=== PATIENT | female | born 1945 | race Caucasian/White ===

== ENCOUNTER 2016-12-03 12:00 | Inpatient (IN) | payer OTHER ==
[~2016-12-03] VITALS: Ht 157.5 cm; Wt 67.8 kg
[~2016-12-03 12:00] MED LIST: ATEN50TA8 PO; CALC500C3 PO; CLOP1TAB15 PO; DULO-24 PO; GABA-113 PO; GLC/500 PO; HYDR25TA4 PO; ISOS30TA3 PO; METH2.5T PO; NTRGSL/4 UT; PRED10TA PO; SIMV20TA5 PO; VERA120T2 PO
[2016-12-03] MEDS ORDERED: SODIUM CHLORIDE 0.9% 1000ML 1,000 ML IV STA (13:08)
[2016-12-03] MEDS ORDERED: SODIUM CHLORIDE 0.9% 1000ML 250 ML IV STA (13:08)
--- NOTE | 2016-12-03 13:10 | EMERGENCY ROOM VISIT NOTE ---
History Report prepared by Lyla: Temo Cheema Under the Supervision of: Dr. Nasim Watson M.D. First contact with patient: 12:59 Chief Complaint: ILLNESS Stated Complaint: ILLNESS History of Present Illness The patient is a 71 year old female who presents to the Emergency Room with complaints of increased weakness of the bilateral lower extremities for the past week. As per her son, the patient has fallen at least three times this week secondary to weakness. Her son has had to pick her up off of the floor. She did not hit her head or lose coconsciousness when she fell. The son does not believe that she has spent extended periods of time on the ground after her falls. The patient also complains of a headache and cough. She has back pain, but is not sure if it is new. The patient has had right foot pain and swelling since one of the falls this week. The patient's son also notes that she has been incontinent at night multiple times this week, and her urine is abnormally foul-smelling. The patient denies any syncope, fevers, chest pain, shortness of breath, abdominal pain, or hematuria. She has not been keeping up with her fluids. The patient lives with her , and her son lives down the street. She has a history of UTIs. The patient is on a blood thinner for a history of CAD and s/p stent placement. She does not have a history of cancer or arthritis. The patient is on Methotrexate. Source of History: patient, family Onset: one week Position: leg (bilateral) Quality: other (weakness) Timing: other (increased) Associated Symptoms: + back pain, + cough, + headache, + urinary symptoms, No SOB, No abdominal pain, No chest pain, No fevers Review of Systems See HPI for pertinent positives & negatives. A total of 10 systems reviewed and were otherwise negative. Past Medical & Surgical Medical Problems: (1) Benign hypertension (2) Cataract surgery (3) Coronary artery disease (4) CVA/TIA/Stroke (5) Diabetes (6) Heart disease (7) Hyperlipidemia (8) Hysterectomy (9) Knee surgery (10) Migraines (11) Otitis (12) PERSONAL HX OF TIA,& CEREBRAL INFARCTION W/OUT RES DEFICITS (13) Placement of stent (14) UTI (urinary tract infection) (15) Weakness Old medical records were reviewed. Nurse's notes were reviewed and I agree with. Family History Patient reports no known family medical history. Social History Smoking Status: Never Smoker Alcohol Use: none Drug Use: none Marital Status: Housing Status: lives with family Occupation Status: retired Current/Historical Medications Scheduled Atenolol (Tenormin), 50 MG PO BID Clopidogrel (Plavix), 75 MG PO Q2D Gabapentin (Neurontin), 300 MG PO TID Isosorbide Mononitrate Ext Rel (Imdur Ext Rel), 30 MG PO QAM Metformin Hcl (Glucophage), 500 MG PO BID Methotrexate (Methotrexate), 8 TABS PO WK Nitroglycerin (Nitrostat), 0.4 MG UT PRN Simvastatin (Zocor), 20 MG PO QPM Verapamil Sust Rel (Calan Sr Ext Rel), 120 MG PO DAILY Scheduled PRN Prednisone Tab (Prednisone), 10 MG PO UD PRN Allergies Coded Allergies: Codeine (Verified Allergy, Unknown, MORPHINE OK, 12/03/16) Latex2 -Systemic Allergic Response (Verified Allergy, Unknown, UNKNOWN, ) Physical Exam Vital Signs Date Time Temp Pulse Resp B/P Pulse Ox O2 Delivery O2 Flow Rate FiO2 12/03/16 14:00 70 16 142/75 96 Room Air 12/03/16 12:18 36.9 70 18 135/75 95 Room Air Physical Exam General: Non ill-appearing female with occasional cough but otherwise in no acute distress. HEENT: Normal cephalic atraumatic. Pupils are equal round and reactive to light. Sclerae are anicteric. Extraocular movements are intact. Oropharynx is pink with moist mucous membranes. No swelling of the mouth lips or tongue. Neck: Supple with a midline trachea. No meningeal signs or stiffness, no JVD or bruits. No Stridor. Chest: Clear to auscultation bilaterally. No wheezes or rhonchi. No increased work of breathing. Heart: regular rate and rhythm. Abdomen: Soft nontender, nondistended without rebound guarding or rigidity. Extremities: No cyanosis clubbing or edema. No calf tenderness or assymetry. Mild swelling of the lateral right ankle. Spine/Back. Non tender to palpation. No CVA tenderness Skin: Good turgor without rashes. Neurologic exam: Cranial nerves two through 12 are intact. Motor and sensation are intact and symmetrical throughout. Medical Decision & Procedures ER Provider Diagnostic Interpretation: X ray results as stated below per my interpretation and radiologist interpretation. Other radiology results as stated below per my review and radiologist interpretation: RIGHT ANKLE MIN 3 VIEWS ROUTINE CLINICAL HISTORY: Right ankle pain following trauma. COMPARISON: None FINDINGS: No acute fracture is identified. A transverse band of sclerosis within the distal right tibia is chronic. Talar dome is intact. There is possible osteopenia. Extensive vascular calcification is present. IMPRESSION: No acute fracture or dislocation of the right ankle identified although sensitivity diminished given apparent osteopenia. Electronically signed by: Vishnu Lewis M.D. 12/03/2016 1:38 PM Dictated Date/Time: 12/03/2016 1:35 PM CHEST ONE VIEW PORTABLE CLINICAL HISTORY: Chest pain. COMPARISON STUDY: Chest radiograph December 08, 2015. FINDINGS: There are cholecystectomy clips. No pneumothorax or pleural effusion is present. No consolidation is identified. Cardiac size is normal. Mediastinal contours are normal. There is no evidence of pulmonary edema. The appearance of the chest is unchanged. IMPRESSION: No acute cardiopulmonary findings. Electronically signed by: Vishnu Lewis M.D. 12/03/2016 1:35 PM Dictated Date/Time: 12/03/2016 1:[address] OF THE HEAD WITHOUT CONTRAST CLINICAL HISTORY: Frequent falls. Evaluate for intracranial hemorrhage. COMPARISON STUDY: Head CT April 29, 2014. CT DOSE: 601.98 mGy.cm TECHNIQUE: Helical axial images of the head were obtained without IV contrast. Automated exposure control was utilized for the study. FINDINGS: No acute intracranial hemorrhage, midline shift or mass effect is present. Ventricular system is unremarkable for age. The basilar cisterns are patent. Atrophy is noted. There is an old lacunar infarct within the left basal ganglia which is new since head CT of April 29, 2014. White matter hypodensity suggests small vessel disease. There are no findings to suggest acute dural sinus thrombosis or acute territorial infarct. There is no calvarial fracture. Visualized portions of the mastoid air cells are clear. There is minimal mucosal thickening of the ethmoid sinuses. IMPRESSION: 1. No acute intracranial findings. 2. Old lacunar infarct within the left basal ganglia which is new since head CT of April 29, 2014. 3. No calvarial fracture. Electronically signed by: Vishnu Lewis M.D. 12/03/2016 2:47 PM Dictated Date/Time: 12/03/2016 2:44 PM Laboratory Results 12/03/16 12:25 Red Blood Count 2.98, Mean Corpuscular Volume 101.0, Mean Corpuscular Hemoglobin 34.9, Mean Corpuscular Hemoglobin Concent 34.6, Mean Platelet Volume 9.1 12/03/16 12:25 Test 12/03/16 12:25 12/03/16 13:08 12/03/16 13:19 12/03/16 13:55 White Blood Count 2.06 K/uL (4.8-10.8) Red Blood Count 2.98 M/uL (4.2-5.4) Hemoglobin 10.4 g/dL (12.0-16.0) Hematocrit 30.1 % (37-47) Mean Corpuscular Volume 101.0 fL (80-100) Mean Corpuscular Hemoglobin 34.9 pg (25-34) Mean Corpuscular Hemoglobin Concent 34.6 g/dl (32-36) Platelet Count 58 K/uL (130-400) Mean Platelet Volume 9.1 fL (7.4-10.4) RDW Standard Deviation 62.6 fL (36.4-46.3) RDW Coefficient of Variation 17.1 % (11.5-14.5) Neutrophils % (Manual) 54.7 % Lymphocytes % (Manual) 33.9 % Monocytes % (Manual) 9.6 % Basophils % (Manual) 0.9 % Metamyelocytes % 0.9 % Neutrophils # (Manual) 1.13 K/uL (1.4-6.5) Total Absolute Neutrophils 1.13 K/uL (1.4-6.5) Lymphocytes # (Manual) 0.70 K/uL (1.2-3.4) Total Absolute Lymphocytes 0.70 K/uL (1.2-3.4) Monocytes # (Manual) 0.20 K/uL (0.11-0.59) Basophils # (Manual) 0.02 K/uL (0-0.2) Metamyelocytes # 0.02 K/uL (0-0) Large Platelets 1+ Anisocytosis PRESENT Macrocytosis PRESENT Prothrombin Time 13.6 SECONDS (9.0-12.0) Prothromb Time International Ratio 1.3 (0.9-1.1) Activated Partial Thromboplast Time 31.4 SECONDS (21.0-31.0) Partial Thromboplastin Ratio 1.2 Anion Gap 11.0 mmol/L (3-11) Est Creatinine Clear Calc Drug Dose 58.7 ml/min Estimated GFR () 88.8 Estimated GFR (Non- 76.6 BUN/Creatinine Ratio 11.2 (10-20) Calcium Level 7.3 mg/dl (8.5-10.1) Total Bilirubin 0.7 mg/dl (0.2-1) Direct Bilirubin 0.3 mg/dl (0-0.2) Aspartate Amino Transf (AST/SGOT) 42 U/L (15-37) Alanine Aminotransferase (ALT/SGPT) 25 U/L (12-78) Alkaline Phosphatase 86 U/L (45-117) Total Creatine Kinase 75 U/L (26-192) Creatine Kinase MB 0.6 ng/ml (0.5-3.6) Total Protein 5.5 gm/dl (6.4-8.2) Albumin 2.9 gm/dl (3.4-5.0) Lipase 138 U/L (73-393) Creatine Kinase MB Ratio (0-3.0) Bedside Troponin I 0.000 ng/ml (0-0.045) YN-Hgd-U-Type Natriuretic Peptide 1816 pg/ml (0-900) Urine Color YELLOW Urine Appearance CLOUDY (CLEAR) Urine pH 6.0 (4.5-7.5) Urine Specific [place] 1.019 (1.000-1.030) Urine Protein 2+ (NEG) Urine Glucose (UA) NEG (NEG) Urine Ketones NEG (NEG) Urine Occult Blood 1+ (NEG) Urine Nitrite POS (NEG) Urine Bilirubin NEG (NEG) Urine Urobilinogen NEG (NEG) Urine Leukocyte Esterase LARGE (NEG) Urine WBC (Auto) >30 /hpf (0-5) Urine RBC (Auto) 5-10 /hpf (0-4) Urine Hyaline Casts (Auto) 1-5 /lpf (0-5) Urine Epithelial Cells (Auto) 10-20 /lpf (0-5) Urine Bacteria (Auto) 4+ (NEG) Laboratory studies as stated above per my review. Medications Administered Medications (Trade) Dose Ordered Sig/Sonam Route Start Time Stop Time Status Last Admin Dose Admin Sodium Chloride 250 ml @ 999 mls/hr Q16M STAT IV 12/03/16 13:08 12/03/16 13:23 DC 12/03/16 13:08 999 MLS/HR Sodium Chloride 1,000 ml @ 100 mls/hr Q10H STAT IV 12/03/16 13:08 12/03/16 17:19 DC 12/03/16 14:48 100 MLS/HR Cefepime HCl/ Dextrose (Maxipime IV/D5 100ml) 112.5 ml @ 200 mls/hr ONE STAT IV 12/03/16 14:26 12/03/16 14:59 DC 12/03/16 15:33 200 MLS/HR Acetaminophen (Tylenol Tab) 650 mg Q4H PRN PO 12/03/16 15:15 01/02/17 15:14 12/03/16 18:54 650 MG ECG Indication: weakness Rate (beats per minute): 70 Rhythm: normal sinus Findings: no acute ischemic change, prolonged QT, no ectopy Comparison ECG Date: 2015 Change: Non-specific T wave abnormality has resolved. ED Course 1300: Past medical records reviewed. The patient was evaluated in room A9b, and a complete history and physical examination were performed. 1308: NSS 1000 ml @ 100 mls/hr, NSS 250 ml @ 999 mls/hr. 1426: Cefepime HCl 2000 mg / dextrose 112.5 ml 200 mls/hr. 1430: Talked with the patient. She is waiting to go to CT scan. I also spoke with her . 1443: Spoke with Dr. Becerra, [place] [facility]. The patient will be evaluated. Medical Decision Differential diagnosis includes UTI, pneumonia, influenza, dehydration, arrhythmia, intracranial process, electrolyte or metabolic abnormality. This patient comes in as described above. She was placed in room A9. She brought in by her family after having frequent falls and weakness. She also has foul-smelling urine. They are concerned about a UTI and she's presented similarly before. She's had no known trauma. She had no chest pain. she has had a cough and possible flulike symptoms. She looks well on exam. IV access was established. She has a nonfocal neurologic exam. she was hydrated with IV normal saline. she is afebrile here. EKG was obtained as well as a CAT scan of her head given that she has fallen several times. She multiple blood testing obtained as well as urinalysis culture and blood cultures. She was found to have some mild ppancytopenia. Her urinalysis strongly suggest a UTI and was foul-smelling. she was given cefepime 2 g IV for coverage of her urine and the fact that she was close to be neutropenic although she was had an ANC of greater than 1000. CAT scan of her head is unremarkable. She has no significant electrode or metabolic abnormalities to suggest sepsis at this point. X-ray of her ankle was unremarkable. chest x-ray does not suggest pneumonia or pneumothorax or CHF. I do think she needs to be admitted for IV antibiotics further treatment and evaluation. I have consulted Dr. Donohue , who promptly saw the patient ER and will admit her for these measures. Consults Time Called: 1440 Consulting Physician: Dr. Becerra [facility] Returned Call: [phone]: Spoke with Dr. Becerra [facility]. The patient will be evaluated. Impression Primary Impression: UTI (urinary tract infection) Additional Impressions: Weakness Pancytopenia Scribe Attestation The scribe's documentation has been prepared under my direction and personally reviewed by me in its entirety. I confirm that the note above accurately reflects all work, treatment, procedures, and medical decision making performed by me. Departure Information Dispostion Being Evaluated By Hospitalist Referrals Robin Brito III, CRNP (PCP) Patient Instructions My [facility] Problem Qualifiers
--- NOTE | 2016-12-03 13:36 | DIAGNOSTIC IMAGING REPORT ---
CHEST ONE VIEW PORTABLE CLINICAL HISTORY: Chest pain. COMPARISON STUDY: Chest radiograph December 08, 2015. FINDINGS: There are cholecystectomy clips. No pneumothorax or pleural effusion is present. No consolidation is identified. Cardiac size is normal. Mediastinal contours are normal. There is no evidence of pulmonary edema. The appearance of the chest is unchanged. IMPRESSION: No acute cardiopulmonary findings. Electronically signed by: Vishnu Lewis M.D. 12/03/2016 1:35 PM Dictated Date/Time: 12/03/2016 1:33 PM
[2016-12-03 13:37] LABS: INR 1.3 (0.9-1.1); PARTIAL THROMBOPLASTIN RATIO 1.2; PROTHROMBIN TIME (PATIENT) 13.6 SECONDS (9.0-12.0)
--- NOTE | 2016-12-03 13:39 | DIAGNOSTIC IMAGING REPORT ---
RIGHT ANKLE MIN 3 VIEWS ROUTINE CLINICAL HISTORY: Right ankle pain following trauma. COMPARISON: None FINDINGS: No acute fracture is identified. A transverse band of sclerosis within the distal right tibia is chronic. Talar dome is intact. There is possible osteopenia. Extensive vascular calcification is present. IMPRESSION: No acute fracture or dislocation of the right ankle identified although sensitivity diminished given apparent osteopenia. Electronically signed by: Vishnu Lewis M.D. 12/03/2016 1:38 PM Dictated Date/Time: 12/03/2016 1:35 PM
[2016-12-03 13:46] LABS: HEMATOCRIT 30.1 % (37-47); MEAN CORPUSCULAR HEMOGLOBIN 34.9 pg (25-34); MEAN CORPUSCULAR HGB CONC 34.6 g/dl (32-36); MEAN PLATELET VOLUME 9.1 fL (7.4-10.4); PLATELET COUNT 58 K/uL (130-400); RED BLOOD COUNT 2.98 M/uL (4.2-5.4); WHITE BLOOD COUNT 2.06 K/uL (4.8-10.8)
[2016-12-03 13:48] LABS: BUN/CREATININE RATIO 11.2 (10-20); CALCIUM 7.3 mg/dl (8.5-10.1); CREATININE 0.77 mg/dl (0.60-1.20); POTASSIUM 3.8 mmol/L (3.5-5.1)
[2016-12-03 13:53] LABS: CKMB/CK RATIO 0.8 (0-3.0)
[2016-12-03 14:07] LABS: ANISOCYTOSIS PRESENT; BASO ABS # 0.02 K/uL (0-0.2); BASOPHIL % 0.9 %; COMPLETE YES; LARGE PLATELETS 1+; LYMPHOCYTE % 33.9 %; META ABS # 0.02 K/uL (0-0); METAMYELOCYTE % 0.9 %; NEUTROPHILS % 54.7 %
[2016-12-03] MEDS ORDERED: CEFEPIME IV 2,000 MG in DEXTROSE 5% 100ML 100 ML IV STA (14:26)
[2016-12-03 14:31] LABS: URINE APPEARANCE CLOUDY (CLEAR); URINE BILIRUBIN NEG (NEG); URINE COLOR YELLOW; URINE NITRITE POS (NEG); URINE SPECIFIC GRAVITY 1.019 (1.000-1.030); UROBILINOGEN NEG (NEG)
[2016-12-03 14:32] LABS: MANUAL MICROSCOPIC REQUIRED? NO; REVIEW REQ? NO
--- NOTE | 2016-12-03 14:48 | DIAGNOSTIC IMAGING REPORT ---
CT OF THE HEAD WITHOUT CONTRAST CLINICAL HISTORY: Frequent falls. Evaluate for intracranial hemorrhage. COMPARISON STUDY: Head CT April 29, 2014. CT DOSE: 601.98 mGy.cm TECHNIQUE: Helical axial images of the head were obtained without IV contrast. Automated exposure control was utilized for the study. FINDINGS: No acute intracranial hemorrhage, midline shift or mass effect is present. Ventricular system is unremarkable for age. The basilar cisterns are patent. Atrophy is noted. There is an old lacunar infarct within the left basal ganglia which is new since head CT of April 29, 2014. White matter hypodensity suggests small vessel disease. There are no findings to suggest acute dural sinus thrombosis or acute territorial infarct. There is no calvarial fracture. Visualized portions of the mastoid air cells are clear. There is minimal mucosal thickening of the ethmoid sinuses. IMPRESSION: 1. No acute intracranial findings. 2. Old lacunar infarct within the left basal ganglia which is new since head CT of April 29, 2014. 3. No calvarial fracture. Electronically signed by: Vishnu Lewis M.D. 12/03/2016 2:47 PM Dictated Date/Time: 12/03/2016 2:44 PM
[2016-12-03] MEDS ORDERED: ZOLPIDEM TARTRATE 5 MG TAB PO PRN (15:15)
[2016-12-03] MEDS ORDERED: CEFTRIAXONE SOD INJ 1 GM in DEXTROSE 5% ADD-VANTAGE 50ML 50 ML IV SCH (15:30)
[2016-12-03 16:00] VITALS: O2SAT 96; Ht 157.5 cm; Wt 67.8 kg
[2016-12-03 17:25] VITALS: BP 147/82; PULSE 73; TEMP 37.1; O2SAT 94
[2016-12-03] MEDS: ACETAMINOPHEN 325 MG TAB PO PRN (18:54)
[2016-12-03] MEDS ORDERED: PNEUMOCOCCAL POLYSACCHARIDES 25 MCG/0.5 ML VIAL/SYR IM. ONE (19:30)
[2016-12-03] MEDS ORDERED: INFLUENZA ADMINISTRATION CHARGE ONE (19:30)
[2016-12-03] MEDS ORDERED: PNEUMOCOCCAL ADMINISTRATION CHARGE ONE (19:30)
--- NOTE | 2016-12-03 19:40 | History and Physical ---
History & Physical Date & Time of Service: Dec 03, 2016 at 19:30 Chief Complaint: Uti, Weakness Primary Care Physician: Robin Brito III, CRNP History of Present Illness Source: patient, spouse The patient is a 71-year-old female who presents emergency department with progressively worsening generalized weakness with decreased ability to ambulate over the past week, and 3 episodes of urinary incontinence in the past 24 hours. She has developed a generalized headache, and intermittently productive cough, and his developed a return of lower extremity edema. She does have a history of recurrent UTIs, as noted her urine is more constant more foul- smelling over the past week. She is on methotrexate weekly. Past Medical/Surgical History Medical Problems: (1) Benign hypertension Status: Chronic (2) Cataract surgery Status: Resolved (3) Coronary artery disease Status: Chronic (4) CVA/TIA/Stroke Status: Chronic (5) Diabetes Status: Chronic (6) Heart disease Status: Chronic (7) Hyperlipidemia Status: Chronic (8) Hysterectomy Status: Resolved (9) Knee surgery Status: Resolved (10) Migraines Status: Chronic (11) Placement of stent Status: Resolved Family History Patient reports no known family medical history. Social History Smoking Status: Never Smoker Smokeless Tobacco Use: No Alcohol Use: none Drug Use: none Marital Status: Housing status: lives with family Occupational Status: retired Immunizations History of Influenza Vaccine: Yes Influenza Vaccine Date: Jul 04, 2011 History of Tetanus Vaccine?: Yes Tetanus Immunization Date: Sep 28, 1995 History of Pneumococcal: Yes Pneumococcal Date: Jun 08, 2011 History of Hepatitis B Vaccine: Yes Hepatitis Immunization Date: Sep 28, 1995 Multi-Drug Resistant Organisms History of MDRO: No Allergies Coded Allergies: Codeine (Verified Allergy, Unknown, MORPHINE OK, 12/03/16) Latex2 -Systemic Allergic Response (Verified Allergy, Unknown, UNKNOWN, ) Home Medications Scheduled Atenolol (Tenormin), 50 MG PO BID Clopidogrel (Plavix), 75 MG PO Q2D Gabapentin (Neurontin), 300 MG PO TID Isosorbide Mononitrate Ext Rel (Imdur Ext Rel), 30 MG PO QAM Metformin Hcl (Glucophage), 500 MG PO BID Methotrexate (Methotrexate), 8 TABS PO WK Nitroglycerin (Nitrostat), 0.4 MG UT PRN Simvastatin (Zocor), 20 MG PO QPM Verapamil Sust Rel (Calan Sr Ext Rel), 120 MG PO DAILY Scheduled PRN Prednisone Tab (Prednisone), 10 MG PO UD PRN Review of Systems The patient denies vision change, hearing change, sore throat, fevers, chills, sweats, weight change, nausea, vomiting, abdominal pain, pelvic pain, blood in urine or stool, dysuria, memory loss, rash, abnormal bruising or bleeding, focal weakness, night sweats, or allergy symptoms. The review of systems is otherwise negative other than for that already noted above, and at least 10 systems have been reviewed. Physical Exam Vital Signs Date Time Temp Pulse Resp B/P Pulse Ox O2 Delivery O2 Flow Rate FiO2 12/03/16 17:25 37.1 73 18 147/82 94 Room Air 12/03/16 16:39 72 18 134/75 96 Room Air 12/03/16 16:00 78 20 127/78 96 Room Air 12/03/16 16:00 96 Room Air 12/03/16 14:00 70 16 142/75 96 Room Air 12/03/16 12:18 36.9 70 18 135/75 95 Room Air The patient is awake, alert and oriented 3, normocephalic and atraumatic, appears fatigued, lying in bed and in no acute distress. HEENT--PERRL, EOMI, mucous membranes and oropharynx dry. Neck--supple, no JVD or bruits, thyroid normal, trachea midline, no adenopathy. Heart--normal S1 and S2, no extra beats, no murmurs, rubs or gallops. Lungs--clear bilaterally but diminished throughout, no respiratory distress, no accessory muscle use. Abdomen--normal bowel sounds and soft, nontender and nondistended, no hernias or masses, no organomegaly. Extremities--no cyanosis, clubbing.there is bilaterally trace to 1+ pitting edema, right greater than left. There are good distal pulses b/l. Dermatologic--normal skin turgor, normal color, warm and dry, no abnormal lymph nodes, no rash. Neurologic--cranial nerves II through XII grossly intact, motor and sensory examination normal. Psychiatric--normal affect. Diagnostics Laboratory Results Results Past 24 Hours Test 12/03/16 12:25 2/18/17 13:08 12/03/16 13:19 12/03/16 13:55 Range/Units White Blood Count 2.06 4.8-10.8 K/uL Red Blood Count 2.98 4.2-5.4 M/uL Hemoglobin 10.4 12.0-16.0 g/dL Hematocrit 30.1 37-47 % Mean Corpuscular Volume 101.0 80-100 fL Mean Corpuscular Hemoglobin 34.9 25-34 pg Mean Corpuscular Hemoglobin Concent 34.6 32-36 g/dl Platelet Count 58 130-400 K/uL Mean Platelet Volume 9.1 7.4-10.4 fL RDW Standard Deviation 62.6 36.4-46.3 fL RDW Coefficient of Variation 17.1 11.5-14.5 % Neutrophils % (Manual) 54.7 % Lymphocytes % (Manual) 33.9 % Monocytes % (Manual) 9.6 % Basophils % (Manual) 0.9 % Metamyelocytes % 0.9 % Neutrophils # (Manual) 1.13 1.4-6.5 K/uL Total Absolute Neutrophils 1.13 1.4-6.5 K/uL Lymphocytes # (Manual) 0.70 1.2-3.4 K/uL Total Absolute Lymphocytes 0.70 1.2-3.4 K/uL Monocytes # (Manual) 0.20 0.11-0.59 K/uL Basophils # (Manual) 0.02 0-0.2 K/uL Metamyelocytes # 0.02 0-0 K/uL Large Platelets 1+ Anisocytosis PRESENT Macrocytosis PRESENT Prothrombin Time 13.6 9.0-12.0 SECONDS Prothromb Time International Ratio 1.3 0.9-1.1 Activated Partial Thromboplast Time 31.4 21.0-31.0 SECONDS Partial Thromboplastin Ratio 1.2 Sodium Level 144 136-145 mmol/L Potassium Level 3.8 3.5-5.1 mmol/L Chloride Level 109 98-107 mmol/L Carbon Dioxide Level 24 21-32 mmol/L Anion Gap 11.0 3-11 mmol/L Blood Urea Nitrogen 9 7-18 mg/dl Creatinine 0.77 0.60-1.20 mg/dl Est Creatinine Clear Calc Drug Dose 58.7 ml/min Estimated GFR () 88.8 Estimated GFR (Non- 76.6 BUN/Creatinine Ratio 11.2 10-20 Random Glucose 93 70-99 mg/dl Calcium Level 7.3 8.5-10.1 mg/dl Total Bilirubin 0.7 0.2-1 mg/dl Direct Bilirubin 0.3 0-0.2 mg/dl Aspartate Amino Transf (AST/SGOT) 42 15-37 U/L Alanine Aminotransferase (ALT/SGPT) 25 12-78 U/L Alkaline Phosphatase 86 45-117 U/L Total Creatine Kinase 75 26-192 U/L Creatine Kinase MB 0.6 0.5-3.6 ng/ml Creatine Kinase MB Ratio 0.8 0-3.0 Total Protein 5.5 6.4-8.2 gm/dl Albumin 2.9 3.4-5.0 gm/dl Lipase 138 73-393 U/L Bedside Troponin I 0.000 0-0.045 ng/ml [id number]-[id number]-Type Natriuretic Peptide 1816 0-900 pg/ml Urine Color YELLOW Urine Appearance CLOUDY CLEAR Urine pH 6.0 4.5-7.5 Urine Specific [place] 1.019 1.000-1.030 Urine Protein 2+ NEG Urine Glucose (UA) NEG NEG Urine Ketones NEG NEG Urine Occult Blood 1+ NEG Urine Nitrite POS NEG Urine Bilirubin NEG NEG Urine Urobilinogen NEG NEG Urine Leukocyte Esterase LARGE NEG Urine WBC (Auto) >30 0-5 /hpf Urine RBC (Auto) 5-10 0-4 /hpf Urine Hyaline Casts (Auto) 1-5 0-5 /lpf Urine Epithelial Cells (Auto) 10-20 0-5 /lpf Urine Bacteria (Auto) 4+ NEG Microbiology Results 12/03/16 Blood Culture, Received Pending 12/03/16 Blood Culture, Received Pending 12/03/16 Urine Culture, Received Pending Diagnostic Radiology Patient Name: MARINA JOHNS Unit Number: [id number] Dictated: 12/03/161443 Transcribed: 12/03/161443 JOHN Printed Date/Time: [~ rep prt dt]/[~ rep prt tm] [~ rep ct labl] - [~ rep ct ivnm] [facility] [place] [address] Dictated: 12/03/161443 Transcribed: 12/03/161443 JOHN Printed Date/Time: [~ rep prt dt]/[~ rep prt tm] [~ rep ct labl] - [~ rep ct ivnm] [~ rep ct add3]] CT OF THE HEAD WITHOUT CONTRAST CLINICAL HISTORY: Frequent falls. Evaluate for intracranial hemorrhage. COMPARISON STUDY: Head CT April 29, 2014. CT DOSE: 601.98 mGy.cm TECHNIQUE: Helical axial images of the head were obtained without IV contrast. Automated exposure control was utilized for the study. FINDINGS: No acute intracranial hemorrhage, midline shift or mass effect is present. Ventricular system is unremarkable for age. The basilar cisterns are patent. Atrophy is noted. There is an old lacunar infarct within the left basal ganglia which is new since head CT of April 29, 2014. White matter hypodensity suggests small vessel disease. There are no findings to suggest acute dural sinus thrombosis or acute territorial infarct. There is no calvarial fracture. Visualized portions of the mastoid air cells are clear. There is minimal mucosal thickening of the ethmoid sinuses. IMPRESSION: 1. No acute intracranial findings. 2. Old lacunar infarct within the left basal ganglia which is new since head CT of April 29, 2014. 3. No calvarial fracture. Electronically signed by: Vishnu Lewis M.D. 12/03/2016 2:47 PM Dictated Date/Time: 12/03/2016 2:44 PM The status of this report is Signed. Draft = Not yet reviewed or approved by Radiologist. Signed = Reviewed and approved by Radiologist. <AttendingPhy></AttendingPhy> <FamilyPhy>Robin Brito III, CRNP</FamilyPhy> < PrimaryPhy>Robin Brito III, CRNP</PrimaryPhy> <UnitNumber>[id number]</ UnitNumber> <VisitNumber>[id number]</VisitNumber> <PatientName>MARINA JOHNS </PatientName> <DateOfBirth>1945</DateOfBirth> <Location>[facility]</Location> <ServiceDate>12/03/16</ServiceDate> <MNE>ESINDI</MNE> <OrderingPhy>Nasim Watson M.D.</OrderingPhy> <OrderingPhyMNE>f rep ord dr dahl</OrderingPhyMNE> < DictatingPhyMNE>f rep dict dr dahl</DictatingPhyMNE> <CCListMNE>f rep ct mne</ CCListMNE> <AdmittingPhyMNE>f pt admit dr dahl</AdmittingPhyMNE> <AttendingPhyMNE >f pt attend dr dahl</AttendingPhyMNE> <ConsultingPhyMNE>f pt consult dr dahl</ConsultingPhyMNE> <FamilyPhyMNE>f pt fam dr dahl</FamilyPhyMNE> <OtherPhyMNE>f pt other dr dahl</OtherPhyMNE> < PrimaryPhyMNE>f pt prim care dr dahl</PrimaryPhyMNE> <ReferringPhyMNE>f pt referring dr dahl</ReferringPhyMNE> Patient Name: MARINA JOHNS Unit Number: [id number] Dictated: 12/03/161332 Transcribed: 12/03/161332 JA Printed Date/Time: [~ rep prt dt]/[~ rep prt tm] [~ rep ct labl] - [~ rep ct ivnm] [facility] Radiology Department [place] [id number] Dictated: 12/03/161332 Transcribed: 12/03/161332 JA Printed Date/Time: [~ rep prt dt]/[~ rep prt tm] [~ rep ct labl] - [~ rep ct ivnm] CHEST ONE VIEW PORTABLE CLINICAL HISTORY: Chest pain. COMPARISON STUDY: Chest radiograph December 08, 2015. FINDINGS: There are cholecystectomy clips. No pneumothorax or pleural effusion is present. No consolidation is identified. Cardiac size is normal. Mediastinal contours are normal. There is no evidence of pulmonary edema. The appearance of the chest is unchanged. IMPRESSION: No acute cardiopulmonary findings. Electronically signed by: Vishnu Lewis M.D. 12/03/2016 1:35 PM Dictated Date/Time: 12/03/2016 1:33 PM The status of this report is Signed. Draft = Not yet reviewed or approved by Radiologist. Signed = Reviewed and approved by Radiologist. <AttendingPhy></AttendingPhy> <FamilyPhy>Robin Brito III, CRNP</FamilyPhy> < PrimaryPhy>Robin Brito III, FLOOR DIRECTOR</PrimaryPhy> <UnitNumber>[id number]</ UnitNumber> <VisitNumber>[id number]</VisitNumber> <PatientName>MARINA JOHNS </PatientName> <DateOfBirth>1945</DateOfBirth> <Location>[facility]</Location> <ServiceDate>12/03/16</ServiceDate> <MNE>ESINDI</MNE> <OrderingPhy>Nasim Watson M.D.</OrderingPhy> <OrderingPhyMNE>f rep ord dr dahl</OrderingPhyMNE> < DictatingPhyMNE>f rep dict dr dahl</DictatingPhyMNE> <CCListMNE>f rep ct mne</ CCListMNE> <AdmittingPhyMNE>f pt admit dr dahl</AdmittingPhyMNE> <AttendingPhyMNE >f pt attend dr dahl</AttendingPhyMNE> <ConsultingPhyMNE>f pt consult dr dahl</ConsultingPhyMNE> <FamilyPhyMNE>f pt fam dr dahl</FamilyPhyMNE> <OtherPhyMNE>f pt other dr dahl</OtherPhyMNE> < PrimaryPhyMNE>f pt prim care dr dahl</PrimaryPhyMNE> <ReferringPhyMNE>f pt referring dr dahl</ReferringPhyMNE> Patient Name: MARINA JOHNS Unit Number: [id number] Dictated: 12/03/161334 Transcribed: 12/03/161334 JA Printed Date/Time: [~ rep prt dt]/[~ rep prt tm] [~ rep ct labl] - [~ rep ct ivnm] [facility] [place] [address] Dictated: 12/03/161334 Transcribed: 12/03/161334 JA Printed Date/Time: [~ rep prt dt]/[~ rep prt tm] [~ rep ct labl] - [~ rep ct ivnm] RIGHT ANKLE MIN 3 VIEWS ROUTINE CLINICAL HISTORY: Right ankle pain following trauma. COMPARISON: None FINDINGS: No acute fracture is identified. A transverse band of sclerosis within the distal right tibia is chronic. Talar dome is intact. There is possible osteopenia. Extensive vascular calcification is present. IMPRESSION: No acute fracture or dislocation of the right ankle identified although sensitivity diminished given apparent osteopenia. Electronically signed by: Vishnu Lewis M.D. 12/03/2016 1:38 PM Dictated Date/Time: 12/03/2016 1:35 PM The status of this report is Signed. Draft = Not yet reviewed or approved by Radiologist. Signed = Reviewed and approved by Radiologist. <AttendingPhy></AttendingPhy> <FamilyPhy>Robin Brito III, CRNP</FamilyPhy> < PrimaryPhy>Robin Brito III, CRNP</PrimaryPhy> <UnitNumber>[id number]</ UnitNumber> <VisitNumber>[id number]</VisitNumber> <PatientName>MARINA JOHNS </PatientName> <DateOfBirth>1945</DateOfBirth> <Location>[facility]</Location> <ServiceDate>12/03/16</ServiceDate> <MNE>ESINDI</MNE> <OrderingPhy>Nasim Watson M.D.</OrderingPhy> <OrderingPhyMNE>f rep ord dr dahl</OrderingPhyMNE> < DictatingPhyMNE>f rep dict dr dahl</DictatingPhyMNE> <CCListMNE>f rep ct [place]</ CCListMNE> <AdmittingPhyMNE>f pt admit dr dahl</AdmittingPhyMNE> <AttendingPhyMNE >f pt attend dr dahl</AttendingPhyMNE> <ConsultingPhyMNE>f pt consult dr dahl</ConsultingPhyMNE> <FamilyPhyMNE>f pt fam dr dahl</FamilyPhyMNE> <OtherPhyMNE>f pt other dr dahl</OtherPhyMNE> < PrimaryPhyMNE>f pt prim care dr dahl</PrimaryPhyMNE> <ReferringPhyMNE>f pt referring dr dahl</ReferringPhyMNE> EKG EKG shows normal sinus rhythm at 70, mildly prolonged QT, in no acute ST-T changes Impression Assessment and Plan UTI/weakness/falls/neutropenia secondary to methotrexate--patient be admitted to the medical floor with neutropenic precautions. We'll place on cefepime 1 g IV every 12 hours, and follow urine cultures and sensitivity results. Place on normal saline with potassium chloride 20 mEq at 100 mils per hour. We'll follow serial CBC with differential, BMP and magnesium levels. CAD/hypertension--continue atenolol 50 mg by mouth twice a day with hold parameters, clopidogrel 75 mg by mouth every 2 days, Imdur extended release 30 mg by mouth every morning and daily and SR 120 mg by mouth daily. Peripheral neuropathy--continue gabapentin 3 mg by mouth 3 times a day. Diabetes mellitus--hold metformin 500 mg by mouth twice a day, pacemaker checks before meals and at bedtime with NovoLog coverage. Hypercholesterolemia--continue simvastatin 20 mg by mouth every afternoon. 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 She also takes prednisone when necessary. We'll place her on stress dose steroids hydrocortisone 100 mg IV every 8 hours. 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 Y/N: Yes Risk Level: Moderate Given or contraindicated: SCD's
[2016-12-03 20:10] VITALS: BP 131/71; PULSE 70
[2016-12-03] MEDS: SIMVASTATIN 20 MG TAB PO SCH (20:19)
[2016-12-03] MEDS: GABAPENTIN 300 MG CAP PO SCH (20:19)
[2016-12-03] MEDS ORDERED: NURSING DECISION MEDICATION ORDER SCH (22:15)
[2016-12-03] MEDS ORDERED: COUGH DROP (SUGAR FREE) LOZ 24 LOZ/1 BOX ONE (22:40)
[2016-12-03] MEDS ORDERED: COUGH DROP (SUGAR FREE) LOZ 24 LOZ/1 BOX PO PRN (23:00)
[2016-12-03 23:31] VITALS: BP 137/73; PULSE 71; TEMP 36.8; O2SAT 95
[2016-12-04] MEDS: ACETAMINOPHEN 325 MG TAB PO PRN ×2 (00:08→07:15)
[2016-12-04] MEDS: TRAMADOL HCL 50 MG TAB PO PRN ×3 (01:29→09:14)
[2016-12-04] MEDS: CEFEPIME IV 1,000 MG in DEXTROSE 5% 100ML 100 ML IV SCH ×2 (04:32→16:31)
[2016-12-04] MEDS: ONDANSETRON INJ 2 MG/ML 2 ML VIAL IV PRN ×3 (05:19→12:53)
[2016-12-04] MEDS: VERAPAMIL HCL 120 MG TABCR PO SCH (07:16)
[2016-12-04] MEDS: ISOSORBIDE MONONITRATE 30 MG TABCR PO SCH (07:16)
[2016-12-04] MEDS: GABAPENTIN 300 MG CAP PO SCH ×3 (07:17→21:03)
[2016-12-04 07:20] VITALS: BP 140/78; PULSE 64; TEMP 36.7; O2SAT 94
[2016-12-04 07:24] LABS: INR 1.2 (0.9-1.1); PARTIAL THROMBOPLASTIN RATIO 1.2; PROTHROMBIN TIME (PATIENT) 13.4 SECONDS (9.0-12.0)
[2016-12-04 07:50] LABS: BUN/CREATININE RATIO 11.8 (10-20); CALCIUM 7.5 mg/dl (8.5-10.1); CREATININE 0.76 mg/dl (0.60-1.20); MAGNESIUM 1.9 mg/dl (1.8-2.4); POTASSIUM 3.8 mmol/L (3.5-5.1)
[2016-12-04 07:53] LABS: HEMATOCRIT 30.6 % (37-47); MEAN CORPUSCULAR HEMOGLOBIN 33.7 pg (25-34); MEAN CORPUSCULAR HGB CONC 33.3 g/dl (32-36); MEAN PLATELET VOLUME 9.3 fL (7.4-10.4); PLATELET COUNT 43 K/uL (130-400); RED BLOOD COUNT 3.03 M/uL (4.2-5.4); WHITE BLOOD COUNT 1.42 K/uL (4.8-10.8)
[2016-12-04 08:50] LABS: ANISOCYTOSIS PRESENT
[2016-12-04 08:55] LABS: BASO ABS # 0.01 K/uL (0-0.2); BASOPHIL % 0.9 %; COMPLETE YES; EOSINOPHIL % 1.7 %; LYMPH ABS # 0.75 K/uL (1.2-3.4); LYMPHOCYTE % 53.1 %; NEUTROPHILS % 30.4 %
[2016-12-04] MEDS ORDERED: OSELTAMIVIR PHOSPHATE 75 MG CAP PO ONE (09:30)
[2016-12-04] MEDS ORDERED: MoRPHine SULFATE 2 MG/ML CARP ONE (11:21)
[2016-12-04] MEDS: PANTOprazole INJ 40 MG in SYRINGE 0 ML IV SCH (11:30)
--- NOTE | 2016-12-04 11:47 | Hospitalist Progress Note ---
Hospitalist Progress Note Date of Service Dec 04, 2016. Subjective Pt evaluation today including: conversation w/ patient, physical exam, chart review, lab review, review of studies, review of inpatient medication list Voiding: incontinence (and going in bed truong as too weak to get out of bed) Pt feeling myalgias all over, still with 6/10 headache that has been present for 2 days since her flu-like symptoms started. COughing and feeling a little SOB. No abd pain, no diarrhea, no chest pain but has felt like chest is a bit heavy when she tries to take a deep breath for the last 1-2 days. Has very low appetite and not eating or drinking much at all. Is making urine but not being measured up to this point. Constitutional: No fever Eyes: No problem reported ENT: + problem reported (anterior neck pain), No unusual epistaxis (and no gum bleeding) Respiratory: + cough, + shortness of breath Cardiovascular: + edema (right lateral ankle since fall on stairs 3 days ago ) Abdomen: No GI bleeding, No constipation, No diarrhea, No nausea, No pain, No vomiting Musculoskeletal: + muscle pain (all over) Female : + dysuria, + incontinence, + urinary frequency (and urgency) Neurologic: + problem reported (h/o dystonia), + weakness (generalized) Heme: No abnormal bleeding/bruising Skin: No rash Objective Vital Signs Date Time Temp Pulse Resp B/P Pulse Ox O2 Delivery O2 Flow Rate FiO2 12/04/16 07:20 36.7 64 20 140/78 94 Room Air 12/04/16 00:00 Room Air 12/03/16 23:31 36.8 71 16 137/73 95 Room Air 12/03/16 20:10 70 131/71 12/03/16 17:25 37.1 73 18 147/82 94 Room Air 12/03/16 16:39 72 18 134/75 96 Room Air 12/03/16 16:00 78 20 127/78 96 Room Air 12/03/16 16:00 96 Room Air 12/03/16 14:00 70 16 142/75 96 Room Air 12/03/16 12:18 36.9 70 18 135/75 95 Room Air Physical Exam General Appearance: no apparent distress (but appears ill) Eyes: normal inspection, EOMI, sclerae normal ENT: hearing grossly normal, pharynx normal (and no sores, ulcerations, or bleeding), + pertinent finding (no TTP over face, PERRL) Neck: supple, no adenopathy, thyroid normal, trachea midline, + pertinent finding (+TTP over anterior cervical region without palpable DIPIKA) Respiratory/Chest: no respiratory distress, no accessory muscle use, + crackles (at right base but oterhwise CTAB) Cardiovascular: regular rate, rhythm, no edema, no gallop, no murmur Abdomen: normal bowel sounds, non tender, soft Extremities: no calf tenderness, + swelling (focal edema over right lateral malleolus and just anterior to this with exquisite TTP, no bony TTP though and FROM of ankle and knee, no TTP over any other joints, neg ant drawer test of ankle) Neurologic/Psychiatric: no motor/sensory deficits, alert, normal mood/affect Skin: normal color, warm/dry, no rash Laboratory Results Last 24 Hours Test 12/03/16 12:25 12/03/16 13:08 12/03/16 13:19 12/03/16 13:55 White Blood Count 2.06 K/uL Red Blood Count 2.98 M/uL Hemoglobin 10.4 g/dL Hematocrit 30.1 % Mean Corpuscular Volume 101.0 fL Mean Corpuscular Hemoglobin 34.9 pg Mean Corpuscular Hemoglobin Concent 34.6 g/dl Platelet Count 58 K/uL Mean Platelet Volume 9.1 fL RDW Standard Deviation 62.6 fL RDW Coefficient of Variation 17.1 % Neutrophils % (Manual) 54.7 % Lymphocytes % (Manual) 33.9 % Monocytes % (Manual) 9.6 % Basophils % (Manual) 0.9 % Metamyelocytes % 0.9 % Neutrophils # (Manual) 1.13 K/uL Total Absolute Neutrophils 1.13 K/uL Lymphocytes # (Manual) 0.70 K/uL Total Absolute Lymphocytes 0.70 K/uL Monocytes # (Manual) 0.20 K/uL Basophils # (Manual) 0.02 K/uL Metamyelocytes # 0.02 K/uL Large Platelets 1+ Anisocytosis PRESENT Macrocytosis PRESENT Prothrombin Time 13.6 SECONDS Prothromb Time International Ratio 1.3 Activated Partial Thromboplast Time 31.4 SECONDS Partial Thromboplastin Ratio 1.2 Sodium Level 144 mmol/L Potassium Level 3.8 mmol/L Chloride Level 109 mmol/L Carbon Dioxide Level 24 mmol/L Anion Gap 11.0 mmol/L Blood Urea Nitrogen 9 mg/dl Creatinine 0.77 mg/dl Est Creatinine Clear Calc Drug Dose 58.7 ml/min Estimated GFR () 88.8 Estimated GFR (Non- 76.6 BUN/Creatinine Ratio 11.2 Random Glucose 93 mg/dl Calcium Level 7.3 mg/dl Total Bilirubin 0.7 mg/dl Direct Bilirubin 0.3 mg/dl Aspartate Amino Transf (AST/SGOT) 42 U/L Alanine Aminotransferase (ALT/SGPT) 25 U/L Alkaline Phosphatase 86 U/L Total Creatine Kinase 75 U/L Creatine Kinase MB 0.6 ng/ml Creatine Kinase MB Ratio 0.8 Total Protein 5.5 gm/dl Albumin 2.9 gm/dl Lipase 138 U/L Bedside Troponin I 0.000 ng/ml [id number] Natriuretic Peptide 1816 pg/ml Urine Color YELLOW Urine Appearance CLOUDY Urine pH 6.0 Urine Specific Calcium 1.019 Urine Protein 2+ Urine Glucose (UA) NEG Urine Ketones NEG Urine Occult Blood 1+ Urine Nitrite POS Urine Bilirubin NEG Urine Urobilinogen NEG Urine Leukocyte Esterase LARGE Urine WBC (Auto) >30 /hpf Urine RBC (Auto) 5-10 /hpf Urine Hyaline Casts (Auto) 1-5 /lpf Urine Epithelial Cells (Auto) 10-20 /lpf Urine Bacteria (Auto) 4+ Test 12/03/16 21:49 12/04/16 07:00 Influenza Type A Antigen Neg for Influ A Influenza Type B Antigen POS for Influ B White Blood Count 1.42 K/uL Red Blood Count 3.03 M/uL Hemoglobin 10.2 g/dL Hematocrit 30.6 % Mean Corpuscular Volume 101.0 fL Mean Corpuscular Hemoglobin 33.7 pg Mean Corpuscular Hemoglobin Concent 33.3 g/dl Platelet Count 43 K/uL Mean Platelet Volume 9.3 fL RDW Standard Deviation 63.3 fL RDW Coefficient of Variation 17.2 % Neutrophils % (Manual) 30.4 % Lymphocytes % (Manual) 53.1 % Monocytes % (Manual) 13.9 % Eosinophils % (Manual) 1.7 % Basophils % (Manual) 0.9 % Neutrophils # (Manual) 0.43 K/uL Total Absolute Neutrophils 0.43 K/uL Lymphocytes # (Manual) 0.75 K/uL Total Absolute Lymphocytes 0.75 K/uL Monocytes # (Manual) 0.20 K/uL Eosinophils # (Manual) 0.02 K/uL Basophils # (Manual) 0.01 K/uL Anisocytosis PRESENT Prothrombin Time 13.4 SECONDS Prothromb Time International Ratio 1.2 Activated Partial Thromboplast Time 31.5 SECONDS Partial Thromboplastin Ratio 1.2 Sodium Level 143 mmol/L Potassium Level 3.8 mmol/L Chloride Level 109 mmol/L Carbon Dioxide Level 24 mmol/L Anion Gap 10.0 mmol/L Blood Urea Nitrogen 9 mg/dl Creatinine 0.76 mg/dl Est Creatinine Clear Calc Drug Dose 59.5 ml/min Estimated GFR () 90.2 Estimated GFR (Non- 77.8 BUN/Creatinine Ratio 11.8 Random Glucose 93 mg/dl Calcium Level 7.5 mg/dl Magnesium Level 1.9 mg/dl Total Bilirubin 0.7 mg/dl Direct Bilirubin 0.3 mg/dl Aspartate Amino Transf (AST/SGOT) 47 U/L Alanine Aminotransferase (ALT/SGPT) 25 U/L Alkaline Phosphatase 90 U/L Total Protein 5.5 gm/dl Albumin 2.8 gm/dl Assessment and Plan The patient is a 71-year-old female with a h/o HTN, CAD/stent, TIA, DMII, dyslipidemia, dystonia, frequent UTIs, and Bechet's who presents with progressively worsening generalized weakness with decreased ability to ambulate over the past week with a fall going up the stairs 2 days [employer] with right ankle sprain. SHe also had 3 episodes of urinary incontinence in the past 24 hours. She has developed a generalized headache, and intermittently productive cough. She does have a history of recurrent UTIs, as noted her urine is more constant more foul-smelling over the past week. She is on methotrexate weekly and was neutropenic on admission. Flu B is positive. Head CT neg, Right ankle xray neg for fracture, CXR without PNA or effusions. UTI/weakness/fall with ankle sprain/neutropenia secondary to methotrexate and Influenza B respiratory tract infection-- Ur cx growing GNRs, ANC down to 430. Fall and weakness secondary to Influenza and UTI -admitted to the medical floor with neutropenic precautions -continue cefepime 1 g IV every 12 hours for UTI, continue Tamiflu x 5 day course -follow urine culture, BCxs -start maintenance IVFs D5 1/2NS as has very little po intake due to anorexia/ illness -follow CBC with differential, BMP and magnesium levels -PT/OT consult when feeling improved -May need splint for ankle sprain -morphine for headache, head CT neg so likely from influenza but if persists or worsens, consider repeat head CT considering she fell 3 days ago CAD/hypertension/Dyslipidemia--stable, troponin negative on admission, ECG with prolonged QTc 494 but otherwise no ischemic changes -continue atenolol 50 mg by mouth twice a day with hold parameters -hold clopidogrel 75 mg for thrombocytopenia -continue Imdur, verapamil, statin Pancytopenia-secondary to MTX as well as acute viral illness, no signs of bleeding -neutropenic precautions -follow CBC -transfuse for Hgb less than 7-8 or plts < 50k with bleeding or <20k -consider Hematology consultation if worsening Peripheral neuropathy--continue gabapentin 3 mg by mouth 3 times a day. Diabetes mellitus type II--hold metformin 500 mg by mouth twice a day, accuchecks before meals and at bedtime with NovoLog coverage. Behcet's Syndrome / inflammatory arthritis--usually takes methotrexate 8 tablets by mouth weekly which will be on hold-last dose was 12/03 at home as per pt. - She also takes prednisone when necessary. Was placed her on stress dose steroids hydrocortisone 100 mg IV every 8 hours but will stop as BPs are actually high and is on her antihypertensives, not taking prednisone frequently or daily Proph- SCDs only due to pancytopenia Dispo- FULL CODE
[2016-12-04] MEDS: D5W AND 1/2NSS 1,000 ML IV SCH (12:40)
[2016-12-04] MEDS ORDERED: NURSING VERBAL MED ORDER ONE ×3 (12:45→15:15)
[2016-12-04] MEDS ORDERED: HYDROmorphone INJ 0.5 MG/0.5 ML SYR ONE (13:24)
[2016-12-04] MEDS ORDERED: HYDROmorphone INJ 0.5 MG/0.5 ML SYR IV ONE (13:45)
--- NOTE | 2016-12-04 14:05 | DIAGNOSTIC IMAGING REPORT ---
HEAD CT NONCONTRAST CT DOSE: 601.98 mGy.cm HISTORY: Headache persistent headache s/p fall 3 days ago TECHNIQUE: Multiaxial CT images of the head were performed without the use of intravenous contrast. Comparison: 12/03/2016 Findings: The paranasal sinuses and mastoid air cells are clear. Mild cerebellar as well as cerebral atrophy. 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 No new or interval process. No acute intracranial hemorrhage. Impression: Chronic change. Atrophy. No acute or interval process. Electronically signed by: Kristopher Armenta M.D. 12/04/2016 2:04 PM Dictated Date/Time: 12/04/2016 2:02 PM
[2016-12-04 14:47] VITALS: BP 112/68; PULSE 59; TEMP 36.8; O2SAT 95
[2016-12-04] MEDS ORDERED: PROMETHAZINE HCL INJ 12.5 MG in SODIUM CHLORIDE 0.9% 50ML 50 ML IV PRN (15:15)
[2016-12-04] MEDS ORDERED: INFLUENZA VIRUS QUAD VACCINE 0.5 ML SYR IM. ONE (19:30)
[2016-12-04] MEDS ORDERED: HYDROmorphone INJ 0.5 MG/0.5 ML SYR IV PRN (20:00)
[2016-12-04] MEDS: OSELTAMIVIR PHOSPHATE 75 MG CAP PO SCH (21:03)
[2016-12-04] MEDS: SIMVASTATIN 20 MG TAB PO SCH (21:03)
[2016-12-04 21:33] VITALS: O2SAT 92
[2016-12-04 21:45] VITALS: BP 151/88; PULSE 88; O2SAT 92
[2016-12-04] MEDS ORDERED: HYDROCORTISONE IV 100 MG in SYRINGE 0 ML IV SCH (23:00)
[2016-12-05] VITALS (15 sets, daily range): BP systolic 86–167; BP diastolic 48–95; PULSE 62–112; TEMP 36.6–39.4; O2SAT 88–96
[2016-12-05] MEDS: ACETAMINOPHEN IV 100 ML IV PRN (00:12)
[2016-12-05] MEDS ORDERED: LEVALBUTEROL/IPRATROPIUM NEB INH ONE (00:39)
[2016-12-05] MEDS ORDERED: SODIUM CHLORIDE 0.9% 500ML 500 ML IV ONE ×2 (00:45→03:00)
[2016-12-05] MEDS ORDERED: LEVALBUTEROL 1.25MG/0.5ML NEB INH STA (01:24)
[2016-12-05] MEDS ORDERED: IPRATROPIUM BROMIDE NEB SOLN 0.02% 2.5 ML VIAL INH STA (01:24)
[2016-12-05] MEDS: D5W AND 1/2NSS 1,000 ML IV SCH (01:35)
[2016-12-05] MEDS: LEVALBUTEROL 1.25MG/0.5ML NEB INH SCH ×4 (02:16→21:10)
[2016-12-05] MEDS: IPRATROPIUM BROMIDE NEB SOLN 0.02% 2.5 ML VIAL INH SCH ×4 (02:16→21:10)
[2016-12-05] MEDS ORDERED: PIPERACILL/TAZOBAC IV 4.5 GM in DEXTROSE 5% 100ML 100 ML IV ONE (02:45)
[2016-12-05 02:56] LABS: HEMATOCRIT 32.6 % (37-47); MEAN CORPUSCULAR HEMOGLOBIN 34.4 pg (25-34); MEAN CORPUSCULAR HGB CONC 34.4 g/dl (32-36); RED BLOOD COUNT 3.26 M/uL (4.2-5.4); WHITE BLOOD COUNT 4.99 K/uL (4.8-10.8)
[2016-12-05 02:58] LABS: MEAN PLATELET VOLUME 9.5 fL (7.4-10.4); PLATELET COUNT 55 K/uL (130-400)
[2016-12-05] MEDS ORDERED: LEVALBUTEROL/IPRATROPIUM NEB INH SCH (03:00)
[2016-12-05 03:05] LABS: CALCIUM 7.2 mg/dl (8.5-10.1); CREATININE 0.97 mg/dl (0.60-1.20); POTASSIUM 3.8 mmol/L (3.5-5.1)
[2016-12-05 03:14] LABS: BASO % 0.2 %; BASO ABS # 0.01 K/uL (0-0.2); COMPLETE YES; IG% 0.2 %; LYMPH % 12.6 %; LYMPH ABS # 0.63 K/uL (1.2-3.4); MONO % 12.8 %; NEUT % 74.2 %
[2016-12-05] MEDS ORDERED: PIPERACILL/TAZOBAC CONSULT ACTIVE PRN (03:15)
--- NOTE | 2016-12-05 06:50 | Progress Note ---
Progress Note [facility] [address] [place] [address] Progress Note: Blank Patient Name: Estee Rehman Unit Number: [id number] Date of : 1945 Patient Status: Admitted Inpatient Attending Doctor: Martha George MD Progress Note - Blank Text Box Progress Note I was paged at approximately 00:19. Patient was noted to be febrile with a temperature 39.4. I gave the following instructions prior to my arrival: Obtain a full set of vitals and I would be up to see the patient I arrived at the to the bedside to assess the patient: SUBJECTIVE: Patient notes feeling generally unwell. Unable to state specifically her symptoms. Notes she is short of breath, but this is unchanged since her admission. She denies dysuria. She denies chest pain. Both legs are slightly sore. OBJECTIVE: Vital signs: Temp 39.4; HR 112; RR 22; BP 167/83; 90% on 4 L by nasal cannula Gen. inspection: Patient alert and oriented, mild distress, slightly slow in her thinking but answers questions appropriately Cardiac: S1 and S2 with no added sounds or murmurs, tachycardia noted Respiratory: Diffuse end expiratory wheezing, no focal evidence of crackles ASSESSMENT/PLAN: 31-year-old female admitted for obtundation of urinary tract infection and influenza virus infection, with new onset pyrexia. Patient is on cefepime at this time. Initial management as follows - IV Tylenol was administered; notify me in one hour of patient's temperature - Gentle bolus of 500 mL normal saline - Xopenex/Atrovent treatments stat - If patient remains febrile and one hour, will do septic workup, and change antibiotics. 01:21 I was messaged by nursing, to notify me the patient remained febrile with a temperature 39.4. HR 109; BP 165/92; 90% on 4L by nasal cannula I started a workup with the following: - CBC with auto differential; BMP; Lactate; Pro calcitonin; repeat blood cultures 2 - Stat AP chest x-ray - Additional 500 mL normal saline bolus - Cefepime discontinued; Pipracil/Tazobactam started 00:30 Labs reviewed Item Value Date Time White Blood Count 4.99 K/uL 12/05/16 0240 Hemoglobin 11.2 g/dL L 12/05/16 0240 Hematocrit 32.6 % L 12/05/16 0240 Platelet Count 55 K/uL L 12/05/16 0240 Sodium Level 140 mmol/L 12/05/16 0236 Potassium Level 3.8 mmol/L 12/05/16 0236 Chloride Level 105 mmol/L 12/05/16 0236 Carbon Dioxide Level 23 mmol/L 12/05/16 0236 Anion Gap 12.0 mmol/L H 12/05/16 0236 Blood Urea Nitrogen 10 mg/dl 12/05/16 0236 Creatinine 0.97 mg/dl 12/05/16 0236 Estimated GFR (Non- 57.9 12/05/16 0236 Random Glucose 171 mg/dl H 12/05/16 0236 Calcium Level 7.2 mg/dl L 12/05/16 0236 Lactic Acid Level 1.5 mmol/L 12/05/16 0236 ` Protocol calcitonin level still pending - I will repeat a urine culture at this time 03:00 Pro calcitonin reviewed Item Value Date Time Procalcitonin 1.70 ng/mL H 12/05/16 0236 06:30 Requested repeat set of vitals from nursing. Vital signs: Temp 37.2; BP 108/64; HR 76; RR 18; 93% on 4 L by nasal cannula Per nursing, patient appearing much more comfortable at this time. Plan: I will defer further management to the day team, unless patient's clinical condition changes before starting day shift.
[2016-12-05 07:04] LABS: HEMATOCRIT 28.4 % (37-47); MEAN CELL VOLUME 102.2 fL (80-100); MEAN CORPUSCULAR HEMOGLOBIN 34.5 pg (25-34); MEAN CORPUSCULAR HGB CONC 33.8 g/dl (32-36); RED BLOOD COUNT 2.78 M/uL (4.2-5.4); WHITE BLOOD COUNT 5.37 K/uL (4.8-10.8)
--- NOTE | 2016-12-05 07:26 | DIAGNOSTIC IMAGING REPORT ---
CHEST ONE VIEW PORTABLE CLINICAL HISTORY: hypoxia, pyrexia x 2; rule out PNA COMPARISON STUDY: Chest radiograph December 03, 2016. FINDINGS: Lung volumes are normal. There is no pneumothorax or pleural effusion. Cardiomediastinal silhouette is normal. There has been interval development of bilateral perihilar consolidation with interstitial thickening within the lungs. IMPRESSION: Interval development of bibasilar and perihilar consolidation which suggests pneumonia. Pulmonary edema could appear similar although is considered less likely. Electronically signed by: Vishnu Lewis M.D. 12/05/2016 7:25 AM Dictated Date/Time: 12/05/2016 7:22 AM
[2016-12-05 07:28] LABS: MEAN PLATELET VOLUME 9.1 fL (7.4-10.4); PLATELET COUNT 43 K/uL (130-400)
[2016-12-05 07:39] LABS: BUN/CREATININE RATIO 9.8 (10-20); CALCIUM 6.8 mg/dl (8.5-10.1); CREATININE 1.1 mg/dl (0.60-1.20); MAGNESIUM 1.6 mg/dl (1.8-2.4); POTASSIUM 3.4 mmol/L (3.5-5.1)
[2016-12-05 07:51] LABS: ANISOCYTOSIS PRESENT; BASO % 0.2 %; BASO ABS # 0.01 K/uL (0-0.2); COMPLETE YES; IG% 0.2 %; LYMPH % 15.1 %; LYMPH ABS # 0.81 K/uL (1.2-3.4); MONO % 14.7 %; NEUT % 69.8 %; PLT ESTIMATE DECREASED; POLYCHROMASIA 1+
[2016-12-05] MEDS: GABAPENTIN 300 MG CAP PO SCH ×3 (09:11→21:00)
[2016-12-05] MEDS: ISOSORBIDE MONONITRATE 30 MG TABCR PO SCH (09:11)
[2016-12-05] MEDS: OSELTAMIVIR PHOSPHATE 75 MG CAP PO SCH (09:11)
[2016-12-05] MEDS: VERAPAMIL HCL 120 MG TABCR PO SCH (09:11)
[2016-12-05] MEDS: PIPERACILL/TAZOBAC IV 3.375 GM in DEXTROSE 5% 100ML IV SCH ×3 (09:17→23:55)
[2016-12-05] MEDS: ACETAMINOPHEN 325 MG TAB PO PRN (09:18)
[2016-12-05] MEDS: PANTOprazole INJ 40 MG in SYRINGE 0 ML IV SCH (11:21)
[2016-12-05] MEDS: TRAMADOL HCL 50 MG TAB PO PRN ×2 (11:35→16:05)
--- NOTE | 2016-12-05 13:25 | Progress Note ---
Subjective Date of Service: Dec 05, 2016. Subjective Pt evaluation today including: conversation w/ patient, physical exam, chart review, lab review, review of studies, review of inpatient medication list Problem List Medical Problems: (1) Lactic acidosis Status: Acute (2) Pancytopenia Status: Acute (3) UTI (urinary tract infection) Status: Acute (4) Weakness Status: Acute Review of Systems Constitutional: No chills, No fever Respiratory: No cough, No dyspnea on exertion, No shortness of breath, No sputum, No wheezing Cardiac: No chest pain, No orthopnea Abdomen: No constipation, No diarrhea, No nausea, No pain, No vomiting Musculoskeletal: No joint pain, No muscle pain Female : No dysuria, No urinary frequency Objective Vital Signs Date Time Temp Pulse Resp B/P Pulse Ox O2 Delivery O2 Flow Rate FiO2 12/05/16 07:53 73 18 96 Nasal Cannula 4.0 12/05/16 07:45 36.7 74 20 121/72 95 12/05/16 06:18 37.2 76 18 108/64 93 Nasal Cannula 4.0 12/05/16 03:44 38.5 92 18 133/81 91 Nasal Cannula 4.0 12/05/16 02:06 38.7 103 22 165/95 91 Nasal Cannula 4.0 12/05/16 01:13 39.4 109 22 165/92 90 Nasal Cannula 4.0 12/05/16 01:03 111 20 90 Nasal Cannula 4.0 12/05/16 00:16 90 Nasal Cannula 4.0 12/05/16 00:01 39.4 112 22 167/83 88 Nasal Cannula 4.0 12/05/16 00:00 Nasal Cannula 4.0 12/04/16 21:45 88 16 151/88 92 Nasal Cannula 4.0 12/04/16 21:33 92 Nasal Cannula 4.0 12/04/16 20:33 Nasal Cannula 2.0 12/04/16 16:00 Nasal Cannula 2.0 12/04/16 14:47 36.8 59 20 112/68 95 2.0 Physical Exam General Appearance: WD/WN, no apparent distress Neck: supple, no adenopathy Respiratory/Chest: lungs clear, normal breath sounds Cardiovascular: no gallop, no JVD Neurologic/Psychiatric: alert, normal mood/affect Laboratory Results Last 24 Hours Test 12/05/16 02:36 12/05/16 02:40 12/05/16 06:38 12/05/16 11:45 Sodium Level 140 mmol/L 138 mmol/L Potassium Level 3.8 mmol/L 3.4 mmol/L Chloride Level 105 mmol/L 104 mmol/L Carbon Dioxide Level 23 mmol/L 23 mmol/L Anion Gap 12.0 mmol/L 11.0 mmol/L Blood Urea Nitrogen 10 mg/dl 11 mg/dl Creatinine 0.97 mg/dl 1.10 mg/dl Est Creatinine Clear Calc Drug Dose 46.6 ml/min 41.1 ml/min Estimated GFR () 67.2 57.7 Estimated GFR (Non- 57.9 49.8 BUN/Creatinine Ratio 10.0 9.8 Random Glucose 171 mg/dl 173 mg/dl Lactic Acid Level 1.5 mmol/L Calcium Level 7.2 mg/dl 6.8 mg/dl Procalcitonin 1.70 ng/mL White Blood Count 4.99 K/uL 5.37 K/uL Red Blood Count 3.26 M/uL 2.78 M/uL Hemoglobin 11.2 g/dL 9.6 g/dL Hematocrit 32.6 % 28.4 % Mean Corpuscular Volume 100.0 fL 102.2 fL Mean Corpuscular Hemoglobin 34.4 pg 34.5 pg Mean Corpuscular Hemoglobin Concent 34.4 g/dl 33.8 g/dl Platelet Count 55 K/uL 43 K/uL Mean Platelet Volume 9.5 fL 9.1 fL Neutrophils (%) (Auto) 74.2 % 69.8 % Lymphocytes (%) (Auto) 12.6 % 15.1 % Monocytes (%) (Auto) 12.8 % 14.7 % Eosinophils (%) (Auto) 0.0 % 0.0 % Basophils (%) (Auto) 0.2 % 0.2 % Neutrophils # (Auto) 3.70 K/uL 3.75 K/uL Lymphocytes # (Auto) 0.63 K/uL 0.81 K/uL Monocytes # (Auto) 0.64 K/uL 0.79 K/uL Eosinophils # (Auto) 0.00 K/uL 0.00 K/uL Basophils # (Auto) 0.01 K/uL 0.01 K/uL RDW Standard Deviation 62.5 fL 64.6 fL RDW Coefficient of Variation 17.3 % 17.2 % Immature Granulocyte % (Auto) 0.2 % 0.2 % Immature Granulocyte # (Auto) 0.01 K/uL 0.01 K/uL Red Blood Cell Morphology Unremarkable Platelet Estimate DECREASED Polychromasia 1+ Anisocytosis PRESENT Magnesium Level 1.6 mg/dl Total Bilirubin 0.9 mg/dl Direct Bilirubin 0.4 mg/dl Aspartate Amino Transf (AST/SGOT) 42 U/L Alanine Aminotransferase (ALT/SGPT) 21 U/L Alkaline Phosphatase 79 U/L Total Protein 5.1 gm/dl Albumin 2.6 gm/dl Bedside Glucose 134 mg/dl Assessment and Plan The patient is a 71-year-old female with a h/o HTN, CAD/stent, TIA, DMII, dyslipidemia, dystonia, frequent UTIs, and Bechet's who presents with progressively worsening generalized weakness with decreased ability to ambulate over the past week with a fall going up the stairs 2 days [employer] with right ankle sprain. She also had 3 episodes of urinary incontinence in the past 24 hours. She has developed a generalized headache, and intermittently productive cough. She does have a history of recurrent UTIs, as noted her urine is more constant more foul-smelling over the past week. She is on methotrexate weekly and was neutropenic on admission. Flu B is positive. Head CT neg, Right ankle xray neg for fracture, CXR without PNA or effusions. UTI/weakness/fall with ankle sprain/neutropenia secondary to methotrexate and Influenza B respiratory tract infection -- Ur cx growing GNRs, ANC down to 430. Fall and weakness secondary to Influenza and UTI -admitted to the medical floor with neutropenic precautions -continue cefepime 1 g IV q12 h and zosyn as well due to persistent fevers, continue Tamiflu x 5 day course -urine cx pos for klebsiella, BCxs pending -start maintenance IVFs D5 1/2NS as has very little PO intake due to anorexia/ illness -follow CBC with differential, BMP and magnesium levels -PT/OT consult when feeling improved -May need splint for ankle sprain -morphine for headache, head CT neg so likely from influenza but if persists or worsens, consider repeat head CT considering she fell 3 days ago CAD/hypertension/Dyslipidemia--stable, troponin negative on admission, ECG with prolonged QTc 494 but otherwise no ischemic changes -continue atenolol 50 mg by mouth twice a day with hold parameters -hold clopidogrel 75 mg for thrombocytopenia -continue Imdur, verapamil, statin Pancytopenia-secondary to MTX as well as acute viral illness, no signs of bleeding -neutropenic precautions -follow CBC -transfuse for Hgb less than 7-8 or plts < 50k with bleeding or <20k -consider Hematology consultation if worsening Peripheral neuropathy--continue gabapentin 3 mg by mouth 3 times a day. Diabetes mellitus type II--hold metformin 500 mg by mouth twice a day, accuchecks before meals and at bedtime with NovoLog coverage. Behcet's Syndrome / inflammatory arthritis--usually takes methotrexate 8 tablets by mouth weekly which will be on hold-last dose was 12/03 at home as per pt. - She also takes prednisone when necessary. Was placed her on stress dose steroids hydrocortisone 100 mg IV every 8 hours but will stop as BPs are actually high and is on her antihypertensives, not taking prednisone frequently or daily Proph- SCDs only due to pancytopenia Dispo- FULL CODE
[2016-12-05] MEDS ORDERED: POTASSIUM CHLORIDE 10 MEQ TABCR PO ONE (13:45)
[2016-12-05] MEDS ORDERED: HYDROCODONE/ACETAMOPHEN 5/325MG TAB ONE (14:17)
[2016-12-05] MEDS ORDERED: NURSING VERBAL MED ORDER ONE (14:30)
[2016-12-05] MEDS: MoRPHine SULFATE 2 MG/ML CARP IV PRN (17:24)
[2016-12-05] MEDS: MAGNESIUM OXIDE 400 MG TAB PO SCH (21:01)
[2016-12-05] MEDS: SIMVASTATIN 20 MG TAB PO SCH (21:01)
[2016-12-05] MEDS: OSELTAMIVIR PHOSPHATE SUSP 30 MG/5 ML UDP PO SCH (21:04)
[2016-12-05] MEDS ORDERED: GLUCOSE 40% GEL 15 GM TUBE PO PRN (23:45)
[2016-12-05] MEDS ORDERED: GLUCOSE 10 TABS/TUBE PO PRN (23:45)
[2016-12-05] MEDS ORDERED: GLUCAGON FOR INJ 1 MG VIAL SQ PRN (23:45)
[2016-12-05] MEDS ORDERED: DEXTROSE 50% 50 ML SYR IV PRN (23:45)
[2016-12-06] VITALS (8 sets, daily range): BP systolic 101–123; BP diastolic 61–70; PULSE 68–79; TEMP 36.7–37.5; O2SAT 91–99
[2016-12-06] MEDS: LEVALBUTEROL 1.25MG/0.5ML NEB INH SCH ×4 (02:20→19:38)
[2016-12-06] MEDS: IPRATROPIUM BROMIDE NEB SOLN 0.02% 2.5 ML VIAL INH SCH ×4 (02:20→19:38)
[2016-12-06] MEDS: INSULIN ASPART 100 UNITS/ML 3 ML PEN SC SCH ×4 (06:30→21:29)
--- NOTE | 2016-12-06 06:48 | Clinical Documentation Query ---
CLINICAL DOCUMENTATION QUERY In your clinical opinion is this patient being managed for: ( X ) Influenza B with likely Staph or Gram negative pneumonia (X ) Likely POA ( ) Not POA ( ) Other explanation of clinical findings (Please Explain) ( ) Unable to determine (Please Define) ( ) Need to Discuss ( ) Not Agree The medical record reflects the following clinical findings, treatment, and risk factors. Clinical Indicators: Shortly after admission patient became febrile 39.4, tachycardic 109, hypoxic on 4L 90%. Repeat CXR showed development of bibasilar and perihilar consolidation which suggests pneumonia. Treatment: IVF bolus, IV Cefepime, IV Hydrocortisone, IV Zosyn, Duonebs, O2 @ 4L Risk Factors: Age and influenza Please clarify and document your clinical opinion in the progress notes and discharge summary. Terms such as "probable", "suspected", "likely", "questionable", "possible", or "still to be ruled out" are acceptable. IF IN AGREEMENT, YOU MUST DOCUMENT ABOVE DIAGNOSTIC STATEMENT IN DAILY PROGRESS NOTES AND DISCHARGE SUMMARY. This document is not part of the patient's record. Thank You, Marco Chandler, RN [phone]
--- NOTE | 2016-12-06 08:22 | DIAGNOSTIC IMAGING REPORT ---
BILATERAL LOWER EXTREMITY VENOUS DOPPLER CLINICAL HISTORY: Bilateral calf pain. COMPARISON STUDY: Bilateral lower extremity venous Doppler July 27, 2014. TECHNIQUE: Sonography of the deep venous system of the bilateral lower extremities was performed. Compression and augmentation were evaluated. FINDINGS: The bilateral common femoral, superficial femoral and popliteal veins were compressible. Augmentation was normal. Flow was shown within the deep calf vessels. IMPRESSION: No evidence of deep venous thrombus within the bilateral lower extremities. Electronically signed by: Vishnu Lewis M.D. 12/06/2016 8:21 AM Dictated Date/Time: 12/06/2016 8:20 AM
[2016-12-06] MEDS: MAGNESIUM OXIDE 400 MG TAB PO SCH ×2 (08:27→20:24)
[2016-12-06] MEDS: ISOSORBIDE MONONITRATE 30 MG TABCR PO SCH (08:27)
[2016-12-06] MEDS: GABAPENTIN 300 MG CAP PO SCH ×3 (08:27→20:24)
[2016-12-06] MEDS: VERAPAMIL HCL 120 MG TABCR PO SCH (08:27)
[2016-12-06 08:34] LABS: HEMATOCRIT 29.8 % (37-47); MEAN CELL VOLUME 101.7 fL (80-100); MEAN CORPUSCULAR HEMOGLOBIN 34.5 pg (25-34); MEAN CORPUSCULAR HGB CONC 33.9 g/dl (32-36); RED BLOOD COUNT 2.93 M/uL (4.2-5.4); WHITE BLOOD COUNT 3.05 K/uL (4.8-10.8)
[2016-12-06] MEDS: OSELTAMIVIR PHOSPHATE SUSP 30 MG/5 ML UDP PO SCH ×2 (08:35→20:26)
[2016-12-06] MEDS: PIPERACILL/TAZOBAC IV 3.375 GM in DEXTROSE 5% 100ML IV SCH (08:35)
[2016-12-06 08:58] LABS: MEAN PLATELET VOLUME 10.6 fL (7.4-10.4); PLATELET COUNT 46 K/uL (130-400)
[2016-12-06 09:07] LABS: BASO % 0.3 %; BASO ABS # 0.01 K/uL (0-0.2); COMPLETE YES; ECHINOCYTES 1+; EOS % 1.3 %; IG% 0.3 %; LYMPH % 27.2 %; LYMPH ABS # 0.83 K/uL (1.2-3.4); MONO % 13.8 %; NEUT % 57.1 %
[2016-12-06 09:18] LABS: ALKALINE PHOSPHATASE 88 U/L (45-117); ALT/SGPT 21 U/L (12-78); BLOOD UREA NITROGEN 14 mg/dl (7-18); BUN/CREATININE RATIO 11.8 (10-20); CALCIUM 7.3 mg/dl (8.5-10.1); CARBON DIOXIDE 24 mmol/L (21-32); CHLORIDE 108 mmol/L (98-107); GLUCOSE 91 mg/dl (70-99); SODIUM 143 mmol/L (136-145)
[2016-12-06] MEDS: PANTOprazole INJ 40 MG in SYRINGE 0 ML IV SCH (11:02)
[2016-12-06 11:15] LABS: MAGNESIUM 1.9 mg/dl (1.8-2.4); POTASSIUM 3.6 mmol/L (3.5-5.1)
[2016-12-06 11:17] LABS: ESTIMATED AVERAGE GLUCOSE 97 mg/dl; HA1C FLAG Normal (Normal)
[2016-12-06] MEDS: ACETAMINOPHEN IV 100 ML IV PRN (14:24)
--- NOTE | 2016-12-06 14:27 | Progress Note ---
Subjective Date of Service: Dec 06, 2016. Subjective Pt evaluation today including: conversation w/ patient, physical exam, chart review, lab review, review of studies, review of inpatient medication list Problem List Medical Problems: (1) Lactic acidosis Status: Acute (2) Pancytopenia Status: Acute (3) UTI (urinary tract infection) Status: Acute (4) Weakness Status: Acute Review of Systems Constitutional: No chills, No fever Respiratory: No cough, No dyspnea on exertion, No shortness of breath, No sputum, No wheezing Cardiac: No chest pain, No orthopnea Abdomen: No constipation, No diarrhea, No nausea, No pain, No vomiting Musculoskeletal: No joint pain, No muscle pain Female : No dysuria, No urinary frequency Objective Vital Signs Date Time Temp Pulse Resp B/P Pulse Ox O2 Delivery O2 Flow Rate FiO2 12/06/16 08:10 Nasal Cannula 2.0 12/06/16 07:29 36.7 77 20 123/70 94 2.0 12/06/16 02:24 68 14 94 Nasal Cannula 2.0 12/06/16 02:20 Nasal Cannula 3.0 12/06/16 00:25 37.2 70 20 102/68 99 Nasal Cannula 3.0 12/05/16 19:25 63 18 94 Nasal Cannula 2.0 12/05/16 16:06 36.9 62 20 92/58 95 2.0 12/05/16 16:00 Nasal Cannula 3.0 Physical Exam General Appearance: WD/WN, no apparent distress Neck: supple, thyroid normal Cardiovascular: no edema, no gallop Abdomen: non tender, soft Neurologic/Psychiatric: alert, + disoriented Laboratory Results Last 24 Hours Test 12/06/16 08:27 12/06/16 08:41 12/06/16 09:40 12/06/16 10:45 White Blood Count 3.05 K/uL Red Blood Count 2.93 M/uL Hemoglobin 10.1 g/dL Hematocrit 29.8 % Mean Corpuscular Volume 101.7 fL Mean Corpuscular Hemoglobin 34.5 pg Mean Corpuscular Hemoglobin Concent 33.9 g/dl Platelet Count 46 K/uL Mean Platelet Volume 10.6 fL Neutrophils (%) (Auto) 57.1 % Lymphocytes (%) (Auto) 27.2 % Monocytes (%) (Auto) 13.8 % Eosinophils (%) (Auto) 1.3 % Basophils (%) (Auto) 0.3 % Neutrophils # (Auto) 1.74 K/uL Lymphocytes # (Auto) 0.83 K/uL Monocytes # (Auto) 0.42 K/uL Eosinophils # (Auto) 0.04 K/uL Basophils # (Auto) 0.01 K/uL RDW Standard Deviation 64.3 fL RDW Coefficient of Variation 17.4 % Immature Granulocyte % (Auto) 0.3 % Immature Granulocyte # (Auto) 0.01 K/uL Echinocytes 1+ Sodium Level 143 mmol/L Potassium Level mmol/L 3.6 mmol/L Chloride Level 108 mmol/L Carbon Dioxide Level 24 mmol/L Anion Gap 11.0 mmol/L Blood Urea Nitrogen 14 mg/dl Creatinine 1.20 mg/dl Est Creatinine Clear Calc Drug Dose 37.7 ml/min Estimated GFR () 51.9 Estimated GFR (Non- 44.8 BUN/Creatinine Ratio 11.8 Random Glucose 91 mg/dl Calcium Level 7.3 mg/dl Magnesium Level mg/dl 1.9 mg/dl Total Bilirubin 0.9 mg/dl Direct Bilirubin mg/dl 0.5 mg/dl Aspartate Amino Transf (AST/SGOT) U/L 42 U/L Alanine Aminotransferase (ALT/SGPT) 21 U/L Alkaline Phosphatase 88 U/L Total Protein 5.4 gm/dl Albumin 2.6 gm/dl Bedside Glucose 94 mg/dl Estimated Average Glucose 97 mg/dl Hemoglobin A1c 5.0 % Test 12/06/16 13:05 Bedside Glucose 133 mg/dl Assessment and Plan The patient is a 71-year-old female with a h/o HTN, CAD/stent, TIA, DMII, dyslipidemia, dystonia, frequent UTIs, and Bechet's who presents with progressively worsening generalized weakness with decreased ability to ambulate over the past week with 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 She also had 3 episodes of urinary incontinence in the past 24 hours. She has developed a generalized headache, and intermittently productive cough. She does have a history of recurrent UTIs, as noted her urine is more constant more foul-smelling over the past week. She is on methotrexate weekly and was neutropenic on admission. Flu B is positive. Head CT neg, Right ankle xray neg for fracture, CXR without PNA or effusions. UTI/weakness/fall with ankle sprain/neutropenia secondary to methotrexate and Influenza B likely staph or gram neg PNA -- Ur cx growing klebsiella, ANC lowest was 430. Fall and weakness secondary to Influenza and UTI -admitted to the medical floor with neutropenic precautions -Cefepime 1 g IV q12 h and zosyn as well due to persistent fevers, continue Tamiflu x 5 day course, transition to cipro on discharge -urine cx pos for klebsiella, BCxs NGTD -follow CBC with differential, BMP and magnesium levels -PT/OT consult when feeling improved -May need splint for ankle sprain -morphine for headache, head CT neg so likely from influenza but if persists or worsens, consider repeat head CT considering she fell 3 days ago CAD/hypertension/Dyslipidemia--stable, troponin negative on admission, ECG with prolonged QTc 494 but otherwise no ischemic changes -continue atenolol 50 mg by mouth twice a day with hold parameters -hold clopidogrel 75 mg for thrombocytopenia -continue Imdur, verapamil, statin Pancytopenia-secondary to MTX as well as acute viral illness, no signs of bleeding -neutropenic precautions -follow CBC -transfuse for Hgb less than 7-8 or plts < 50k with bleeding or <20k -consider Hematology consultation if worsening Peripheral neuropathy--continue gabapentin 3 mg by mouth 3 times a day. Diabetes mellitus type II--hold metformin 500 mg by mouth twice a day, accuchecks before meals and at bedtime with NovoLog coverage. Behcet's Syndrome / inflammatory arthritis--usually takes methotrexate 8 tablets by mouth weekly which will be on hold-last dose was 12/03 at home as per pt. - She also takes prednisone when necessary. Was placed her on stress dose steroids hydrocortisone 100 mg IV every 8 hours but will stop as BPs are actually high and is on her antihypertensives. Start on prednisone 10 mg daily as pt feels ulcers coming on Proph- SCDs only due to pancytopenia Dispo- FULL CODE
[2016-12-06] MEDS: TRAMADOL HCL 50 MG TAB PO PRN (15:55)
[2016-12-06] MEDS: CIPROFLOXACIN 500 MG TAB PO SCH (20:24)
[2016-12-06] MEDS: SIMVASTATIN 20 MG TAB PO SCH (20:24)
[2016-12-07 00:16] VITALS: BP 130/74; PULSE 81; TEMP 36.9; O2SAT 97
[2016-12-07 02:44] VITALS: PULSE 78; O2SAT 98
[2016-12-07] MEDS: LEVALBUTEROL 1.25MG/0.5ML NEB INH SCH ×2 (02:44→08:29)
[2016-12-07] MEDS: IPRATROPIUM BROMIDE NEB SOLN 0.02% 2.5 ML VIAL INH SCH ×2 (02:44→08:29)
[2016-12-07] MEDS: TRAMADOL HCL 50 MG TAB PO PRN (04:53)
[2016-12-07 07:30] VITALS: BP 138/79; PULSE 71; TEMP 37; O2SAT 98
[2016-12-07] MEDS: MAGNESIUM OXIDE 400 MG TAB PO SCH (07:47)
[2016-12-07] MEDS: CIPROFLOXACIN 500 MG TAB PO SCH (07:47)
[2016-12-07] MEDS: OSELTAMIVIR PHOSPHATE SUSP 30 MG/5 ML UDP PO SCH (07:47)
[2016-12-07] MEDS: GABAPENTIN 300 MG CAP PO SCH ×2 (07:48→12:48)
[2016-12-07] MEDS: ISOSORBIDE MONONITRATE 30 MG TABCR PO SCH (07:48)
[2016-12-07] MEDS: VERAPAMIL HCL 120 MG TABCR PO SCH (07:48)
[2016-12-07] MEDS: INSULIN ASPART 100 UNITS/ML 3 ML PEN SC SCH ×2 (09:02→12:50)
[2016-12-07] MEDS: MoRPHine SULFATE 2 MG/ML CARP IV PRN (09:03)
[2016-12-07] MEDS ORDERED: GI COCKTAIL PO ONE (10:15)
[2016-12-07] MEDS ORDERED: ALUMINUM/MAGNESIUM SUSP 18 ML, LIDOCAINE HCL 2% VISCOUS SOLN 6 ML, BARCODE IDENTIFIER 1 EA PO ONE ×2 (10:15)
[2016-12-07] MEDS ORDERED: ULT50X PO ×2 (10:24)
[2016-12-07] MEDS ORDERED: CPR500 PO ×2 (10:24)
[2016-12-07] MEDS ORDERED: TMFUDL30 PO ×2 (10:24)
--- NOTE | 2016-12-07 10:26 | Discharge Instructions ---
Discharge Instructions Admission Reason for Admission: Uti, Weakness Discharge Discharge Diagnosis / Problem: Urinary tract infection, Pneumonia Discharge Goals Goal(s): Decrease discomfort, Improve function, Increase independence, Improve disease control Activity Recommendations Activity Limitations: resume your previous activity Exercise/Sports Limitations: none Shower/Bathe: no limitations . Instructions / Follow-Up Instructions / Follow-Up Patient to be discharged home Please continue to finish tamiflu twice day for 2 more days Also finish taking antibiotic cipro twice a day for 4 more days Prescription also sent for tramadol to take as needed for pain If worsening pain, fever, shortness of breath, please report to ER Current Hospital Diet Patient's current hospital diet: AHA Diet (Heart Healthy), Diabetes Type 2 Diet Discharge Diet Recommended Diet: Diabetes Type 2 Diet Pending Studies Studies pending at discharge: no Laboratory Results Hemoglobin A1c Test 12/06/16 09:40 Range/Units Estimated Average Glucose 97 mg/dl Hemoglobin A1c 5.0 4.5-5.6 % Medical Emergencies . Who to Call and When: Medical Emergencies: If at any time you feel your situation is an emergency, please call 911 immediately. . Non-Emergent Contact Non-Emergency issues call your: Primary Care Provider Call Non-Emergent contact if: you have a fever . . "Provider Documentation" section prepared by Cornel Bueno. VTE Core Measure Inpt VTE Proph given/why not?: SCD's
[2016-12-07] MEDS: PANTOprazole INJ 40 MG in SYRINGE 0 ML IV SCH (10:49)
[2016-12-07 11:33] VITALS: BP 138/79; PULSE 71; TEMP 37; O2SAT 98
--- NOTE | 2016-12-07 15:55 | Discharge Summary ---
Discharge Summary Date of Service Dec 07, 2016. Discharge Summary Admission Date: Dec 03, 2016 at 15:16 Discharge Date: Dec 07, 2016 Discharge Disposition: Rehab Principal Diagnosis: UTI, PNA Immunizations: Have You Had Influenza Vaccine: Yes Influenza Vaccine Date: Jul 04, 2011 History of Tetanus Vaccine?: Yes Tetanus Immunization Date: Sep 28, 1995 History of Pneumococcal: Yes Pneumococcal Date: Jun 08, 2011 History of Hepatitis B Vaccine: Yes Hepatitis Immunization Date: Sep 28, 1995 Medication Reconciliation New Medications: Ciprofloxacin (Ciprofloxacin HCl) 500 Mg Tab 500 MG PO BID for 4 Days, #8 TAB Oseltamivir Phosphate (Tamiflu) 6 Mg/Ml Mis 30 MG PO BID for 2 Days, #4 TABS Tramadol HCl (Tramadol HCl) 50 Mg Tab 50 MG PO Q4H PRN for Pain, #20 TAB Continued Medications: Atenolol (Tenormin) 50 Mg Tab 50 MG PO BID, 0 Refills Clopidogrel (Plavix) 75 Mg Tab 75 MG PO Q2D, 0 Refills Gabapentin (Neurontin) 300 Mg Cap 300 MG PO TID, CAP Isosorbide Mononitrate Ext Rel (Imdur Ext Rel) 30 Mg Ertab 30 MG PO QAM, TAB Metformin Hcl (Glucophage) 500 Mg Tab 500 MG PO BID, TAB Methotrexate (Methotrexate) 2.5 Mg Tab 8 TABS PO WK, TAB 8 TABLETS ONCE WEEKLY ON SUNDAYS Nitroglycerin (Nitrostat) 0.4 Mg Tab 0.4 MG UT PRN, 0 Refills ONE TABLET UNDER THE TONGUE EVERY 5 MINUTES, UP TO 3 DOSES, NEEDED FOR CHEST PAIN. Prednisone Tab (Prednisone) 10 Mg Tab 10 MG PO UD PRN, TAB TAPER NEEDED FOR FLARE UPS. Simvastatin (Zocor) 20 Mg Tab 20 MG PO QPM, TAB Verapamil Sust Rel (Calan Sr Ext Rel) 120 Mg Tabcr 120 MG PO DAILY, TAB Discharge Exam Review of Systems: Constitutional: No chills, No fever Respiratory: No cough, No dyspnea at rest, No dyspnea on exertion, No shortness of breath, No sputum Cardiovascular: No chest pain, No orthopnea Abdomen: No diarrhea, No nausea, No pain, No vomiting Musculoskeletal: No joint pain, No muscle pain Genitourinary - Female: No dysuria, No urinary frequency Physical Exam: General Appearance: WD/WN, no apparent distress Neck: supple, no adenopathy Respiratory/Chest: chest non-tender, lungs clear Cardiovascular: no edema, no gallop Abdomen / GI: non tender, soft Neurologic/Psychiatric: alert, oriented x 3 Hospital Course The patient is a 71-year-old female with a h/o HTN, CAD/stent, TIA, DMII, dyslipidemia, dystonia, frequent UTIs, and Bechet's who presents with progressively worsening generalized weakness with decreased ability to ambulate over the past week with 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 She also had 3 episodes of urinary incontinence in the past 24 hours. She has developed a generalized headache, and intermittently productive cough. She does have a history of recurrent UTIs, as noted her urine is more constant more foul-smelling over the past week. She is on methotrexate weekly and was neutropenic on admission. Flu B is positive. Head CT neg, Right ankle xray neg for fracture, CXR without PNA or effusions. UTI/weakness/fall with ankle sprain/neutropenia secondary to methotrexate and Influenza B likely staph or gram neg PNA -- Ur cx growing klebsiella, ANC lowest was 430. Fall and weakness secondary to Influenza and UTI -admitted to the medical floor with neutropenic precautions -Cefepime 1 g IV q12 h and zosyn as well due to persistent fevers, continue Tamiflu x 5 day course, transition to cipro on discharge -urine cx pos for klebsiella, BCxs NGTD -follow CBC with differential, BMP and magnesium levels -PT/OT consult when feeling improved -May need splint for ankle sprain -morphine for headache, head CT neg so likely from influenza but if persists or worsens, consider repeat head CT considering she fell 3 days ago CAD/hypertension/Dyslipidemia--stable, troponin negative on admission, ECG with prolonged QTc 494 but otherwise no ischemic changes -continue atenolol 50 mg by mouth twice a day with hold parameters -hold clopidogrel 75 mg for thrombocytopenia -continue Imdur, verapamil, statin Pancytopenia-secondary to MTX as well as acute viral illness, no signs of bleeding -neutropenic precautions -follow CBC -transfuse for Hgb less than 7-8 or plts < 50k with bleeding or <20k -consider Hematology consultation if worsening Peripheral neuropathy--continue gabapentin 3 mg by mouth 3 times a day. Diabetes mellitus type II--hold metformin 500 mg by mouth twice a day, accuchecks before meals and at bedtime with NovoLog coverage. Behcet's Syndrome / inflammatory arthritis--usually takes methotrexate 8 tablets by mouth weekly which will be on hold-last dose was 12/03 at home as per pt. - She also takes prednisone when necessary. Was placed her on stress dose steroids hydrocortisone 100 mg IV every 8 hours but will stop as BPs are actually high and is on her antihypertensives. Start on prednisone 10 mg daily as pt feels ulcers coming on Proph- SCDs only due to pancytopenia Dispo- FULL CODE Total Time Spent: Greater than 30 minutes This includes examination of the patient, discharge planning, medication reconciliation, and communication with other providers. Discharge Instructions Please refer to the electronic Patient Visit Report (Discharge Instructions) for additional information. Additional Copies To Robin Brito III, CRNP
--- NOTE | 2016-12-12 09:47 | EDITING REQUIRED CODING QUERY ---
CODING QUERY To promote full compliance with coding requirements relating to patient care, provider participation is requested in all cases of patient support partner uncertainty. Please assist us with the question(s) below: Coding Question(s): Patient admitted with UTI and pneumonia. Please specify the type of pneumonia you treated, if known or suspected. Thank you. Marcus Blas [facility] Physician's Response(s): Principal Diagnosis: "_that condition established after study, to be chiefly responsible for occasioning the admission of the patient to the hospital for care." Co-Existing Principal Diagnosis: "_when two or more diagnoses equally meet the criteria for principal diagnosis as determined by the circumstances of admission, diagnostic work up, and/or therapy provided, and the Alphabetic Index, Tabular List, or another coding guideline does not provide sequencing direction, any one of the diagnoses may be sequenced first." "When the physician has documented what appears to be a current diagnosis in the body of the record, but has not included the diagnosis in the final diagnostic statement, the physician should be asked whether the diagnosis should be added." (Source Coding [facility] 2 QTR90. p3-4)
[2017-04-11] MEDS ORDERED: CLC100X PO (10:38)
[2017-04-11] MEDS ORDERED: FLV1 PO (10:38)
[2017-04-11] MEDS ORDERED: LSX20 PO (10:38)
[2017-04-11] MEDS ORDERED: CRG625 PO (10:38)
[2017-04-11] MEDS ORDERED: VTMB12 PO (10:38)
[2017-04-11] MEDS ORDERED: PRD10 PO (10:38)
[2017-04-11] MEDS ORDERED: INSDGIPEN SC (10:38)
[2017-04-11] MEDS ORDERED: SPR25 PO (10:38)
[2017-04-11] MEDS ORDERED: MRLP17X PO (10:38)
[2017-04-11] MEDS ORDERED: NVLG SC (13:05)
[2017-04-26] MEDS ORDERED: AMOX1TAB43 PO (12:40)
== END 2016-12-07 13:20 | disposition home or self-care (01) | DRG 177 ==
LOC: ENRESERVTM → ENRESERVDT → EDBD 12:00 → C.EDA 12:02 → C.MS4W 15:16 → EDBEDREQ 15:43
PROVIDERS: ADMIT Hospitalist; ATTEND Hospitalist
DX: J15.6 Pneumonia due to other Gram-negative bacteria (principal); N39.0 Urinary tract infection, site not specified; M35.2 Behcet's disease; D61.811 Other drug-induced pancytopenia; J15.20 Pneumonia due to staphylococcus, unspecified; E87.2 Acidosis; I25.10 Atherosclerotic heart disease of native coronary artery without angina pectoris; J11.1 Influenza due to unidentified influenza virus with other respiratory manifestations; T45.1X5A Adverse effect of antineoplastic and immunosuppressive drugs, initial encounter; Z95.5 Presence of coronary angioplasty implant and graft; I10 Essential (primary) hypertension; E78.00 Pure hypercholesterolemia, unspecified; E11.51 Type 2 diabetes mellitus with diabetic peripheral angiopathy without gangrene; R32 Unspecified urinary incontinence; Z87.440 Personal history of urinary (tract) infections; B96.1 Klebsiella pneumoniae [K. pneumoniae] as the cause of diseases classified elsewhere; W19.XXXA Unspecified fall, initial encounter; Y92.009 Unspecified place in unspecified non-institutional (private) residence as the place of occurrence of the external cause; Z86.73 Personal history of transient ischemic attack (TIA), and cerebral infarction without residual deficits

== ENCOUNTER → 2016-12-12 | Outpatient (CLI) | payer OTHER ==
[~2016-12-12] MED LIST changes: +AMOX1TAB43 PO; +CARV6.252 PO; +CIPR-255 PO; +CLC100X PO; +CPR500 PO; +CRG625 PO; +CYAN500T PO; +DOCU-94 PO; +FLUO10CA15 PO; +FLUO10CA24 PO; +FLV1 PO; +FOLI1TAB7 PO; +FRS/40 PO; +FURO-85 PO; +INSDGIPEN SC; +LACT1TAB4 PO; +LCTX PO; +LSX20 PO; +MRLP17X PO; +NITR1CAP16 PO; +NVLG SC; +POLY335019 PO; +PRD10 PO; +SPIR25TA PO; +SPR25 PO; +TMFUDL30 PO; +ULT50X PO; +VANC5CAP PO; +VNCS125 PO; +VTMB12 PO
--- NOTE | 2016-12-12 13:34 | DIAGNOSTIC IMAGING REPORT ---
RIGHT ANKLE 3 VIEWS CLINICAL HISTORY: Right ankle pain. FINDINGS: 3 views of the right ankle are compared to study dated 12/03/2016. The skeletal structures are osteopenic. No acute fracture is seen. A chronic band of linear sclerosis in the distal tibial tibia is unchanged from previous. The ankle mortise is intact. There is degenerative spurring from the anterior tibial plafond as well as a small plantar calcaneal enthesophyte. A joint effusion is identified. Soft tissue edema is present in the visualized right lower extremity and around the ankle joint. There is advanced atherosclerotic calcification of the regional arteries. IMPRESSION: 1. Soft tissue swelling and joint effusion. No acute fracture is seen. 2. Osteopenia and chronic changes as above. Electronically signed by: Tommy Grissom M.D. 12/12/2016 1:32 PM Dictated Date/Time: 12/12/2016 1:29 PM
[2016-12-12 14:51] LABS: ALT/SGPT 15 U/L (12-78); BLOOD UREA NITROGEN 13 mg/dl (7-18); BUN/CREATININE RATIO 15.4 (10-20); CALCIUM 7.8 mg/dl (8.5-10.1); CARBON DIOXIDE 26 mmol/L (21-32); CHLORIDE 101 mmol/L (98-107); CREATININE 0.83 mg/dl (0.60-1.20); GLUCOSE 113 mg/dl (70-99); POTASSIUM 4.3 mmol/L (3.5-5.1); SODIUM 135 mmol/L (136-145)
[2016-12-12 14:54] LABS: ALB/GLOB RATIO 0.8 (0.9-2); ALKALINE PHOSPHATASE 107 U/L (45-117); AST/SGOT 38 U/L (15-37)
== END | disposition home or self-care (01) ==
LOC: C.LAB1850 12:41
PROVIDERS: ATTEND Nurse Practitioner Family
DX: M25.571 Pain in right ankle and joints of right foot (principal); R10.11 Right upper quadrant pain; R11.0 Nausea; M85.871 Other specified disorders of bone density and structure, right ankle and foot

== ENCOUNTER → 2016-12-19 | Outpatient (CLI) | payer OTHER ==
[~2016-12-19] MED LIST changes: -CALC500C3 PO; -DULO-24 PO; -HYDR25TA4 PO
[2016-12-19 11:17] LABS: ALB/GLOB RATIO 0.9 (0.9-2); ALKALINE PHOSPHATASE 107 U/L (45-117); ALT/SGPT 17 U/L (12-78); AST/SGOT 29 U/L (15-37); BLOOD UREA NITROGEN 7 mg/dl (7-18); CARBON DIOXIDE 27 mmol/L (21-32); CHLORIDE 108 mmol/L (98-107); CREATININE 0.82 mg/dl (0.60-1.20); GLUCOSE 114 mg/dl (70-99); POTASSIUM 3.7 mmol/L (3.5-5.1); SODIUM 144 mmol/L (136-145)
== END | disposition home or self-care (01) ==
LOC: C.LAB1850 09:18
PROVIDERS: ATTEND Nurse Practitioner Family
DX: E83.51 Hypocalcemia (principal)

== ENCOUNTER 2017-03-29 09:02 | Emergency (ER) | payer OTHER ==
[~2017-03-29] VITALS: Ht 154.9 cm; Wt 68.0 kg
[~2017-03-29 09:02] MED LIST changes: -AMOX1TAB43 PO; -CARV6.252 PO; -CIPR-255 PO; -CLC100X PO; -CRG625 PO; -CYAN500T PO; -DOCU-94 PO; -FLUO10CA15 PO; -FLUO10CA24 PO; -FLV1 PO; -FOLI1TAB7 PO; -FRS/40 PO; -FURO-85 PO; -INSDGIPEN SC; -LACT1TAB4 PO; -LCTX PO; -LSX20 PO; -MRLP17X PO; -NITR1CAP16 PO; -NVLG SC; -POLY335019 PO; -PRD10 PO; -SPIR25TA PO; -SPR25 PO; -VANC5CAP PO; -VNCS125 PO; -VTMB12 PO
[2017-03-29 09:11] VITALS: TEMP 36.4; Ht 154.9 cm; Wt 68.0 kg
[2017-03-29] MEDS ORDERED: SODIUM CHLORIDE 0.9% 1000ML 1,000 ML IV STA (09:21)
[2017-03-29] MEDS ORDERED: CEFTRIAXONE SOD INJ 1 GM ADDVIAL IV STA (09:21)
[2017-03-29 09:49] LABS: URINE APPEARANCE TURBID (CLEAR); URINE COLOR DK YELLOW; URINE EPITHELIAL CELL AUTO >30 /lpf (0-5); URINE NITRITE NEG (NEG); URINE SPECIFIC GRAVITY 1.033 (1.000-1.030); UROBILINOGEN NEG (NEG); ZZUR CULT IF INDIC CLEAN CATCH YES
[2017-03-29 09:58] LABS: MANUAL MICROSCOPIC REQUIRED? NO; REVIEW REQ? YES; URINE BILIRUBIN NEG (NEG)
[2017-03-29 10:23] LABS: HEMATOCRIT 29.9 % (37-47); MEAN CELL VOLUME 101.4 fL (80-100); MEAN CORPUSCULAR HEMOGLOBIN 33.6 pg (25-34); MEAN CORPUSCULAR HGB CONC 33.1 g/dl (32-36); MEAN PLATELET VOLUME 8.5 fL (7.4-10.4); PLATELET COUNT 66 K/uL (130-400); RED BLOOD COUNT 2.95 M/uL (4.2-5.4); WHITE BLOOD COUNT 2.74 K/uL (4.8-10.8)
[2017-03-29 10:28] LABS: INR 1.3 (0.9-1.1); PARTIAL THROMBOPLASTIN RATIO 1.1; PROTHROMBIN TIME (PATIENT) 14.1 SECONDS (9.0-12.0)
[2017-03-29 10:36] LABS: ALT/SGPT 17 U/L (12-78); AST/SGOT 41 U/L (15-37); BLOOD UREA NITROGEN 17 mg/dl (7-18); BUN/CREATININE RATIO 15.7 (10-20); CALCIUM 7.6 mg/dl (8.5-10.1); CARBON DIOXIDE 23 mmol/L (21-32); CHLORIDE 107 mmol/L (98-107); GLUCOSE 117 mg/dl (70-99); MAGNESIUM 1.7 mg/dl (1.8-2.4); POTASSIUM 4.3 mmol/L (3.5-5.1); SODIUM 139 mmol/L (136-145)
[2017-03-29 10:45] LABS: ALKALINE PHOSPHATASE 84 U/L (45-117); CKMB/CK RATIO 1.4 (0-3.0)
[2017-03-29 10:49] LABS: BASO % 0.4 %; BASO ABS # 0.01 K/uL (0-0.2); COMPLETE YES; EOS % 5.1 %; HYPERSEGMENTED POLYS 1+; IG% 0.4 %; LYMPH % 22.6 %; LYMPH ABS # 0.62 K/uL (1.2-3.4); MONO % 0.4 %; NEUT % 71.1 %
--- NOTE | 2017-03-29 10:58 | DIAGNOSTIC IMAGING REPORT ---
PA CHEST RADIOGRAPH AND UPRIGHT AND SUPINE AP RADIOGRAPHS OF THE ABDOMEN CLINICAL HISTORY: Abdominal bloating. COMPARISON STUDY: Chest radiograph with abdominal series July 24, 2014 and chest radiograph December 05, 2016. FINDINGS: There is mild elevation of the right hemidiaphragm. There is no evidence of pulmonary edema. No pneumothorax or pleural effusion is present. Cardiomediastinal silhouette is unremarkable. There may be a small hiatal hernia. There are cholecystectomy clips. There is no free air. There are a few loops of minimally dilated small bowel. Pelvic calcifications likely reflect phleboliths. IMPRESSION: 1. No free air. 2. A few loops of mildly dilated small bowel which may reflect an ileus or partial small bowel obstruction. 3. No acute cardiopulmonary findings. Electronically signed by: Vishnu Lewis M.D. 03/29/2017 10:56 AM Dictated Date/Time: 03/29/2017 10:53 AM
[2017-03-29] MEDS ORDERED: CIPR-255 PO (11:56)
--- NOTE | 2017-03-29 11:58 | EMERGENCY ROOM VISIT NOTE ---
History Report prepared by Didiibraysa: Zuri Pisano Under the Supervision of: Dr. Adis Santos D.O. First contact with patient: 09:20 Chief Complaint: GI ASSESSMENT Stated Complaint: BLOATED BELLY Nursing Triage Summary: sister was doing patients hair this AM and noted patient to be stumbling, and abdomen was bloated per sister. pt c/o pain, burning during urination and diarrhea. sister also states she sustained ground level fall on concrete 2 weeks ago. pt c/o left hip pain. patient states she did not see PCP for fall. bruise noted to right hip. i in er waiting room patient states she urgentely needed to use restroom. pt walked to bathroom in ER room. urine sample collected. pt grimaces due to pain during urination. History of Present Illness The patient is a 72 year old female who presents to the Emergency Room with complaints of worsening abdominal bloating that was first noticed 2 days ago by the patient's sister. The patient has mild dementia and lives at home with her but her sisters come and check on her daily. The patient's sister was doing the patient's hair this morning when she noticed that the patient's abdomen was significantly more bloated than it was 2 days ago. She also states that the patient was stumbling. The patient denies any abdominal pain. The patient's sister states that the patient also experienced diarrhea yesterday. The patient is also experiencing pain with urination, so her sister suspects that the patient has a UTI. The patient's sister adds that the patient has a history of kidney and bladder infections. However, the patient's sister states that the patient has never experienced abdominal bloating with the previous infections. Source of History: patient, family (sister) Onset: 2 days ago Position: abdomen Quality: other (abdominal bloating) Timing: worsening Associated Symptoms: + diarrhea, + urinary symptoms (pain with urination), No abdominal pain Review of Systems See HPI for pertinent positives & negatives. A total of 10 systems reviewed and were otherwise negative. 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 Social History Smoking Status: Never Smoker Alcohol Use: none Drug Use: none Marital Status: Housing Status: lives with family Occupation Status: retired Current/Historical Medications Scheduled Atenolol (Tenormin), 50 MG PO BID Ciprofloxacin Hcl (Cipro), 500 MG PO BID Clopidogrel (Plavix), 75 MG PO Q2D Gabapentin (Neurontin), 300 MG PO TID Isosorbide Mononitrate Ext Rel (Imdur Ext Rel), 30 MG PO QAM Metformin Hcl (Glucophage), 500 MG PO BID Methotrexate (Methotrexate), 8 TABS PO WK Nitroglycerin (Nitrostat), 0.4 MG UT PRN Simvastatin (Zocor), 20 MG PO QPM Verapamil Sust Rel (Calan Sr Ext Rel), 120 MG PO DAILY Scheduled PRN Prednisone Tab (Prednisone), 10 MG PO UD PRN Allergies Coded Allergies: Codeine (Verified Allergy, Unknown, MORPHINE OK, 03/29/17) Latex2 -Systemic Allergic Response (Verified Allergy, Unknown, UNKNOWN, ) Physical Exam Vital Signs Date Time Temp Pulse Resp B/P (MAP) Pulse Ox O2 Delivery O2 Flow Rate FiO2 03/29/17 11:04 76 16 129/76 99 Room Air 03/29/17 09:11 36.4 76 22 137/84 99 Room Air Physical Exam CONSTITUTIONAL/VITAL SIGNS: Reviewed / noted above. GENERAL: Non-toxic in appearance. INTEGUMENTARY: Warm, dry, and [place]. HEAD: Normocephalic. EYES: without scleral icterus or trauma. ENT/OROPHARYNX: clear and moist. LYMPHADENOPATHY/NECK: Is supple without lymphadenopathy or meningismus. RESPIRATORY: Lungs clear and equal. CARDIOVASCULAR: Regular rate and rhythm. GI/ABDOMEN: Soft. Abdominal bloating. Nontender. No organomegaly or pulsatile mass. No rebound or guarding. Normal bowel sounds. RECTAL: There is some mild irritation of the rectal and buttock area. There is some mild gross blood on exam likely from local irritation of the rectal area or hemorrhoids. EXTREMITIES: Warm and well perfused. BACK: No CVA tenderness. NEUROLOGICAL: Intact without focal deficits. PSYCHIATRIC: normal affect. MUSCULOSKELETAL: Normally developed with good muscle tone. Medical Decision & Procedures ER Provider Diagnostic Interpretation: Radiology results as stated below per my review and radiologist interpretation: PA CHEST RADIOGRAPH AND UPRIGHT AND SUPINE AP RADIOGRAPHS OF THE ABDOMEN FINDINGS: There is mild elevation of the right hemidiaphragm. There is no evidence of pulmonary edema. No pneumothorax or pleural effusion is present. Cardiomediastinal silhouette is unremarkable. There may be a small hiatal hernia. There are cholecystectomy clips. There is no free air. There are a few loops of minimally dilated small bowel. Pelvic calcifications likely reflect phleboliths. IMPRESSION: 1. No free air. 2. A few loops of mildly dilated small bowel which may reflect an ileus or partial small bowel obstruction. 3. No acute cardiopulmonary findings. Electronically signed by: Vishnu Lewis M.D. 03/29/2017 10:56 AM Dictated Date/Time: 03/29/2017 10:53 AM Laboratory Results 03/29/17 09:58 Red Blood Count 2.95, Mean Corpuscular Volume 101.4, Mean Corpuscular Hemoglobin 33.6, Mean Corpuscular Hemoglobin Concent 33.1, Mean Platelet Volume 8.5, Neutrophils (%) (Auto) 71.1, Lymphocytes (%) (Auto) 22.6, Monocytes (%) ( Auto) 0.4, Eosinophils (%) (Auto) 5.1, Basophils (%) (Auto) 0.4, Neutrophils # ( Auto) 1.95, Lymphocytes # (Auto) 0.62, Monocytes # (Auto) 0.01, Eosinophils # ( Auto) 0.14, Basophils # (Auto) 0.01 03/29/17 09:58 Test 03/29/17 09:10 03/29/17 09:58 Urine Color DK YELLOW Urine Appearance TURBID (CLEAR) Urine pH 6.0 (4.5-7.5) Urine Specific [place] 1.033 (1.000-1.030) Urine Protein 3+ (NEG) Urine Glucose (UA) TRACE (NEG) Urine Ketones TRACE (NEG) Urine Occult Blood 2+ (NEG) Urine Nitrite NEG (NEG) Urine Bilirubin NEG (NEG) Urine Urobilinogen NEG (NEG) Urine Leukocyte Esterase MODERATE (NEG) Urine WBC (Auto) >30 /hpf (0-5) Urine RBC (Auto) >30 /hpf (0-4) Urine Hyaline Casts (Auto) 1-5 /lpf (0-5) Urine Epithelial Cells (Auto) >30 /lpf (0-5) Urine Bacteria (Auto) 1+ (NEG) Urine Pathogenic Casts /lpf (0) White Blood Count 2.74 K/uL (4.8-10.8) Red Blood Count 2.95 M/uL (4.2-5.4) Hemoglobin 9.9 g/dL (12.0-16.0) Hematocrit 29.9 % (37-47) Mean Corpuscular Volume 101.4 fL (80-100) Mean Corpuscular Hemoglobin 33.6 pg (25-34) Mean Corpuscular Hemoglobin Concent 33.1 g/dl (32-36) Platelet Count 66 K/uL (130-400) Mean Platelet Volume 8.5 fL (7.4-10.4) Neutrophils (%) (Auto) 71.1 % Lymphocytes (%) (Auto) 22.6 % Monocytes (%) (Auto) 0.4 % Eosinophils (%) (Auto) 5.1 % Basophils (%) (Auto) 0.4 % Neutrophils # (Auto) 1.95 K/uL (1.4-6.5) Lymphocytes # (Auto) 0.62 K/uL (1.2-3.4) Monocytes # (Auto) 0.01 K/uL (0.11-0.59) Eosinophils # (Auto) 0.14 K/uL (0-0.5) Basophils # (Auto) 0.01 K/uL (0-0.2) RDW Standard Deviation 66.1 fL (36.4-46.3) RDW Coefficient of Variation 19.1 % (11.5-14.5) Immature Granulocyte % (Auto) 0.4 % Immature Granulocyte # (Auto) 0.01 K/uL (0.00-0.02) Hypersegmented Polys 1+ Prothrombin Time 14.1 SECONDS (9.0-12.0) Prothromb Time International Ratio 1.3 (0.9-1.1) Activated Partial Thromboplast Time 28.0 SECONDS (21.0-31.0) Partial Thromboplastin Ratio 1.1 Anion Gap 9.0 mmol/L (3-11) Est Creatinine Clear Calc Drug Dose 39.6 ml/min Estimated GFR () 57.3 Estimated GFR (Non- 49.4 BUN/Creatinine Ratio 15.7 (10-20) Calcium Level 7.6 mg/dl (8.5-10.1) Magnesium Level 1.7 mg/dl (1.8-2.4) Total Bilirubin 1.6 mg/dl (0.2-1) Direct Bilirubin 0.6 mg/dl (0-0.2) Aspartate Amino Transf (AST/SGOT) 41 U/L (15-37) Alanine Aminotransferase (ALT/SGPT) 17 U/L (12-78) Alkaline Phosphatase 84 U/L (45-117) Total Creatine Kinase 37 U/L (26-192) Creatine Kinase MB 0.5 ng/ml (0.5-3.6) Creatine Kinase MB Ratio 1.4 (0-3.0) Troponin I < 0.015 ng/ml (0-0.045) Total Protein 5.9 gm/dl (6.4-8.2) Albumin 2.8 gm/dl (3.4-5.0) Lipase 83 U/L (73-393) Thyroid Stimulating Hormone (TSH) 3.270 uIu/ml (0.300-4.500) Laboratory results as stated above per my review. Medications Administered Medications (Trade) Dose Ordered Sig/Sonam Route Start Time Stop Time Status Last Admin Dose Admin Sodium Chloride 1,000 ml @ 200 mls/hr Q5H STAT IV 03/29/17 09:21 03/29/17 14:20 03/29/17 10:03 200 MLS/HR Ceftriaxone Sodium (Rocephin Inj) 1 gm NOW STAT IV 03/29/17 09:21 03/29/17 09:22 DC 03/29/17 10:02 1 GM ECG Indication: weakness Rate (beats per minute): 73 Rhythm: normal sinus Findings: no acute ischemic change, no ectopy ED Course 09: Ordered Rocephin Inj 1 gm IV, Sodium Chloride 1000 ml @ 200 mls/hr IV 0924: Previous medical records were reviewed. The patient was evaluated in room A9. A complete history and physical examination was performed. 1143: On reevaluation, the patient is doing well. I discussed the results and findings with the patient and her family. The patient's sister expressed concern about the patient's hemorrhoids bothering her so she asked if I would examine them. I then performed a rectal exam. The patient and her family verbalized agreement of the treatment plan. The patient was discharged home. Medical Decision Differential considered: pancreatitis, hepatitis, or acute cholecystitis, AAA, UTI, pyelonephritis, kidney stones, appendicitis, diverticulitis, shingles, bowel obstruction mesenteric ischemia, intussusception,hernia, ovarian torsion, ruptured ovarian cyst. Medication Reconciliation: I attest that I have personally reviewed the patient' s current medication list. Patient was found to have a slightly elevated blood pressure due to circumstances. I do not believe that the patient requires hypertension monitoring. This is a 72-year-old female who presents to the ED with a chief complaint of burning with urination as well as some diarrhea this started yesterday. The patient has no additional specific complaints. The patient has a normal exam. She her abdomen is slightly bloated but nontender. Rectal exam reveals some excoriation of the rectal area likely from her diarrhea and a small amount of blood on rectal exam. This is felt to be related to some irritation of hemorrhoids rather than GI bleeding. Urine suggests infection. Acute abdominal series reveals a few loops of mildly dilated bowel. This could be related to ileus versus partial small bowel obstruction. This is more likely related to ileus because the patient has been having diarrhea. Hemoglobin is stable at 9.9. Calcium is slightly low at 7.6. Bilirubin is slightly higher than prior study of 1.3 at 1.6. Troponin is negative. The patient was given some IV fluids and IV Rocephin. She'll be discharged on Cipro for 7 days. Close follow up with PCP was recommended for recheck of her rectal area. Her sisters are going to help her clean the area regularly. She will return for any gross rectal bloody bowel movements or any concerning symptoms. Impression Primary Impression: UTI (urinary tract infection) Additional Impression: Bleeding hemorrhoid Scribe Attestation The scribe's documentation has been prepared under my direction and personally reviewed by me in its entirety. I confirm that the note above accurately reflects all work, treatment, procedures, and medical decision making performed by me. Departure Information Dispostion Home / Self-Care Prescriptions Ciprofloxacin Hcl (CIPRO) 500 Mg Tab 500 MG PO BID, #14 TAB Prov: Adis Santos D.O. 03/29/17 Referrals Robin Brito III, CRNP (PCP) Forms HOME CARE DOCUMENTATION FORM, IMPORTANT VISIT INFORMATION Patient Instructions [facility] Additional Instructions Follow-up with Robin Brito in 2 days for recheck. Return for any bloody bowel movements. Return for confusion or increasing weakness. Cipro as prescribed for urine infection. Clean buttock and rectal area at least twice a day for irritation in that area. Follow-up with your doctor for further care and evaluation in 1-2 days. Return to the emergency department for worsening or new symptoms or any concerns. You have been examined and treated today on an emergency basis only. This is not a substitute for, or an effort to provide, complete comprehensive medical care. It is impossible to recognize and treat all injuries or illnesses in a single emergency department visit. It is therefore important that you follow up closely with your doctor. Call as soon as possible for an appointment. Problem Qualifiers Primary Impression: UTI (urinary tract infection) Urinary tract infection type: site unspecified
[2017-03-29 13:54] VITALS: BP 124/77; PULSE 76; O2SAT 98
--- NOTE | 2017-03-31 12:25 | Pharmacy Progress Note ---
ED Pharmacist Culture FollowUp Date of Service: Mar 31, 2017. Patient was sent home with a prescription for Cipro 500mg PO BID x 7 days, which should cover the kleb oxytoca growing from the patient's URINE culture ( per sensitivities). Correct dose and duration of therapy for complicated-UTI ( immunosuppression on MTX). No action required.
[2017-04-11] MEDS ORDERED: LSX20 PO (10:38)
[2017-04-11] MEDS ORDERED: INSDGIPEN SC (10:38)
[2017-04-11] MEDS ORDERED: MRLP17X PO (10:38)
[2017-04-11] MEDS ORDERED: PRD10 PO (10:38)
[2017-04-11] MEDS ORDERED: CRG625 PO (10:38)
[2017-04-11] MEDS ORDERED: FLV1 PO (10:38)
[2017-04-11] MEDS ORDERED: SPR25 PO (10:38)
[2017-04-11] MEDS ORDERED: VTMB12 PO (10:38)
[2017-04-11] MEDS ORDERED: CLC100X PO (10:38)
[2017-04-11] MEDS ORDERED: NVLG SC (13:05)
[2017-04-26] MEDS ORDERED: AMOX1TAB43 PO (12:40)
== END 2017-03-29 13:50 | disposition home or self-care (01) ==
LOC: C.EDA 09:04
DX: N39.0 Urinary tract infection, site not specified (principal); K64.9 Unspecified hemorrhoids; F03.90 Unspecified dementia, unspecified severity, without behavioral disturbance, psychotic disturbance, mood disturbance, and anxiety; E11.9 Type 2 diabetes mellitus without complications; I25.10 Atherosclerotic heart disease of native coronary artery without angina pectoris; I10 Essential (primary) hypertension; E78.5 Hyperlipidemia, unspecified; Z86.73 Personal history of transient ischemic attack (TIA), and cerebral infarction without residual deficits; Z87.440 Personal history of urinary (tract) infections; Z90.710 Acquired absence of both cervix and uterus; Z98.49 Cataract extraction status, unspecified eye; Z98.890 Other specified postprocedural states; Z79.02 Long term (current) use of antithrombotics/antiplatelets; Z79.84 Long term (current) use of oral hypoglycemic drugs; Z79.899 Other long term (current) drug therapy

== ENCOUNTER 2017-03-31 15:16 | Inpatient (IN) | payer OTHER ==
[~2017-03-31] VITALS: Ht 154.9 cm; Wt 65.9 kg
[~2017-03-31 15:16] MED LIST changes: -AMOX1TAB43 PO; -CARV6.252 PO; -CLC100X PO; -CRG625 PO; -CYAN500T PO; -DOCU-94 PO; -FLUO10CA15 PO; -FLUO10CA24 PO; -FLV1 PO; -FOLI1TAB7 PO; -FRS/40 PO; -FURO-85 PO; -INSDGIPEN SC; -LACT1TAB4 PO; -LCTX PO; -LSX20 PO; -MRLP17X PO; -NITR1CAP16 PO; -NVLG SC; -OPTIRAY 320 IV PRN; -POLY335019 PO; -PRD10 PO; -SPIR25TA PO; -SPR25 PO; -VANC5CAP PO; -VNCS125 PO; -VTMB12 PO
[2017-03-31] MEDS ORDERED: OPTIRAY 320 IV PRN (15:45)
[2017-03-31] MEDS ORDERED: SODIUM CHLORIDE 0.9% 500ML 500 ML IV STA (15:46)
[2017-03-31] MEDS ORDERED: ONDANSETRON INJ 2 MG/ML 2 ML VIAL IV STA (15:46)
[2017-03-31 16:38] LABS: HEMATOCRIT 26.3 % (37-47); MEAN CELL VOLUME 101.9 fL (80-100); MEAN CORPUSCULAR HEMOGLOBIN 34.5 pg (25-34); MEAN CORPUSCULAR HGB CONC 33.8 g/dl (32-36); RED BLOOD COUNT 2.58 M/uL (4.2-5.4); WHITE BLOOD COUNT 2.21 K/uL (4.8-10.8)
[2017-03-31 16:42] LABS: MEAN PLATELET VOLUME 8.4 fL (7.4-10.4); PLATELET COUNT 47 K/uL (130-400)
[2017-03-31 16:49] LABS: URINE APPEARANCE CLEAR (CLEAR); URINE BILIRUBIN NEG (NEG); URINE COLOR DK YELLOW; URINE NITRITE NEG (NEG); URINE PH 6.5 (4.5-7.5); URINE SPECIFIC GRAVITY > 1.045 (1.000-1.030); UROBILINOGEN NEG (NEG); ZZUR CULT IF INDIC CLEAN CATCH YES
[2017-03-31 16:50] LABS: MANUAL MICROSCOPIC REQUIRED? NO; REVIEW REQ? YES
[2017-03-31] MEDS ORDERED: CEFTRIAXONE SOD INJ 1 GM ADDVIAL IV STA (16:51)
[2017-03-31 17:06] LABS: BUN/CREATININE RATIO 18.5 (10-20); POTASSIUM 4.2 mmol/L (3.5-5.1)
[2017-03-31 17:07] LABS: CALCIUM 8.1 mg/dl (8.5-10.1)
--- NOTE | 2017-03-31 17:11 | EMERGENCY ROOM VISIT NOTE ---
History Report prepared by Lyla: Kar Hill Under the Supervision of: Dr. Blaine Rojas D.O. First contact with patient: 15:29 Chief Complaint: GI ASSESSMENT Stated Complaint: NOT ENOUGH BLOOD TO COLON, BLOATING Nursing Triage Summary: triage note: sister reports pt has dementia. sister reports "her mental capacity decreased a lot and they did a ct scan of her belly and it showed a lot of different stuff, she had a dr jarrett today and they wanted me to bring her in here." History of Present Illness The patient is a 72 year old female who presents to the Emergency Room with complaints of constant bleeding from her rectum beginning three days ago. The patient's sister states that the patient was in the ER two days ago for similar symptoms. She reports that the patient had a CT scan and blood work performed, and was told to return to the ER from the primary care doctor. The sister notes that she patient was at her follow up appoint and was sent here because her scan showed that she has reduced blood flow to her colon. She reports that she patient's last bowel movement was this morning. The sister states that the patient is on an antibiotic for her UTI, and she takes Plavix. She notes that the patient has dementia. She has been having bright red blood per rectum for the past 3 days. The patient complains of hematochezia, headaches, nausea, and dysuria. She denies chest pain, shortness of breath, vomiting, and diarrhea. The patient is oriented to place and month, but not year. Source of History: patient, family Onset: three days ago Position: buttock Quality: other (bleeding) Timing: constant Associated Symptoms: + headache, + nausea, + urinary symptoms, No chest pain , No SOB, No vomiting, No diarrhea Note: Associated symptoms: hematochezia Review of Systems See HPI for pertinent positives & negatives. A total of 10 systems reviewed and were otherwise negative. 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 Social History Smoking Status: Never Smoker Alcohol Use: none Drug Use: none Marital Status: Housing Status: lives with significant other Occupation Status: retired Current/Historical Medications Scheduled Atenolol (Tenormin), 50 MG PO BID Ciprofloxacin Hcl (Cipro), 500 MG PO BID Clopidogrel (Plavix), 75 MG PO Q2D Gabapentin (Neurontin), 300 MG PO TID Isosorbide Mononitrate Ext Rel (Imdur Ext Rel), 30 MG PO QAM Metformin Hcl (Glucophage), 500 MG PO BID Methotrexate (Methotrexate), 8 TABS PO WK Nitroglycerin (Nitrostat), 0.4 MG UT PRN Simvastatin (Zocor), 20 MG PO QPM Verapamil Sust Rel (Calan Sr Ext Rel), 120 MG PO DAILY Scheduled PRN Prednisone Tab (Prednisone), 10 MG PO UD PRN Allergies Coded Allergies: Codeine (Verified Allergy, Unknown, MORPHINE OK, 03/31/17) Latex2 -Systemic Allergic Response (Verified Allergy, Unknown, UNKNOWN, ) Physical Exam Vital Signs Date Time Temp Pulse Resp B/P (MAP) Pulse Ox O2 Delivery O2 Flow Rate FiO2 03/31/17 17:48 77 16 99/68 98 Room Air 03/31/17 16:44 76 18 128/70 98 Room Air 03/31/17 15:21 36.4 75 18 114/65 91 Room Air Physical Exam GENERAL: Sitting up in bed, chronically ill, pale EYE EXAM: normal conjunctiva OROPHARYNX: no exudate, no erythema, lips, buccal mucosa, and tongue normal and mucous membranes are moist NECK: supple, no nuchal rigidity, no adenopathy, non-tender LUNGS: Clear to auscultation. Normal chest wall mechanics HEART: no murmurs, S1 normal and S2 normal ABDOMEN: abdomen soft, non-tender, normo-active bowel sounds, no masses, no rebound or guarding. BACK: Back is symmetrical on inspection and there is no deformity, no midline tenderness, no CVA tenderness. RECTAL: Gross hem positive stool, no external hemorrhoids SKIN: no rashes and no bruising UPPER EXTREMITIES: upper extremities are grossly normal. LOWER EXTREMITIES: No pitting edema. NEURO EXAM: Normal sensorium, cranial nerves II-XII intact, normal speech, no weakness of arms, no weakness of legs. Alert and oriented to place and month but not year. Medical Decision & Procedures Laboratory Results 03/31/17 16:29 Red Blood Count 2.58, Mean Corpuscular Volume 101.9, Mean Corpuscular Hemoglobin 34.5, Mean Corpuscular Hemoglobin Concent 33.8, Mean Platelet Volume 8.4, Neutrophils (%) (Auto) 61.5, Lymphocytes (%) (Auto) 34.4, Monocytes (%) ( Auto) 2.3, Eosinophils (%) (Auto) 1.8, Basophils (%) (Auto) 0.0, Neutrophils # ( Auto) 1.36, Lymphocytes # (Auto) 0.76, Monocytes # (Auto) 0.05, Eosinophils # ( Auto) 0.04, Basophils # (Auto) 0.00 03/31/17 16:29 Test 03/31/17 16:29 03/31/17 16:35 03/31/17 17:00 03/31/17 17:29 White Blood Count 2.21 K/uL (4.8-10.8) Red Blood Count 2.58 M/uL (4.2-5.4) Hemoglobin 8.9 g/dL (12.0-16.0) Hematocrit 26.3 % (37-47) Mean Corpuscular Volume 101.9 fL (80-100) Mean Corpuscular Hemoglobin 34.5 pg (25-34) Mean Corpuscular Hemoglobin Concent 33.8 g/dl (32-36) Platelet Count 47 K/uL (130-400) Mean Platelet Volume 8.4 fL (7.4-10.4) Neutrophils (%) (Auto) 61.5 % Lymphocytes (%) (Auto) 34.4 % Monocytes (%) (Auto) 2.3 % Eosinophils (%) (Auto) 1.8 % Basophils (%) (Auto) 0.0 % Neutrophils # (Auto) 1.36 K/uL (1.4-6.5) Lymphocytes # (Auto) 0.76 K/uL (1.2-3.4) Monocytes # (Auto) 0.05 K/uL (0.11-0.59) Eosinophils # (Auto) 0.04 K/uL (0-0.5) Basophils # (Auto) 0.00 K/uL (0-0.2) RDW Standard Deviation 69.8 fL (36.4-46.3) RDW Coefficient of Variation 19.4 % (11.5-14.5) Immature Granulocyte % (Auto) 0.0 % Immature Granulocyte # (Auto) 0.00 K/uL (0.00-0.02) Anisocytosis PRESENT Anion Gap 12.0 mmol/L (3-11) Est Creatinine Clear Calc Drug Dose 42.3 ml/min Estimated GFR () 64.3 Estimated GFR (Non- 55.5 BUN/Creatinine Ratio 18.5 (10-20) Calcium Level 8.1 mg/dl (8.5-10.1) Total Bilirubin 1.0 mg/dl (0.2-1) Direct Bilirubin 0.4 mg/dl (0-0.2) Aspartate Amino Transf (AST/SGOT) 39 U/L (15-37) Alanine Aminotransferase (ALT/SGPT) 20 U/L (12-78) Alkaline Phosphatase 73 U/L (45-117) Total Protein 5.9 gm/dl (6.4-8.2) Albumin 2.6 gm/dl (3.4-5.0) Lipase 87 U/L (73-393) Urine Color DK YELLOW Urine Appearance CLEAR (CLEAR) Urine pH 6.5 (4.5-7.5) Urine Specific [place] > 1.045 (1.000-1.030) Urine Protein 3+ (NEG) Urine Glucose (UA) TRACE (NEG) Urine Ketones 1+ (NEG) Urine Occult Blood 3+ (NEG) Urine Nitrite NEG (NEG) Urine Bilirubin NEG (NEG) Urine Urobilinogen NEG (NEG) Urine Leukocyte Esterase NEG (NEG) Urine WBC (Auto) >30 /hpf (0-5) Urine RBC (Auto) >30 /hpf (0-4) Urine Hyaline Casts (Auto) 1-5 /lpf (0-5) Urine Epithelial Cells (Auto) 10-20 /lpf (0-5) Urine Bacteria (Auto) NEG (NEG) Urine Pathogenic Casts /lpf (0) Urine Yeast (Auto) (NONE PRSENT) Prothrombin Time 14.4 SECONDS (9.0-12.0) Prothromb Time International Ratio 1.3 (0.9-1.1) Hepatitis B Surface Antibody NEG Hepatitis C Antibody NEG (NEG) Lactic Acid Level 1.8 mmol/L (0.4-2.0) Ammonia 14.0 umol/L (11-32) Laboratory results per my review. Medications Administered Medications (Trade) Dose Ordered Sig/Sonam Route Start Time Stop Time Status Last Admin Dose Admin Sodium Chloride 500 ml @ 999 mls/hr Q31M STAT IV 03/31/17 15:46 03/31/17 16:16 DC 03/31/17 17:34 999 MLS/HR Ondansetron HCl (Zofran Inj) 4 mg NOW STAT IV 03/31/17 15:46 03/31/17 15:47 DC 03/31/17 17:40 4 MG Ceftriaxone Sodium (Rocephin Inj) 1 gm NOW STAT IV 03/31/17 16:51 03/31/17 16:52 DC 03/31/17 17:40 1 GM ED Course ED COURSE: Vital signs were reviewed and showed normal signs. The patients medical record was reviewed The above diagnostic studies were performed and reviewed. ED treatments and interventions as stated above. 1538: The patient was evaluated in room C09. A complete history and physical examination was performed. 1546: Ordered Zofran Inj 4mg IV, Sodium Chloride 500 ml @ 999 mls/hr IV 1651: Ordered Rocephin Inj 1gm IV 1658: I reevaluated the patient and discussed her current exam findings. 1708: I discussed the patient's case with Dr. Fernandez, GI. She said the patient is not in need of immediate intervention. 1738: I discussed the patient's case with Dr. Marroquin, [facility] Hospitalist. The patient will be evaluated for further treatment. 1807: Upon reevaluation, the patient is resting. I discussed my findings with the patient and she understands and agrees with the treatment plan. Based on the patients age, coexisting illnesses, exam and lab findings the decision to treat as an inpatient was made. The patient remained stable while under my care. The patient will be evaluated for further management. Medical Decision Differential diagnoses includes but is not limited to gastritis, peptic ulcer disease, GERD, gallbladder disease, pancreatitis, small bowel obstruction, acute coronary syndrome, pericarditis, ischemic bowel, irritable bowel disease, irritable bowel syndrome, appendicitis, diverticulitis, malignancy, hernia, urinary tract infection, torsion, perforation, trauma, infectious. Medication Reconciliation: I attest that I have personally reviewed the patient' s current medication list. Blood pressure screening: Patient was found to have normal blood pressure on screening and does not require follow-up. Patient is a 72-year-old female who presents the ER referred in by her primary care doctor for an abdominal CT. Family notes that the patient has been slightly more confused recently and has been complaining of nausea. She continues to have bright red blood per rectum. She is on Plavix. CT of the abdomen and pelvis shows varices associated with portal hypertension, stenosis of the superior mesenteric artery and colonic wall thickening. Patient has no abdominal pain on exam. Lactate acid was normal not suggesting ischemia. She does admit to mild nausea. I do not believe that this is ischemic at this time. She does have a partial splenic thrombus. Hemoglobin has trended down from 10 to 8.9. Placed on Protonix drip and bolus. Gave her dose of Rocephin. Patient will be admitted to internal medicine for further workup. Consults Time Called: 1700 Consulting Physician: MARK Anders Returned Call: 1708 I discussed the patient's case with MARK Anders. She said the patient is not in need of immediate intervention. Additional Consults: Time Called: 1728 Consulted Physician: Dr. Marroquin, [facility] Hospitalist Returned Call: 1738 Additional Comments: I discussed the patient's case with Dr. Marroquin, [facility] Hospitalist. The patient will be evaluated for further treatment. Impression Primary Impression: GI bleed Additional Impressions: Symptomatic anemia Portal hypertension Mesenteric artery stenosis Scribe Attestation The scribe's documentation has been prepared under my direction and personally reviewed by me in its entirety. I confirm that the note above accurately reflects all work, treatment, procedures, and medical decision making performed by me. Departure Information Dispostion Being Evaluated By Hospitalist Referrals Onelia Davies C.R.N.P. (PCP) Patient Instructions [facility] Problem Qualifiers Primary Impression: GI bleed GI bleed type/associated pathology: unspecified gastrointestinal hemorrhage type Qualified Codes: K92.2 - Gastrointestinal hemorrhage, unspecified
[2017-03-31] MEDS ORDERED: PANTOprazole INJ 80 MG in DEXTROSE 5% 100ML IV SCH (17:30)
[2017-03-31 17:34] LABS: ANISOCYTOSIS PRESENT; COMPLETE YES; EOS % 1.8 %; LYMPH % 34.4 %; LYMPH ABS # 0.76 K/uL (1.2-3.4); MONO % 2.3 %; NEUT % 61.5 %
--- NOTE | 2017-03-31 17:42 | History and Physical ---
History & Physical Date & Time of Service: Mar 31, 2017 at 17:41 Chief Complaint: Not Enough Blood To Colon, Bloating Primary Care Physician: Onelia Davies C.R.N.P. History of Present Illness Source: patient, family 72 y/o F Hx CAD, CVA, moderate to advanced dementia, pancytopenia, Behcet's. Pt presents with 3 days of BRBPR. Her sister reports some weakness, nausea, dysuria and a headache. She denies abdominal pain, diarrhea. Denies CP, SOB, lightheadedness. She was treated for a UTI 3 days prior with a course of Cipro. A CT abdomen was obtained in the ER revealing previously undiagnosed Cirrhosis, portal hypertension and perirectal varices. Additionally she has severe SMA stenosis which may have been known to her as her sister states that she has " low blood flow to her colon". The pt cannot reliably contribute to the H&P/ROS due to her underlying dementia. Past Medical/Surgical History Medical Problems: (1) Benign hypertension Status: Chronic (2) Cataract surgery Status: Resolved (3) Coronary artery disease Status: Chronic (4) CVA/TIA/Stroke Status: Chronic (5) Diabetes Status: Chronic (6) Heart disease Status: Chronic (7) Hyperlipidemia Status: Chronic (8) Hysterectomy Status: Resolved (9) Knee surgery Status: Resolved (10) Migraines Status: Chronic (11) Placement of stent Status: Resolved Family History Patient reports no known family medical history. Social History Smoking Status: Never Smoker Smokeless Tobacco Use: No Drug Use: none Marital Status: Housing status: lives with family Occupational Status: retired Immunizations History of Influenza Vaccine: Yes Influenza Vaccine Date: Jul 04, 2011 History of Tetanus Vaccine?: Yes Tetanus Immunization Date: Sep 28, 1995 History of Pneumococcal: Yes Pneumococcal Date: Jun 08, 2011 History of Hepatitis B Vaccine: Yes Hepatitis Immunization Date: Sep 28, 1995 Multi-Drug Resistant Organisms History of MDRO: No Allergies Coded Allergies: Codeine (Verified Allergy, Unknown, MORPHINE OK, 03/31/17) Latex2 -Systemic Allergic Response (Verified Allergy, Unknown, UNKNOWN, ) Home Medications Scheduled Atenolol (Tenormin), 50 MG PO BID Ciprofloxacin Hcl (Cipro), 500 MG PO BID Clopidogrel (Plavix), 75 MG PO Q2D Gabapentin (Neurontin), 300 MG PO TID Isosorbide Mononitrate Ext Rel (Imdur Ext Rel), 30 MG PO QAM Metformin Hcl (Glucophage), 500 MG PO BID Methotrexate (Methotrexate), 8 TABS PO WK Nitroglycerin (Nitrostat), 0.4 MG UT PRN Simvastatin (Zocor), 20 MG PO QPM Verapamil Sust Rel (Calan Sr Ext Rel), 120 MG PO DAILY Scheduled PRN Prednisone Tab (Prednisone), 10 MG PO UD PRN Review of Systems Cannot reliably obtain from pt - brought in for GI bleed as above Abdomen: + GI bleeding Genitourinary - Female: + urinary urgency Physical Exam Vital Signs Date Time Temp Pulse Resp B/P (MAP) Pulse Ox O2 Delivery O2 Flow Rate FiO2 03/31/17 16:44 76 18 128/70 98 Room Air 03/31/17 15:21 36.4 75 18 114/65 91 Room Air General Appearance: WD/WN, no apparent distress Head: normocephalic, atraumatic Eyes: normal inspection ENT: normal ENT inspection, pharynx normal Neck: supple, no JVD Respiratory/Chest: chest non-tender, lungs clear, normal breath sounds, no respiratory distress, no accessory muscle use Cardiovascular: regular rate, rhythm, no edema, no gallop Abdomen/GI: normal bowel sounds, non tender, soft Back: normal inspection, no CVA tenderness, no muscle spasm, normal range of motion Extremities/Musculoskelatal: normal inspection, no calf tenderness, normal capillary refill, no pedal edema, normal range of motion 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, no motor/sensory deficits, alert Skin: normal color, warm/dry, no rash Diagnostics Laboratory Results Results Past 24 Hours Test 03/31/17 16:29 03/31/17 16:35 03/31/17 17:29 Range/Units White Blood Count 2.21 4.8-10.8 K/uL Red Blood Count 2.58 4.2-5.4 M/uL Hemoglobin 8.9 12.0-16.0 g/dL Hematocrit 26.3 37-47 % Mean Corpuscular Volume 101.9 80-100 fL Mean Corpuscular Hemoglobin 34.5 25-34 pg Mean Corpuscular Hemoglobin Concent 33.8 32-36 g/dl Platelet Count 47 130-400 K/uL Mean Platelet Volume 8.4 7.4-10.4 fL Neutrophils (%) (Auto) 61.5 % Lymphocytes (%) (Auto) 34.4 % Monocytes (%) (Auto) 2.3 % Eosinophils (%) (Auto) 1.8 % Basophils (%) (Auto) 0.0 % Neutrophils # (Auto) 1.36 1.4-6.5 K/uL Lymphocytes # (Auto) 0.76 1.2-3.4 K/uL Monocytes # (Auto) 0.05 0.11-0.59 K/uL Eosinophils # (Auto) 0.04 0-0.5 K/uL Basophils # (Auto) 0.00 0-0.2 K/uL RDW Standard Deviation 69.8 36.4-46.3 fL RDW Coefficient of Variation 19.4 11.5-14.5 % Immature Granulocyte % (Auto) 0.0 % Immature Granulocyte # (Auto) 0.00 0.00-0.02 K/uL Anisocytosis PRESENT Sodium Level 139 136-145 mmol/L Potassium Level 4.2 3.5-5.1 mmol/L Chloride Level 106 98-107 mmol/L Carbon Dioxide Level 21 21-32 mmol/L Anion Gap 12.0 3-11 mmol/L Blood Urea Nitrogen 19 7-18 mg/dl Creatinine 1.00 0.60-1.20 mg/dl Est Creatinine Clear Calc Drug Dose 42.3 ml/min Estimated GFR () 64.3 Estimated GFR (Non- 55.5 BUN/Creatinine Ratio 18.5 10-20 Random Glucose 108 70-99 mg/dl Calcium Level 8.1 8.5-10.1 mg/dl Total Bilirubin 1.0 0.2-1 mg/dl Direct Bilirubin 0.4 0-0.2 mg/dl Aspartate Amino Transf (AST/SGOT) 39 15-37 U/L Alanine Aminotransferase (ALT/SGPT) 20 12-78 U/L Alkaline Phosphatase 73 45-117 U/L Total Protein 5.9 6.4-8.2 gm/dl Albumin 2.6 3.4-5.0 gm/dl Lipase 87 73-393 U/L Urine Color DK YELLOW Urine Appearance CLEAR CLEAR Urine pH 6.5 4.5-7.5 Urine Specific [place] > 1.045 1.000-1.030 Urine Protein 3+ NEG Urine Glucose (UA) TRACE NEG Urine Ketones 1+ NEG Urine Occult Blood 3+ NEG Urine Nitrite NEG NEG Urine Bilirubin NEG NEG Urine Urobilinogen NEG NEG Urine Leukocyte Esterase NEG NEG Urine WBC (Auto) >30 0-5 /hpf Urine RBC (Auto) >30 0-4 /hpf Urine Hyaline Casts (Auto) 1-5 0-5 /lpf Urine Epithelial Cells (Auto) 10-20 0-5 /lpf Urine Bacteria (Auto) NEG NEG Urine Pathogenic Casts 0 /lpf Urine Yeast (Auto) NONE PRSENT Microbiology Results 03/31/17 Urine Culture, Received Pending Diagnostic Radiology 1. Cirrhosis with manifestations of portal hypertension including a large amount of abdominal and pelvic ascites, mild splenomegaly and varices formation. Nonocclusive thrombus within the splenic vein. Patent main, left and right portal veins. 2. No bowel obstruction. 3. Marked left and moderate right renal atrophy. No hydronephrosis. 4. 1.6 cm cystic lesion adjacent to the anterior aspect of the pancreatic body. This is new since prior exam. This may reflect a side branch IPMN but is indeterminate and a follow-up MRI of the pancreas in 6 months is recommended. 5. 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 6. Colonic wall thickening, most evident within the ascending colon. This is likely related to portal hypertension or underdistention although a nonspecific colitis could appear similar. Impression Assessment and Plan 72 y/o F Hx CAD, CVA, dementia, pancytopenia, Behcet's disease. Pt presents with 3 days of BRBPR. She also describes some weakness, nausea and a headache. She denies abdominal pain, diarrhea. Denies CP, SOB, lightheadedness. A CT abdomen was obtained in the ER revealing previously undiagnosed Cirrhosis, portal hypertension and perirectal varices. Additionally she has severe SMA stenosis which may have been known to her as her sister states that she has " low blood flow to her colon". The pt is a poor historian due to her underlying dementia. 1) GI bleed - BRBPR - perirectal varices apparent on CT abdomen and may be cause - we will consult GI due to bleed and new diagnosis of Cirrhosis. 2) Cirrhosis - imaging indicates advanced cirrhosis which is likely contributing to her abnormal blood counts - Per the pts sister, she suffers from chronic pain and her was previously in charge of her medications. She would apparently overdose on Tylenol on a regular basis but has not had any since her sister took over administration of her meds. She does not have a history of alcoholism, transfusions or IVDU. She is diabetic so that EAST cirrhosis is in the differential. Autoimmune hep would also be a consideration. As the process is not reversible and she suffers from dementia, the degree of workup should likely be discussed with family prior to pursuing a diagnosis. 3) Pancytopenia - It is unclear why the family are not aware of either her pancytopenia or her cirrhosis as it is likely that both have been present for a considerable time and certainly her blood counts have been abnormal for over a year. This may be an effect of MTX in addition to her Cirrhosis and indeed I do not see Folic acid on her med list. Counts will be trended and H/O will be consulted. She will be transfused if needed. 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
[2017-03-31] MEDS ORDERED: PANTOprazole INJ 40 MG in DEXTROSE 5% 100ML IV SCH (17:45)
[2017-03-31] MEDS ORDERED: NITROGLYCERIN 0.4 MG SL PER TAB CHARGE SL PRN (18:00)
[2017-03-31 18:09] LABS: INR 1.3 (0.9-1.1); PROTHROMBIN TIME (PATIENT) 14.4 SECONDS (9.0-12.0)
[2017-03-31 18:30] LABS: HEPATITIS B AB NEG
[2017-03-31 19:56] VITALS: BP 121/64; PULSE 80; TEMP 36.7; O2SAT 97; BMI 27.0
[2017-03-31] MEDS ORDERED: SODIUM CHLORIDE 0.9% 1000ML 1,000 ML IV SCH (20:00)
[2017-03-31] MEDS: CIPROFLOXACIN / D5W 400 MG in PREMIXED IN D5W 200 ML IV SCH (20:20)
[2017-03-31] MEDS: MoRPHine SULFATE 2 MG/ML CARP IV PRN (20:24)
[2017-03-31] MEDS: GABAPENTIN 300 MG CAP PO SCH (21:36)
[2017-03-31] MEDS: SIMVASTATIN 20 MG TAB PO SCH (21:36)
[2017-03-31 23:52] VITALS: BP 114/69; PULSE 78; TEMP 37.2; O2SAT 96
[2017-04-01] VITALS (8 sets, daily range): BP systolic 105–134; BP diastolic 60–75; PULSE 60–79; TEMP 36.7–37.1; O2SAT 94–96
[2017-04-01] MEDS: MoRPHine SULFATE 2 MG/ML CARP IV PRN ×3 (04:00→14:50)
[2017-04-01 05:59] LABS: RED BLOOD COUNT 2.44 M/uL (4.2-5.4); WHITE BLOOD COUNT 1.55 K/uL (4.8-10.8)
[2017-04-01 06:00] LABS: MEAN CELL VOLUME 102.5 fL (80-100); MEAN CORPUSCULAR HEMOGLOBIN 33.2 pg (25-34); MEAN CORPUSCULAR HGB CONC 32.4 g/dl (32-36); MEAN PLATELET VOLUME 8.3 fL (7.4-10.4); PLATELET COUNT 39 K/uL (130-400)
[2017-04-01 06:37] LABS: CALCIUM 7.2 mg/dl (8.5-10.1); CREATININE 0.81 mg/dl (0.60-1.20); MAGNESIUM 1.7 mg/dl (1.8-2.4); POTASSIUM 3.9 mmol/L (3.5-5.1)
[2017-04-01] MEDS: VERAPAMIL HCL 120 MG TABCR PO SCH (07:26)
[2017-04-01] MEDS: GABAPENTIN 300 MG CAP PO SCH ×3 (07:26→20:42)
[2017-04-01] MEDS: CIPROFLOXACIN / D5W 400 MG in PREMIXED IN D5W 200 ML IV SCH (08:39)
[2017-04-01] MEDS ORDERED: ISOSORBIDE MONONITRATE 30 MG TABCR PO SCH (09:00)
[2017-04-01] MEDS: ONDANSETRON INJ 2 MG/ML 2 ML VIAL IV PRN (09:55)
[2017-04-01] MEDS: MAGNESIUM SULFATE 1GM / D5W 1 GM in PREMIXED IN D5W 100 ML IV SCH ×2 (10:06→11:13)
--- NOTE | 2017-04-01 11:09 | Oncology Consultation ---
Oncology/Heme Consultation Date of Consultation: Apr 01, 2017. Attending Physician: Stevan Cleveland D.O. Reason for Consultation: Pancytopenia History of Present Illness Ms. Rehman is a 72-year-old female that was admitted with abdominal discomfort and apparently she had some blood in her stool. The charts reflect that she has dementia and subsequently a major portion of the history is gathered from prior notes. The patient states that she has seen some blood in her stool but it has not been "very much". She does also admit to some nausea along with the abdominal pain but this seems to have subsided. She denies fever. She states she does get headaches. She's not able to tell me accurately I believe as to whether she has lost weight. On admission a CT scan of the abdomen showed changes radiographically consistent with cirrhosis and portal hypertension and subsequent mild splenomegaly. She denies alcohol usage. She does not smoke. She is unaware of any prior liver problems. The chart reflects that she has been on methotrexate. The need for methotrexate is unclear although there is a node relating to a medical background of Annleise Past Medical/Surgical History Medical Problems: (1) Bleeding hemorrhoid Status: Acute (2) GI bleed Status: Acute (3) Lactic acidosis Status: Acute (4) Mesenteric artery stenosis Status: Acute (5) Pancytopenia Status: Acute (6) Portal hypertension Status: Acute (7) Symptomatic anemia Status: Acute (8) UTI (urinary tract infection) Status: Acute (9) Weakness Status: Acute Family History Patient reports no known family medical history. Social History Negative for significant smoking or alcohol usage. Smoking Status: Never Smoker Smokeless Tobacco Use: No Drug Use: none Marital Status: Housing Status: lives with significant other Occupation Status: retired Allergies Coded Allergies: Codeine (Verified Allergy, Unknown, MORPHINE OK, 03/31/17) Latex2 -Systemic Allergic Response (Verified Allergy, Unknown, UNKNOWN, ) Home Medications Scheduled Atenolol (Tenormin), 50 MG PO BID Ciprofloxacin Hcl (Cipro), 500 MG PO BID Clopidogrel (Plavix), 75 MG PO Q2D Gabapentin (Neurontin), 300 MG PO TID Isosorbide Mononitrate Ext Rel (Imdur Ext Rel), 30 MG PO QAM Metformin Hcl (Glucophage), 500 MG PO BID Methotrexate (Methotrexate), 8 TABS PO WK Nitroglycerin (Nitrostat), 0.4 MG UT PRN Simvastatin (Zocor), 20 MG PO QPM Verapamil Sust Rel (Calan Sr Ext Rel), 120 MG PO DAILY Scheduled PRN Prednisone Tab (Prednisone), 10 MG PO UD PRN Current Inpatient Medications Current Inpatient Medications Medications (Trade) Dose Ordered Sig/Sonam Route Start Time Stop Time Status Last Admin Dose Admin Ioversol (Optiray 320) 125 ml UD PRN IV 03/31/17 15:45 04/04/17 15:44 Atenolol (Tenormin Tab) 50 mg BID PO 03/31/17 21:00 04/30/17 20:59 04/01/17 07:26 50 MG Gabapentin (Neurontin Cap) 300 mg TID PO 03/31/17 21:00 04/30/17 20:59 04/01/17 07:26 300 MG Isosorbide Mononitrate (Imdur Ext Rel Tab) 30 mg QAM PO 04/01/17 09:00 05/01/17 08:59 04/01/17 07:26 30 MG Prednisone (PredniSONE TAB) 10 mg DAILY PO 04/01/17 09:00 05/01/17 08:59 04/01/17 07:26 10 MG Simvastatin (Zocor Tab) 20 mg QPM PO 03/31/17 21:00 04/30/17 20:59 03/31/17 21:36 20 MG Verapamil HCl (Calan-Sr Tab) 120 mg DAILY PO 04/01/17 09:00 05/01/17 08:59 04/01/17 07:26 120 MG Ondansetron HCl (Zofran Inj) 4 mg Q6H PRN IV 03/31/17 18:00 04/30/17 17:59 04/01/17 09:55 4 MG Nitroglycerin (Nitrostat Tab) 0.4 mg UD PRN SL 03/31/17 18:00 04/30/17 17:59 Morphine Sulfate (MoRPHine SULFATE INJ) 2 mg Q30M PRN IV 03/31/17 18:00 04/14/17 17:59 04/01/17 09:57 2 MG Ciprofloxacin/ Dextrose 400 mg/ Prmx 200 ml @ 100 mls/hr DAILY IV 03/31/17 20:30 04/05/17 20:29 04/01/17 08:39 100 MLS/HR Magnesium Sulfate 1 gm/Prmx 100 ml @ 100 mls/hr Q1H IV 04/01/17 10:00 04/01/17 11:59 04/01/17 10:06 100 MLS/HR Review of Systems She is slow to respond but denies any chest pain or shortness of breath. A reliable complete reliable review of systems could be questioned. Physical Exam Date Time Temp Pulse Resp B/P (MAP) Pulse Ox O2 Delivery O2 Flow Rate FiO2 04/01/17 08:00 Room Air 04/01/17 07:31 111/71 (84) 04/01/17 07:09 36.9 75 17 110/68 (82) 95 Room Air 04/01/17 04:09 37.1 79 18 105/60 (75) 94 Room Air 04/01/17 04:00 Room Air 04/01/17 00:02 Room Air 03/31/17 23:52 37.2 78 18 114/69 (84) 96 Room Air 03/31/17 20:00 Room Air 03/31/17 19:56 36.7 80 18 121/64 97 Room Air 03/31/17 18:33 78 18 107/54 97 Room Air 03/31/17 17:48 77 16 99/68 98 Room Air 03/31/17 16:44 76 18 128/70 98 Room Air 03/31/17 15:21 36.4 75 18 114/65 91 Room Air Constitutional: vitals are stable. Thin elderly appearing female Eyes: Eyes are CINTHYA EOMI without conjuctival erythema or icterus. ENT: External examination was negative for masses. Neck: Negative for masses or palpable thyromegaly Respiratory: Lung sounds were generally clear bilaterally Cardiovascular: Heart was RRR no rubs or gallops are heard. Gastrointestinal: No palpable hepatic or definite splenomegaly. The abdomen was soft with normal bowel sounds. Lymphatic system: there was no palpable peripheral lymphadenopathy Musculoskeletal System: The musculoskeletal system seemed concordant with age. Skin: The skin was negative for jaundice. Neurologic exam: The exam was negative for any focal findings. Deep tendon reflexes were equal and symmetrical. Extremities: Negative for significant edema or erythema Psychiatric exam: Seems to be of normal mood. She is slow to answer questions Laboratory Results Last 24 Hours Test 03/31/17 16:29 03/31/17 16:35 03/31/17 17:00 03/31/17 17:29 White Blood Count 2.21 K/uL Red Blood Count 2.58 M/uL Hemoglobin 8.9 g/dL Hematocrit 26.3 % Mean Corpuscular Volume 101.9 fL Mean Corpuscular Hemoglobin 34.5 pg Mean Corpuscular Hemoglobin Concent 33.8 g/dl Platelet Count 47 K/uL Mean Platelet Volume 8.4 fL Neutrophils (%) (Auto) 61.5 % Lymphocytes (%) (Auto) 34.4 % Monocytes (%) (Auto) 2.3 % Eosinophils (%) (Auto) 1.8 % Basophils (%) (Auto) 0.0 % Neutrophils # (Auto) 1.36 K/uL Lymphocytes # (Auto) 0.76 K/uL Monocytes # (Auto) 0.05 K/uL Eosinophils # (Auto) 0.04 K/uL Basophils # (Auto) 0.00 K/uL RDW Standard Deviation 69.8 fL RDW Coefficient of Variation 19.4 % Immature Granulocyte % (Auto) 0.0 % Immature Granulocyte # (Auto) 0.00 K/uL Anisocytosis PRESENT Sodium Level 139 mmol/L Potassium Level 4.2 mmol/L Chloride Level 106 mmol/L Carbon Dioxide Level 21 mmol/L Anion Gap 12.0 mmol/L Blood Urea Nitrogen 19 mg/dl Creatinine 1.00 mg/dl Est Creatinine Clear Calc Drug Dose 42.3 ml/min Estimated GFR () 64.3 Estimated GFR (Non- 55.5 BUN/Creatinine Ratio 18.5 Random Glucose 108 mg/dl Calcium Level 8.1 mg/dl Total Bilirubin 1.0 mg/dl Direct Bilirubin 0.4 mg/dl Aspartate Amino Transf (AST/SGOT) 39 U/L Alanine Aminotransferase (ALT/SGPT) 20 U/L Alkaline Phosphatase 73 U/L Total Protein 5.9 gm/dl Albumin 2.6 gm/dl Lipase 87 U/L Urine Color DK YELLOW Urine Appearance CLEAR Urine pH 6.5 Urine Specific [place] > 1.045 Urine Protein 3+ Urine Glucose (UA) TRACE Urine Ketones 1+ Urine Occult Blood 3+ Urine Nitrite NEG Urine Bilirubin NEG Urine Urobilinogen NEG Urine Leukocyte Esterase NEG Urine WBC (Auto) >30 /hpf Urine RBC (Auto) >30 /hpf Urine Hyaline Casts (Auto) 1-5 /lpf Urine Epithelial Cells (Auto) 10-20 /lpf Urine Bacteria (Auto) NEG Urine Pathogenic Casts /lpf Urine Yeast (Auto) Prothrombin Time 14.4 SECONDS Prothromb Time International Ratio 1.3 Hepatitis B Surface Antibody NEG Hepatitis C Antibody NEG Lactic Acid Level 1.8 mmol/L Ammonia 14.0 umol/L Test 03/31/17 19:09 04/01/17 01:10 04/01/17 05:34 Vitamin B12 Level 228 pg/mL Folate 1.37 ng/mL Hemoglobin 7.9 g/dL 8.1 g/dL White Blood Count 1.55 K/uL Red Blood Count 2.44 M/uL Hematocrit 25.0 % Mean Corpuscular Volume 102.5 fL Mean Corpuscular Hemoglobin 33.2 pg Mean Corpuscular Hemoglobin Concent 32.4 g/dl RDW Standard Deviation 68.6 fL RDW Coefficient of Variation 19.4 % Platelet Count 39 K/uL Mean Platelet Volume 8.3 fL Sodium Level 138 mmol/L Potassium Level 3.9 mmol/L Chloride Level 108 mmol/L Carbon Dioxide Level 18 mmol/L Anion Gap 12.0 mmol/L Blood Urea Nitrogen 16 mg/dl Creatinine 0.81 mg/dl Est Creatinine Clear Calc Drug Dose 52.9 ml/min Estimated GFR () 82.9 Estimated GFR (Non- 71.5 BUN/Creatinine Ratio 20.0 Random Glucose 91 mg/dl Calcium Level 7.2 mg/dl Magnesium Level 1.7 mg/dl Assessment & Plan Pancytopenia that has been rather lengthy in that blood counts in November 2015 were not too terribly dissimilar from now however the hemoglobin is less. Certainly methotrexate should be held. 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 We'll check an LDH. The recent blood count worsening might be as a result of abdominal pain with underlying vascular insufficiency. B12 level is normal folate is low in [facility]'s that should be supplied at least orally if not parenterally. For now no hematologic intervention is necessary short of daily observation of her CBCs (and supplementation with folic acid)
[2017-04-01] MEDS ORDERED: FUROSEMIDE INJ 40 MG in SYRINGE 0 ML IV ONE (12:30)
--- NOTE | 2017-04-01 12:51 | Progress Note ---
Subjective Date of Service: Apr 01, 2017. Subjective Pt evaluation today including: conversation w/ patient, conversation w/ family , physical exam, lab review, review of studies, conversation w/ organization development consultant, review of inpatient medication list Pain: abdominal pain, diffuse, mild PO Intake: poor, nauseated Voiding: no voiding problems reviewed labs and recent imaging (CT from 03/31) evidence of cirrhosis on CT with extensive ascites per family the abdomen just started to get bigger a week ago, they say it happened rapidly no known h/o cirrhosis appreciate consult from Dr. 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 no previous h/o steatosis at any length, discussed that the cause of cirrhosis not as important now as treating the sequelae discussed getting a diagnostic and therapeutic paracentesis on Monday also, discussed that we would get gastroenterology to see patient to assist in management, family with lots of questions spent 20 minutes with family in addition to 30 minutes spent reviewing records and direct care with patient Problem List Medical Problems: (1) Bleeding hemorrhoid Status: Acute (2) GI bleed Status: Acute (3) Lactic acidosis Status: Acute (4) Mesenteric artery stenosis Status: Acute (5) Pancytopenia Status: Acute (6) Portal hypertension Status: Acute (7) Symptomatic anemia Status: Acute (8) UTI (urinary tract infection) Status: Acute (9) Weakness Status: Acute Review of Systems Constitutional: + weakness, + fatigue Cardiac: + edema Abdomen: + pain, + nausea, + vomiting, + GI bleeding (rectal bleeding, intermittent), + problem reported (distention), No diarrhea, No constipation Neurologic: + memory loss (mild to moderate dementia at baseline, lives at home ) All Other Systems: Reviewed and Negative Medications Current Inpatient Medications Medications (Trade) Dose Ordered Sig/Sonam Route Start Time Stop Time Status Last Admin Dose Admin Ioversol (Optiray 320) 125 ml UD PRN IV 03/31/17 15:45 04/04/17 15:44 Atenolol (Tenormin Tab) 50 mg BID PO 03/31/17 21:00 04/30/17 20:59 04/01/17 07:26 50 MG Gabapentin (Neurontin Cap) 300 mg TID PO 03/31/17 21:00 04/30/17 20:59 04/01/17 07:26 300 MG Isosorbide Mononitrate (Imdur Ext Rel Tab) 30 mg QAM PO 04/01/17 09:00 05/01/17 08:59 04/01/17 07:26 30 MG Prednisone (PredniSONE TAB) 10 mg DAILY PO 04/01/17 09:00 05/01/17 08:59 04/01/17 07:26 10 MG Simvastatin (Zocor Tab) 20 mg QPM PO 03/31/17 21:00 04/30/17 20:59 03/31/17 21:36 20 MG Verapamil HCl (Calan-Sr Tab) 120 mg DAILY PO 04/01/17 09:00 05/01/17 08:59 04/01/17 07:26 120 MG Ondansetron HCl (Zofran Inj) 4 mg Q6H PRN IV 03/31/17 18:00 04/30/17 17:59 04/01/17 09:55 4 MG Nitroglycerin (Nitrostat Tab) 0.4 mg UD PRN SL 03/31/17 18:00 04/30/17 17:59 Morphine Sulfate (MoRPHine SULFATE INJ) 2 mg Q4 PRN IV 04/01/17 11:15 04/15/17 11:14 Folic Acid 1 mg/ Syringe 10 ml @ 5 mls/min QAM IV 04/02/17 09:00 05/02/17 08:59 Furosemide 20 mg/ Syringe 2 ml @ 4 mls/min Q12 IV 04/01/17 21:00 05/01/17 20:59 UNV Furosemide 40 mg/ Syringe 4 ml @ 4 mls/min NOW IV 04/01/17 12:30 05/01/17 12:29 UNV Spironolactone (Aldactone Tab) 25 mg QAM PO 04/02/17 09:00 05/02/17 08:59 UNV Ciprofloxacin (Cipro Tab) 250 mg BID PO 04/01/17 21:00 04/06/17 20:59 UNV Objective Vital Signs Date Time Temp Pulse Resp B/P (MAP) Pulse Ox O2 Delivery O2 Flow Rate FiO2 04/01/17 11:28 37.0 73 16 115/69 (84) 95 04/01/17 08:00 Room Air 04/01/17 07:31 111/71 (84) 04/01/17 07:09 36.9 75 17 110/68 (82) 95 Room Air 04/01/17 04:09 37.1 79 18 105/60 (75) 94 Room Air 04/01/17 04:00 Room Air 04/01/17 00:02 Room Air 03/31/17 23:52 37.2 78 18 114/69 (84) 96 Room Air 03/31/17 20:00 Room Air 03/31/17 19:56 36.7 80 18 121/64 97 Room Air 03/31/17 18:33 78 18 107/54 97 Room Air 03/31/17 17:48 77 16 99/68 98 Room Air 03/31/17 16:44 76 18 128/70 98 Room Air 03/31/17 15:21 36.4 75 18 114/65 91 Room Air Physical Exam General Appearance: WD/WN, no apparent distress Eyes: normal inspection, EOMI, sclerae normal Neck: supple, no adenopathy, no JVD, trachea midline Respiratory/Chest: chest non-tender, lungs clear, normal breath sounds, no respiratory distress, no accessory muscle use Cardiovascular: regular rate, rhythm, no gallop, no JVD, no murmur Abdomen: normal bowel sounds, no organomegaly, + distended, + tenderness ( diffuse), + pertinent finding (fluid wave consistent with ascites, abdomen tense due to fluid) Extremities: normal range of motion, non-tender, normal inspection, no calf tenderness, pelvis stable, + pedal edema Neurologic/Psychiatric: 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 II-XII nml as tested, alert, oriented x 3, + motor weakness, + depressed affect Skin: normal color, warm/dry, no rash Laboratory Results Last 24 Hours Test 03/31/17 16:29 03/31/17 16:35 03/31/17 17:00 03/31/17 17:29 White Blood Count 2.21 K/uL Red Blood Count 2.58 M/uL Hemoglobin 8.9 g/dL Hematocrit 26.3 % Mean Corpuscular Volume 101.9 fL Mean Corpuscular Hemoglobin 34.5 pg Mean Corpuscular Hemoglobin Concent 33.8 g/dl Platelet Count 47 K/uL Mean Platelet Volume 8.4 fL Neutrophils (%) (Auto) 61.5 % Lymphocytes (%) (Auto) 34.4 % Monocytes (%) (Auto) 2.3 % Eosinophils (%) (Auto) 1.8 % Basophils (%) (Auto) 0.0 % Neutrophils # (Auto) 1.36 K/uL Lymphocytes # (Auto) 0.76 K/uL Monocytes # (Auto) 0.05 K/uL Eosinophils # (Auto) 0.04 K/uL Basophils # (Auto) 0.00 K/uL RDW Standard Deviation 69.8 fL RDW Coefficient of Variation 19.4 % Immature Granulocyte % (Auto) 0.0 % Immature Granulocyte # (Auto) 0.00 K/uL Anisocytosis PRESENT Sodium Level 139 mmol/L Potassium Level 4.2 mmol/L Chloride Level 106 mmol/L Carbon Dioxide Level 21 mmol/L Anion Gap 12.0 mmol/L Blood Urea Nitrogen 19 mg/dl Creatinine 1.00 mg/dl Est Creatinine Clear Calc Drug Dose 42.3 ml/min Estimated GFR () 64.3 Estimated GFR (Non- 55.5 BUN/Creatinine Ratio 18.5 Random Glucose 108 mg/dl Calcium Level 8.1 mg/dl Total Bilirubin 1.0 mg/dl Direct Bilirubin 0.4 mg/dl Aspartate Amino Transf (AST/SGOT) 39 U/L Alanine Aminotransferase (ALT/SGPT) 20 U/L Alkaline Phosphatase 73 U/L Total Protein 5.9 gm/dl Albumin 2.6 gm/dl Lipase 87 U/L Urine Color DK YELLOW Urine Appearance CLEAR Urine pH 6.5 Urine Specific [place] > 1.045 Urine Protein 3+ Urine Glucose (UA) TRACE Urine Ketones 1+ Urine Occult Blood 3+ Urine Nitrite NEG Urine Bilirubin NEG Urine Urobilinogen NEG Urine Leukocyte Esterase NEG Urine WBC (Auto) >30 /hpf Urine RBC (Auto) >30 /hpf Urine Hyaline Casts (Auto) 1-5 /lpf Urine Epithelial Cells (Auto) 10-20 /lpf Urine Bacteria (Auto) NEG Urine Pathogenic Casts /lpf Urine Yeast (Auto) Prothrombin Time 14.4 SECONDS Prothromb Time International Ratio 1.3 Hepatitis B Surface Antibody NEG Hepatitis C Antibody NEG Lactic Acid Level 1.8 mmol/L Ammonia 14.0 umol/L Test 03/31/17 19:09 04/01/17 01:10 04/01/17 05:34 04/01/17 11:49 Vitamin B12 Level 228 pg/mL Folate 1.37 ng/mL Hemoglobin 7.9 g/dL 8.1 g/dL White Blood Count 1.55 K/uL Red Blood Count 2.44 M/uL Hematocrit 25.0 % Mean Corpuscular Volume 102.5 fL Mean Corpuscular Hemoglobin 33.2 pg Mean Corpuscular Hemoglobin Concent 32.4 g/dl RDW Standard Deviation 68.6 fL RDW Coefficient of Variation 19.4 % Platelet Count 39 K/uL Mean Platelet Volume 8.3 fL Sodium Level 138 mmol/L Potassium Level 3.9 mmol/L Chloride Level 108 mmol/L Carbon Dioxide Level 18 mmol/L Anion Gap 12.0 mmol/L Blood Urea Nitrogen 16 mg/dl Creatinine 0.81 mg/dl Est Creatinine Clear Calc Drug Dose 52.9 ml/min Estimated GFR () 82.9 Estimated GFR (Non- 71.5 BUN/Creatinine Ratio 20.0 Random Glucose 91 mg/dl Calcium Level 7.2 mg/dl Magnesium Level 1.7 mg/dl Assessment and Plan 72 y/o F Hx CAD, CVA, dementia, pancytopenia, Behcet's disease. Pt presents with 3 days of BRBPR. She also describes some weakness, nausea and a headache. She denies abdominal pain, diarrhea. Denies CP, SOB, lightheadedness. A CT abdomen was obtained in the ER revealing previously undiagnosed Cirrhosis, portal hypertension and perirectal varices. Additionally she has severe SMA stenosis which may have been known to her as her sister states that she has " low blood flow to her colon". - Cirrhosis with ascites, pancytopenia, perirectal varices, minimally elevated INR new finding, no known h/o cirrhosis or steatosis. 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 consult GI, family discussing colonoscopy but told them that supervisor production department would make that decision - Pancytopenia: appreciate hematology consult 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 folate low, started on folic acid will follow counts, avoid chemical DVT prophylaxis - 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
--- NOTE | 2017-04-01 14:13 | Gastrointestinal Consultation ---
Gastrointestinal Consultation Date of Consultation: Apr 01, 2017 Attending Physician: Dr. Cleveland Consulting Physician: Dr. 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 Family is not present at the bedside and history is obtained from patient and limited. She tells me that she was never told she had a liver problem. No history of ETOH. Sh eis diabetic. Was taking tylenol daily for years as well. She thinks her abdomen became distended about a week ago. Labs on admission are significant for pancytopenia. CT scan showed a cirrhotic appearing liver, a significant amount of abd ascites, splenic vein thrombosis, varices, and a 1.6cm cystic lesion in the pancreas anterior to the body. Nursing reports no BM or rectal bleeding today. Her hgb is 8, plt count 40, WBC 2. She was seen by hematology and her MTX is being held. Labs show low platelets dating back at least a year raising suspicion for cirrhosis at that time. Past Medical/Surgical History Medical Problems: (1) Bleeding hemorrhoid Status: Acute (2) GI bleed Status: Acute (3) Lactic acidosis Status: Acute (4) Mesenteric artery stenosis Status: Acute (5) Pancytopenia Status: Acute (6) Portal hypertension Status: Acute (7) Symptomatic anemia Status: Acute (8) UTI (urinary tract infection) Status: Acute (9) Weakness Status: Acute Past Medical History: as noted in HPI Past Surgical History: hernia repair Family History Patient reports no known family medical history. non-contributory Social History Smoking Status: Never Smoker Alcohol Use: none Drug Use: none Marital Status: Housing Status: lives with significant other Occupation Status: retired Allergies Coded Allergies: Codeine (Verified Allergy, Unknown, MORPHINE OK, 03/31/17) Latex2 -Systemic Allergic Response (Verified Allergy, Unknown, UNKNOWN, ) Current Medications Home Meds and Scripts Medications Dose Route/Sig Max Daily Dose Days Date Category Dose Instructions Cipro (Ciprofloxacin Hcl) 500 Mg Tab 500 Mg PO BID 03/29/17 Rx Methotrexate 2.5 Mg Tab 8 Tabs PO WK 12/08/15 Reported 8 TABLETS ONCE WEEKLY ON SUNDAYS Neurontin (Gabapentin) 300 Mg Cap 300 Mg PO TID 12/08/15 Reported Zocor (Simvastatin) 20 Mg Tab 20 Mg PO QPM 12/08/15 Reported Glucophage (Metformin Hcl) 500 Mg Tab 500 Mg PO BID 12/08/15 Reported Imdur Ext Rel (Isosorbide Mononitrate) 30 Mg Ertab 30 Mg PO QAM 07/24/14 Reported Prednisone 10 Mg Tab 10 Mg PO UD PRN 03/27/13 Reported TAPER NEEDED FOR FLARE UPS. Calan Sr Ext Rel (Verapamil HCl) 120 Mg Tabcr 120 Mg PO DAILY 03/27/13 Reported Nitrostat (Nitroglycerin) 0.4 Mg Tab 0.4 Mg UT PRN 05/31/11 Reported ONE TABLET UNDER THE TONGUE EVERY 5 MINUTES, UP TO 3 DOSES , NEEDED FOR CHEST PAIN. Plavix (Clopidogrel Bisulfate) 75 Mg Tab 75 Mg PO Q2D 01/28/11 Reported Tenormin (Atenolol) 50 Mg Tab 50 Mg PO BID 01/28/11 Reported Review of Systems 12 systems reviewed and negative except as noted Physical Exam Date Time Temp Pulse Resp B/P (MAP) Pulse Ox O2 Delivery O2 Flow Rate FiO2 04/01/17 13:03 75 117/75 (89) 04/01/17 11:28 37.0 73 16 115/69 (84) 95 04/01/17 08:00 Room Air 04/01/17 07:31 111/71 (84) 04/01/17 07:09 36.9 75 17 110/68 (82) 95 Room Air 04/01/17 04:09 37.1 79 18 105/60 (75) 94 Room Air 04/01/17 04:00 Room Air 04/01/17 00:02 Room Air 03/31/17 23:52 37.2 78 18 114/69 (84) 96 Room Air 03/31/17 20:00 Room Air 03/31/17 19:56 36.7 80 18 121/64 97 Room Air 03/31/17 18:33 78 18 107/54 97 Room Air 03/31/17 17:48 77 16 99/68 98 Room Air 03/31/17 16:44 76 18 128/70 98 Room Air 03/31/17 15:21 36.4 75 18 114/65 91 Room Air General Appearance: WD/WN, no apparent distress Eyes: normal inspection, PERRL ENT: normal ENT inspection, hearing grossly normal, pharynx normal Neck: supple, no adenopathy, no JVD Respiratory/Chest: chest non-tender, lungs clear, no accessory muscle use Cardiovascular: regular rate, rhythm, no murmur, + pertinent finding (+LE edema ) Abdomen: normal bowel sounds, + distended, + pertinent finding (+ascites) Extremities: normal range of motion, non-tender, + pedal edema Neurologic/Psych: no motor/sensory deficits, alert, normal mood/affect, oriented x 3, + pertinent finding (No gross focal deficits, poor memory and recall) Skin: normal color, no jaundice, warm/dry, no rash Laboratory Results Last 24 Hours Test 03/31/17 16:29 03/31/17 16:35 03/31/17 17:00 03/31/17 17:29 White Blood Count 2.21 K/uL Red Blood Count 2.58 M/uL Hemoglobin 8.9 g/dL Hematocrit 26.3 % Mean Corpuscular Volume 101.9 fL Mean Corpuscular Hemoglobin 34.5 pg Mean Corpuscular Hemoglobin Concent 33.8 g/dl Platelet Count 47 K/uL Mean Platelet Volume 8.4 fL Neutrophils (%) (Auto) 61.5 % Lymphocytes (%) (Auto) 34.4 % Monocytes (%) (Auto) 2.3 % Eosinophils (%) (Auto) 1.8 % Basophils (%) (Auto) 0.0 % Neutrophils # (Auto) 1.36 K/uL Lymphocytes # (Auto) 0.76 K/uL Monocytes # (Auto) 0.05 K/uL Eosinophils # (Auto) 0.04 K/uL Basophils # (Auto) 0.00 K/uL RDW Standard Deviation 69.8 fL RDW Coefficient of Variation 19.4 % Immature Granulocyte % (Auto) 0.0 % Immature Granulocyte # (Auto) 0.00 K/uL Anisocytosis PRESENT Sodium Level 139 mmol/L Potassium Level 4.2 mmol/L Chloride Level 106 mmol/L Carbon Dioxide Level 21 mmol/L Anion Gap 12.0 mmol/L Blood Urea Nitrogen 19 mg/dl Creatinine 1.00 mg/dl Est Creatinine Clear Calc Drug Dose 42.3 ml/min Estimated GFR () 64.3 Estimated GFR (Non- 55.5 BUN/Creatinine Ratio 18.5 Random Glucose 108 mg/dl Calcium Level 8.1 mg/dl Total Bilirubin 1.0 mg/dl Direct Bilirubin 0.4 mg/dl Aspartate Amino Transf (AST/SGOT) 39 U/L Alanine Aminotransferase (ALT/SGPT) 20 U/L Alkaline Phosphatase 73 U/L Total Protein 5.9 gm/dl Albumin 2.6 gm/dl Lipase 87 U/L Urine Color DK YELLOW Urine Appearance CLEAR Urine pH 6.5 Urine Specific [place] > 1.045 Urine Protein 3+ Urine Glucose (UA) TRACE Urine Ketones 1+ Urine Occult Blood 3+ Urine Nitrite NEG Urine Bilirubin NEG Urine Urobilinogen NEG Urine Leukocyte Esterase NEG Urine WBC (Auto) >30 /hpf Urine RBC (Auto) >30 /hpf Urine Hyaline Casts (Auto) 1-5 /lpf Urine Epithelial Cells (Auto) 10-20 /lpf Urine Bacteria (Auto) NEG Urine Pathogenic Casts /lpf Urine Yeast (Auto) Prothrombin Time 14.4 SECONDS Prothromb Time International Ratio 1.3 Hepatitis B Surface Antibody NEG Hepatitis C Antibody NEG Lactic Acid Level 1.8 mmol/L Ammonia 14.0 umol/L Test 03/31/17 19:09 04/01/17 01:10 04/01/17 05:34 04/01/17 11:49 Vitamin B12 Level 228 pg/mL Folate 1.37 ng/mL Hemoglobin 7.9 g/dL 8.1 g/dL White Blood Count 1.55 K/uL Red Blood Count 2.44 M/uL Hematocrit 25.0 % Mean Corpuscular Volume 102.5 fL Mean Corpuscular Hemoglobin 33.2 pg Mean Corpuscular Hemoglobin Concent 32.4 g/dl RDW Standard Deviation 68.6 fL RDW Coefficient of Variation 19.4 % Platelet Count 39 K/uL Mean Platelet Volume 8.3 fL Sodium Level 138 mmol/L Potassium Level 3.9 mmol/L Chloride Level 108 mmol/L Carbon Dioxide Level 18 mmol/L Anion Gap 12.0 mmol/L Blood Urea Nitrogen 16 mg/dl Creatinine 0.81 mg/dl Est Creatinine Clear Calc Drug Dose 52.9 ml/min Estimated GFR () 82.9 Estimated GFR (Non- 71.5 BUN/Creatinine Ratio 20.0 Random Glucose 91 mg/dl Calcium Level 7.2 mg/dl Magnesium Level 1.7 mg/dl Ferritin 502.7 ng/ml Lactate Dehydrogenase 252 U/L Impression Patient is a 72 year old female with multiple medical problems including CVD, and DM admitted with rectal bleeding (which appears to have stopped and is presumably outlet in origin) and new diagnosis of cirrhosis with decompensation with gross ascites. Plan - She will need a diagnostic and therapeutic paracentesis. Please be sure that the fluid is sent for fluid albumin, protein, cell count/differential; gram stain, culture, amylase, LD, cytology, etc Calculate SAAG. - Diuretics. - Close monitoring of her CBC. - Will need to discuss timing of last EGD and colonoscopy with patient's family when they are available, - Repletion of folate and magnesium per primary service. - Will need eventualy further imaging of the cystic panc lesion (?IPMN)
[2017-04-01] MEDS: FUROSEMIDE INJ 20 MG in SYRINGE 0 ML IV SCH (20:42)
[2017-04-01] MEDS: CIPROFLOXACIN 250 MG TAB PO SCH (20:42)
[2017-04-01] MEDS: SIMVASTATIN 20 MG TAB PO SCH (20:55)
[2017-04-02 07:44] VITALS: BP 116/70; PULSE 78; TEMP 36.8; O2SAT 93
[2017-04-02] MEDS: GABAPENTIN 300 MG CAP PO SCH ×3 (08:26→21:40)
[2017-04-02] MEDS: CIPROFLOXACIN 250 MG TAB PO SCH ×2 (08:26→21:40)
[2017-04-02] MEDS: SPIRONOLACTONE 25 MG TAB PO SCH (08:27)
[2017-04-02] MEDS: FoLIC ACID INJ 1 MG in SYRINGE 9.8 ML IV SCH (08:28)
[2017-04-02] MEDS: FUROSEMIDE INJ 20 MG in SYRINGE 0 ML IV SCH ×2 (08:28→21:33)
[2017-04-02] MEDS: VERAPAMIL HCL 120 MG TABCR PO SCH (08:28)
[2017-04-02 10:27] LABS: HEMATOCRIT 26.2 % (37-47); MEAN CELL VOLUME 101.2 fL (80-100); MEAN CORPUSCULAR HGB CONC 33.6 g/dl (32-36); RED BLOOD COUNT 2.59 M/uL (4.2-5.4); WHITE BLOOD COUNT 1.09 K/uL (4.8-10.8)
[2017-04-02 10:38] VITALS: O2SAT 93
[2017-04-02 10:41] LABS: MEAN PLATELET VOLUME 8.4 fL (7.4-10.4); PLATELET COUNT 29 K/uL (130-400); PLT ESTIMATE DECREASED
[2017-04-02 11:02] LABS: ALB/GLOB RATIO 0.8 (0.9-2); BUN/CREATININE RATIO 11.2 (10-20); CALCIUM 7.5 mg/dl (8.5-10.1); CREATININE 1.1 mg/dl (0.60-1.20); POTASSIUM 3.2 mmol/L (3.5-5.1)
--- NOTE | 2017-04-02 11:17 | Progress Note ---
Subjective Date of Service: Apr 02, 2017. Subjective Pt evaluation today including: conversation w/ patient, conversation w/ family , physical exam, lab review, conversation w/ websphere commerce consultant, review of inpatient medication list Pain: abdominal pain slightly better PO Intake: poor, nausea Voiding: riggs catheter in place patient says she feels slightly better today, very weak, less nausea and less abdominal pain appreciate GI consultation, plan for paracentesis tomorrow, labs ordered answered questions from family members at the bedside personally reviewed labs, platelets low at 29, no yazmin bleeding so no need for transfusion K low at 3.2 with diuresis, will add 20mEq BID Problem List Medical Problems: (1) Bleeding hemorrhoid Status: Acute (2) GI bleed Status: Acute (3) Lactic acidosis Status: Acute (4) Mesenteric artery stenosis Status: Acute (5) Pancytopenia Status: Acute (6) Portal hypertension Status: Acute (7) Symptomatic anemia Status: Acute (8) UTI (urinary tract infection) Status: Acute (9) Weakness Status: Acute Review of Systems Constitutional: + weakness, + fatigue Abdomen: + pain, + nausea, + problem reported (poor appetite, abdominal distension) Neurologic: + memory loss, + weakness All Other Systems: Reviewed and Negative Medications Current Inpatient Medications Medications (Trade) Dose Ordered Sig/Sonam Route Start Time Stop Time Status Last Admin Dose Admin Ioversol (Optiray 320) 125 ml UD PRN IV 03/31/17 15:45 04/04/17 15:44 Atenolol (Tenormin Tab) 50 mg BID PO 03/31/17 21:00 04/30/17 20:59 04/02/17 08:27 50 MG Gabapentin (Neurontin Cap) 300 mg TID PO 03/31/17 21:00 04/30/17 20:59 04/02/17 08:26 300 MG Prednisone (PredniSONE TAB) 10 mg DAILY PO 04/01/17 09:00 05/01/17 08:59 04/02/17 08:27 10 MG Simvastatin (Zocor Tab) 20 mg QPM PO 03/31/17 21:00 04/30/17 20:59 04/01/17 20:55 20 MG Verapamil HCl (Calan-Sr Tab) 120 mg DAILY PO 04/01/17 09:00 05/01/17 08:59 04/02/17 08:28 120 MG Ondansetron HCl (Zofran Inj) 4 mg Q6H PRN IV 03/31/17 18:00 04/30/17 17:59 04/01/17 09:55 4 MG Nitroglycerin (Nitrostat Tab) 0.4 mg UD PRN SL 03/31/17 18:00 04/30/17 17:59 Morphine Sulfate (MoRPHine SULFATE INJ) 2 mg Q4 PRN IV 04/01/17 11:15 04/15/17 11:14 04/01/17 14:50 2 MG Folic Acid 1 mg/ Syringe 10 ml @ 5 mls/min QAM IV 04/02/17 09:00 05/02/17 08:59 04/02/17 08:28 5 MLS/MIN Furosemide 20 mg/ Syringe 2 ml @ 4 mls/min Q12 IV 04/01/17 21:00 05/01/17 20:59 04/02/17 08:28 4 MLS/MIN Spironolactone (Aldactone Tab) 25 mg QAM PO 04/02/17 09:00 05/02/17 08:59 04/02/17 08:27 25 MG Ciprofloxacin (Ciprofloxacin Tab) 250 mg BID PO 04/01/17 21:00 04/06/17 20:59 04/02/17 08:26 250 MG Objective Vital Signs Date Time Temp Pulse Resp B/P (MAP) Pulse Ox O2 Delivery O2 Flow Rate FiO2 04/02/17 10:38 93 Room Air 04/02/17 07:44 36.8 78 16 116/70 (85) 93 Room Air 04/02/17 00:00 Room Air 04/01/17 22:56 36.7 60 18 134/75 (94) 95 Room Air 04/01/17 20:38 36.7 72 16 107/63 (78) 95 Room Air 04/01/17 16:00 Room Air 04/01/17 15:06 36.8 74 16 116/68 (84) 96 04/01/17 13:03 75 117/75 (89) 04/01/17 11:28 37.0 73 16 115/69 (84) 95 Physical Exam General Appearance: WD/WN, no apparent distress Neck: supple, no adenopathy, no JVD, trachea midline Respiratory/Chest: chest non-tender, lungs clear, normal breath sounds, no respiratory distress, no accessory muscle use Cardiovascular: regular rate, rhythm, no edema, no gallop, no JVD, no murmur Abdomen: normal bowel sounds, soft, no organomegaly, + distended (fluid wave, less distension and less tense compared to yesterday) Extremities: normal range of motion, non-tender, normal inspection, no calf tenderness, normal capillary refill, pelvis stable, + pedal edema (trace bilaterally) Neurologic/Psychiatric: convention manager II-XII nml as tested, alert, normal mood/affect, oriented x 3, + motor weakness (generalized) Skin: normal color, warm/dry, no rash Laboratory Results Last 24 Hours Test 04/01/17 11:49 04/02/17 07:45 04/02/17 10:11 Ferritin 502.7 ng/ml Lactate Dehydrogenase 252 U/L Bedside Glucose 114 mg/dl White Blood Count 1.09 K/uL Red Blood Count 2.59 M/uL Hemoglobin 8.8 g/dL Hematocrit 26.2 % Mean Corpuscular Volume 101.2 fL Mean Corpuscular Hemoglobin 34.0 pg Mean Corpuscular Hemoglobin Concent 33.6 g/dl RDW Standard Deviation 67.0 fL RDW Coefficient of Variation 19.0 % Platelet Count 29 K/uL Mean Platelet Volume 8.4 fL Platelet Estimate DECREASED Sodium Level 139 mmol/L Potassium Level 3.2 mmol/L Chloride Level 104 mmol/L Carbon Dioxide Level 24 mmol/L Anion Gap 11.0 mmol/L Blood Urea Nitrogen 12 mg/dl Creatinine 1.10 mg/dl Est Creatinine Clear Calc Drug Dose 39.0 ml/min Estimated GFR () 57.3 Estimated GFR (Non- 49.4 BUN/Creatinine Ratio 11.2 Random Glucose 169 mg/dl Calcium Level 7.5 mg/dl Total Bilirubin 0.6 mg/dl Aspartate Amino Transf (AST/SGOT) 38 U/L Alanine Aminotransferase (ALT/SGPT) 20 U/L Alkaline Phosphatase 73 U/L Total Protein 5.7 gm/dl Albumin 2.6 gm/dl Globulin 3.1 gm/dl Albumin/Globulin Ratio 0.8 Assessment and Plan 72 y/o F Hx CAD, CVA, dementia, pancytopenia, Behcet's disease. Pt presents with 3 days of BRBPR. She also describes some weakness, nausea and a headache. She denies abdominal pain, diarrhea. Denies CP, SOB, lightheadedness. A CT abdomen was obtained in the ER revealing previously undiagnosed Cirrhosis, portal hypertension and perirectal varices. Additionally she has severe SMA stenosis which may have been known to her as her sister states that she has " low blood flow to her colon". - Cirrhosis with ascites, pancytopenia, perirectal varices, minimally elevated INR new finding, no known h/o cirrhosis or steatosis. No h/o alcohol abuse, last Echo showed EF 60%, hepatitis B/C negative primary issue is ascites which is causing some discomfort, nausea as well as some intermittent rectal bleeding change Lasix to 40mg PO BID, continue Spironolactone 25mg daily ordered therapeutic and diagnostic US guided paracentesis tomorrow, studies ordered, will need to determine SAAG appreciate GI recommendations no signs of encephalopathy, jaundice, INR 1.3 and Cr is normal - Lower GI bleed: due to perirectal varices from portal hypertension consult GI, family discussing colonoscopy but told them that escalator attendant would make that decision for now, primary work up is ascites - Pancytopenia: appreciate hematology consult 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 folate low, started on folic acid platelets lower today at 29, avoid chemical DVT prophylaxis no active bleeding so no need for platelet transfusion - Behcet's: holding methotrexate due to pancytopenia continue Prednisone - CAD: no chest pain - Mesenteric atherosclerosis: severe SMA stenosis, this was apparently known by patient/family - UTI: continue Cipro PO for 1 more day - DVT prophylaxis: SCD only Level 1
[2017-04-02] MEDS ORDERED: POTASSIUM CHLORIDE 20 MEQ/15 ML UDC PO ONE (11:30)
[2017-04-02] MEDS: MoRPHine SULFATE 2 MG/ML CARP IV PRN ×2 (13:35→18:03)
[2017-04-02 15:35] VITALS: BP 103/68; PULSE 74; TEMP 37; O2SAT 94
[2017-04-02 16:00] VITALS: O2SAT 94
[2017-04-02] MEDS ORDERED: DEXTROSE 50% 50 ML SYR IV PRN (16:00)
[2017-04-02] MEDS ORDERED: GLUCOSE 10 TABS/TUBE PO PRN (16:00)
[2017-04-02] MEDS ORDERED: GLUCOSE 40% GEL 15 GM TUBE PO PRN (16:00)
[2017-04-02] MEDS ORDERED: GLUCAGON FOR INJ 1 MG VIAL SQ PRN (16:00)
[2017-04-02 18:03] VITALS: BP 114/67; PULSE 79
[2017-04-02] MEDS: INSULIN ASPART 100 UNITS/ML 3 ML PEN SC SCH ×2 (18:10→21:42)
[2017-04-02] MEDS ORDERED: KETOROLAC TROMETHAMINE 15 MG/ML VIAL IV. STA (21:24)
[2017-04-02 21:31] VITALS: BP 122/71; PULSE 74
[2017-04-02] MEDS: POTASSIUM CHLORIDE 20 MEQ/15 ML UDC PO SCH (21:40)
[2017-04-02] MEDS: SIMVASTATIN 20 MG TAB PO SCH (21:41)
[2017-04-03] VITALS (7 sets, daily range): BP systolic 95–112; BP diastolic 57–75; PULSE 65–77; TEMP 36.3–36.7; O2SAT 94–98
[2017-04-03 01:20] LABS: INR 1.4 (0.9-1.1); PROTHROMBIN TIME (PATIENT) 14.7 SECONDS (9.0-12.0)
[2017-04-03 06:46] LABS: HEMATOCRIT 25.6 % (37-47); MEAN CORPUSCULAR HEMOGLOBIN 32.8 pg (25-34); MEAN CORPUSCULAR HGB CONC 32.8 g/dl (32-36); MEAN PLATELET VOLUME 9.5 fL (7.4-10.4); PLATELET COUNT 22 K/uL (130-400); RED BLOOD COUNT 2.56 M/uL (4.2-5.4); WHITE BLOOD COUNT 1.53 K/uL (4.8-10.8)
[2017-04-03 07:07] LABS: BUN/CREATININE RATIO 12.5 (10-20); CREATININE 0.96 mg/dl (0.60-1.20); POTASSIUM 3.8 mmol/L (3.5-5.1)
[2017-04-03 07:42] LABS: COMPLETE YES; EOS % 1.3 %; HYPERSEGMENTED POLYS 1+; LYMPH % 48.4 %; LYMPH ABS # 0.74 K/uL (1.2-3.4); MONO % 9.2 %; NEUT % 41.1 %
[2017-04-03] MEDS: INSULIN ASPART 100 UNITS/ML 3 ML PEN SC SCH ×4 (07:53→21:03)
[2017-04-03] MEDS: GABAPENTIN 300 MG CAP PO SCH ×3 (08:54→21:00)
[2017-04-03] MEDS: SPIRONOLACTONE 25 MG TAB PO SCH (08:54)
[2017-04-03] MEDS: FUROSEMIDE INJ 20 MG in SYRINGE 0 ML IV SCH ×2 (08:55→20:59)
[2017-04-03] MEDS: FoLIC ACID INJ 1 MG in SYRINGE 9.8 ML IV SCH (08:55)
[2017-04-03] MEDS: CIPROFLOXACIN 250 MG TAB PO SCH ×2 (08:58→20:59)
[2017-04-03] MEDS: VERAPAMIL HCL 120 MG TABCR PO SCH (08:58)
[2017-04-03] MEDS: POTASSIUM CHLORIDE 20 MEQ/15 ML UDC PO SCH ×2 (08:58→20:58)
--- NOTE | 2017-04-03 09:06 | HEME/ONC PROGRESS NOTE ---
DATE: 04/03/2017 DIAGNOSES: 1. Pancytopenia. 2. Gastrointestinal bleeding. 3. Mesenteric artery stenosis. 4. Pancytopenia. HOSPITAL COURSE: Estee Rehman is a pleasant 72-year-old female patient who was admitted because of subacute onset abdominal fullness, ascites and associated pain. She is pending paracentesis today. Currently n.p.o. The patient suffers from Behcet's disease and had been on weekly methotrexate approximately [address] Gauthier saw the patient in consultation and believes her pancytopenia is multifactorial. I tend to agree with that assessment in light of her hepatic disease and translated splenomegaly as documented on recent CT scan. Clinically, she seems to be holding her own. She does admit to some abdominal discomfort but otherwise nursing reports no overnight issues. PHYSICAL EXAMINATION: GENERAL: She is in no acute distress. VITAL SIGNS: Temperature 36.6, pulse 65, respirations 16, blood pressure 95/57. SKIN: Without rash or lesion. HEENT: Oral mucosa without erythema or ulceration. Upper and lower dentures noted. NECK: Supple. HEART: Regular rate and rhythm. LUNGS: Clear to auscultation. ABDOMEN: Distended, shifting dullness with positive fluid wave. EXTREMITIES: Pneumatics in place. No clubbing, cyanosis otherwise. NEUROLOGIC: Grossly intact. LABORATORY DATA: WBC count 1530, hemoglobin 8.4, platelet count 22,000. Sodium 139, potassium 3.8, chloride 106, carbon dioxide 25, BUN 12, creatinine 0.96. IMPRESSION: 1. Pancytopenia. 2. Cirrhosis with ascites. 3. Lower gastrointestinal bleeding. 4. Behcet's disease. 5. Urinary tract infection. PLAN: Estee was seen and examined at bedside today. Clearly, she has significant abdominal distention and paracentesis is pending today. From a hematologic standpoint, again, her counts are relatively stable and transfusion is not necessary at this time. We will continue to monitor peripheral counts daily and support as necessary. I have nothing further to add today. Will continue to follow her periodically during her hospital stay. Would also recommend continuing holding methotrexate again until her counts return to baseline. Thank you for allowing us to participate in her care.
--- NOTE | 2017-04-03 09:15 | Gastroenterology Progress Note ---
Progress Note Date of Service: Apr 03, 2017 Subjective Pt evaluation today including: conversation w/ patient, conversation w/ family , physical exam, chart review, lab review Pt was seen and evaluated this AM. Family is at bedside. Paracentesis postponed this AM due to plt count. Denies fever, chills, chest pain, SOB, black/bloody stools. Was having rectal bleeding with BRBPR prior to admission. Does tell me her abdomen feels full and distended but now abdominal pain. CT 03/31/17: Cirrhosis with manifestations of portal hypertension including a large amount of abdominal and pelvic ascites, mild splenomegaly and varices formation. Nonocclusive thrombus within the splenic vein. Patent main, left and right portal veins. No bowel obstruction. Marked left and moderate right renal atrophy. No hydronephrosis. 1.6 cm cystic lesion adjacent to the anterior aspect of the pancreatic body. This is new since prior exam. This may reflect a side branch IPMN but is indeterminate and a follow-up MRI of the pancreas in 6 months is recommended . 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 Colonic wall thickening, most evident within the ascending colon. This is likely related to portal hypertension or underdistention although a nonspecific colitis could appear similar. Review of Systems Constitutional: No fever, No chills Respiratory: No cough, No shortness of breath Cardiac: + edema (bilateral lower extremeties ), No chest pain Abdomen: + problem reported (feels full and distended), No pain, No vomiting, No diarrhea, No constipation, No GI bleeding Medications Current Inpatient Medications Medications (Trade) Dose Ordered Sig/Sonam Route Start Time Stop Time Status Last Admin Dose Admin Ioversol (Optiray 320) 125 ml UD PRN IV 03/31/17 15:45 04/04/17 15:44 Atenolol (Tenormin Tab) 50 mg BID PO 03/31/17 21:00 04/30/17 20:59 04/03/17 08:58 50 MG Gabapentin (Neurontin Cap) 300 mg TID PO 03/31/17 21:00 04/30/17 20:59 04/03/17 08:54 300 MG Prednisone (PredniSONE TAB) 10 mg DAILY PO 04/01/17 09:00 05/01/17 08:59 04/03/17 08:54 10 MG Simvastatin (Zocor Tab) 20 mg QPM PO 03/31/17 21:00 04/30/17 20:59 04/02/17 21:41 20 MG Verapamil HCl (Calan-Sr Tab) 120 mg DAILY PO 04/01/17 09:00 05/01/17 08:59 04/03/17 08:58 120 MG Ondansetron HCl (Zofran Inj) 4 mg Q6H PRN IV 03/31/17 18:00 04/30/17 17:59 04/01/17 09:55 4 MG Nitroglycerin (Nitrostat Tab) 0.4 mg UD PRN SL 03/31/17 18:00 04/30/17 17:59 Morphine Sulfate (MoRPHine SULFATE INJ) 2 mg Q4 PRN IV 04/01/17 11:15 04/15/17 11:14 04/02/17 18:03 2 MG Folic Acid 1 mg/ Syringe 10 ml @ 5 mls/min QAM IV 04/02/17 09:00 05/02/17 08:59 04/03/17 08:55 5 MLS/MIN Furosemide 20 mg/ Syringe 2 ml @ 4 mls/min Q12 IV 04/01/17 21:00 05/01/17 20:59 04/03/17 08:55 4 MLS/MIN Spironolactone (Aldactone Tab) 25 mg QAM PO 04/02/17 09:00 05/02/17 08:59 04/03/17 08:54 25 MG Ciprofloxacin (Ciprofloxacin Tab) 250 mg BID PO 04/01/17 21:00 04/06/17 20:59 04/03/17 08:58 250 MG Potassium Chloride (Karlie Ciel Elix) 20 meq BID PO 04/02/17 21:00 05/02/17 20:59 04/03/17 08:58 20 MEQ Insulin Aspart (novoLOG ASPART) SLIDING SCALE G... ACHS SC 04/02/17 16:30 05/02/17 16:29 04/02/17 21:42 2 UNITS Glucose (Glucose 40% Gel) 15-30 GRAMS 15 GRAMS... UD PRN PO 04/02/17 16:00 05/02/17 15:59 Glucose (Glucose Chew Tab) 4-8 Tablets 4 Tabl... UD PRN PO 04/02/17 16:00 05/02/17 15:59 Dextrose (Dextrose 50% 50ML Syringe) 25-50ML OF 50% DW IV FOR... UD PRN IV 04/02/17 16:00 05/02/17 15:59 Glucagon (Glucagon Inj) 1 mg UD PRN SQ 04/02/17 16:00 05/02/17 15:59 Objective Vital Signs Date Time Temp Pulse Resp B/P (MAP) Pulse Ox O2 Delivery O2 Flow Rate FiO2 04/03/17 06:02 36.6 65 16 95/57 (70) 98 Room Air 04/03/17 00:14 36.3 70 16 97/59 (72) 94 Room Air 04/02/17 23:40 Room Air 04/02/17 21:31 74 122/71 (88) 04/02/17 18:03 79 114/67 (83) 04/02/17 16:00 94 Room Air 04/02/17 15:35 37.0 74 16 103/68 (80) 94 Room Air 04/02/17 10:38 93 Room Air Physical Exam General Appearance: no apparent distress Eyes: PERRL ENT: hearing grossly normal Neck: supple Respiratory/Chest: lungs clear, no respiratory distress, no accessory muscle use Cardiovascular: regular rate, rhythm, no gallop Abdomen: soft, + distended (non-tense ascites) Extremities: + pedal edema Neurologic/Psych: alert, normal mood/affect, oriented x 3 (but poor historian ) Skin: normal color, no jaundice, warm/dry, no rash Laboratory Results Last 24 Hours Test 04/02/17 10:11 04/02/17 11:39 04/02/17 16:11 04/02/17 20:07 White Blood Count 1.09 K/uL Red Blood Count 2.59 M/uL Hemoglobin 8.8 g/dL Hematocrit 26.2 % Mean Corpuscular Volume 101.2 fL Mean Corpuscular Hemoglobin 34.0 pg Mean Corpuscular Hemoglobin Concent 33.6 g/dl RDW Standard Deviation 67.0 fL RDW Coefficient of Variation 19.0 % Platelet Count 29 K/uL Mean Platelet Volume 8.4 fL Platelet Estimate DECREASED Sodium Level 139 mmol/L Potassium Level 3.2 mmol/L Chloride Level 104 mmol/L Carbon Dioxide Level 24 mmol/L Anion Gap 11.0 mmol/L Blood Urea Nitrogen 12 mg/dl Creatinine 1.10 mg/dl Est Creatinine Clear Calc Drug Dose 39.0 ml/min Estimated GFR () 57.3 Estimated GFR (Non- 49.4 BUN/Creatinine Ratio 11.2 Random Glucose 169 mg/dl Calcium Level 7.5 mg/dl Total Bilirubin 0.6 mg/dl Aspartate Amino Transf (AST/SGOT) 38 U/L Alanine Aminotransferase (ALT/SGPT) 20 U/L Alkaline Phosphatase 73 U/L Total Protein 5.7 gm/dl Albumin 2.6 gm/dl Globulin 3.1 gm/dl Albumin/Globulin Ratio 0.8 Bedside Glucose 179 mg/dl 207 mg/dl 213 mg/dl Test 04/03/17 00:40 04/03/17 05:58 04/03/17 07:19 Prothrombin Time 14.7 SECONDS Prothromb Time International Ratio 1.4 White Blood Count 1.53 K/uL Red Blood Count 2.56 M/uL Hemoglobin 8.4 g/dL Hematocrit 25.6 % Mean Corpuscular Volume 100.0 fL Mean Corpuscular Hemoglobin 32.8 pg Mean Corpuscular Hemoglobin Concent 32.8 g/dl Platelet Count 22 K/uL Mean Platelet Volume 9.5 fL Neutrophils (%) (Auto) 41.1 % Lymphocytes (%) (Auto) 48.4 % Monocytes (%) (Auto) 9.2 % Eosinophils (%) (Auto) 1.3 % Basophils (%) (Auto) 0.0 % Neutrophils # (Auto) 0.63 K/uL Lymphocytes # (Auto) 0.74 K/uL Monocytes # (Auto) 0.14 K/uL Eosinophils # (Auto) 0.02 K/uL Basophils # (Auto) 0.00 K/uL RDW Standard Deviation 65.4 fL RDW Coefficient of Variation 18.9 % Immature Granulocyte % (Auto) 0.0 % Immature Granulocyte # (Auto) 0.00 K/uL Hypersegmented Polys 1+ Sodium Level 139 mmol/L Potassium Level 3.8 mmol/L Chloride Level 106 mmol/L Carbon Dioxide Level 25 mmol/L Anion Gap 8.0 mmol/L Blood Urea Nitrogen 12 mg/dl Creatinine 0.96 mg/dl Est Creatinine Clear Calc Drug Dose 44.7 ml/min Estimated GFR () 67.5 Estimated GFR (Non- 58.3 BUN/Creatinine Ratio 12.5 Random Glucose 110 mg/dl Calcium Level 8.0 mg/dl Bedside Glucose 115 mg/dl Assessment and Plan 72 year old female with multiple medical problems including CVD, and DM admitted with rectal bleeding with new diagnosis of cirrhosis decompensated w/ ascites. Paracentesis this AM was postponed due to plt count. She has never had an EGD/Colonoscopy but is agreeable to these procedures - Diagnostic and therapeutic paracentesis - fluid albumin, protein, cell count/ differential; gram stain, culture, amylase, LD, cytology - Rule out SBP & calculate SAAG. - Continue IV lasix BID - Increase Spironolactone while admitted 100 mg daily - Watch electrolytes and kidney function - Close monitoring of her CBC - ?FFP - will discuss with Dr. Dejesus - EGD/Colonoscopy with improved platelet count - Repletion of folate and magnesium per primary service. - Repeat imaging of the new pancreatic lesion w/ MRI in 6 months I saw and evaluated the patient. GI is consulted for new onset ascites, amemia and scant hematochezia. PE: NAD, no icterus Impression: suspect the patients pancytopenia is related to use of Methotrexate. Due to her low plt count would not offer EGD / Colonoscopy at this time (can consider once plt > 50) Plan consider a hematology evaluation diagnostic paracentesis EGD / Colon once plt count improved.
[2017-04-03] MEDS: MoRPHine SULFATE 2 MG/ML CARP IV PRN ×2 (14:16→23:42)
--- NOTE | 2017-04-03 15:11 | Progress Note ---
Subjective Date of Service: Apr 03, 2017. Subjective Pt evaluation today including: conversation w/ patient, conversation w/ family , physical exam, chart review, lab review, review of studies, conversation w/ etl consultant, review of inpatient medication list Report hungry, will like to try some diet, more than clear liquid diet Feeling generalized weakness fatigue No fever and chill Abdominal distention and lower extremity swelling is not new Otherwise pleasant and conversational Problem List Medical Problems: (1) Bleeding hemorrhoid Status: Acute (2) GI bleed Status: Acute (3) Lactic acidosis Status: Acute (4) Mesenteric artery stenosis Status: Acute (5) Pancytopenia Status: Acute (6) Portal hypertension Status: Acute (7) Symptomatic anemia Status: Acute (8) UTI (urinary tract infection) Status: Acute (9) Weakness Status: Acute Review of Systems Constitutional: + weight loss, + fatigue, No fever, No chills, No sweats, No weakness, No problem reported Eyes: No worsening of vision, No eye pain, No redness, No discharge, No diplopia ENT: No hearing loss, No unusual epistaxis, No nasal symptoms, No sore throat, No tinnitus, No dental problems, No trouble swallowing Respiratory: No cough, No sputum, No wheezing, No shortness of breath, No dyspnea on exertion, No dyspnea at rest, No hemoptysis Cardiac: + edema, No chest pain, No orthopnea, No PND, No claudication, No palpitations Abdomen: + problem reported (distended), No pain, No nausea, No vomiting, No diarrhea, No constipation Musculoskeletal: No joint pain, No muscle pain, No swelling, No calf pain Female : No dysuria, No urinary frequency, No hematuria, No incontinence, No abnormal vaginal bleeding, No vaginal discharge Neurologic: No memory loss, No paralysis, No weakness, No numbness/tingling, No vertigo, No balance problems Psychiatric: No depression symptoms, No anhedonism, No anxiety, No insomnia, No substance abuse Heme: No abnormal bleeding/bruising, No clotting problems, No swollen lymph nodes, No night sweats Endo: No fatigue, No excessive thirst, No excessive urination Skin: No rash, No itch, No new/changing skin lesions, No color change, No bleeding Objective Vital Signs Date Time Temp Pulse Resp B/P (MAP) Pulse Ox O2 Delivery O2 Flow Rate FiO2 04/03/17 08:00 98 Room Air 04/03/17 06:02 36.6 65 16 95/57 (70) 98 Room Air 04/03/17 00:14 36.3 70 16 97/59 (72) 94 Room Air 04/02/17 23:40 Room Air 04/02/17 21:31 74 122/71 (88) 04/02/17 18:03 79 114/67 (83) 04/02/17 16:00 94 Room Air 04/02/17 15:35 37.0 74 16 103/68 (80) 94 Room Air Physical Exam General Appearance: WD/WN, no apparent distress, + cachetic, + thin, + pertinent finding (frail and chronically ill-looking) Eyes: normal inspection, PERRL, EOMI, sclerae normal ENT: normal ENT inspection, hearing grossly normal, pharynx normal Neck: supple, no adenopathy, thyroid normal, no JVD, no carotid bruits, trachea midline Respiratory/Chest: chest non-tender, normal breath sounds, no respiratory distress, no accessory muscle use, + decreased breath sounds Cardiovascular: regular rate, rhythm, no edema, no gallop, no JVD, no murmur Abdomen: normal bowel sounds, non tender, no organomegaly, no pulsatile mass, + distended, + pertinent finding (ascites fluid is positive) Extremities: normal range of motion, non-tender, normal inspection, no pedal edema, no calf tenderness, normal capillary refill, pelvis stable Neurologic/Psychiatric: english language learner tutor II-XII nml as tested, no motor/sensory deficits, alert, normal mood/affect, oriented x 3 Skin: normal color, warm/dry, no rash Lymphatic: no adenopathy Laboratory Results Last 24 Hours Test 04/02/17 16:11 04/02/17 20:07 04/03/17 00:40 04/03/17 05:58 Bedside Glucose 207 mg/dl 213 mg/dl Prothrombin Time 14.7 SECONDS Prothromb Time International Ratio 1.4 White Blood Count 1.53 K/uL Red Blood Count 2.56 M/uL Hemoglobin 8.4 g/dL Hematocrit 25.6 % Mean Corpuscular Volume 100.0 fL Mean Corpuscular Hemoglobin 32.8 pg Mean Corpuscular Hemoglobin Concent 32.8 g/dl Platelet Count 22 K/uL Mean Platelet Volume 9.5 fL Neutrophils (%) (Auto) 41.1 % Lymphocytes (%) (Auto) 48.4 % Monocytes (%) (Auto) 9.2 % Eosinophils (%) (Auto) 1.3 % Basophils (%) (Auto) 0.0 % Neutrophils # (Auto) 0.63 K/uL Lymphocytes # (Auto) 0.74 K/uL Monocytes # (Auto) 0.14 K/uL Eosinophils # (Auto) 0.02 K/uL Basophils # (Auto) 0.00 K/uL RDW Standard Deviation 65.4 fL RDW Coefficient of Variation 18.9 % Immature Granulocyte % (Auto) 0.0 % Immature Granulocyte # (Auto) 0.00 K/uL Hypersegmented Polys 1+ Sodium Level 139 mmol/L Potassium Level 3.8 mmol/L Chloride Level 106 mmol/L Carbon Dioxide Level 25 mmol/L Anion Gap 8.0 mmol/L Blood Urea Nitrogen 12 mg/dl Creatinine 0.96 mg/dl Est Creatinine Clear Calc Drug Dose 44.7 ml/min Estimated GFR () 67.5 Estimated GFR (Non- 58.3 BUN/Creatinine Ratio 12.5 Random Glucose 110 mg/dl Calcium Level 8.0 mg/dl Test 04/03/17 07:19 04/03/17 11:17 Bedside Glucose 115 mg/dl 125 mg/dl Assessment and Plan 72 y/o F Hx CAD, CVA, dementia, pancytopenia, Behcet's disease. Pt presents with 3 days of BRBPR She was admitted on 03/31/[address] abdomen was obtained in the ER revealing previously undiagnosed Cirrhosis, portal hypertension and perirectal varices. Additionally she has severe SMA stenosis which may have been known to her as her sister states that she has "low blood flow to her colon". - End-stage liver disease with Cirrhosis with ascites, pancytopenia, perirectal varices, minimally elevated INR, meld 10 new finding, no known h/o cirrhosis or steatosis. No h/o alcohol abuse, last Echo showed EF 60%, hepatitis B/C negative primary issue is ascites which is causing some discomfort, nausea as well as some intermittent rectal bleeding Continue Lasix to 40mg PO BID, Spironolactone 25mg daily appreciate GI recommendations: Ascites fluid albumin, protein, cell count/ differential; gram stain, culture, amylase, LD, cytology, AND TO Rule out SBP & calculate SAAG. - Lower GI bleed: due to perirectal varices from portal hypertension consultED GI, GI May planning colonoscopy - Pancytopenia: appreciate hematology consulT, 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 folate low, started on folic acid platelets lower today at 29, avoid chemical DVT prophylaxis no active bleeding so no need for platelet transfusion - Behcet's: holding methotrexate due to pancytopenia continue Prednisone - CAD: no chest pain - Mesenteric atherosclerosis: severe SMA stenosis, this was apparently known by patient/family - UTI: continue Cipro PO , today will complete Cipro treatment - DVT prophylaxis: SCD only Level 1 Continued [facility] stay due to: multiple IV medications needed Discharge planning: uncertain
[2017-04-03] MEDS ORDERED: NURSING VERBAL MED ORDER ONE (17:00)
[2017-04-03] MEDS ORDERED: MoRPHine SULFATE 2 MG/ML CARP IV ONE (17:00)
[2017-04-03] MEDS: SIMVASTATIN 20 MG TAB PO SCH (21:01)
[2017-04-04] VITALS (14 sets, daily range): BP systolic 97–121; BP diastolic 60–76; PULSE 72–83; TEMP 36.6–38.3; O2SAT 93–97
[2017-04-04] MEDS ORDERED: MoRPHine SULFATE 2 MG/ML CARP IV ONE (01:45)
[2017-04-04 06:03] LABS: HEMATOCRIT 24.1 % (37-47); MEAN CELL VOLUME 100.8 fL (80-100); MEAN CORPUSCULAR HEMOGLOBIN 33.9 pg (25-34); MEAN CORPUSCULAR HGB CONC 33.6 g/dl (32-36); MEAN PLATELET VOLUME 10.3 fL (7.4-10.4); PLATELET COUNT 19 K/uL (130-400); RED BLOOD COUNT 2.39 M/uL (4.2-5.4); WHITE BLOOD COUNT 2.11 K/uL (4.8-10.8)
[2017-04-04 06:07] LABS: ANISOCYTOSIS PRESENT; BASO % 0.5 %; BASO ABS # 0.01 K/uL (0-0.2); CALCIUM 7.5 mg/dl (8.5-10.1); COMPLETE YES; CREATININE 0.93 mg/dl (0.60-1.20); EOS % 0.9 %; HYPERSEGMENTED POLYS 1+; LYMPH % 44.1 %; LYMPH ABS # 0.93 K/uL (1.2-3.4); MAGNESIUM 1.8 mg/dl (1.8-2.4); MONO % 12.3 %; NEUT % 42.2 %; OVALOCYTES 1+; POTASSIUM 4.2 mmol/L (3.5-5.1)
[2017-04-04] MEDS: INSULIN ASPART 100 UNITS/ML 3 ML PEN SC SCH ×4 (08:33→20:47)
--- NOTE | 2017-04-04 09:30 | HEME/ONC PROGRESS NOTE ---
DATE: 04/04/2017 DIAGNOSES: 1. Pancytopenia. 2. Gastrointestinal bleeding. 3. Mesenteric artery stenosis. 4. Cirrhosis of the liver. HOSPITAL COURSE: Estee Rehman is a pleasant 72-year-old female patient admitted secondary to a subacute onset abdominal fullness, ascites and associated pain. Apparently because of her low platelets, GI is hesitant to perform procedures. Her platelet count dropped from 22,000-19,000 today. It is unclear weather this is all splenic sequestration versus possible antibody at work here. The patient was complaining of abdominal pain last night. She otherwise appears comfortable at bedside today. PHYSICAL EXAMINATION: GENERAL: She is in no acute distress. VITAL SIGNS: Temperature 37.6, pulse 73, respirations 20, blood pressure 103/64. SKIN: Without rash or lesion. HEENT: Oral mucosa without erythema or ulceration. NECK: Supple. HEART: Regular rate and rhythm. LUNGS: Clear to auscultation. ABDOMEN: Distended, bowel sounds hypoactive. No rigidity or guarding per se. EXTREMITIES: No clubbing, cyanosis or edema. NEUROLOGIC: Grossly intact. LABORATORY DATA: WBC count 21 10, hemoglobin 8.1, platelet count 19,000. Sodium 139, potassium 4.2, chloride 106, carbon dioxide 27, BUN 11, creatinine 0.93, albumin 2.4. IMPRESSION: 1. Lower gastrointestinal bleeding. 2. Pancytopenia. 3. Cirrhosis with ascites. 4. Behcet's disease. PLAN: Estee was seen and examined again at bedside today. She continues with abdominal distention and unfortunately with her low platelets, GI is reluctant to pursue a paracentesis. If procedures are planned, I can arrange for a single donor platelet pheresis to be administered which should propel her counts over 50,000. She fortunately does not suffer from renal insufficiency and therefore her platelets should be functional to maintain hemostasis. Please contact me if procedures are planned and I will be more than happy to arrange for a transfusion at such a time to have the patient undergo procedure safely.
[2017-04-04] MEDS: FUROSEMIDE INJ 20 MG in SYRINGE 0 ML IV SCH ×2 (09:34→20:43)
[2017-04-04] MEDS: FoLIC ACID INJ 1 MG in SYRINGE 9.8 ML IV SCH (09:34)
[2017-04-04] MEDS: CIPROFLOXACIN 250 MG TAB PO SCH ×2 (09:35→20:42)
[2017-04-04] MEDS: GABAPENTIN 300 MG CAP PO SCH ×3 (09:36→20:42)
[2017-04-04] MEDS: SPIRONOLACTONE 25 MG TAB PO SCH (09:36)
[2017-04-04] MEDS: VERAPAMIL HCL 120 MG TABCR PO SCH (09:36)
[2017-04-04] MEDS: POTASSIUM CHLORIDE 20 MEQ/15 ML UDC PO SCH ×2 (09:37→20:42)
--- NOTE | 2017-04-04 09:41 | Gastroenterology Progress Note ---
Progress Note Date of Service: Apr 04, 2017 Subjective Pt evaluation today including: conversation w/ patient, conversation w/ family , physical exam, chart review, lab review Pt was seen and examined. No acute events overnight. Tells me she had an episode of chest discomfort overnight - RN notified. Still having abdominal fullness with minimal improvement in pain. Radiology would consider paracentesis w/ FFP and platelet improvement. No episodes of rectal bleeding since she has been admitted. Review of Systems Constitutional: No fever, No chills Respiratory: No cough, No shortness of breath Cardiac: No chest pain, No edema Abdomen: + pain, No nausea, No vomiting, No diarrhea, No constipation, No GI bleeding Medications Current Inpatient Medications Medications (Trade) Dose Ordered Sig/Sonam Route Start Time Stop Time Status Last Admin Dose Admin Ioversol (Optiray 320) 125 ml UD PRN IV 03/31/17 15:45 04/04/17 15:44 Atenolol (Tenormin Tab) 50 mg BID PO 03/31/17 21:00 04/30/17 20:59 04/04/17 09:35 50 MG Gabapentin (Neurontin Cap) 300 mg TID PO 03/31/17 21:00 04/30/17 20:59 04/04/17 09:36 300 MG Prednisone (PredniSONE TAB) 10 mg DAILY PO 04/01/17 09:00 05/01/17 08:59 04/04/17 09:35 10 MG Simvastatin (Zocor Tab) 20 mg QPM PO 03/31/17 21:00 04/30/17 20:59 04/03/17 21:01 20 MG Verapamil HCl (Calan-Sr Tab) 120 mg DAILY PO 04/01/17 09:00 05/01/17 08:59 04/04/17 09:36 120 MG Ondansetron HCl (Zofran Inj) 4 mg Q6H PRN IV 03/31/17 18:00 04/30/17 17:59 04/01/17 09:55 4 MG Nitroglycerin (Nitrostat Tab) 0.4 mg UD PRN SL 03/31/17 18:00 04/30/17 17:59 Morphine Sulfate (MoRPHine SULFATE INJ) 2 mg Q4 PRN IV 04/01/17 11:15 04/15/17 11:14 04/03/17 23:42 2 MG Folic Acid 1 mg/ Syringe 10 ml @ 5 mls/min QAM IV 04/02/17 09:00 05/02/17 08:59 04/04/17 09:34 5 MLS/MIN Furosemide 20 mg/ Syringe 2 ml @ 4 mls/min Q12 IV 04/01/17 21:00 05/01/17 20:59 04/04/17 09:34 4 MLS/MIN Spironolactone (Aldactone Tab) 25 mg QAM PO 04/02/17 09:00 05/02/17 08:59 04/04/17 09:36 25 MG Ciprofloxacin (Ciprofloxacin Tab) 250 mg BID PO 04/01/17 21:00 04/06/17 20:59 04/04/17 09:35 250 MG Potassium Chloride (Karlie Ciel Elix) 20 meq BID PO 04/02/17 21:00 05/02/17 20:59 04/04/17 09:37 20 MEQ Insulin Aspart (novoLOG ASPART) SLIDING SCALE G... ACHS SC 04/02/17 16:30 05/02/17 16:29 04/03/17 21:03 2 UNITS Glucose (Glucose 40% Gel) 15-30 GRAMS 15 GRAMS... UD PRN PO 04/02/17 16:00 05/02/17 15:59 Glucose (Glucose Chew Tab) 4-8 Tablets 4 Tabl... UD PRN PO 04/02/17 16:00 05/02/17 15:59 Dextrose (Dextrose 50% 50ML Syringe) 25-50ML OF 50% DW IV FOR... UD PRN IV 04/02/17 16:00 05/02/17 15:59 Glucagon (Glucagon Inj) 1 mg UD PRN SQ 04/02/17 16:00 05/02/17 15:59 Objective Vital Signs Date Time Temp Pulse Resp B/P (MAP) Pulse Ox O2 Delivery O2 Flow Rate FiO2 04/04/17 07:57 36.7 73 18 103/64 (77) 94 Room Air 04/03/17 23:46 Room Air 04/03/17 23:07 36.7 77 16 110/68 (82) 95 Room Air 04/03/17 20:55 74 107/70 (82) 6/19/17 16:00 96 Room Air 04/03/17 15:45 36.7 66 16 112/75 (87 96 Physical Exam General Appearance: no apparent distress Eyes: PERRL ENT: hearing grossly normal Neck: supple Respiratory/Chest: lungs clear, no respiratory distress Cardiovascular: regular rate, rhythm, no gallop, no JVD Abdomen: normal bowel sounds, no organomegaly, no pulsatile mass, + distended ( mildly distended w/ nontense ascites) Neurologic/Psych: alert, normal mood/affect, oriented x 3 Skin: normal color Laboratory Results Last 24 Hours Test 04/03/17 11:17 04/03/17 16:11 04/03/17 20:30 04/04/17 05:24 Bedside Glucose 125 mg/dl 192 mg/dl 215 mg/dl White Blood Count 2.11 K/uL Red Blood Count 2.39 M/uL Hemoglobin 8.1 g/dL Hematocrit 24.1 % Mean Corpuscular Volume 100.8 fL Mean Corpuscular Hemoglobin 33.9 pg Mean Corpuscular Hemoglobin Concent 33.6 g/dl Platelet Count 19 K/uL Mean Platelet Volume 10.3 fL Neutrophils (%) (Auto) 42.2 % Lymphocytes (%) (Auto) 44.1 % Monocytes (%) (Auto) 12.3 % Eosinophils (%) (Auto) 0.9 % Basophils (%) (Auto) 0.5 % Neutrophils # (Auto) 0.89 K/uL Lymphocytes # (Auto) 0.93 K/uL Monocytes # (Auto) 0.26 K/uL Eosinophils # (Auto) 0.02 K/uL Basophils # (Auto) 0.01 K/uL RDW Standard Deviation 66.1 fL RDW Coefficient of Variation 19.2 % Immature Granulocyte % (Auto) 0.0 % Immature Granulocyte # (Auto) 0.00 K/uL Hypersegmented Polys 1+ Anisocytosis PRESENT Ovalocytes 1+ Sodium Level 139 mmol/L Potassium Level 4.2 mmol/L Chloride Level 106 mmol/L Carbon Dioxide Level 27 mmol/L Anion Gap 6.0 mmol/L Blood Urea Nitrogen 11 mg/dl Creatinine 0.93 mg/dl Est Creatinine Clear Calc Drug Dose 46.1 ml/min Estimated GFR () 70.2 Estimated GFR (Non- 60.5 BUN/Creatinine Ratio 12.0 Random Glucose 105 mg/dl Calcium Level 7.5 mg/dl Magnesium Level 1.8 mg/dl Total Bilirubin 0.5 mg/dl Direct Bilirubin 0.3 mg/dl Aspartate Amino Transf (AST/SGOT) 60 U/L Alanine Aminotransferase (ALT/SGPT) 30 U/L Alkaline Phosphatase 87 U/L Total Protein 5.4 gm/dl Albumin 2.4 gm/dl Test 04/04/17 07:46 Bedside Glucose 101 mg/dl Assessment and Plan 72 year old female with multiple medical problems including CVD, and DM admitted with rectal bleeding with new diagnosis of cirrhosis decompensated w/ ascites. Paracentesis this AM was postponed due to plt count. She has never had an EGD/Colonoscopy but is agreeable to these procedures - Diagnostic and therapeutic paracentesis - fluid albumin, protein, cell count/ differential; gram stain, culture, amylase, LD, cytology - Rule out SBP & calculate SAAG. - 25% 25g albumin before and after paracentesis - Continue IV lasix BID - Increase Spironolactone while admitted 100 mg daily - Watch electrolytes and kidney function - Close monitoring of her CBC - ?FFP - will discuss with Dr. Dejesus - EGD/Colonoscopy with improved platelet count/ platelets > 50 - Repletion of folate and magnesium per primary service. - Repeat imaging of the new pancreatic lesion w/ MRI in 6 months - Appreciate Dr. Vences's input I saw and evaluated the patient. There appears to be no further evidence of gastrointestinal bleeding as the patient has had no more hematochezia. Recommendations Paracentesis pending (Plt transfusion being given) Perhaps worsening thrombocytopenia is related to HIT (consider stopping heparinoids) GI will follow. Please call with any questions or concerns.
[2017-04-04] MEDS: ONDANSETRON INJ 2 MG/ML 2 ML VIAL IV PRN ×2 (11:48→18:21)
[2017-04-04] MEDS: MoRPHine SULFATE 2 MG/ML CARP IV PRN ×2 (11:50→23:28)
--- NOTE | 2017-04-04 11:58 | Progress Note ---
Subjective Date of Service: Apr 04, 2017. Subjective Pt evaluation today including: conversation w/ patient, conversation w/ family , physical exam, chart review, lab review, review of studies, conversation w/ brand sales consultant, review of inpatient medication list Complaining about abdominal pain, comes and goes Mild labored breathing, because of abdominal distention No bowel movement for 4-5 days, however she has been on nothing by mouth or on a clear liquid diet for 3-4 days Mild nausea, no vomiting Passing gas Problem List Medical Problems: (1) Bleeding hemorrhoid Status: Acute (2) GI bleed Status: Acute (3) Lactic acidosis Status: Acute (4) Mesenteric artery stenosis Status: Acute (5) Pancytopenia Status: Acute (6) Portal hypertension Status: Acute (7) Symptomatic anemia Status: Acute (8) UTI (urinary tract infection) Status: Acute (9) Weakness Status: Acute Review of Systems Constitutional: + weight loss, + weakness, + fatigue, No fever, No chills, No sweats, No problem reported Eyes: No worsening of vision, No eye pain, No redness, No discharge, No diplopia ENT: No hearing loss, No unusual epistaxis, No nasal symptoms, No sore throat, No tinnitus, No dental problems, No trouble swallowing Respiratory: No cough, No sputum, No wheezing, No shortness of breath, No dyspnea on exertion, No dyspnea at rest, No hemoptysis Cardiac: No chest pain, No orthopnea, No PND, No edema, No claudication, No palpitations Abdomen: + pain, + nausea, No vomiting, No diarrhea, No constipation Musculoskeletal: No joint pain, No muscle pain, No swelling, No calf pain Female : No dysuria, No urinary frequency, No hematuria, No incontinence, No abnormal vaginal bleeding, No vaginal discharge Neurologic: No memory loss, No paralysis, No weakness, No numbness/tingling, No vertigo, No balance problems Psychiatric: No depression symptoms, No anhedonism, No anxiety, No insomnia, No substance abuse Heme: No abnormal bleeding/bruising, No clotting problems, No swollen lymph nodes, No night sweats Endo: No fatigue, No excessive thirst, No excessive urination Skin: No rash, No itch, No new/changing skin lesions, No color change, No bleeding Objective Vital Signs Date Time Temp Pulse Resp B/P (MAP) Pulse Ox O2 Delivery O2 Flow Rate FiO2 6/20/17 11:35 36.6 81 18 118/76 96 04/04/17 11:20 36.8 72 18 118/76 04/04/17 11:20 36.8 72 18 118/76 96 04/04/17 11:05 36.8 80 18 121/73 04/04/17 07:57 36.7 73 18 103/64 (77) 94 Room Air 04/03/17 23:46 Room Air 04/03/17 23:07 36.7 77 16 110/68 (82) 95 Room Air 04/03/17 20:55 74 107/70 (82) 04/03/17 16:00 96 Room Air 04/03/17 15:45 36.7 66 16 112/75 (87) 96 Physical Exam General Appearance: WD/WN, no apparent distress, + cachetic, + thin Eyes: normal inspection, PERRL, EOMI, sclerae normal ENT: normal ENT inspection, hearing grossly normal, pharynx normal Neck: supple, no adenopathy, thyroid normal, no JVD, no carotid bruits, trachea midline Respiratory/Chest: chest non-tender, normal breath sounds, no respiratory distress, no accessory muscle use, + decreased breath sounds Cardiovascular: regular rate, rhythm, no gallop, no JVD, no murmur, + pertinent finding (2+ edema) Abdomen: normal bowel sounds, non tender, soft, no organomegaly, no pulsatile mass, + distended (with ascites) Extremities: normal range of motion, non-tender, normal inspection, no pedal edema, no calf tenderness, normal capillary refill, pelvis stable Neurologic/Psychiatric: senior reservations agent II-XII nml as tested, no motor/sensory deficits, alert, normal mood/affect, oriented x 3 Skin: normal color, warm/dry, no rash Lymphatic: no adenopathy Laboratory Results Last 24 Hours Test 04/03/17 16:11 04/03/17 20:30 04/04/17 05:24 04/04/17 07:46 Bedside Glucose 192 mg/dl 215 mg/dl 101 mg/dl White Blood Count 2.11 K/uL Red Blood Count 2.39 M/uL Hemoglobin 8.1 g/dL Hematocrit 24.1 % Mean Corpuscular Volume 100.8 fL Mean Corpuscular Hemoglobin 33.9 pg Mean Corpuscular Hemoglobin Concent 33.6 g/dl Platelet Count 19 K/uL Mean Platelet Volume 10.3 fL Neutrophils (%) (Auto) 42.2 % Lymphocytes (%) (Auto) 44.1 % Monocytes (%) (Auto) 12.3 % Eosinophils (%) (Auto) 0.9 % Basophils (%) (Auto) 0.5 % Neutrophils # (Auto) 0.89 K/uL Lymphocytes # (Auto) 0.93 K/uL Monocytes # (Auto) 0.26 K/uL Eosinophils # (Auto) 0.02 K/uL Basophils # (Auto) 0.01 K/uL RDW Standard Deviation 66.1 fL RDW Coefficient of Variation 19.2 % Immature Granulocyte % (Auto) 0.0 % Immature Granulocyte # (Auto) 0.00 K/uL Hypersegmented Polys 1+ Anisocytosis PRESENT Ovalocytes 1+ Sodium Level 139 mmol/L Potassium Level 4.2 mmol/L Chloride Level 106 mmol/L Carbon Dioxide Level 27 mmol/L Anion Gap 6.0 mmol/L Blood Urea Nitrogen 11 mg/dl Creatinine 0.93 mg/dl Est Creatinine Clear Calc Drug Dose 46.1 ml/min Estimated GFR () 70.2 Estimated GFR (Non- 60.5 BUN/Creatinine Ratio 12.0 Random Glucose 105 mg/dl Calcium Level 7.5 mg/dl Magnesium Level 1.8 mg/dl Total Bilirubin 0.5 mg/dl Direct Bilirubin 0.3 mg/dl Aspartate Amino Transf (AST/SGOT) 60 U/L Alanine Aminotransferase (ALT/SGPT) 30 U/L Alkaline Phosphatase 87 U/L Total Protein 5.4 gm/dl Albumin 2.4 gm/dl Test 04/04/17 11:07 Bedside Glucose 195 mg/dl Assessment and Plan 72 y/o F Hx CAD, CVA, dementia, pancytopenia, Behcet's disease. Pt presents with 3 days of BRBPR She was admitted on 03/31/[address] abdomen was obtained in the ER revealing previously undiagnosed Cirrhosis, portal hypertension and perirectal varices. Additionally she has severe SMA stenosis which may have been known to her as her sister states that she has "low blood flow to her colon". - End-stage liver disease with Cirrhosis with ascites, pancytopenia, perirectal varices, minimally elevated INR, meld 10 new finding, no known h/o cirrhosis or steatosis. No h/o alcohol abuse, last Echo showed EF 60%, hepatitis B/C negative primary issue is ascites which is causing some discomfort, nausea as well as some intermittent rectal bleeding Continue IV lasix BID, Increase Spironolactone while admitted 100 mg daily Watch electrolytes and kidney function, Close monitoring of her CBC appreciate GI recommendations: Plan the paracentesis for Ascites fluid albumin, protein, cell count/ differential; gram stain, culture, amylase, LD, cytology, AND TO Rule out SBP & calculate SAAG. will coordinate with livestock rancher of platelet transfusion and the timing of paracentesis, 25% 25g albumin before and after paracentesis - Lower GI bleed: due to perirectal varices from portal hypertension consulted GI, GI May planning colonoscopy - EGD/Colonoscopy with improved platelet count/ platelets > 50 - FOLIC acid deficiency, start replacement, borderline low vitamin B12, started Im supplementation - Repeat imaging of the new pancreatic lesion w/ MRI in 6 months - Pancytopenia: appreciate hematology consult, 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 folate low, started on folic acid platelets lower today at 19, avoid chemical DVT prophylaxis Per livestock rancher's will transfuse, and will get a paracentesis done - Behcet's: holding methotrexate due to pancytopenia continue Prednisone - CAD: no chest pain - Mesenteric atherosclerosis: severe SMA stenosis, this was apparently known by patient/family - Possible UTI upon admission: Has been on Cipro, and completed full course of treatment - DVT prophylaxis: SCD only Level 1 Possible poor prognosis, has requested a palliative care consult, for the CODE STATUS and the goal of care Continued [facility] stay due to: multiple IV medications needed Discharge planning: uncertain
[2017-04-04] MEDS ORDERED: CYANOCOBALAMIN 1000 MCG/ML VIAL IM SCH (12:30)
[2017-04-04] MEDS ORDERED: ALBUMIN HUMAN 25% 12.5 GM/50 ML VIAL IV ONE ×2 (13:00→15:00)
[2017-04-04 13:48] LABS: PLATELET COUNT 34 K/uL (130-400)
[2017-04-04 13:54] LABS: INR 1.3 (0.9-1.1); PARTIAL THROMBOPLASTIN RATIO 1.1; PROTHROMBIN TIME (PATIENT) 13.9 SECONDS (9.0-12.0)
--- NOTE | 2017-04-04 16:18 | DIAGNOSTIC IMAGING REPORT ---
PARACENTESIS UNDER ULTRASOUND GUIDANCE CLINICAL HISTORY: Abdominal ascites. Cirrhosis. COMPARISON STUDY: Abdominal CT dated 03/31/2017. PROCEDURE: The risks, benefits, and alternatives to the procedure were discussed with the patient who voiced understanding. Written informed consent was obtained. Following real-time ultrasound localization of a suitable pocket of fluid in the right lower quadrant, the abdomen was prepped and draped in the usual sterile fashion. The skin and soft tissues were anesthetized with 1% lidocaine. The sheathed paracentesis was inserted and approximately 4.0 liters of straw-colored ascitic fluid was removed by vacuum suction. Fluid was sent for laboratory analysis. The procedure was well tolerated and without immediate complication. The patient left the department in satisfactory condition. IMPRESSION: Successful ultrasound-guided paracentesis with removal of approximately 4.0 liters of ascitic fluid. Electronically signed by: Tommy Grissom M.D. 04/04/2017 4:17 PM Dictated Date/Time: 04/04/2017 4:16 PM
[2017-04-04 17:56] LABS: PERIT FL WBC 87 /uL (0-300); PERITONEAL FLUID RBC < 3000 /uL
[2017-04-04] MEDS ORDERED: CEFEPIME CONSULT ACTIVE SCH ×2 (18:25)
[2017-04-04] MEDS: CEFEPIME IV 2000 MG in DEXTROSE 5% 100ML IV SCH (19:00)
[2017-04-04] MEDS ORDERED: PROCHLORPERAZINE INJ 5 MG in SYRINGE 4 ML IV ONE (20:00)
[2017-04-04] MEDS: SIMVASTATIN 20 MG TAB PO SCH (20:42)
[2017-04-05] MEDS: CEFEPIME IV 2000 MG in DEXTROSE 5% 100ML IV SCH ×2 (05:43→18:12)
[2017-04-05 07:38] VITALS: BP 95/58; PULSE 66; TEMP 36.6; O2SAT 96
[2017-04-05] MEDS: POTASSIUM CHLORIDE 20 MEQ/15 ML UDC PO SCH ×2 (07:59→21:08)
[2017-04-05] MEDS: FUROSEMIDE INJ 20 MG in SYRINGE 0 ML IV SCH (08:00)
[2017-04-05] MEDS: FoLIC ACID INJ 1 MG in SYRINGE 9.8 ML IV SCH (08:00)
[2017-04-05] MEDS: GABAPENTIN 300 MG CAP PO SCH ×3 (08:01→21:08)
[2017-04-05] MEDS: CIPROFLOXACIN 250 MG TAB PO SCH (08:01)
[2017-04-05] MEDS: VERAPAMIL HCL 120 MG TABCR PO SCH (08:02)
[2017-04-05] MEDS: SPIRONOLACTONE 100 MG TAB PO SCH (08:02)
[2017-04-05] MEDS: INSULIN ASPART 100 UNITS/ML 3 ML PEN SC SCH ×4 (08:03→21:24)
--- NOTE | 2017-04-05 08:03 | Gastroenterology Progress Note ---
Progress Note Date of Service: Apr 05, 2017 Subjective Pt evaluation today including: conversation w/ patient, physical exam Pt was seen and evaluated this AM. She feels slightly better since paracentesis yesterday. Is on clear liquids this AM. No BM. rectal bleeding. Developed mild abdominal discomfort today. Has been getting scheduled narcotics for pain. Denies fever, chills, chest pain, SOB/ Paracentesis 04/04/17: Successful ultrasound-guided paracentesis with removal of approximately 4.0 liters of ascitic fluid. Peritoneal WBC 89 Polynuclear WBC 4.5 No evidence of SBP SAAG 1.2 --> portal HTN is likely the cause of ascites, cirrhosis vs CHF vs PVT vs budd-chiari syndrome etc Review of Systems Constitutional: No fever, No chills Respiratory: No cough, No shortness of breath Cardiac: No chest pain, No edema Abdomen: + pain (generalized abd discomfort and fullness), + constipation, No nausea, No vomiting, No diarrhea Skin: No rash, No itch Medications Current Inpatient Medications Medications (Trade) Dose Ordered Sig/Sonam Route Start Time Stop Time Status Last Admin Dose Admin Atenolol (Tenormin Tab) 50 mg BID PO 03/31/17 21:00 04/30/17 20:59 04/04/17 09:35 50 MG Gabapentin (Neurontin Cap) 300 mg TID PO 03/31/17 21:00 04/30/17 20:59 04/04/17 20:42 300 MG Prednisone (PredniSONE TAB) 10 mg DAILY PO 04/01/17 09:00 05/01/17 08:59 04/04/17 09:35 10 MG Simvastatin (Zocor Tab) 20 mg QPM PO 03/31/17 21:00 04/30/17 20:59 04/04/17 20:42 20 MG Verapamil HCl (Calan-Sr Tab) 120 mg DAILY PO 04/01/17 09:00 05/01/17 08:59 04/04/17 09:36 120 MG Ondansetron HCl (Zofran Inj) 4 mg Q6H PRN IV 03/31/17 18:00 04/30/17 17:59 04/04/17 18:21 4 MG Nitroglycerin (Nitrostat Tab) 0.4 mg UD PRN SL 03/31/17 18:00 04/30/17 17:59 Morphine Sulfate (MoRPHine SULFATE INJ) 2 mg Q4 PRN IV 04/01/17 11:15 04/15/17 11:14 04/04/17 23:28 2 MG Folic Acid 1 mg/ Syringe 10 ml @ 5 mls/min QAM IV 04/02/17 09:00 05/02/17 08:59 04/04/17 09:34 5 MLS/MIN Furosemide 20 mg/ Syringe 2 ml @ 4 mls/min Q12 IV 04/01/17 21:00 05/01/17 20:59 04/04/17 20:43 4 MLS/MIN Ciprofloxacin (Ciprofloxacin Tab) 250 mg BID PO 04/01/17 21:00 04/06/17 20:59 04/04/17 20:42 250 MG Potassium Chloride (Karlie Ciel Elix) 20 meq BID PO 04/02/17 21:00 05/02/17 20:59 04/04/17 20:42 20 MEQ Insulin Aspart (novoLOG ASPART) SLIDING SCALE G... ACHS SC 04/02/17 16:30 05/02/17 16:29 04/04/17 20:47 3 UNITS Glucose (Glucose 40% Gel) 15-30 GRAMS 15 GRAMS... UD PRN PO 04/02/17 16:00 05/02/17 15:59 Glucose (Glucose Chew Tab) 4-8 Tablets 4 Tabl... UD PRN PO 04/02/17 16:00 05/02/17 15:59 Dextrose (Dextrose 50% 50ML Syringe) 25-50ML OF 50% DW IV FOR... UD PRN IV 04/02/17 16:00 05/02/17 15:59 Glucagon (Glucagon Inj) 1 mg UD PRN SQ 04/02/17 16:00 05/02/17 15:59 Spironolactone (Aldactone Tab) 100 mg QAM PO 04/05/17 09:00 05/02/17 08:59 Cyanocobalamin (Vitamin B-12 Inj) 1,000 mcg Tu@1200 IM 04/04/17 12:30 05/04/17 12:29 04/04/17 13:53 1,000 MCG Cefepime HCl (Consult) 1 ea UD N/A 04/04/17 18:25 05/04/17 18:24 Cefepime HCl 2000 mg/Dextrose 112.5 ml @ 225 mls/hr Q12@0600,1800 IV 04/04/17 19:00 04/14/17 18:59 04/05/17 05:43 225 MLS/HR Objective Vital Signs Date Time Temp Pulse Resp B/P (MAP) Pulse Ox O2 Delivery O2 Flow Rate FiO2 04/05/17 07:38 36.6 66 16 95/58 (70) 96 Room Air 04/04/17 23:33 Room Air 04/04/17 22:56 36.9 78 16 99/62 (74) 95 04/04/17 20:50 83 97/60 (72) 04/04/17 18:18 37.2 04/04/17 17:51 38.3 76 16 107/66 (80) 95 04/04/17 17:15 37.1 76 16 111/68 (82) 95 04/04/17 16:45 37.3 74 16 100/67 (78) 93 04/04/17 16:14 37.2 77 16 101/67 (78) 96 04/04/17 16:00 Room Air 04/04/17 12:25 37.0 83 18 115/70 93 04/04/17 12:05 36.8 80 18 117/74 97 04/04/17 11:35 36.6 81 18 118/76 96 04/04/17 11:20 36.8 72 18 118/76 04/04/17 11:20 36.8 72 18 118/76 96 04/04/17 11:05 36.8 80 18 121/73 Physical Exam General Appearance: no apparent distress Eyes: PERRL ENT: hearing grossly normal Neck: supple Respiratory/Chest: lungs clear, normal breath sounds Cardiovascular: regular rate, rhythm, no gallop, no JVD, no murmur Abdomen: soft, no pulsatile mass, + abnormal bowel sounds (present x 4 quadrants but hypoactive), + distended (mildly distended, less so than yesterday ) Neurologic/Psych: alert, normal mood/affect, oriented x 3 Laboratory Results Last 24 Hours Test 04/04/17 11:07 04/04/17 13:25 04/04/17 13:29 04/04/17 16:11 Bedside Glucose 195 mg/dl 167 mg/dl Prothrombin Time 13.9 SECONDS Prothromb Time International Ratio 1.3 Activated Partial Thromboplast Time 27.5 SECONDS Partial Thromboplastin Ratio 1.1 Platelet Count 34 K/uL Test 04/04/17 19:38 04/05/17 04:44 04/05/17 07:49 Bedside Glucose 244 mg/dl 103 mg/dl Assessment and Plan 72 year old female with multiple medical problems including CVD, and DM admitted with rectal bleeding with new diagnosis of cirrhosis decompensated w/ ascites. She has never had an EGD/Colonoscopy but is agreeable to these procedures. P - KUB today - Bowel regimen - May need Relistor, will review KUB - Diagnostic and therapeutic paracentesis - No evidence of SBP - SAAG 1.2 --> Portal HTN - Continue IV lasix BID - Increase Spironolactone while admitted 100 mg daily - Watch electrolytes and kidney function - Serological work up for cirrhosis - Close monitoring of her CBC - EGD/Colonoscopy with improved platelet count/ platelets > 50, this will likely need to be done as an outpatient - Repletion of folate and magnesium per primary service. - Repeat imaging of the new pancreatic lesion w/ MRI in 6 months - Appreciate Dr. Vences's input GI will follow. Please call with any questions or concerns. I saw and evaluated the patient. Her paracentesis was suggestive of underlying portal hypertension. It appears she probably has nonalcoholic fatty liver disease resulting in cirrhosis. Given her significant thrombocytopenia, leukopenia I would suggest we hold on any endoscopic interventions for the present time. The patient should continue with Lasix at 20 mg twice daily and Aldactone 100 mg per day in addition to a low-sodium diet. She may follow up with our office in 4-6 weeks at which time we can reevaluate the need for upper endoscopy and colonoscopy
[2017-04-05 08:08] VITALS: BP 110/69; PULSE 74
--- NOTE | 2017-04-05 08:29 | HEME/ONC PROGRESS NOTE ---
DATE: 04/05/2017 DIAGNOSES: 1. Cirrhosis of the liver. 2. Pancytopenia. 3. Gastrointestinal bleeding. 4. Mesenteric artery stenosis. HOSPITAL COURSE: Ms. Rehman is a 72-year-old female patient admitted to [facility] with subacute onset abdominal fullness, ascites and associated abdominal pain. She underwent successful paracentesis yesterday yielding 4 liters of fluid. She had also received a single donor plateletpheresis resulting in improvement in her platelet count 38K at present. There is no external evidence of bleeding presently. The patient feels better, is actually enjoying her breakfast this morning. She has no complaints of pain. PHYSICAL EXAMINATION: GENERAL: She is in no acute distress. CURRENT VITAL SIGNS: Temperature 36.6, pulse 66, respirations 16, blood pressure 95/58. SKIN: Without rash or lesion. HEENT: Oral mucosa without erythema or ulceration. NECK: Supple. HEART: Regular rate and rhythm. LUNGS: Clear to auscultation. ABDOMEN: Less distended, much softer on palpation, bowel sounds hypoactive. EXTREMITIES: No clubbing, cyanosis or edema. NEUROLOGIC: Grossly intact. LABORATORY DATA: CBC pending. Chemistries pending. IMPRESSION: 1. Ascites. 2. Lower gastrointestinal bleeding. 3. Pancytopenia. 4. Behcet's disease. 5. Cirrhosis of the liver. PLAN: I visited with Estee and family members at bedside today. She underwent paracentesis yesterday, seems to be doing satisfactorily. Await cytology results. From a hematologic standpoint, if she requires further invasive procedures, again, most of the consultants would be more comfortable with her platelet count over 50,000. If necessary, can make arrangement for transfusion of additional unit of single donor platelets. I have nothing further to add and will await cytology results. Thank you again for allowing us to participate in her care. EMELINA
[2017-04-05] MEDS ORDERED: FoLIC ACID INJ 1 MG in SYRINGE 9.8 ML IV SCH (09:00)
[2017-04-05 09:38] LABS: CALCIUM 7.9 mg/dl (8.5-10.1)
[2017-04-05 09:46] LABS: BUN/CREATININE RATIO 8.3 (10-20); CREATININE 1.2 mg/dl (0.60-1.20); MAGNESIUM 1.9 mg/dl (1.8-2.4); POTASSIUM 4.1 mmol/L (3.5-5.1)
[2017-04-05 09:51] LABS: PHOSPHORUS 2.6 mg/dl (2.5-4.9)
[2017-04-05 10:00] LABS: HEMATOCRIT 27.3 % (37-47); HYPERSEGMENTED POLYS 1+; MEAN CELL VOLUME 103.4 fL (80-100); MEAN CORPUSCULAR HEMOGLOBIN 34.5 pg (25-34); MEAN CORPUSCULAR HGB CONC 33.3 g/dl (32-36); PLATELET COUNT 24 K/uL (130-400); PLT ESTIMATE SIGNIFIC DECREASED; RED BLOOD COUNT 2.64 M/uL (4.2-5.4); TOXIC GRANULATION 1+; WHITE BLOOD COUNT 1.37 K/uL (4.8-10.8)
[2017-04-05 10:04] LABS: COMPLETE YES; EOSINOPHIL % 2.7 %; LYMPH ABS # 0.53 K/uL (1.2-3.4); LYMPHOCYTE % 38.9 %; NEUTROPHILS % 39.8 %; VARIANT LYM ABS # 0.17 K/uL; VARIANT LYMPHOCYTE % 12.4 %
[2017-04-05] MEDS: ONDANSETRON INJ 2 MG/ML 2 ML VIAL IV PRN (10:17)
--- NOTE | 2017-04-05 10:36 | DIAGNOSTIC IMAGING REPORT ---
KUB CLINICAL HISTORY: Constipation. Abdominal distention. FINDINGS: 2 AP, portable, supine abdominal radiographs are compared to study dated 03/29/2017 and correlated with abdominal CT dated 03/31/2017. There is a nonobstructed abdominal bowel gas pattern. No evidence of intraperitoneal free air is seen on these supine views. Mild to moderate fecal retention is noted in the right colon. Numerous phleboliths are seen in the pelvis. Cholecystectomy clips are noted. The skeletal structures are osteopenic. Moderate lumbosacral spondylosis is identified. Elevation of the right hemidiaphragm is similar to previous. IMPRESSION: Nonobstructed abdominal bowel gas pattern. Electronically signed by: Tommy Grissom M.D. 04/05/2017 10:35 AM Dictated Date/Time: 04/05/2017 10:34 AM
[2017-04-05 11:37] VITALS: BP 103/65; PULSE 76; O2SAT 94
[2017-04-05 15:22] VITALS: BP 98/61; PULSE 68; TEMP 36.9; O2SAT 90
--- NOTE | 2017-04-05 16:27 | Progress Note ---
Subjective Date of Service: Apr 05, 2017. Subjective Pt evaluation today including: conversation w/ patient, conversation w/ family , physical exam, chart review, lab review, review of studies, conversation w/ solutions delivery consultant, review of inpatient medication list sitting up in chair, eating clear liquid diet, sob much better after paracentesis Problem List Medical Problems: (1) Bleeding hemorrhoid Status: Acute (2) GI bleed Status: Acute (3) Lactic acidosis Status: Acute (4) Mesenteric artery stenosis Status: Acute (5) Pancytopenia Status: Acute (6) Portal hypertension Status: Acute (7) Symptomatic anemia Status: Acute (8) UTI (urinary tract infection) Status: Acute (9) Weakness Status: Acute Review of Systems Constitutional: + weakness, + fatigue, No fever, No chills, No sweats, No weight loss, No problem reported Eyes: No worsening of vision, No eye pain, No redness, No discharge, No diplopia ENT: No hearing loss, No unusual epistaxis, No nasal symptoms, No sore throat, No tinnitus, No dental problems, No trouble swallowing Respiratory: No cough, No sputum, No wheezing, No shortness of breath, No dyspnea on exertion, No dyspnea at rest, No hemoptysis Cardiac: + edema, No chest pain, No orthopnea, No PND, No claudication, No palpitations Abdomen: + problem reported (distension), No pain, No nausea, No vomiting, No diarrhea, No constipation Musculoskeletal: No joint pain, No muscle pain, No swelling, No calf pain Female : No dysuria, No urinary frequency, No hematuria, No incontinence, No abnormal vaginal bleeding, No vaginal discharge Neurologic: No memory loss, No paralysis, No weakness, No numbness/tingling, No vertigo, No balance problems Psychiatric: No depression symptoms, No anhedonism, No anxiety, No insomnia, No substance abuse Heme: No abnormal bleeding/bruising, No clotting problems, No swollen lymph nodes, No night sweats Endo: No fatigue, No excessive thirst, No excessive urination Skin: No rash, No itch, No new/changing skin lesions, No color change, No bleeding Objective Vital Signs Date Time Temp Pulse Resp B/P (MAP) Pulse Ox O2 Delivery O2 Flow Rate FiO2 04/05/17 15:22 36.9 68 22 98/61 (73) 90 Room Air 04/05/17 11:37 76 94 04/05/17 08:08 74 110/69 (83) 04/05/17 07:38 36.6 66 16 95/58 (70) 96 Room Air 04/05/17 07:30 Room Air 04/04/17 23:33 Room Air 04/04/17 22:56 36.9 78 16 99/62 (74) 95 04/04/17 20:50 83 97/60 (72) 04/04/17 18:18 37.2 04/04/17 17:51 38.3 76 16 107/66 (80) 95 04/04/17 17:15 37.1 76 16 111/68 (82) 95 04/04/17 16:45 37.3 74 16 100/67 (78) 93 Physical Exam General Appearance: WD/WN, no apparent distress, + thin, + pertinent finding ( frail) Eyes: normal inspection, PERRL, EOMI, sclerae normal ENT: normal ENT inspection, hearing grossly normal, pharynx normal Neck: supple, no adenopathy, thyroid normal, no JVD, no carotid bruits, trachea midline Respiratory/Chest: chest non-tender, normal breath sounds, no respiratory distress, no accessory muscle use, + decreased breath sounds Cardiovascular: regular rate, rhythm, no edema, no gallop, no JVD, no murmur Abdomen: normal bowel sounds, non tender, soft, no organomegaly, no pulsatile mass Extremities: normal range of motion, non-tender, normal inspection, no pedal edema, no calf tenderness, normal capillary refill, pelvis stable Neurologic/Psychiatric: medical 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 receptionist assistant II-XII nml as tested, no motor/sensory deficits, alert, normal mood/affect, oriented x 3 Skin: normal color, warm/dry, no rash Lymphatic: no adenopathy Laboratory Results Last 24 Hours Test 04/04/17 19:38 04/05/17 07:49 04/05/17 08:42 04/05/17 11:37 Bedside Glucose 244 mg/dl 103 mg/dl 178 mg/dl White Blood Count 1.37 K/uL Red Blood Count 2.64 M/uL Hemoglobin 9.1 g/dL Hematocrit 27.3 % Mean Corpuscular Volume 103.4 fL Mean Corpuscular Hemoglobin 34.5 pg Mean Corpuscular Hemoglobin Concent 33.3 g/dl Platelet Count 24 K/uL Mean Platelet Volume 11.0 fL RDW Standard Deviation 67.2 fL RDW Coefficient of Variation 19.8 % Neutrophils % (Manual) 39.8 % Lymphocytes % (Manual) 38.9 % Variant Lymphocytes % (manual) 12.4 % Monocytes % (Manual) 6.2 % Eosinophils % (Manual) 2.7 % Neutrophils # (Manual) 0.55 K/uL Total Absolute Neutrophils 0.55 K/uL Lymphocytes # (Manual) 0.53 K/uL Absolute Variant Lymphocytes 0.17 K/uL Total Absolute Lymphocytes 0.70 K/uL Monocytes # (Manual) 0.08 K/uL Eosinophils # (Manual) 0.04 K/uL Hypersegmented Polys 1+ Toxic Granulation 1+ Platelet Estimate SIGNIFIC DECREASED Sodium Level 137 mmol/L Potassium Level 4.1 mmol/L Chloride Level 101 mmol/L Carbon Dioxide Level 27 mmol/L Anion Gap 9.0 mmol/L Blood Urea Nitrogen 10 mg/dl Creatinine 1.20 mg/dl Est Creatinine Clear Calc Drug Dose 35.7 ml/min Estimated GFR () 51.6 Estimated GFR (Non- 44.5 BUN/Creatinine Ratio 8.3 Random Glucose 160 mg/dl Calcium Level 7.9 mg/dl Phosphorus Level 2.6 mg/dl Magnesium Level 1.9 mg/dl Total Bilirubin 0.6 mg/dl Direct Bilirubin 0.2 mg/dl Aspartate Amino Transf (AST/SGOT) 46 U/L Alanine Aminotransferase (ALT/SGPT) 29 U/L Alkaline Phosphatase 79 U/L Total Protein 5.8 gm/dl Albumin 2.8 gm/dl Assessment and Plan 72 y/o F Hx CAD, CVA, dementia, pancytopenia, Behcet's disease. Pt presents with 3 days of BRBPR She was admitted on 03/31/[address] abdomen was obtained in the ER revealing previously undiagnosed Cirrhosis, portal hypertension and perirectal varices. Additionally she has severe SMA stenosis which may have been known to her as her sister states that she has "low blood flow to her colon". - Possible End-stage liver disease with Cirrhosis with ascites, pancytopenia, perirectal varices, minimally elevated INR, meld 10 new finding, no known h/o cirrhosis or steatosis. No h/o alcohol abuse, last Echo showed EF 60%, hepatitis B/C negative primary issue is ascites which is causing some discomfort, nausea as well as some intermittent rectal bleeding paracentesis was done on 04/04/2017 with 4 L fluid removal, for Ascites fluid albumin, protein, cell count/differential; gram stain, culture, amylase, LD, cytology, AND TO Rule out SBP & calculate SAAG. changes lasix to 20 bid BID po , con Spironolactone while admitted 100 mg daily, fluid restriction 1.5 L daily , low sodium diet Watch electrolytes and kidney function, Close monitoring of her CBC appreciate GI recommendations: Lower GI bleed: due to perirectal varices from portal hypertension consulted GI, GI May planning colonoscopy - EGD/Colonoscopy with improved platelet count/ platelets > 50 - FOLIC acid deficiency, start replacement, borderline low vitamin B12, started Im supplementation - Repeat imaging of the new pancreatic lesion w/ MRI in 6 months - Pancytopenia: with anc lower today , started neutropenic px appreciate hematology consult, 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 got 1 unit PLT transfusion on 04/04/2017 transfuse more if need - Behcet's: holding methotrexate due to pancytopenia continue Prednisone - CAD: no chest pain - Mesenteric atherosclerosis: severe SMA stenosis, this was apparently known by patient/family - Possible UTI upon admission: Has been on Cipro, and completed full course of treatment - was spiking fever after paracentesis on 04/04/2017, blood C+S sent, will f/u will cont abx for nwo - DVT prophylaxis: SCD only Level 1 Possible poor prognosis, has requested a palliative care consult, for the CODE STATUS and the goal of care Continued [facility] stay due to: multiple IV medications needed Discharge planning: uncertain
[2017-04-05] MEDS: MoRPHine SULFATE 2 MG/ML CARP IV PRN (17:30)
[2017-04-05] MEDS: FUROSEMIDE 20 MG TAB PO SCH (17:53)
[2017-04-05] MEDS ORDERED: NURSING VERBAL MED ORDER ONE (18:00)
[2017-04-05] MEDS ORDERED: ALUMINUM/MAGNESIUM SUSP 30 ML UDC PO SCH (18:00)
[2017-04-05 21:10] VITALS: BP 100/65; PULSE 71
[2017-04-05] MEDS: SIMVASTATIN 20 MG TAB PO SCH (21:11)
[2017-04-06 00:15] VITALS: BP 90/57; PULSE 69; TEMP 36.8; O2SAT 95
[2017-04-06] MEDS: MoRPHine SULFATE 2 MG/ML CARP IV PRN ×3 (01:36→20:01)
[2017-04-06] MEDS ORDERED: ACETAMINOPHEN 500 MG TAB PO STA (02:51)
[2017-04-06] MEDS: CEFEPIME IV 2000 MG in DEXTROSE 5% 100ML IV SCH (06:04)
[2017-04-06] MEDS: INSULIN ASPART 100 UNITS/ML 3 ML PEN SC SCH ×4 (06:30→20:20)
[2017-04-06 07:20] VITALS: BP 111/63; PULSE 88; TEMP 36.7; O2SAT 97
[2017-04-06] MEDS: GABAPENTIN 300 MG CAP PO SCH ×3 (08:20→20:04)
[2017-04-06] MEDS: VERAPAMIL HCL 120 MG TABCR PO SCH (08:20)
[2017-04-06] MEDS: SPIRONOLACTONE 100 MG TAB PO SCH (08:21)
[2017-04-06] MEDS: POTASSIUM CHLORIDE 20 MEQ/15 ML UDC PO SCH ×2 (08:21→20:04)
[2017-04-06] MEDS: FUROSEMIDE 20 MG TAB PO SCH ×2 (08:21→17:11)
[2017-04-06] MEDS: FoLIC ACID INJ 1 MG in SYRINGE 9.8 ML IV SCH (08:27)
[2017-04-06 08:51] LABS: BUN/CREATININE RATIO 8.7 (10-20); CREATININE 1.1 mg/dl (0.60-1.20); MAGNESIUM 1.9 mg/dl (1.8-2.4); POTASSIUM 4.6 mmol/L (3.5-5.1)
[2017-04-06 09:18] LABS: CALCIUM 8.1 mg/dl (8.5-10.1)
[2017-04-06 09:24] LABS: HEMATOCRIT 24.7 % (37-47); MEAN CELL VOLUME 103.8 fL (80-100); MEAN CORPUSCULAR HEMOGLOBIN 34.9 pg (25-34); MEAN CORPUSCULAR HGB CONC 33.6 g/dl (32-36); PLATELET COUNT 24 K/uL (130-400); RED BLOOD COUNT 2.38 M/uL (4.2-5.4); WHITE BLOOD COUNT 1.67 K/uL (4.8-10.8)
[2017-04-06 09:38] LABS: ANISOCYTOSIS PRESENT; HYPERSEGMENTED POLYS 1+
[2017-04-06 09:39] LABS: COMPLETE YES; EOSINOPHIL % 2.6 %; LYMPH ABS # 0.78 K/uL (1.2-3.4); NEUTROPHILS % 39.1 %
--- NOTE | 2017-04-06 09:51 | Palliative Care Consultation ---
Consultation Date of Consultation: Apr 06, 2017. Requesting Physician: Dr. Herndon Attending Physician: Dr. Herndon Reason for Consultation: Goals of care History of Present Illness This 72 year old female patient presented to the ED with 3 days of BRBPR. History obtained from record and from sister, Leticia. Her sister reported weakness , nausea, dysuria and a headache. She was treated for a UTI 3 days prior with a course of Cipro. A CT abdomen done in the ED revealing previously undiagnosed cirrhosis, portal hypertension and perirectal varices. Additionally she has severe SMA stenosis which may have been known, as her sister stated that she has "low blood flow to her colon." Admitted with GIB, pancytopenia, and cirrhosis. She is being followed by GI and hematology. Patient has a long history of Behcet's syndrome for which she has been taking methotrexate for, for quite a long time. Methotrexate believed to be contributing to thrombocytopenia, it has been discontinued. She was also noted to have splenomegaly and a large amount of ascites. She was given FFP for her thrombocytopenia, eventually underwent paracentesis at which time 5L ascitic fluid was removed. Hematology not recommending further platelet transfusion at this time. GI is unable to scope at this time because of bleeding risk. So the plan is for patient to follow up outpatient in 4-6 weeks, hopefully platelet count will improve. Given new diagnoses and comorbidities, palliative care consulted to establish goals of care. I met with the patient, her sister Leticia, and another family member Angy. Patient is awake and alert. She is oriented by also has some forgetfulness. Leticia states the patient has undiagnosed dementia, but described it as mild. Leticia takes care of patient's medications at home, patient's Jordyn is the primary caregiver. Leticia expressed her concern and discontent with the disconnection between family and patient's medical providers. She said they are "getting a lot of different stories from a lot of different people." I discussed the patient's medical conditions and plan at this time. they verbalized understanding. I specifically discussed code status with the patient with her two family members. Patient wants to be a level 5 DNR. We discussed goals of care and patient wants full treatment at this time. I later was able to talk with patient's Jordyn and he is in agreement with DNR, but receiving full treatment. He had a lot of questions about patient's prognosis which I told him was uncertain at this time. All questions/concerns addressed. I discussed patient's case with Dr. Herndon and with TOO Hutchinson with GI. Past Medical/Surgical History Medical History: Benign hypertension Cataract surgery Coronary artery disease CVA/TIA Diabetes Heart disease Hyperlipidemia Hysterectomy Knee surgery Migraines Cardiac stent Social History Smoking Status: Never Smoker History of Alcohol Use: No Drug Use: none Marital Status: Housing Status: lives with family Occupation Status: retired Review of Systems Constitutional: + weakness Respiratory: No cough, No shortness of breath Cardiac: No chest pain, No edema Abdomen: No pain, No nausea, No vomiting Psychiatric: No anxiety Allergies Coded Allergies: Codeine (Verified Allergy, Unknown, MORPHINE OK, 03/31/17) Latex2 -Systemic Allergic Response (Verified Allergy, Unknown, UNKNOWN, ) Medications Current Inpatient Medications Medications (Trade) Dose Ordered Sig/Sonam Route Start Time Stop Time Status Last Admin Dose Admin Atenolol (Tenormin Tab) 50 mg BID PO 03/31/17 21:00 04/30/17 20:59 04/06/17 08:20 50 MG Gabapentin (Neurontin Cap) 300 mg TID PO 03/31/17 21:00 04/30/17 20:59 04/06/17 08:20 300 MG Prednisone (PredniSONE TAB) 10 mg DAILY PO 04/01/17 09:00 05/01/17 08:59 04/06/17 08:20 10 MG Simvastatin (Zocor Tab) 20 mg QPM PO 03/31/17 21:00 04/30/17 20:59 04/05/17 21:11 20 MG Verapamil HCl (Calan-Sr Tab) 120 mg DAILY PO 04/01/17 09:00 05/01/17 08:59 04/06/17 08:20 120 MG Ondansetron HCl (Zofran Inj) 4 mg Q6H PRN IV 03/31/17 18:00 04/30/17 17:59 04/05/17 10:17 4 MG Nitroglycerin (Nitrostat Tab) 0.4 mg UD PRN SL 03/31/17 18:00 04/30/17 17:59 Morphine Sulfate (MoRPHine SULFATE INJ) 2 mg Q4 PRN IV 04/01/17 11:15 04/15/17 11:14 04/06/17 06:02 2 MG Folic Acid 1 mg/ Syringe 10 ml @ 5 mls/min QAM IV 04/02/17 09:00 05/02/17 08:59 04/06/17 08:27 5 MLS/MIN Potassium Chloride (Karlie Ciel Elix) 20 meq BID PO 04/02/17 21:00 05/02/17 20:59 04/06/17 08:21 20 MEQ Insulin Aspart (novoLOG ASPART) SLIDING SCALE G... ACHS SC 04/02/17 16:30 05/02/17 16:29 04/05/17 21:24 3 UNITS Glucose (Glucose 40% Gel) 15-30 GRAMS 15 GRAMS... UD PRN PO 04/02/17 16:00 05/02/17 15:59 Glucose (Glucose Chew Tab) 4-8 Tablets 4 Tabl... UD PRN PO 04/02/17 16:00 05/02/17 15:59 Dextrose (Dextrose 50% 50ML Syringe) 25-50ML OF 50% DW IV FOR... UD PRN IV 04/02/17 16:00 05/02/17 15:59 Glucagon (Glucagon Inj) 1 mg UD PRN SQ 04/02/17 16:00 05/02/17 15:59 Spironolactone (Aldactone Tab) 100 mg QAM PO 04/05/17 09:00 05/02/17 08:59 04/06/17 08:21 100 MG Cyanocobalamin (Vitamin B-12 Inj) 1,000 mcg Tu@1200 IM 04/04/17 12:30 05/04/17 12:29 04/04/17 13:53 1,000 MCG Cefepime HCl (Consult) 1 ea UD N/A 04/04/17 18:25 05/04/17 18:24 Cefepime HCl 2000 mg/Dextrose 112.5 ml @ 225 mls/hr Q12@0600,1800 IV 04/04/17 19:00 04/14/17 18:59 04/06/17 06:04 225 MLS/HR Furosemide (Lasix Tab) 20 mg BID17 PO 04/05/17 17:00 05/05/17 16:59 04/06/17 08:21 20 MG Physical Exam Date Time Temp Pulse Resp B/P (MAP) Pulse Ox O2 Delivery O2 Flow Rate FiO2 04/06/17 07:20 36.7 88 18 111/63 (79) 97 Room Air 04/06/17 01:45 Room Air 04/06/17 00:15 36.8 69 18 90/57 (68) 95 Room Air 04/05/17 21:10 71 100/65 (77) 04/05/17 16:00 Room Air 04/05/17 15:22 36.9 68 22 98/61 (73) 90 Room Air 04/05/17 11:37 76 94 General Appearance: no apparent distress ENT: hearing grossly normal Neck: supple, no JVD Respiratory: no respiratory distress, no accessory muscle use, + pertinent finding (room air) Cardiovascular: regular rate, rhythm, + normal peripheral pulses Abdomen: normal bowel sounds, non tender, soft Neurologic/Psychiatric: alert, oriented x 3 (with some forgetfulness) Laboratory Results Last 24 Hours Test 04/05/17 11:37 04/05/17 16:27 04/05/17 18:36 04/05/17 20:04 Bedside Glucose 178 mg/dl 210 mg/dl 250 mg/dl Troponin I < 0.015 ng/ml Test 04/06/17 07:29 04/06/17 07:35 Bedside Glucose 114 mg/dl White Blood Count 1.67 K/uL Red Blood Count 2.38 M/uL Hemoglobin 8.3 g/dL Hematocrit 24.7 % Mean Corpuscular Volume 103.8 fL Mean Corpuscular Hemoglobin 34.9 pg Mean Corpuscular Hemoglobin Concent 33.6 g/dl Platelet Count 24 K/uL Mean Platelet Volume 11.0 fL RDW Standard Deviation 69.5 fL RDW Coefficient of Variation 20.2 % Neutrophils % (Manual) 39.1 % Lymphocytes % (Manual) 47.0 % Monocytes % (Manual) 11.3 % Eosinophils % (Manual) 2.6 % Neutrophils # (Manual) 0.65 K/uL Total Absolute Neutrophils 0.65 K/uL Lymphocytes # (Manual) 0.78 K/uL Total Absolute Lymphocytes 0.78 K/uL Monocytes # (Manual) 0.19 K/uL Eosinophils # (Manual) 0.04 K/uL Hypersegmented Polys 1+ Anisocytosis PRESENT Sodium Level 137 mmol/L Potassium Level 4.6 mmol/L Chloride Level 101 mmol/L Carbon Dioxide Level 29 mmol/L Anion Gap 7.0 mmol/L Blood Urea Nitrogen 10 mg/dl Creatinine 1.10 mg/dl Est Creatinine Clear Calc Drug Dose 39.0 ml/min Estimated GFR () 57.3 Estimated GFR (Non- 49.4 BUN/Creatinine Ratio 8.7 Random Glucose 102 mg/dl Calcium Level 8.1 mg/dl Magnesium Level 1.9 mg/dl Total Bilirubin 0.5 mg/dl Direct Bilirubin 0.2 mg/dl Aspartate Amino Transf (AST/SGOT) 48 U/L Alanine Aminotransferase (ALT/SGPT) 27 U/L Alkaline Phosphatase 70 U/L Total Protein 5.3 gm/dl Albumin 2.4 gm/dl Assessment & Plan Problem list: Mild cognitive impairment- family states undiagnosed dementia Rectal bleed- resolved at this time Pancytopenia, significant thrombocytopenia Portal hypertension Cirrhosis of the liver with ascites Behcet's syndrome Goals of care (Z51.5) Palliative care plan: -Per patient's wishes, she would like to be level 5 DNR. Sisters Leticia and Angy were present for this conversation. Discussed with Dr. Herndon as well. -Patient's goal at this point is to receive full treatment and to continue living at home with her . -Spoke with GI-- waiting for platelet count to hopefully recover after discontinuation of methotrexate. Plan to scope as outpatient in 4-6 weeks. I relayed this information to the patient and her sisters in the room. I called her , Carlita, he did not answer and I left a message. -This patient seems to have some social/family/home issues which will need to be sorted out. She lives at home with her , her sister Leticia takes care of her medications. Leticia does not feel comfortable managing these medications at home any more, especially given the new diagnoses. If the patient is going to be requiring frequent labs, monitoring, medications changes, etc. she may need to go to SNF short-term after discharge vs. home health and private caregivers. Case management is already involved in her discharge planning. -The patient is not experiencing any symptoms at this time. Her medical problems are being managed by hospitalist, heme/onc, and GI. -Patient filled out living will which states at end-stage, she would not want any heroic measures. The will is not signed yet and her son has it at home. Thank you kindly for this consult. I will follow peripherally. Please contact me with any further palliative care needs.
[2017-04-06] MEDS ORDERED: POLYETHYLENE (MIRALAX) 17 GM PACK PO STA (11:23)
[2017-04-06] MEDS ORDERED: DOCUSATE SODIUM 100 MG CAP PO PRN (11:30)
[2017-04-06] MEDS ORDERED: DOCUSATE SODIUM 100 MG CAP PO ONE (11:30)
--- NOTE | 2017-04-06 11:33 | Progress Note ---
Subjective Date of Service: Apr 06, 2017. Subjective Pt evaluation today including: conversation w/ patient, conversation w/ family , physical exam, chart review, lab review, review of studies, conversation w/ micro[employer] dynamics consultant, review of inpatient medication list Report generalized weakness Tolerate some diet Continue feeling okay Some abdominal distention which is not new No fever and chill No abdominal pain Problem List Medical Problems: (1) Bleeding hemorrhoid Status: Acute (2) GI bleed Status: Acute (3) Lactic acidosis Status: Acute (4) Mesenteric artery stenosis Status: Acute (5) Pancytopenia Status: Acute (6) Portal hypertension Status: Acute (7) Symptomatic anemia Status: Acute (8) UTI (urinary tract infection) Status: Acute (9) Weakness Status: Acute Review of Systems Constitutional: + weakness, + fatigue, No fever, No chills, No sweats, No weight loss, No problem reported Eyes: No worsening of vision, No eye pain, No redness, No discharge, No diplopia ENT: No hearing loss, No unusual epistaxis, No nasal symptoms, No sore throat, No tinnitus, No dental problems, No trouble swallowing Respiratory: No cough, No sputum, No wheezing, No shortness of breath, No dyspnea on exertion, No dyspnea at rest, No hemoptysis Cardiac: + edema, No chest pain, No orthopnea, No PND, No claudication, No palpitations Abdomen: + constipation, + problem reported (distention), No pain, No nausea, No vomiting, No diarrhea Musculoskeletal: No joint pain, No muscle pain, No swelling, No calf pain Female : No dysuria, No urinary frequency, No hematuria, No incontinence, No abnormal vaginal bleeding, No vaginal discharge Neurologic: No memory loss, No paralysis, No weakness, No numbness/tingling, No vertigo, No balance problems Psychiatric: No depression symptoms, No anhedonism, No anxiety, No insomnia, No substance abuse Heme: No abnormal bleeding/bruising, No clotting problems, No swollen lymph nodes, No night sweats Endo: No fatigue, No excessive thirst, No excessive urination Skin: No rash, No itch, No new/changing skin lesions, No color change, No bleeding Objective Vital Signs Date Time Temp Pulse Resp B/P (MAP) Pulse Ox O2 Delivery O2 Flow Rate FiO2 04/06/17 08:00 Room Air 04/06/17 07:20 36.7 88 18 111/63 (79) 97 Room Air 04/06/17 01:45 Room Air 04/06/17 00:15 36.8 69 18 90/57 (68) 95 Room Air 04/05/17 21:10 71 100/65 (77) 04/05/17 16:00 Room Air 04/05/17 15:22 36.9 68 22 98/61 (73) 90 Room Air 04/05/17 11:37 76 94 Physical Exam General Appearance: WD/WN, no apparent distress, + cachetic, + thin, + pertinent finding (frail) Eyes: normal inspection, PERRL, EOMI, sclerae normal ENT: normal ENT inspection, hearing grossly normal, pharynx normal Neck: supple, no adenopathy, thyroid normal, no JVD, no carotid bruits, trachea midline Respiratory/Chest: chest non-tender, normal breath sounds, no respiratory distress, no accessory muscle use, + decreased breath sounds Cardiovascular: regular rate, rhythm, no edema, no gallop, no JVD, no murmur Abdomen: normal bowel sounds, non tender, soft, no organomegaly, no pulsatile mass Extremities: normal range of motion, non-tender, normal inspection, no pedal edema, no calf tenderness, normal capillary refill, pelvis stable Neurologic/Psychiatric: rigger II-XII nml as tested, no motor/sensory deficits, alert, normal mood/affect, oriented x 3 Skin: normal color, warm/dry, no rash Lymphatic: no adenopathy Laboratory Results Last 24 Hours Test 04/05/17 11:37 04/05/17 16:27 04/05/17 18:36 04/05/17 20:04 Bedside Glucose 178 mg/dl 210 mg/dl 250 mg/dl Troponin I < 0.015 ng/ml Test 04/06/17 07:29 04/06/17 07:35 Bedside Glucose 114 mg/dl White Blood Count 1.67 K/uL Red Blood Count 2.38 M/uL Hemoglobin 8.3 g/dL Hematocrit 24.7 % Mean Corpuscular Volume 103.8 fL Mean Corpuscular Hemoglobin 34.9 pg Mean Corpuscular Hemoglobin Concent 33.6 g/dl Platelet Count 24 K/uL Mean Platelet Volume 11.0 fL RDW Standard Deviation 69.5 fL RDW Coefficient of Variation 20.2 % Neutrophils % (Manual) 39.1 % Lymphocytes % (Manual) 47.0 % Monocytes % (Manual) 11.3 % Eosinophils % (Manual) 2.6 % Neutrophils # (Manual) 0.65 K/uL Total Absolute Neutrophils 0.65 K/uL Lymphocytes # (Manual) 0.78 K/uL Total Absolute Lymphocytes 0.78 K/uL Monocytes # (Manual) 0.19 K/uL Eosinophils # (Manual) 0.04 K/uL Hypersegmented Polys 1+ Anisocytosis PRESENT Sodium Level 137 mmol/L Potassium Level 4.6 mmol/L Chloride Level 101 mmol/L Carbon Dioxide Level 29 mmol/L Anion Gap 7.0 mmol/L Blood Urea Nitrogen 10 mg/dl Creatinine 1.10 mg/dl Est Creatinine Clear Calc Drug Dose 39.0 ml/min Estimated GFR () 57.3 Estimated GFR (Non- 49.4 BUN/Creatinine Ratio 8.7 Random Glucose 102 mg/dl Calcium Level 8.1 mg/dl Magnesium Level 1.9 mg/dl Total Bilirubin 0.5 mg/dl Direct Bilirubin 0.2 mg/dl Aspartate Amino Transf (AST/SGOT) 48 U/L Alanine Aminotransferase (ALT/SGPT) 27 U/L Alkaline Phosphatase 70 U/L Total Protein 5.3 gm/dl Albumin 2.4 gm/dl Assessment and Plan 72 y/o F Hx CAD, CVA, dementia, pancytopenia, Behcet's disease. Pt presents with 3 days of BRBPR She was admitted on 03/31/[address] abdomen was obtained in the ER revealing previously undiagnosed Cirrhosis, portal hypertension and perirectal varices. Additionally she has severe SMA stenosis which may have been known to her as her sister states that she has "low blood flow to her colon". - Possible End-stage liver disease with Cirrhosis with ascites, pancytopenia, perirectal varices, minimally elevated INR, meld 10 upon admission: Stable symptomatically improving new finding, no known h/o cirrhosis or steatosis. No h/o alcohol abuse, last Echo showed EF 60%, hepatitis B/C negative primary issue is ascites which is causing some discomfort, nausea as well as some intermittent rectal bleeding, improved paracentesis was done on 04/04/2017 with 4 L fluid removal, for Ascites fluid albumin, protein, cell count/differential; gram stain, culture, amylase, LD, cytology, AND TO Rule out SBP & calculate SAAG. Culture has been negative, Transudate, cytology is pending Continue lasix to 20 bid BID po , con Spironolactone while admitted 100 mg daily, fluid restriction 1.5 L daily , low sodium diet Watch electrolytes and kidney function, Close monitoring of her CBC appreciate GI recommendations: Lower GI bleed: due to perirectal varices from portal hypertension consulted GI, GI May planning colonoscopy - EGD/Colonoscopy with improved platelet count/ platelets > 50 - Now patient seems would like to have EGD and colonoscopy done, I feel would be good to move with the support of platelet transfusion to figure out the etiology of GI bleedings and varices - We'll communication with GI and driveway attendant for the planning ( likely will need 1 unit any transfusion before the EGD and colonoscopy) - FOLIC acid deficiency, start replacement, changed to by mouth borderline low vitamin B12, started Im supplementation, changed to by mouth - Repeat imaging of the new pancreatic lesion w/ MRI in 6 months - Pancytopenia: with anc continue to be low , started neutropenic px appreciate hematology consult, 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 got 1 unit PLT transfusion on 04/04/2017 transfuse more if need - Behcet's: holding methotrexate due to pancytopenia continue Prednisone - CAD: no chest pain - Mesenteric atherosclerosis: severe SMA stenosis, this was apparently known by patient/family - Possible UTI upon admission: Had been on Cipro, and was discontinued after start cefepime, totally about antibiotic treatment is 6 days until cefepime being stopped today, has completed full course of antibiotic treatment - was spiking fever after paracentesis on 04/04/2017, blood culture has been negative patient has no obvious sign out SBP, or other source of infection, will DC cefepime - DVT prophylaxis: SCD only Level 1 Possible poor prognosis, Palliative care input appreciated Double checked with patient she will like to be DO NOT RESUSCITATE But at the same time she wanted to have for scope of treatment, therefore I request GI to talk to patient to evaluation possible EGD and colonoscopy during these hospitalization Continued [facility] stay due to: multiple IV medications needed Discharge planning: uncertain
[2017-04-06 14:40] VITALS: BP 101/56; PULSE 60; TEMP 36.9; O2SAT 97
[2017-04-06] MEDS: SIMVASTATIN 20 MG TAB PO SCH (20:04)
[2017-04-06 20:10] VITALS: BP 99/60; PULSE 60; TEMP 36.7; O2SAT 96
[2017-04-06 23:07] VITALS: BP 108/68; PULSE 61; TEMP 36.9; O2SAT 97
[2017-04-06] MEDS: ONDANSETRON INJ 2 MG/ML 2 ML VIAL IV PRN (23:15)
[2017-04-07] MEDS: MoRPHine SULFATE 2 MG/ML CARP IV PRN ×2 (00:07→20:14)
[2017-04-07] MEDS: INSULIN ASPART 100 UNITS/ML 3 ML PEN SC SCH ×4 (06:30→20:13)
[2017-04-07 07:43] VITALS: BP 126/71; PULSE 66; TEMP 36.8; O2SAT 98
[2017-04-07 07:51] LABS: HEMATOCRIT 26.1 % (37-47); MEAN CELL VOLUME 104.4 fL (80-100); MEAN CORPUSCULAR HEMOGLOBIN 34.8 pg (25-34); MEAN CORPUSCULAR HGB CONC 33.3 g/dl (32-36); PLATELET COUNT 41 K/uL (130-400)
[2017-04-07 07:56] LABS: BUN/CREATININE RATIO 9.8 (10-20); CALCIUM 8.3 mg/dl (8.5-10.1); CREATININE 1.4 mg/dl (0.60-1.20); MAGNESIUM 2.1 mg/dl (1.8-2.4)
[2017-04-07] MEDS: POLYETHYLENE (MIRALAX) 17 GM PACK PO PRN (08:09)
[2017-04-07] MEDS: VERAPAMIL HCL 120 MG TABCR PO SCH (08:10)
[2017-04-07] MEDS: POTASSIUM CHLORIDE 20 MEQ/15 ML UDC PO SCH ×2 (08:10→20:03)
[2017-04-07] MEDS: GABAPENTIN 300 MG CAP PO SCH ×3 (08:10→20:04)
[2017-04-07] MEDS: SPIRONOLACTONE 100 MG TAB PO SCH (08:11)
[2017-04-07] MEDS: FUROSEMIDE 20 MG TAB PO SCH (08:11)
[2017-04-07] MEDS: CYANOCOBALAMIN 500 MCG TAB (VIT B-12) PO SCH (08:11)
--- NOTE | 2017-04-07 08:36 | HEME/ONC PROGRESS NOTE ---
DATE: 04/07/2017 DIAGNOSES: 1. Cirrhosis of the liver. 2. Pancytopenia. 3. Gastrointestinal bleeding. 4. Mesenteric artery stenosis. HOSPITAL COURSE: Ms. Rehman is a 72-year-old female patient who is now on hospital day #7 with subacute onset abdominal fullness, ascites and associated abdominal pain. A couple of days prior, she underwent successful paracentesis, yielding 4 liters of fluid. Pathology revealed no malignant cells within the specimen. She clinically seems to be doing well as to be expected. Her abdomen is definitely softer since the procedure. Family is caring more towards a palliative approach in her case. I believe a palliative care consult has been ordered. Family members present made it clear that they really do not want any further invasive procedures. PHYSICAL EXAMINATION: GENERAL: She is in no acute distress. VITAL SIGNS: Temperature 36.8, pulse 66, respirations 16, and blood pressure 126/71. SKIN: Without rash or lesion. HEENT: Oral mucosa without erythema or ulceration. NECK: Supple. HEART: Regular rate and rhythm. LUNGS: Clear to auscultation bilaterally. ABDOMEN: Less distended, softer. No rigidity or guarding. EXTREMITIES: No clubbing, cyanosis or edema. Pneumatic is in place. NEUROLOGIC: Grossly intact. LABORATORY DATA: WBC count 2290, hemoglobin 8.7, and platelet count 41,000. Chemistries, sodium 136, potassium 5.0, chloride 99, carbon dioxide 31, creatinine 1.40, and BUN 14. Albumin is 2.4. IMPRESSION: 1. Ascites. 2. Lower gastrointestinal bleeding. 3. Pancytopenia. 4. Behcet's disease. 5. Cirrhosis of the liver. 6. Hypoalbuminemia. PLAN: I once again examined Estee at bedside today. Her sisters were present and engaged in discussion on where we go predatory animal exterminator with Estee's care. I get the impression that they are seriously considering a palliative approach. I do not disagree. I suspect the pancytopenia is secondary to her underlying liver disease; however, myelodysplasia cannot be exclusively ruled out without bone marrow biopsy and aspiration. Family and the patient are not in favor of further invasive procedures. From hematology standpoint, I can certainly assist in providing transfusional support when necessary. From this point forward, we will effectively sign off. You may call me if there are any issues, but I would expect at this point moving towards discharge and hospice care. Thank you very much for allowing me to participate in her care.
[2017-04-07 09:06] LABS: ANISOCYTOSIS PRESENT; COMPLETE YES; EOS % 1.4 %; HYPERSEGMENTED POLYS 1+; LYMPH % 40.1 %; LYMPH ABS # 0.87 K/uL (1.2-3.4); MONO % 26.3 %; NEUT % 32.2 %; PLT ESTIMATE DECREASED; TOXIC GRANULATION 1+; WHITE BLOOD COUNT 2.17 K/uL (4.8-10.8)
[2017-04-07] MEDS ORDERED: MAGIC MOUTHWASH PO PRN (11:45)
[2017-04-07] MEDS ORDERED: DEXAMETHASONE CONC SOLN 3.75 MG, NYSTATIN SUSP 30 ML, DiphenhydrAMINE HCL SYRUP 300 MG,... PO PRN ×5 (12:00)
[2017-04-07 15:18] VITALS: BP 108/71; PULSE 72; TEMP 37; O2SAT 95
--- NOTE | 2017-04-07 17:07 | Progress Note ---
Subjective Date of Service: Apr 07, 2017. Subjective Pt evaluation today including: conversation w/ patient, conversation w/ family , physical exam, chart review, lab review, review of studies, conversation w/ client consultant, review of inpatient medication list Sitting up in bed, looks better, pleasant and conversational, eating okay Problem List Medical Problems: (1) Bleeding hemorrhoid Status: Acute (2) GI bleed Status: Acute (3) Lactic acidosis Status: Acute (4) Mesenteric artery stenosis Status: Acute (5) Pancytopenia Status: Acute (6) Portal hypertension Status: Acute (7) Symptomatic anemia Status: Acute (8) UTI (urinary tract infection) Status: Acute (9) Weakness Status: Acute Review of Systems Constitutional: + weakness, + fatigue, No fever, No chills, No sweats, No weight loss, No problem reported Eyes: No worsening of vision, No eye pain, No redness, No discharge, No diplopia ENT: No hearing loss, No unusual epistaxis, No nasal symptoms, No sore throat, No tinnitus, No dental problems, No trouble swallowing Respiratory: No cough, No sputum, No wheezing, No shortness of breath, No dyspnea on exertion, No dyspnea at rest, No hemoptysis Cardiac: No chest pain, No orthopnea, No PND, No edema, No claudication, No palpitations Abdomen: No pain, No nausea, No vomiting, No diarrhea, No constipation Musculoskeletal: No joint pain, No muscle pain, No swelling, No calf pain Female : No dysuria, No urinary frequency, No hematuria, No incontinence, No abnormal vaginal bleeding, No vaginal discharge Neurologic: No memory loss, No paralysis, No weakness, No numbness/tingling, No vertigo, No balance problems Psychiatric: No depression symptoms, No anhedonism, No anxiety, No insomnia, No substance abuse Heme: No abnormal bleeding/bruising, No clotting problems, No swollen lymph nodes, No night sweats Endo: No fatigue, No excessive thirst, No excessive urination Skin: No rash, No itch, No new/changing skin lesions, No color change, No bleeding Objective Vital Signs Date Time Temp Pulse Resp B/P (MAP) Pulse Ox O2 Delivery O2 Flow Rate FiO2 04/07/17 16:00 Room Air 04/07/17 15:18 37.0 72 16 108/71 (83) 95 Room Air 04/07/17 08:00 Room Air 04/07/17 07:43 36.8 66 16 126/71 (89) 98 Room Air 04/07/17 00:15 Room Air 04/06/17 23:07 36.9 61 18 108/68 (81) 97 Room Air 04/06/17 20:10 36.7 60 18 99/60 (73) 96 Room Air Physical Exam General Appearance: WD/WN, no apparent distress, + thin Eyes: normal inspection, PERRL, EOMI, sclerae normal ENT: normal ENT inspection, hearing grossly normal, pharynx normal Neck: supple, no adenopathy, thyroid normal, no JVD, no carotid bruits, trachea midline Respiratory/Chest: chest non-tender, normal breath sounds, no respiratory distress, no accessory muscle use, + decreased breath sounds Cardiovascular: regular rate, rhythm, no edema, no gallop, no JVD, no murmur Abdomen: normal bowel sounds, non tender, soft, no organomegaly, no pulsatile mass Extremities: normal range of motion, non-tender, normal inspection, no pedal edema, no calf tenderness, normal capillary refill, pelvis stable Neurologic/Psychiatric: adapted physical education specialist II-XII nml as tested, no motor/sensory deficits, alert, normal mood/affect, oriented x 3 Skin: normal color, warm/dry, no rash Lymphatic: no adenopathy Laboratory Results Last 24 Hours Test 04/06/17 20:05 04/07/17 06:55 04/07/17 07:24 04/07/17 11:23 Bedside Glucose 282 mg/dl 128 mg/dl 228 mg/dl White Blood Count 2.17 K/uL Red Blood Count 2.50 M/uL Hemoglobin 8.7 g/dL Hematocrit 26.1 % Mean Corpuscular Volume 104.4 fL Mean Corpuscular Hemoglobin 34.8 pg Mean Corpuscular Hemoglobin Concent 33.3 g/dl Platelet Count 41 K/uL Mean Platelet Volume 11.0 fL Neutrophils (%) (Auto) 32.2 % Lymphocytes (%) (Auto) 40.1 % Monocytes (%) (Auto) 26.3 % Eosinophils (%) (Auto) 1.4 % Basophils (%) (Auto) 0.0 % Neutrophils # (Auto) 0.70 K/uL Lymphocytes # (Auto) 0.87 K/uL Monocytes # (Auto) 0.57 K/uL Eosinophils # (Auto) 0.03 K/uL Basophils # (Auto) 0.00 K/uL RDW Standard Deviation 70.7 fL RDW Coefficient of Variation 20.1 % Immature Granulocyte % (Auto) 0.0 % Immature Granulocyte # (Auto) 0.00 K/uL Hypersegmented Polys 1+ Toxic Granulation 1+ Platelet Estimate DECREASED Anisocytosis PRESENT Macrocytosis PRESENT Sodium Level 136 mmol/L Potassium Level 5.0 mmol/L Chloride Level 99 mmol/L Carbon Dioxide Level 31 mmol/L Anion Gap 6.0 mmol/L Blood Urea Nitrogen 14 mg/dl Creatinine 1.40 mg/dl Est Creatinine Clear Calc Drug Dose 30.6 ml/min Estimated GFR () 42.8 Estimated GFR (Non- 36.9 BUN/Creatinine Ratio 9.8 Random Glucose 111 mg/dl Calcium Level 8.3 mg/dl Magnesium Level 2.1 mg/dl Total Bilirubin 0.5 mg/dl Direct Bilirubin 0.2 mg/dl Aspartate Amino Transf (AST/SGOT) 54 U/L Alanine Aminotransferase (ALT/SGPT) 31 U/L Alkaline Phosphatase 83 U/L Total Protein 5.4 gm/dl Albumin 2.4 gm/dl Assessment and Plan 72 y/o F Hx CAD, CVA, dementia, pancytopenia, Behcet's disease. Pt presents with 3 days of BRBPR She was admitted on 03/31/[address] abdomen was obtained in the ER revealing previously undiagnosed Cirrhosis, portal hypertension and perirectal varices. Additionally she has severe SMA stenosis which may have been known to her as her sister states that she has "low blood flow to her colon". - Possible End-stage liver disease with Cirrhosis with ascites, pancytopenia, perirectal varices, minimally elevated INR, meld 10 upon admission: Stable symptomatically improving no known h/o cirrhosis or steatosis. No h/o alcohol abuse, last Echo showed EF 60%, hepatitis B/C negative primary issue is ascites which is causing some discomfort, nausea as well as some intermittent rectal bleeding, improved after paracentesis paracentesis was done on 04/04/2017 with 4 L fluid removal, for Ascites fluid albumin, protein, cell count/differential; gram stain, culture, amylase, LD, cytology, AND TO Rule out SBP & calculate SAAG. Culture has been negative, Transudate, cytology shows no malignancy cells Has been on Continue lasix to 20 bid BID po , con Spironolactone while admitted 100 mg daily, fluid restriction 1.5 L daily , low sodium diet We'll decrease Lasix to 20 daily, decreased spironolactone to 50 mg by mouth daily because of increased creatinine level Watch electrolytes and kidney function, Close monitoring of her CBC appreciate GI recommendations: Lower GI bleed: due to perirectal varices from portal hypertension consulted GI, GI May planning colonoscopy as outpatient - EGD/Colonoscopy with improved platelet count/ platelets > 50 - Now patient seems would like to have EGD and colonoscopy done, I feel would be good to move with the support of platelet transfusion to figure out the etiology of GI bleedings and varices, We'll communication with GI and scrap piler for the planning ( likely will need 1 unit any transfusion before the EGD and colonoscopy), no feed back yet - FOLIC acid deficiency, start replacement, changed to by mouth borderline low vitamin B12, started Im supplementation, changed to by mouth - Repeat imaging of the new pancreatic lesion w/ MRI in 6 months - Pancytopenia: with anc continue to be low , has been improving, however will continue neutropenic px appreciate hematology consult, 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, and underline liver disease, however myelodysplasia cannot be exclusively got 1 unit PLT transfusion on 04/04/2017 transfuse more if need, scrap piler does not disagree for patient to move forward to palliative care because patient and family seriously considering palliative care - Behcet's: holding methotrexate due to pancytopenia continue Prednisone, oral pain, will give mouth wash - CAD: no chest pain - Mesenteric atherosclerosis: severe SMA stenosis, this was apparently known by patient/family - Possible UTI upon admission: Had been on Cipro, and was discontinued after start cefepime, totally about antibiotic treatment is 6 days until cefepime being stopped today, has completed full course of antibiotic treatment - was spiking fever after paracentesis on 04/04/2017, blood culture has been negative patient has no obvious sign out SBP, or other source of infection, will DC cefepime - DVT prophylaxis: SCD only Possible poor prognosis, Palliative care input appreciated Double checked with patient she will like to be DO NOT RESUSCITATE But at the same time she wanted to have full scope of treatment, therefore I request GI to talk to patient to evaluation possible EGD and colonoscopy during these hospitalization Continued [facility] stay due to: multiple IV medications needed Discharge planning: halfway facility
[2017-04-07 19:55] VITALS: BP 109/64; PULSE 77; TEMP 36.8; O2SAT 94
[2017-04-07] MEDS: SIMVASTATIN 20 MG TAB PO SCH (20:04)
[2017-04-07] MEDS: ONDANSETRON INJ 2 MG/ML 2 ML VIAL IV PRN (20:19)
[2017-04-07 23:45] VITALS: BP 97/60; PULSE 65; TEMP 36.6; O2SAT 96
[2017-04-08] MEDS: MoRPHine SULFATE 2 MG/ML CARP IV PRN ×3 (00:32→21:57)
[2017-04-08] MEDS: INSULIN ASPART 100 UNITS/ML 3 ML PEN SC SCH ×4 (06:30→21:57)
[2017-04-08 07:25] VITALS: BP 111/67; PULSE 63; TEMP 36.5; O2SAT 97
[2017-04-08] MEDS ORDERED: NURSING VERBAL MED ORDER PRN (07:30)
[2017-04-08 08:16] LABS: HEMATOCRIT 26.9 % (37-47); MEAN CELL VOLUME 105.5 fL (80-100); MEAN CORPUSCULAR HEMOGLOBIN 34.5 pg (25-34); MEAN CORPUSCULAR HGB CONC 32.7 g/dl (32-36); MEAN PLATELET VOLUME 10.1 fL (7.4-10.4); PLATELET COUNT 70 K/uL (130-400); RED BLOOD COUNT 2.55 M/uL (4.2-5.4); WHITE BLOOD COUNT 2.64 K/uL (4.8-10.8)
[2017-04-08 08:18] LABS: CALCIUM 8.5 mg/dl (8.5-10.1); CREATININE 1.3 mg/dl (0.60-1.20); MAGNESIUM 1.9 mg/dl (1.8-2.4); PHOSPHORUS 3.1 mg/dl (2.5-4.9); POTASSIUM 4.7 mmol/L (3.5-5.1)
[2017-04-08 08:24] LABS: ANISOCYTOSIS PRESENT; COMPLETE YES; EOS % 1.5 %; LYMPH % 36.7 %; LYMPH ABS # 0.97 K/uL (1.2-3.4); MONO % 29.5 %; NEUT % 32.3 %
[2017-04-08] MEDS: POLYETHYLENE (MIRALAX) 17 GM PACK PO PRN (08:25)
[2017-04-08] MEDS: IBUPROFEN 200 MG TAB PO PRN ×2 (08:25→16:46)
[2017-04-08] MEDS: POTASSIUM CHLORIDE 20 MEQ/15 ML UDC PO SCH ×2 (08:27→21:52)
[2017-04-08] MEDS: SPIRONOLACTONE 25 MG TAB PO SCH (08:27)
[2017-04-08] MEDS: FUROSEMIDE 20 MG TAB PO SCH (08:27)
[2017-04-08] MEDS: GABAPENTIN 300 MG CAP PO SCH ×3 (08:28→21:53)
[2017-04-08] MEDS: CYANOCOBALAMIN 500 MCG TAB (VIT B-12) PO SCH (08:28)
[2017-04-08] MEDS: VERAPAMIL HCL 120 MG TABCR PO SCH (08:28)
[2017-04-08] MEDS ORDERED: NURSING VERBAL MED ORDER SCH (09:00)
--- NOTE | 2017-04-08 12:21 | Progress Note ---
Subjective Date of Service: Apr 08, 2017. Subjective Pt evaluation today including: conversation w/ patient, conversation w/ family , physical exam, chart review, lab review, review of studies, conversation w/ portfolio consultant, review of inpatient medication list Report oral cavity pain related to ulceration , she has this problem before, does not help by Magic mouthwash which was started yesterday Otherwise sitting up to the chair, still have generalized weakness, feeling a little better Problem List Medical Problems: (1) Bleeding hemorrhoid Status: Acute (2) GI bleed Status: Acute (3) Lactic acidosis Status: Acute (4) Mesenteric artery stenosis Status: Acute (5) Pancytopenia Status: Acute (6) Portal hypertension Status: Acute (7) Symptomatic anemia Status: Acute (8) UTI (urinary tract infection) Status: Acute (9) Weakness Status: Acute Review of Systems Constitutional: + weakness, + fatigue, No fever, No chills, No sweats, No weight loss, No problem reported Eyes: No worsening of vision, No eye pain, No redness, No discharge, No diplopia ENT: No hearing loss, No unusual epistaxis, No nasal symptoms, No sore throat, No tinnitus, No dental problems, No trouble swallowing Respiratory: No cough, No sputum, No wheezing, No shortness of breath, No dyspnea on exertion, No dyspnea at rest, No hemoptysis Cardiac: No chest pain, No orthopnea, No PND, No edema, No claudication, No palpitations Abdomen: No pain, No nausea, No vomiting, No diarrhea, No constipation Musculoskeletal: No joint pain, No muscle pain, No swelling, No calf pain Female : No dysuria, No urinary frequency, No hematuria, No incontinence, No abnormal vaginal bleeding, No vaginal discharge Neurologic: No memory loss, No paralysis, No weakness, No numbness/tingling, No vertigo, No balance problems Psychiatric: No depression symptoms, No anhedonism, No anxiety, No insomnia, No substance abuse Heme: No abnormal bleeding/bruising, No clotting problems, No swollen lymph nodes, No night sweats Endo: No fatigue, No excessive thirst, No excessive urination Skin: No rash, No itch, No new/changing skin lesions, No color change, No bleeding Objective Vital Signs Date Time Temp Pulse Resp B/P (MAP) Pulse Ox O2 Delivery O2 Flow Rate FiO2 04/08/17 07:25 36.5 63 18 111/67 (82) 97 Room Air 04/08/17 00:00 Room Air 04/07/17 23:45 36.6 65 16 97/60 (72) 96 Room Air 04/07/17 21:30 Room Air 04/07/17 19:55 36.8 77 18 109/64 (79) 94 Room Air 04/07/17 16:00 Room Air 04/07/17 15:18 37.0 72 16 108/71 (83) 95 Room Air Physical Exam General Appearance: WD/WN, no apparent distress Eyes: normal inspection, PERRL, EOMI, sclerae normal ENT: normal ENT inspection, hearing grossly normal, pharynx normal, + pertinent finding (oral cavities has mucus ulceration) Neck: supple, no adenopathy, thyroid normal, no JVD, no carotid bruits, trachea midline Respiratory/Chest: chest non-tender, normal breath sounds, no respiratory distress, no accessory muscle use, + decreased breath sounds Cardiovascular: regular rate, rhythm, no edema, no gallop, no JVD, no murmur Abdomen: normal bowel sounds, non tender, soft, no organomegaly, no pulsatile mass Extremities: normal range of motion, non-tender, normal inspection, no pedal edema, no calf tenderness, normal capillary refill, pelvis stable Neurologic/Psychiatric: department mgr II-XII nml as tested, no motor/sensory deficits, alert, normal mood/affect, oriented x 3 Skin: normal color, warm/dry, no rash Lymphatic: no adenopathy Laboratory Results Last 24 Hours Test 04/07/17 16:19 04/07/17 19:52 04/08/17 07:34 04/08/17 07:36 Bedside Glucose 236 mg/dl 225 mg/dl 122 mg/dl White Blood Count 2.64 K/uL Red Blood Count 2.55 M/uL Hemoglobin 8.8 g/dL Hematocrit 26.9 % Mean Corpuscular Volume 105.5 fL Mean Corpuscular Hemoglobin 34.5 pg Mean Corpuscular Hemoglobin Concent 32.7 g/dl Platelet Count 70 K/uL Mean Platelet Volume 10.1 fL Neutrophils (%) (Auto) 32.3 % Lymphocytes (%) (Auto) 36.7 % Monocytes (%) (Auto) 29.5 % Eosinophils (%) (Auto) 1.5 % Basophils (%) (Auto) 0.0 % Neutrophils # (Auto) 0.85 K/uL Lymphocytes # (Auto) 0.97 K/uL Monocytes # (Auto) 0.78 K/uL Eosinophils # (Auto) 0.04 K/uL Basophils # (Auto) 0.00 K/uL RDW Standard Deviation 73.2 fL RDW Coefficient of Variation 20.0 % Immature Granulocyte % (Auto) 0.0 % Immature Granulocyte # (Auto) 0.00 K/uL Anisocytosis PRESENT Macrocytosis PRESENT Sodium Level 137 mmol/L Potassium Level 4.7 mmol/L Chloride Level 98 mmol/L Carbon Dioxide Level 31 mmol/L Anion Gap 8.0 mmol/L Blood Urea Nitrogen 18 mg/dl Creatinine 1.30 mg/dl Est Creatinine Clear Calc Drug Dose 33.0 ml/min Estimated GFR () 46.8 Estimated GFR (Non- 40.4 BUN/Creatinine Ratio 14.0 Random Glucose 108 mg/dl Calcium Level 8.5 mg/dl Phosphorus Level 3.1 mg/dl Magnesium Level 1.9 mg/dl Test 04/08/17 11:38 Bedside Glucose 196 mg/dl Assessment and Plan 72 y/o F Hx CAD, CVA, dementia, pancytopenia, Behcet's disease. Pt presents with 3 days of BRBPR She was admitted on 03/31/2017 , was found has pancytopenia and ascites , has been stable and improving A CT abdomen was obtained in the ER revealing previously undiagnosed Cirrhosis, portal hypertension and perirectal varices. Additionally she has severe SMA stenosis which may have been known to her as her sister states that she has "low blood flow to her colon". - Possible End-stage liver disease with Cirrhosis with ascites, pancytopenia, perirectal varices, minimally elevated INR, meld 10 upon admission: Stable symptomatically improving no known h/o cirrhosis or steatosis. No h/o alcohol abuse, last Echo showed EF 60%, hepatitis B/C negative primary issue is ascites which is causing some discomfort, nausea as well as some intermittent rectal bleeding, improved after paracentesis paracentesis was done on 04/04/2017 with 4 L fluid removal, for Ascites fluid albumin, protein, cell count/differential; gram stain, culture, amylase, LD, cytology, AND TO Rule out SBP & calculate SAAG. Culture has been negative, Transudate, cytology shows no malignancy cells Has been on Continue lasix to 20 bid BID po , con Spironolactone while admitted 100 mg daily, fluid restriction 1.5 L daily , low sodium diet Yesterday which was 03/18/2017 , Lasix and Aldactone was decreased Lasix to 20 daily, spironolactone to 50 mg because of increased creatinine level, on current dose creatinine level has been stable and improving, we'll continue current dose Watch electrolytes and kidney function, Close monitoring of her CBC appreciate GI recommendations: Lower GI bleed: due to perirectal varices from portal hypertension consulted GI, GI was planning planning colonoscopy as outpatient, partial reason is patient was having thrombocytopenia therefore hold the procedure Per GI, they request EGD/Colonoscopy when platelet count/ platelets > 50 Now patient seems improving and platelets has been raising in 2 days, today 70k , pt would like to have EGD and colonoscopy done, I feel would be a good move to figure out the etiology of GI bleedings and varices, We'll communication with GI and the possible colonoscopy on Monday, I request nurse to call GI group to reevaluation patient in the weekend, and make a good plan on Monday - FOLIC acid deficiency, start replacement, changed to by mouth borderline low vitamin B12, started Im supplementation, changed to by mouth - Repeat imaging of the new pancreatic lesion w/ MRI in 6 months - Pancytopenia: with anc continue to be low , has been improving, however will continue neutropenic px appreciate hematology consult, 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, and underline liver disease, however myelodysplasia cannot be exclusively got 1 unit PLT transfusion on 04/04/2017 transfuse more if need, cost estimator does not disagree for patient to move forward to palliative care because patient and family seriously considering palliative care - Behcet's: holding methotrexate due to pancytopenia, Start tapering dose of prednisone Prednisone, counseling oral pain and oral cavity ulceration, cont mouth wash - CAD: no chest pain - Mesenteric atherosclerosis: severe SMA stenosis, this was apparently known by patient/family - Possible UTI upon admission: Had been on Cipro, and was discontinued after start cefepime, totally about antibiotic treatment is 6 days until cefepime being stopped today, has completed full course of antibiotic treatment - was spiking fever after paracentesis on 04/04/2017, blood culture has been negative patient has no obvious sign out SBP, or other source of infection, cefepime discontinue - DVT prophylaxis: SCD only Possible poor prognosis, but now seems turning around Palliative care input appreciated Double checked with patient she will like to be DO NOT RESUSCITATE But at the same time she wanted to have full scope of treatment, therefore I request GI to talk to patient to evaluation possible EGD and colonoscopy during these hospitalization Continued [facility] stay due to: multiple IV medications needed [facility]charge planning[facility]
[2017-04-08 15:13] VITALS: BP 87/59; PULSE 72; TEMP 36.3; O2SAT 98
--- NOTE | 2017-04-08 15:49 | GASTROENTEROLOGY PROGRESS NOTE ---
DATE: 04/08/2017 DATE: 04/08/2017. Cross coverage for [employer]. SUBJECTIVE: I had the pleasure of seeing Estee Rehman today at her bedside. She states that she was having some epigastric abdominal pain. She described the pain as 2-3/10 in intensity, nonradiating with no alleviating or exacerbating factors. She states that this has not changed significantly over the course of her hospitalization and denies any hematemesis, melena, hematochezia or other complaints. I was asked to see the patient for reconsultation as she was previously being seen by the [facility] GI team and I am covering for them for the weekend. I was asked to see the patient in regards to performing an EGD and colonoscopy during this hospitalization as previous records indicated that the [facility] GI team was waiting until her platelet count had risen. There was no family at the bedside to discuss this with in detail. PHYSICAL EXAMINATION: VITAL SIGNS: Temp 36.5, pulse 63, respirations 18, blood pressure 111/67, pulse ox 97% on room air. GENERAL EXAMINATION: She is awake, cooperative, chronic ill appearing, in no acute distress. CHEST: Decreased breath sounds bilateral bases. CARDIOVASCULAR SYSTEM: Regular rate and rhythm. ABDOMEN: Soft, tender in the mid epigastric area and nondistended, positive bowel sounds. There is positive ascites. IMPRESSION: This is a 72-year-old female with multiple medical comorbidities including CVD diabetes, cirrhosis with ascites and thrombocytopenia with reported rectal bleeding. PLAN: I will defer to the primary [facility] GI team in regards to performing an EGD or colonoscopy. Based on their previous notes they were waiting until her platelet count was greater than 50 which it has increased today to level of 70. If she continues to have platelet count above 50 consideration could be given to performing an EGD and colonoscopy during this hospitalization. I would like to discuss it further with family members as well as the patient seemed unsure as to her decision as to whether or not she would want this performed. I told her that I would stop back in tomorrow and we can discuss this further, which she agreed with. Once again, thanks for allowing me to participate in the care of this patient. If you have any further questions, please do not hesitate in contacting me.
[2017-04-08 16:14] VITALS: BP 100/64
[2017-04-08 20:00] VITALS: O2SAT 98
[2017-04-08] MEDS: SIMVASTATIN 20 MG TAB PO SCH (21:51)
[2017-04-08 23:43] VITALS: BP 116/69; PULSE 61; TEMP 36.7; O2SAT 95
[2017-04-09] MEDS: IBUPROFEN 200 MG TAB PO PRN ×2 (00:51→13:17)
[2017-04-09 07:42] VITALS: BP 145/74; PULSE 55; TEMP 36.4; O2SAT 98
[2017-04-09] MEDS: POLYETHYLENE (MIRALAX) 17 GM PACK PO PRN (08:02)
[2017-04-09 08:05] VITALS: BP 113/64; PULSE 64
[2017-04-09] MEDS: SPIRONOLACTONE 25 MG TAB PO SCH (08:06)
[2017-04-09] MEDS: POTASSIUM CHLORIDE 20 MEQ/15 ML UDC PO SCH ×2 (08:07→20:17)
[2017-04-09] MEDS: FUROSEMIDE 20 MG TAB PO SCH (08:07)
[2017-04-09] MEDS: GABAPENTIN 300 MG CAP PO SCH ×3 (08:07→20:18)
[2017-04-09] MEDS: VERAPAMIL HCL 120 MG TABCR PO SCH (08:08)
[2017-04-09] MEDS: CYANOCOBALAMIN 500 MCG TAB (VIT B-12) PO SCH (08:08)
[2017-04-09] MEDS: INSULIN ASPART 100 UNITS/ML 3 ML PEN SC SCH ×4 (08:09→21:31)
[2017-04-09 11:56] LABS: COMPLETE YES; IG% 0.3 %; LYMPH % 21.7 %; LYMPH ABS # 0.85 K/uL (1.2-3.4); MEAN CELL VOLUME 104.3 fL (80-100); MEAN CORPUSCULAR HEMOGLOBIN 33.8 pg (25-34); MEAN CORPUSCULAR HGB CONC 32.4 g/dl (32-36); MEAN PLATELET VOLUME 10.4 fL (7.4-10.4); PLATELET COUNT 146 K/uL (130-400); RED BLOOD COUNT 2.78 M/uL (4.2-5.4); WHITE BLOOD COUNT 3.92 K/uL (4.8-10.8)
--- NOTE | 2017-04-09 14:41 | GASTROENTEROLOGY PROGRESS NOTE ---
DATE: 04/09/2017 RACE: . I had the pleasure of seeing Estee Rehman at her bedside today. She was surrounded by her family members. She was noted to have an improvement in her platelet count to 146 today and family is requesting that she undergo both an EGD and colonoscopy tomorrow to further evaluate her recent rectal bleeding. The patient states she is not having any abdominal pain, fevers, chills, nausea, vomiting, hematemesis, melena or hematochezia at the present time. She has had minimal p.o. intake per nursing staff. PHYSICAL EXAMINATION: VITAL SIGNS: Include a temp of 36.4, pulse 64, respirations 16, blood pressure 113/64, pulse ox 98% on room air. GENERAL: Alert, oriented x3, cooperative. CHEST: Clear to auscultation bilaterally. CARDIOVASCULAR SYSTEM: Regular rate and rhythm. ABDOMEN: Soft, nontender, nondistended. Positive bowel sounds. LABORATORY STUDIES: From today included a white blood cell count of 3.92, hemoglobin 9.4, hematocrit 29.0, and a platelet count of 146. IMPRESSION: This is a 72-year-old female with multiple medical comorbidities including cardiovascular disease, diabetes, cirrhosis with ascites, thrombocytopenia and recent rectal bleeding. PLAN: As the patient's platelet count is currently greater than 50, as per prior [email or web address] GI team notes, they would like to proceed with upper endoscopy and colonoscopy when platelet count reach these levels. Therefore, I will recommend that she undergo both an EGD and colonoscopy tomorrow and she will be given a bowel prep tonight. She will be placed on clear liquids today and be kept n.p.o. after midnight for above noted testing. The patient was in agreement with this plan. Once again, thanks for allowing me to participate in the care of this patient. If you have any further questions, please do not hesitate in contacting me.
[2017-04-09 15:42] VITALS: BP 104/67; PULSE 71; TEMP 36.5; O2SAT 96
--- NOTE | 2017-04-09 16:14 | Progress Note ---
Subjective Date of Service: Apr 09, 2017. Subjective Pt evaluation today including: conversation w/ patient, conversation w/ family , physical exam, chart review, lab review, review of studies, review of inpatient medication list Sitting up in bed, conversational, pleasant, did report abdominal more distention possible Otherwise no other complaint Problem List Medical Problems: (1) Bleeding hemorrhoid Status: Acute (2) GI bleed Status: Acute (3) Lactic acidosis Status: Acute (4) Mesenteric artery stenosis Status: Acute (5) Pancytopenia Status: Acute (6) Portal hypertension Status: Acute (7) Symptomatic anemia Status: Acute (8) UTI (urinary tract infection) Status: Acute (9) Weakness Status: Acute Review of Systems Constitutional: + fatigue, No fever, No chills, No sweats, No weight loss, No weakness, No problem reported Eyes: No worsening of vision, No eye pain, No redness, No discharge, No diplopia ENT: No hearing loss, No unusual epistaxis, No nasal symptoms, No sore throat, No tinnitus, No dental problems, No trouble swallowing Respiratory: No cough, No sputum, No wheezing, No shortness of breath, No dyspnea on exertion, No dyspnea at rest, No hemoptysis Cardiac: No chest pain, No orthopnea, No PND, No edema, No claudication, No palpitations Abdomen: + problem reported (distention), No pain, No nausea, No vomiting, No diarrhea, No constipation Musculoskeletal: No joint pain, No muscle pain, No swelling, No calf pain Female : No dysuria, No urinary frequency, No hematuria, No incontinence, No abnormal vaginal bleeding, No vaginal discharge Neurologic: No memory loss, No paralysis, No weakness, No numbness/tingling, No vertigo, No balance problems Psychiatric: No depression symptoms, No anhedonism, No anxiety, No insomnia, No substance abuse Heme: No abnormal bleeding/bruising, No clotting problems, No swollen lymph nodes, No night sweats Endo: No fatigue, No excessive thirst, No excessive urination Skin: No rash, No itch, No new/changing skin lesions, No color change, No bleeding Objective Vital Signs Date Time Temp Pulse Resp B/P (MAP) Pulse Ox O2 Delivery O2 Flow Rate FiO2 04/09/17 15:42 36.5 71 16 104/67 (79) 96 Room Air 04/09/17 08:05 64 113/64 (80) 04/09/17 08:00 Room Air 04/09/17 07:42 36.4 55 16 145/74 (97) 98 Room Air 04/09/17 00:00 Room Air 04/08/17 23:43 36.7 61 18 116/69 (85) 95 Room Air 04/08/17 20:00 98 Room Air 04/08/17 16:14 100/64 (76) Physical Exam General Appearance: WD/WN, no apparent distress, + thin, + pertinent finding ( frail) Eyes: normal inspection, PERRL, EOMI, sclerae normal ENT: normal ENT inspection, hearing grossly normal, pharynx normal Neck: supple, no adenopathy, thyroid normal, no JVD, no carotid bruits, trachea midline Respiratory/Chest: chest non-tender, normal breath sounds, no respiratory distress, no accessory muscle use, + decreased breath sounds Cardiovascular: regular rate, rhythm, no edema, no gallop, no JVD, no murmur Abdomen: normal bowel sounds, non tender, soft, no organomegaly, no pulsatile mass, + distended (mild possible ascites) Extremities: normal range of motion, non-tender, normal inspection, no pedal edema, no calf tenderness, normal capillary refill, pelvis stable Neurologic/Psychiatric: soil surveyor II-XII nml as tested, no motor/sensory deficits, alert, normal mood/affect, oriented x 3 Skin: normal color, warm/dry, no rash Lymphatic: no adenopathy Laboratory Results Last 24 Hours Test 04/08/17 16:32 04/08/17 17:57 04/08/17 20:36 04/09/17 07:15 Bedside Glucose 330 mg/dl 305 mg/dl 357 mg/dl 182 mg/dl Test 04/09/17 11:33 04/09/17 11:43 White Blood Count 3.92 K/uL Red Blood Count 2.78 M/uL Hemoglobin 9.4 g/dL Hematocrit 29.0 % Mean Corpuscular Volume 104.3 fL Mean Corpuscular Hemoglobin 33.8 pg Mean Corpuscular Hemoglobin Concent 32.4 g/dl Platelet Count 146 K/uL Mean Platelet Volume 10.4 fL Neutrophils (%) (Auto) 51.0 % Lymphocytes (%) (Auto) 21.7 % Monocytes (%) (Auto) 27.0 % Eosinophils (%) (Auto) 0.0 % Basophils (%) (Auto) 0.0 % Neutrophils # (Auto) 2.00 K/uL Lymphocytes # (Auto) 0.85 K/uL Monocytes # (Auto) 1.06 K/uL Eosinophils # (Auto) 0.00 K/uL Basophils # (Auto) 0.00 K/uL RDW Standard Deviation 72.5 fL RDW Coefficient of Variation 19.9 % Immature Granulocyte % (Auto) 0.3 % Immature Granulocyte # (Auto) 0.01 K/uL Bedside Glucose 250 mg/dl Assessment and Plan 72 y/o F Hx CAD, CVA, dementia, pancytopenia, Behcet's disease. Pt presents with 3 days of BRBPR She was admitted on 03/31/2017 , was found has pancytopenia and ascites , has been stable and continue improving A CT abdomen was obtained in the ER revealing previously undiagnosed Cirrhosis, portal hypertension and perirectal varices. Additionally she has severe SMA stenosis which may have been known to her as her sister states that she has "low blood flow to her colon". - Possible End-stage liver disease with Cirrhosis with ascites, pancytopenia, perirectal varices, minimally elevated INR, meld 10 upon admission: - Pancytopenia continue significant improving every day no known h/o cirrhosis or steatosis. No h/o alcohol abuse, last Echo showed EF 60%, hepatitis B/C negative primary issue is ascites which is causing some discomfort, nausea as well as some intermittent rectal bleeding, improved after paracentesis paracentesis was done on 04/04/2017 with 4 L fluid removal, for Ascites fluid albumin, protein, cell count/differential; gram stain, culture, amylase, LD, cytology, AND TO Rule out SBP & calculate SAAG. Culture has been negative, Transudate, cytology shows no malignancy cells Has been on Continue lasix to 20 bid BID po , con Spironolactone while admitted 100 mg daily, fluid restriction 1.5 L daily , low sodium diet 2 days ago which was 04/07/2017 , Lasix and Aldactone was decreased Lasix to 20 daily, spironolactone to 50 mg because of increased creatinine level, on current dose creatinine level has been stable and improving, we'll continue current dose Watch electrolytes and kidney function, Close monitoring of her CBC Lower GI bleed: due to perirectal varices from portal hypertension consulted GI, GI was planning planning colonoscopy as outpatient, partial reason is patient was having thrombocytopenia therefore hold the procedure Per GI, they request EGD/Colonoscopy when platelet count/ platelets > 50 Now patient seems improving and platelets has been raising in 3 days, talked to Dr. 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, and underline liver disease, however myelodysplasia cannot be exclusively got 1 unit PLT transfusion on 04/04/2017 transfuse more if need, multimedia services coordinator does not disagree for patient to move forward to palliative care because patient and family seriously considering palliative care - Behcet's: holding methotrexate due to pancytopenia, Start tapering dose of prednisone Prednisone, counseling oral pain and oral cavity ulceration, cont mouth wash - Hyperglycemia around 250, which is from the third or using, we are doing the insulin sliding scale - CAD: no chest pain - Mesenteric atherosclerosis: severe SMA stenosis, this was apparently known by patient/family - Possible UTI upon admission: Had been on Cipro, and was discontinued after start cefepime, totally about antibiotic treatment is 6 days until cefepime being stopped today, has completed full course of antibiotic treatment - was spiking fever after paracentesis on 04/04/2017, blood culture has been negative patient has no obvious sign out SBP, or other source of infection, cefepime discontinue - DVT prophylaxis: SCD only Possible poor prognosis, but now seems turning around Palliative care input appreciated Double checked with patient she will like to be DO NOT RESUSCITATE But at the same time she wanted to have full scope of treatment, Possible able to be discharged to home soon REHABILITATION after the EGD and colonoscopy Continued [facility] stay due to: multiple IV medications needed Discharge planning: [facility] facility
[2017-04-09] MEDS: MoRPHine SULFATE 2 MG/ML CARP IV PRN (19:11)
[2017-04-09 20:00] VITALS: O2SAT 98
[2017-04-09] MEDS ORDERED: LAVAGE SOLUTION 4000ML PO SCH (20:00)
[2017-04-09] MEDS: SIMVASTATIN 20 MG TAB PO SCH (20:18)
[2017-04-09 23:38] VITALS: BP 165/76; PULSE 56; TEMP 36.6; O2SAT 97
[2017-04-10] MEDS: IBUPROFEN 200 MG TAB PO PRN ×2 (00:27→23:27)
[2017-04-10] MEDS: INSULIN ASPART 100 UNITS/ML 3 ML PEN SC SCH ×4 (06:30→21:04)
[2017-04-10 07:26] VITALS: BP 157/75; PULSE 98; TEMP 36.6; O2SAT 98
[2017-04-10 07:28] LABS: COMPLETE YES; HEMATOCRIT 29.2 % (37-47); IG% 0.4 %; LYMPH % 28.4 %; LYMPH ABS # 0.73 K/uL (1.2-3.4); MEAN CELL VOLUME 103.9 fL (80-100); MEAN CORPUSCULAR HEMOGLOBIN 34.5 pg (25-34); MEAN CORPUSCULAR HGB CONC 33.2 g/dl (32-36); MEAN PLATELET VOLUME 9.9 fL (7.4-10.4); MONO % 21.8 %; NEUT % 49.4 %; PLATELET COUNT 175 K/uL (130-400); RED BLOOD COUNT 2.81 M/uL (4.2-5.4); WHITE BLOOD COUNT 2.57 K/uL (4.8-10.8)
[2017-04-10 08:00] LABS: HYPERSEGMENTED POLYS 1+
[2017-04-10 08:17] LABS: BUN/CREATININE RATIO 24.1 (10-20); CALCIUM 8.1 mg/dl (8.5-10.1); CREATININE 1.1 mg/dl (0.60-1.20); MAGNESIUM 1.9 mg/dl (1.8-2.4); POTASSIUM 5.9 mmol/L (3.5-5.1)
[2017-04-10 08:21] LABS: HYPERSEGMENTED POLYS 1+
[2017-04-10] MEDS: SPIRONOLACTONE 25 MG TAB PO SCH (08:30)
[2017-04-10] MEDS: POTASSIUM CHLORIDE 20 MEQ/15 ML UDC PO SCH (08:31)
[2017-04-10] MEDS: GABAPENTIN 300 MG CAP PO SCH ×3 (08:32→20:58)
[2017-04-10] MEDS: VERAPAMIL HCL 120 MG TABCR PO SCH (08:32)
[2017-04-10] MEDS: FUROSEMIDE 20 MG TAB PO SCH (08:32)
[2017-04-10] MEDS: CYANOCOBALAMIN 500 MCG TAB (VIT B-12) PO SCH (08:33)
[2017-04-10 10:58] VITALS: BMI 27.5
--- NOTE | 2017-04-10 11:40 | History & Physical Bridge Note ---
H&P Re-Evaluation Bridge Note: I have examined the patient, reviewed the History & Physical and in the interval since the performance of the History & Physical I have noted the following changes of clinical significance: No changes noted
--- NOTE | 2017-04-10 11:56 | Hematology/Oncology Prog Note ---
Hematology/Onc Progress Note Date of Service Apr 10, 2017. 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 however were discordant Medications Medications Administered Medications (Trade) Dose Ordered Sig/Sonam Route Start Time Stop Time Status Last Admin Dose Admin Sodium Chloride 500 ml @ 999 mls/hr Q31M STAT IV 03/31/17 15:46 03/31/17 16:16 DC 03/31/17 17:34 999 MLS/HR Ondansetron HCl (Zofran Inj) 4 mg NOW STAT IV 03/31/17 15:46 03/31/17 15:47 DC 03/31/17 17:40 4 MG Ceftriaxone Sodium (Rocephin Inj) 1 gm NOW STAT IV 03/31/17 16:51 03/31/17 16:52 DC 03/31/17 17:40 1 GM Atenolol (Tenormin Tab) 50 mg BID PO 03/31/17 21:00 04/30/17 20:59 04/09/17 20:20 50 MG Gabapentin (Neurontin Cap) 300 mg TID PO 03/31/17 21:00 04/30/17 20:59 04/09/17 20:18 300 MG Isosorbide Mononitrate (Imdur Ext Rel Tab) 30 mg QAM PO 04/01/17 09:00 04/01/17 12:32 DC 04/01/17 07:26 30 MG Prednisone (PredniSONE TAB) 10 mg DAILY PO 04/01/17 09:00 04/08/17 12:52 DC 04/08/17 08:28 10 MG Simvastatin (Zocor Tab) 20 mg QPM PO 03/31/17 21:00 04/30/17 20:59 04/09/17 20:18 20 MG Verapamil HCl (Calan-Sr Tab) 120 mg DAILY PO 04/01/17 09:00 05/01/17 08:59 04/09/17 08:08 120 MG Ondansetron HCl (Zofran Inj) 4 mg Q6H PRN IV 03/31/17 18:00 04/30/17 17:59 04/07/17 20:19 4 MG Morphine Sulfate (MoRPHine SULFATE INJ) 2 mg Q30M PRN IV 03/31/17 18:00 04/01/17 11:07 DC 04/01/17 09:57 2 MG Sodium Chloride 1,000 ml @ 80 mls/hr [id number] IV 03/31/17 20:00 04/01/17 08:29 DC 03/31/17 20:20 80 MLS/HR Ciprofloxacin/ Dextrose 400 mg/ Prmx 200 ml @ 100 mls/hr DAILY IV 03/31/17 20:30 04/01/17 12:30 DC 04/01/17 08:39 100 MLS/HR Magnesium Sulfate 1 gm/Prmx 100 ml @ 100 mls/hr Q1H IV 04/01/17 10:00 04/01/17 11:59 DC 04/01/17 11:13 100 MLS/HR Morphine Sulfate (MoRPHine SULFATE INJ) 2 mg Q4 PRN IV 04/01/17 11:15 04/15/17 11:14 04/09/17 19:11 2 MG Folic Acid 1 mg/ Syringe 10 ml @ 5 mls/min QAM IV 04/02/17 09:00 04/06/17 11:22 DC 04/06/17 08:27 5 MLS/MIN Furosemide 20 mg/ Syringe 2 ml @ 4 mls/min Q12 IV 04/01/17 21:00 04/05/17 16:26 DC 04/05/17 08:00 4 MLS/MIN Furosemide 40 mg/ Syringe 4 ml @ 4 mls/min 1245 ONCE IV 04/01/17 12:30 04/01/17 12:41 DC 04/01/17 13:06 4 MLS/MIN Spironolactone (Aldactone Tab) 25 mg QAM PO 04/02/17 09:00 04/04/17 11:57 DC 04/04/17 09:36 25 MG Ciprofloxacin (Ciprofloxacin Tab) 250 mg BID PO 04/01/17 21:00 04/05/17 11:56 DC 04/05/17 08:01 250 MG Potassium Chloride (Karlie Ciel Elix) 20 meq BID PO 04/02/17 21:00 05/02/17 20:59 04/09/17 20:17 20 MEQ Potassium Chloride (Karlie Ciel Elix) 20 meq 1130 ONCE PO 04/02/17 11:30 04/02/17 11:31 DC 04/02/17 12:06 20 MEQ Insulin Aspart (novoLOG ASPART) SLIDING SCALE G... ACHS SC 04/02/17 16:30 05/02/17 16:29 04/09/17 21:31 6 UNITS Ketorolac Tromethamine (Toradol Inj) 15 mg NOW STAT IV. 04/02/17 21:24 04/02/17 21:25 DC 04/02/17 21:33 15 MG Morphine Sulfate (MoRPHine SULFATE INJ) 2 mg NOW ONCE IV 04/03/17 17:00 04/03/17 17:01 DC 04/03/17 17:28 2 MG Morphine Sulfate (MoRPHine SULFATE INJ) 1 mg ONE ONCE IV 04/04/17 01:45 04/04/17 01:55 DC 04/04/17 01:59 1 MG Albumin Human (Albumin 25%) 25 gm ONE ONCE IV 04/04/17 13:00 04/04/17 13:01 DC 04/04/17 13:00 25 GM Albumin Human (Albumin 25%) 25 gm ONE ONCE IV 04/04/17 15:00 04/04/17 15:01 DC 04/04/17 16:45 25 GM Spironolactone (Aldactone Tab) 100 mg QAM PO 04/05/17 09:00 04/07/17 16:01 DC 04/07/17 08:11 100 MG Cyanocobalamin (Vitamin B-12 Inj) 1,000 mcg Tu@1200 IM 04/04/17 12:30 04/06/17 11:22 DC 04/04/17 13:53 1,000 MCG Cefepime HCl 2000 mg/Dextrose 112.5 ml @ 225 mls/hr Q12@0600,1800 IV 04/04/17 19:00 04/06/17 11:22 DC 04/06/17 06:04 225 MLS/HR Furosemide (Lasix Tab) 20 mg BID17 PO 04/05/17 17:00 04/07/17 16:01 DC 04/07/17 08:11 20 MG Al Hydroxide/Mg Hydroxide (Maalox Susp) 15 ml TODAY@1800 PO 04/05/17 18:00 04/05/17 20:00 DC 04/05/17 18:21 15 ML Acetaminophen (Tylenol Tab) 1,000 mg NOW STAT PO 04/06/17 02:51 04/06/17 02:58 DC 04/06/17 03:04 1,000 MG Folic Acid (Folvite Tab) 1 mg QAM PO 04/07/17 09:00 05/07/17 08:59 04/09/17 08:06 1 MG Cyanocobalamin (Vitamin B-12 Tab) 500 mcg QAM PO 04/07/17 09:00 05/07/17 08:59 04/09/17 08:08 500 MCG Docusate Sodium (coLACE CAP) 100 mg NOW ONCE PO 04/06/17 11:30 04/06/17 11:32 DC 04/06/17 12:14 100 MG Docusate Sodium (coLACE CAP) 100 mg BID PRN PO 04/06/17 11:30 05/06/17 11:29 04/09/17 08:02 100 MG Polyethylene (Miralax Powder Packet) 17 gm NOW STAT PO 04/06/17 11:23 04/06/17 11:29 DC 04/06/17 12:14 17 GM Polyethylene (Miralax Powder Packet) 17 gm DAILY PRN PO 04/06/17 11:30 05/06/17 11:29 04/09/17 08:02 17 GM Dexamethasone/ Nystatin/ Diphenhydramine HCl/Sucrose/ Microcrystalline Cellulose/Barcode Q6H PRN PO 04/07/17 12:00 05/07/17 11:59 04/07/17 14:35 5 ML Furosemide (Lasix Tab) 20 mg DAILY PO 04/08/17 09:00 05/05/17 16:59 04/09/17 08:07 20 MG Spironolactone (Aldactone Tab) 50 mg QAM PO 04/08/17 09:00 05/02/17 08:59 04/09/17 08:06 50 MG Ibuprofen (Advil Tab) 400 mg Q8H PRN PO 04/08/17 08:00 05/08/17 07:59 04/10/17 00:27 400 MG Prednisone (PredniSONE TAB) 40 mg Taper DAILY@1400 PO 04/08/17 14:00 04/20/17 13:59 04/09/17 13:17 40 MG Polyethylene Glycol/ Electrolytes (Golytely Soln) 8 dose TODAY@2000 PO 04/09/17 20:00 04/10/17 06:00 DC 04/09/17 20:16 8 DOSE Subjective Seems to be doing well really offers no new complaints. Review of Systems: Constitutional: Negative for night sweats, or fever Eyes: Negative for event change of vision ENT: Negative for epistaxis, nasal discharge, sore throat, or deafness Cardiovascular: Negative for chest pain, palpitations, dizziness, diaphoresis Respiratory: Negative for new shortness of breath,hemoptysis, or purulent cough Gastrointestinal: Negative for diarrhea, hematemesis, melena, nausea, vomiting , or dyspepsia Integumentary (skin): Negative for rash or jaundice discoloration Vital Signs Vital Signs Past 12 Hours Date Time Temp Pulse Resp B/P (MAP) Pulse Ox O2 Delivery O2 Flow Rate FiO2 04/10/17 11:36 36.5 104 20 134/67 (89) 100 Room Air 04/10/17 07:26 36.6 98 18 157/75 (102) 98 04/10/17 06:13 Room Air 04/10/17 00:00 Room Air Physical Exam Constitutional: vitals are stable. Alert pleasant elderly female family is at bedside Eyes: Eyes are CINTHYA EOMI without conjuctival erythema or icterus. ENT: External examination was negative for masses. Neck: Negative for masses or palpable thyromegaly Respiratory: Lung sounds were generally clear bilaterally Cardiovascular: Heart was RRR without significant murmur, gallops aoe rubs Gastrointestinal: Some ascites is present. The spleen extends below the left costal margin with deep inspiration 2-3 cm. the overall liver span seems normal Lymphatic system: there was no palpable peripheral lymphadenopathy Musculoskeletal System: The musculoskeletal system seemed concordant with age. Skin: The skin was negative for jaundice. Neurologic exam: The exam was negative for any focal findings. Deep tendon reflexes were equal and symmetrical. Psychiatric exam: Was essentially negative with normal mood and effect. Breast exam: Not done Laboratory Last 24 Hours Test 04/09/17 16:46 04/09/17 20:00 04/10/17 00:25 04/10/17 06:45 Bedside Glucose 334 mg/dl 378 mg/dl Stool Occult Blood NEGATIVE White Blood Count 2.57 K/uL Red Blood Count 2.81 M/uL Hemoglobin 9.7 g/dL Hematocrit 29.2 % Mean Corpuscular Volume 103.9 fL Mean Corpuscular Hemoglobin 34.5 pg Mean Corpuscular Hemoglobin Concent 33.2 g/dl Platelet Count 175 K/uL Mean Platelet Volume 9.9 fL Neutrophils (%) (Auto) 49.4 % Lymphocytes (%) (Auto) 28.4 % Monocytes (%) (Auto) 21.8 % Eosinophils (%) (Auto) 0.0 % Basophils (%) (Auto) 0.0 % Neutrophils # (Auto) 1.27 K/uL Lymphocytes # (Auto) 0.73 K/uL Monocytes # (Auto) 0.56 K/uL Eosinophils # (Auto) 0.00 K/uL Basophils # (Auto) 0.00 K/uL RDW Standard Deviation 72.3 fL RDW Coefficient of Variation 19.8 % Immature Granulocyte % (Auto) 0.4 % Immature Granulocyte # (Auto) 0.01 K/uL Sodium Level 135 mmol/L Potassium Level 5.9 mmol/L Chloride Level 99 mmol/L Carbon Dioxide Level 27 mmol/L Anion Gap 9.0 mmol/L Blood Urea Nitrogen 27 mg/dl Creatinine 1.10 mg/dl Est Creatinine Clear Calc Drug Dose 39.0 ml/min Estimated GFR () 57.3 Estimated GFR (Non- 49.4 BUN/Creatinine Ratio 24.1 Random Glucose 187 mg/dl Calcium Level 8.1 mg/dl Magnesium Level 1.9 mg/dl Test 04/10/17 07:37 04/10/17 11:18 04/10/17 11:53 Bedside Glucose 191 mg/dl 126 mg/dl Assessment & Plan Pancytopenia that got fairly bad and discordant with the amount of expected changes due to hypersplenism alone. I suspect the ischemia that she may have incurred within the abdomen embellished the drop in counts. However they have now returned to what I believe is her baseline. I understand that the family is discussing comfort measures only. We will sign off as a service now but please do not hesitate to reconsult if needed
[2017-04-10] MEDS ORDERED: PROPOFOL IV EMULSION 10 MG/ML 20 ML VIAL IV ONE ×2 (12:43→13:30)
[2017-04-10] MEDS ORDERED: LIDOCAINE HCL 2% 2 ML VIAL (20MG/ML) ONE (12:43)
[2017-04-10] MEDS ORDERED: ATROPINE SULFATE 0.1 MG/ML 5ML SYR IV PRN (12:45)
[2017-04-10] MEDS ORDERED: EpHEDrine SULFATE INJ 50 MG/ML AMP IV PRN (12:45)
--- NOTE | 2017-04-10 13:27 | GI REPORT ---
Procedure Date: 04/10/2017 12:52 PM Procedure: Upper GI endoscopy Indications: Iron deficiency anemia Medicines: Monitored Anesthesia Care Complications: No immediate complications. Estimated blood loss: None. Estimated Blood Loss: Estimated blood loss: none. Procedure: Pre-Anesthesia Assessment: - Prior to the procedure, a History and Physical was performed, and patient medications, allergies and sensitivities were reviewed. The patient's tolerance of previous anesthesia was reviewed. - ASA Grade Assessment: IV - A patient with severe systemic disease that is a constant threat to life. After obtaining informed consent, the endoscope was passed under direct vision. Throughout the procedure, the patient's blood pressure, pulse, and oxygen saturations were monitored continuously. The On-site loaner was introduced through the mouth, and advanced to the third part of duodenum. The upper GI endoscopy was accomplished with ease. The patient tolerated the procedure well. Findings: Grade II, large (> 5 mm) varices were found in the lower third of the esophagus. The Z-line was regular and was found 37 cm from the incisors. Patchy mildly erythematous mucosa without bleeding was found in the gastric antrum. The examined duodenum was normal. Impression: - Grade II and large (> 5 mm) esophageal varices. - Z-line regular, 37 cm from the incisors. - Erythematous mucosa in the antrum. - Normal examined duodenum. - No specimens collected. Recommendation: - Change to non-selective beta rosanne (carvedilol, nadolol, or propranolol). - Perform a colonoscopy today. Wan Lantigua M.D. Wan Lantigua MD 04/10/2017 1:26:33 PM This report has been signed electronically. Note Initiated On: 04/10/2017 12:52 PM I attest to the content of the Intraoperative Record and orders documented therein, exceptions below
--- NOTE | 2017-04-10 13:35 | GI REPORT ---
Procedure Date: 04/10/2017 1:00 PM Procedure: Colonoscopy Indications: Rectal bleeding, Iron deficiency anemia Medicines: Monitored Anesthesia Care Complications: No immediate complications. Estimated blood loss: None. Estimated Blood Loss: Estimated blood loss: none. Procedure: Pre-Anesthesia Assessment: - Using IV propofol under the supervision of an back joiner was determined to be medically necessary for this procedure based on age 65 or older and severe comorbidity (greater than ASA Grade II). After I obtained informed consent, the scope was passed under direct vision. Throughout the procedure, the patient's blood pressure, pulse, and oxygen saturations were monitored continuously. The Scope was introduced through the anus and advanced to the terminal ileum, with identification of the appendiceal orifice and IC valve. The colonoscopy was performed without difficulty. The patient tolerated the procedure well. The quality of the bowel preparation was poor. Findings: Internal hemorrhoids were found. The hemorrhoids were large. Impression: - Preparation of the colon was poor. - Internal hemorrhoids. - No specimens collected. - The colon was otherwise normal to the terminal ileum with retroflexed views of the colon and terminal ileum. Examination limited by retained stool. Recommendation: - [facility]. Wan Lantigua M.D. Wan Lantigua MD 04/10/2017 1:35:22 PM This report has been signed electronically. Note Initiated On: 04/10/2017 1:00 PM I attest to the content of the Intraoperative Record and orders documented therein, exceptions below
--- NOTE | 2017-04-10 14:28 | Anesthesiology Progress Note ---
Anesthesia Post Op Note Date & Time Apr 10, 2017 at 14:28 Vital Signs Pain Intensity: 0.0 Vital Signs Past 12 Hours Date Time Temp Pulse Resp B/P (MAP) Pulse Ox O2 Delivery O2 Flow Rate FiO2 04/10/17 13:50 58 18 122/52 (75) 100 Room Air 04/10/17 13:35 62 18 96/51 (66) 100 Room Air 04/10/17 11:36 36.5 104 20 134/67 (89) 100 Room Air 04/10/17 07:26 36.6 98 18 157/75 (102) 98 04/10/17 06:13 Room Air Notes Mental Status: alert / awake / arousable, participated in evaluation Pt Amnestic to Procedure: Yes Nausea / Vomiting: adequately controlled Pain: adequately controlled Airway Patency, RR, SpO2: stable & adequate BP & HR: stable & adequate Hydration State: stable & adequate Anesthetic Complications: no major complications apparent
[2017-04-10 14:48] VITALS: BP 165/74; PULSE 52; TEMP 36.5; O2SAT 100
--- NOTE | 2017-04-10 15:57 | Progress Note ---
Subjective Date of Service: Apr 10, 2017. Subjective Pt evaluation today including: conversation w/ patient, conversation w/ family ( and sisters), physical exam, lab review, conversation w/ advertising sales consultant, review of inpatient medication list Pain: no pain PO Intake: NPO for scopes Voiding: no voiding problems EGD and colonoscopy today, + varices and hemorrhoids, recommend Coreg no active bleeding reviewed results with family and patient discussed plan for discharge but she needs to participate in therapy she promises to have therapy tomorrow to assess her safety on discharge Problem List Medical Problems: (1) Bleeding hemorrhoid Status: Acute (2) GI bleed Status: Acute (3) Lactic acidosis Status: Acute (4) Mesenteric artery stenosis Status: Acute (5) Pancytopenia Status: Acute (6) Portal hypertension Status: Acute (7) Symptomatic anemia Status: Acute (8) UTI (urinary tract infection) Status: Acute (9) Weakness Status: Acute Review of Systems Constitutional: + weakness, + fatigue Abdomen: + problem reported (ascites) Neurologic: + memory loss, + weakness All Other Systems: Reviewed and Negative Medications Current Inpatient Medications Medications (Trade) Dose Ordered Sig/Sonam Route Start Time Stop Time Status Last Admin Dose Admin Gabapentin (Neurontin Cap) 300 mg TID PO 03/31/17 21:00 04/30/17 20:59 04/10/17 14:32 300 MG Simvastatin (Zocor Tab) 20 mg QPM PO 03/31/17 21:00 04/30/17 20:59 04/09/17 20:18 20 MG Verapamil HCl (Calan-Sr Tab) 120 mg DAILY PO 04/01/17 09:00 05/01/17 08:59 04/09/17 08:08 120 MG Ondansetron HCl (Zofran Inj) 4 mg Q6H PRN IV 03/31/17 18:00 04/30/17 17:59 04/07/17 20:19 4 MG Nitroglycerin (Nitrostat Tab) 0.4 mg UD PRN SL 03/31/17 18:00 04/30/17 17:59 Morphine Sulfate (MoRPHine SULFATE INJ) 2 mg Q4 PRN IV 04/01/17 11:15 04/15/17 11:14 04/09/17 19:11 2 MG Potassium Chloride (Karlie Ciel Elix) 20 meq BID PO 04/02/17 21:00 05/02/17 20:59 04/09/17 20:17 20 MEQ Insulin Aspart (novoLOG ASPART) SLIDING SCALE G... ACHS SC 04/02/17 16:30 05/02/17 16:29 04/09/17 21:31 6 UNITS Glucose (Glucose 40% Gel) 15-30 GRAMS 15 GRAMS... UD PRN PO 04/02/17 16:00 05/02/17 15:59 Glucose (Glucose Chew Tab) 4-8 Tablets 4 Tabl... UD PRN PO 04/02/17 16:00 05/02/17 15:59 Dextrose (Dextrose 50% 50ML Syringe) 25-50ML OF 50% DW IV FOR... UD PRN IV 04/02/17 16:00 05/02/17 15:59 Glucagon (Glucagon Inj) 1 mg UD PRN SQ 04/02/17 16:00 05/02/17 15:59 Folic Acid (Folvite Tab) 1 mg QAM PO 04/07/17 09:00 05/07/17 08:59 04/09/17 08:06 1 MG Cyanocobalamin (Vitamin B-12 Tab) 500 mcg QAM PO 04/07/17 09:00 05/07/17 08:59 04/09/17 08:08 500 MCG Docusate Sodium (coLACE CAP) 100 mg BID PRN PO 04/06/17 11:30 05/06/17 11:29 04/09/17 08:02 100 MG Polyethylene (Miralax Powder Packet) 17 gm DAILY PRN PO 04/06/17 11:30 05/06/17 11:29 04/09/17 08:02 17 GM Dexamethasone/ Nystatin/ Diphenhydramine HCl/Sucrose/ Microcrystalline Cellulose/Barcode Q6H PRN PO 04/07/17 12:00 05/07/17 11:59 04/07/17 14:35 5 ML Furosemide (Lasix Tab) 20 mg DAILY PO 04/08/17 09:00 05/05/17 16:59 04/09/17 08:07 20 MG Spironolactone (Aldactone Tab) 50 mg QAM PO 04/08/17 09:00 05/02/17 08:59 04/09/17 08:06 50 MG Ibuprofen (Advil Tab) 400 mg Q8H PRN PO 04/08/17 08:00 05/08/17 07:59 04/10/17 00:27 400 MG Prednisone (PredniSONE TAB) 40 mg Taper DAILY@1400 PO 04/08/17 14:00 04/20/17 13:59 04/10/17 14:32 40 MG Ephedrine Sulfate (EpHEDrine SULFATE INJ) 5 mg Q5M PRN IV 04/10/17 12:45 04/11/17 12:44 Atropine Sulfate (Atropine Sulfate 0.1MG/Ml Inj) 0.5 mg Q1M PRN IV 04/10/17 12:45 04/11/17 12:44 Carvedilol (Coreg Tab) 6.25 mg BID PO 04/10/17 21:00 05/10/17 20:59 Objective Vital Signs Date Time Temp Pulse Resp B/P (MAP) Pulse Ox O2 Delivery O2 Flow Rate FiO2 04/10/17 14:48 36.5 52 18 165/74 (104) 100 Room Air 04/10/17 14:05 57 18 118/51 (73) 99 Room Air 04/10/17 13:50 58 18 122/52 (75) 100 Room Air 04/10/17 13:35 62 18 96/51 (66) 100 Room Air 04/10/17 11:36 36.5 104 20 134/67 (89) 100 Room Air 04/10/17 07:26 36.6 98 18 157/75 (102) 98 04/10/17 06:13 Room Air 04/10/17 00:00 Room Air 04/09/17 23:38 36.6 56 18 165/76 (105) 97 Room Air 04/09/17 20:00 98 Room Air 04/09/17 16:00 Room Air Physical Exam General Appearance: WD/WN, no apparent distress Neck: supple, no adenopathy, no JVD, trachea midline Respiratory/Chest: chest non-tender, lungs clear, normal breath sounds, no respiratory distress, no accessory muscle use Cardiovascular: regular rate, rhythm, no edema, no gallop, no JVD, no murmur Abdomen: normal bowel sounds, non tender, soft, no organomegaly, + pertinent finding (mild ascites) Extremities: normal range of motion, non-tender, normal inspection, no pedal edema, no calf tenderness, pelvis stable Neurologic/Psychiatric: sales program manager II-XII nml as tested, no motor/sensory deficits, alert, normal mood/affect, oriented x 3 Skin: normal color, warm/dry, no rash Laboratory Results Last 24 Hours Test 04/09/17 16:46 04/09/17 20:00 04/10/17 00:25 04/10/17 06:45 Bedside Glucose 334 mg/dl 378 mg/dl Stool Occult Blood NEGATIVE White Blood Count 2.57 K/uL Red Blood Count 2.81 M/uL Hemoglobin 9.7 g/dL Hematocrit 29.2 % Mean Corpuscular Volume 103.9 fL Mean Corpuscular Hemoglobin 34.5 pg Mean Corpuscular Hemoglobin Concent 33.2 g/dl Platelet Count 175 K/uL Mean Platelet Volume 9.9 fL Neutrophils (%) (Auto) 49.4 % Lymphocytes (%) (Auto) 28.4 % Monocytes (%) (Auto) 21.8 % Eosinophils (%) (Auto) 0.0 % Basophils (%) (Auto) 0.0 % Neutrophils # (Auto) 1.27 K/uL Lymphocytes # (Auto) 0.73 K/uL Monocytes # (Auto) 0.56 K/uL Eosinophils # (Auto) 0.00 K/uL Basophils # (Auto) 0.00 K/uL RDW Standard Deviation 72.3 fL RDW Coefficient of Variation 19.8 % Immature Granulocyte % (Auto) 0.4 % Immature Granulocyte # (Auto) 0.01 K/uL Sodium Level 135 mmol/L Potassium Level 5.9 mmol/L Chloride Level 99 mmol/L Carbon Dioxide Level 27 mmol/L Anion Gap 9.0 mmol/L Blood Urea Nitrogen 27 mg/dl Creatinine 1.10 mg/dl Est Creatinine Clear Calc Drug Dose 39.0 ml/min Estimated GFR () 57.3 Estimated GFR (Non- 49.4 BUN/Creatinine Ratio 24.1 Random Glucose 187 mg/dl Calcium Level 8.1 mg/dl Magnesium Level 1.9 mg/dl Test 04/10/17 07:37 04/10/17 11:18 04/10/17 12:00 04/10/17 15:40 Bedside Glucose 191 mg/dl 126 mg/dl 99 mg/dl Potassium Level 5.2 mmol/L Assessment and Plan 72 y/o F Hx CAD, CVA, dementia, pancytopenia, Behcet's disease. Pt presents with 3 days of BRBPR. She also describes some weakness, nausea and a headache. She denies abdominal pain, diarrhea. Denies CP, SOB, lightheadedness. A CT abdomen was obtained in the ER revealing previously undiagnosed Cirrhosis, portal hypertension and perirectal varices. Additionally she has severe SMA stenosis which may have been known to her as her sister states that she has " low blood flow to her colon". - Cirrhosis with ascites, pancytopenia, perirectal varices, minimally elevated INR new finding, no known h/o cirrhosis or steatosis. 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
[2017-04-10] MEDS: SIMVASTATIN 20 MG TAB PO SCH (20:58)
[2017-04-10] MEDS: CARVEDILOL 6.25 MG TAB PO SCH (21:00)
[2017-04-10 21:09] VITALS: BP 147/72; PULSE 60
[2017-04-10] MEDS ORDERED: NURSING VERBAL MED ORDER ONE ×2 (21:30→22:15)
[2017-04-10] MEDS ORDERED: INSULIN ASPART 100 UNITS/ML 3 ML PEN SC SCH (23:00)
[2017-04-10 23:36] VITALS: BP 119/74; PULSE 63; TEMP 36.6; O2SAT 95
[2017-04-11] MEDS: MoRPHine SULFATE 2 MG/ML CARP IV PRN (00:44)
[2017-04-11] MEDS ORDERED: NURSING VERBAL MED ORDER ONE (02:45)
[2017-04-11] MEDS ORDERED: LORAZEPAM INJ 1 MG in SYRINGE 0.5 ML IV ONE (03:15)
[2017-04-11 07:04] VITALS: BP 113/71; PULSE 62; TEMP 36.8; O2SAT 98
[2017-04-11] MEDS: FUROSEMIDE 20 MG TAB PO SCH (08:17)
[2017-04-11] MEDS: SPIRONOLACTONE 25 MG TAB PO SCH (08:18)
[2017-04-11] MEDS: GABAPENTIN 300 MG CAP PO SCH ×2 (08:18→14:00)
[2017-04-11] MEDS: CYANOCOBALAMIN 500 MCG TAB (VIT B-12) PO SCH (08:19)
[2017-04-11] MEDS: VERAPAMIL HCL 120 MG TABCR PO SCH (08:19)
[2017-04-11] MEDS: CARVEDILOL 6.25 MG TAB PO SCH (08:22)
[2017-04-11] MEDS: INSULIN ASPART 100 UNITS/ML 3 ML PEN SC SCH ×2 (08:26→12:16)
[2017-04-11] MEDS ORDERED: INSDGIPEN SC (10:38)
[2017-04-11] MEDS ORDERED: CRG625 PO (10:38)
[2017-04-11] MEDS ORDERED: FLV1 PO (10:38)
[2017-04-11] MEDS ORDERED: SPR25 PO (10:38)
[2017-04-11] MEDS ORDERED: LSX20 PO (10:38)
[2017-04-11] MEDS ORDERED: VTMB12 PO (10:38)
[2017-04-11] MEDS ORDERED: CLC100X PO (10:38)
[2017-04-11] MEDS ORDERED: PRD10 PO (10:38)
[2017-04-11] MEDS ORDERED: MRLP17X PO (10:38)
--- NOTE | 2017-04-11 11:00 | Discharge Instructions ---
Discharge Instructions Date of Service Apr 11, 2017. Admission Reason for Admission: Cirrhosis with ascites Discharge Discharge Diagnosis / Problem: Cirrhosis with ascites, esophageal varices, pancytopenia Discharge Goals Goal(s): Improve function, Improve disease control Activity Recommendations Activity Limitations: resume your previous activity Lifting Limitations: none Exercise/Sports Limitations: as tolerated May Resume Sexual Activity: when tolerated Shower/Bathe: no limitations Driving or Machine Use: no driving . Instructions / Follow-Up Instructions / Follow-Up Medications: several medication stopped/replaced as well as new medications to treat cirrhosis - LASIX: 20mg daily to help keep fluid off, ascites under control - ALDACTONE: 50mg daily, also to help control ascites - COREG: replaces Atenolol, beta rosanne intended to control blood pressure and also lower splanchnic pressure and prevent variceal bleeding - PREDNISONE: high dose with taper to treat Behcet flare - METHOTREXATE: stopped due to pancytopenia - LANTUS: long acting insulin, this replaces Metformin because you should not be taking Metformin with your cirrhosis take Lantus in the morning when you take the Prednisone initial dose will be 10 units while you are on 40mg and the dose will decrease as the Prednisone decreases 8 units on the mornings you take 30mg of Prednisone 6 units thereafter if your blood sugar is less than 120 in the morning, DO NOT take the Lantus - MIRALAX and COLACE: take as needed for constipation to prevent straining - FOLIC ACID and VITAMIN B12: levels low on testing, continue to supplement daily - PLAVIX: was held initially due to low platelets, platelets now normal, 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 Cirrhosis: new diagnosis, cause is unclear, main issues to manage going forward will be control of ascites and preventing bleeding - ASCITES: much improved since admission with paracentesis (4 liters removed ) and now on diuretics, continue to take Lasix and Aldactone, weigh yourself daily - VARICES: esophageal as well as hemorrhoids, no active bleeding, started on Coreg to decrease risk of bleeding come to hospital immediately if you ever vomit blood or if vomit looks like coffee grounds other complications to watch for would be fevers and confusion, return to the hospital if you have these symptoms you will follow up with [facility] gastroenterology in a few weeks Pancytopenia: low blood counts, chronic, platelets have improved, methotrexate has been stopped Diabetes: prior to admission you were well controlled on Metformin but now you should stop Metformin due to cirrhosis will use Lantus, once a day long acting insulin check blood sugar first thing in the morning, if sugar is less than 120, do not take Lantus Behcet's: Prednisone taper, follow instructions to taper back to 10mg daily stopped methotrexate should contact mall plant caretaker for further recommendations now that methotrexate stopped FOLLOW UP - Dr. Malik in 5-7 days, please call for hospital follow up, can see Onelia Davies if Dr. Malik not available - [facility] gastroenterology, please call for appointment in the next 3-4 weeks please obtain lab work on 04/13/17, CBC and CMP, results to Dr. Malik, home nursing should be able to draw Current Hospital Diet Patient's current hospital diet: Diabetes Type 2 Diet, Low Sodium Diet (2gm Na) Discharge Diet Recommended Diet: Low Sodium Diet (2gm Na), Diabetes Type 2 Diet Fluid Restriction: 1800 ml (7 cups) (roughly 3 of the pitchers you have here in the hospital, this includes all beverages) Procedures Procedures Performed: EGD and Colonoscopy on 04/10 Pending Studies Studies pending at discharge: no Medical Emergencies . Who to Call and When: Medical Emergencies: If at any time you feel your situation is an emergency, please call 911 immediately. . Non-Emergent Contact Non-Emergency issues call your: Primary Care Provider, Single Spindle Screw Machine Operator Call Non-Emergent contact if: you have any medication questions . . "Provider Documentation" section prepared by Stevan Clveeland. . VTE Core Measure Inpt VTE Proph given/why not?: SCD's [place] Drug Monitoring Program Search Results: no issues identified
[2017-04-11 11:40] VITALS: BP 113/71; PULSE 62; TEMP 36.8; O2SAT 98
[2017-04-11] MEDS ORDERED: NVLG SC (13:05)
[2017-04-11 14:00] VITALS: Ht 154.9 cm; Wt 65.9 kg
[2017-04-11 15:12] LABS: ALBUMIN 2.7 G/DL (3.8-4.8); ALPHA-1-ANTITRYPSIN TC 67710E 234 MG/DL (83-199); GAMMA GLOBULIN 0.9 G/DL (0.8-1.7); TOTAL PROTEIN 5.1 G/DL (6.2-8.3)
--- NOTE | 2017-04-12 08:16 | Discharge Summary ---
Discharge Summary Date of Service Apr 11, 2017. Discharge Summary Admission Date: Mar 31, 2017 at 17:58 Discharge Date: Apr 11, 2017 Discharge Disposition: Home with services Principal Diagnosis: Cirrhosis with ascites Problems/Secondary Diagnoses: Pancytopenia UTI DM type II with hyperglycemia Behcet's disease with flare Mild dementia CAD Mesenteric atherosclerosis Immunizations: Have You Had Influenza Vaccine: Yes Influenza Vaccine Date: Jul 04, 2011 History of Tetanus Vaccine?: Yes Tetanus Immunization Date: Sep 28, 1995 History of Pneumococcal: Yes Pneumococcal Date: Jun 08, 2011 History of Hepatitis B Vaccine: Yes Hepatitis Immunization Date: Sep 28, 1995 Procedures: Paracentesis on 04/04, 4L removed, SAAG low suggesting cirrhosis as cause EGD on 04/10 - esophageal varices, no bleeding Colonoscopy on 04/10 - hemorrhoids, no bleeding Consultations: Gastroenterology Hematology PT/OT Medication Reconciliation New Medications: Insulin Aspart (Novolog) 100 Units/Ml Inj 3 UNITS SC TIDM for 5 Days, #1 PEN 0 Refills Carvedilol (Carvedilol) 6.25 Mg Tab 6.25 MG PO BID, #60 TAB 3 Refills Cyanocobalamin (Vitamin B-12) 500 Mcg Tab 500 MCG PO QAM, #30 TAB 2 Refills Docusate Sodium (Docusate Sodium) 100 Mg Cap 100 MG PO BID PRN for Constipation, #60 CAP 2 Refills Folic Acid (Folic Acid) 1 Mg Tab 1 MG PO QAM, #30 TAB 2 Refills Furosemide (Furosemide) 20 Mg Tab 20 MG PO DAILY, #30 TAB 3 Refills Polyethylene (Miralax) 17 Gm Pow 17 GM PO DAILY PRN for Constipation, #1 BTL 2 Refills Prednisone (Prednisone) 10 Mg Tab 40 MG PO DAILY@1400, #60 TAB 0 Refills Taper: 40mg daily x 2 days, 30mg daily x 3 days, 20mg x 3 days then resume 10mg daily Spironolactone (Spironolactone) 25 Mg Tab 50 MG PO QAM, #60 TAB 3 Refills Continued Medications: Clopidogrel (Plavix) 75 Mg Tab 75 MG PO Q2D, 0 Refills Gabapentin (Neurontin) 300 Mg Cap 300 MG PO TID, CAP Isosorbide Mononitrate Ext Rel (Imdur Ext Rel) 30 Mg Ertab 30 MG PO QAM, TAB Nitroglycerin (Nitrostat) 0.4 Mg Tab 0.4 MG UT PRN, 0 Refills ONE TABLET UNDER THE TONGUE EVERY 5 MINUTES, UP TO 3 DOSES, NEEDED FOR CHEST PAIN. Prednisone Tab (Prednisone) 10 Mg Tab 10 MG PO UD PRN, TAB TAPER NEEDED FOR FLARE UPS. Simvastatin (Zocor) 20 Mg Tab 20 MG PO QPM, TAB Verapamil Sust Rel (Calan Sr Ext Rel) 120 Mg Tabcr 120 MG PO DAILY, TAB Discontinued Medications: Atenolol (Tenormin) 50 Mg Tab 50 MG PO BID, 0 Refills Ciprofloxacin Hcl (Cipro) 500 Mg Tab 500 MG PO BID, #14 TAB Metformin Hcl (Glucophage) 500 Mg Tab 500 MG PO BID, TAB Methotrexate (Methotrexate) 2.5 Mg Tab 8 TABS PO WK, TAB 8 TABLETS ONCE WEEKLY ON SUNDAYS Discharge Exam Patient was feeling much better overall, ascites minimal, tolerating Lasix and Aldactone. Discussed in detail the plans for treatment of her ascites as well as hyperglycemia while on Prednisone taper. Patient was educated by community nutrition educator prior to discharge about how to use meter, check sugars, administer Novolog since this was new. She was evaluated by PT/OT and cleared for discharge to home with home health services. Patient's was present for the entire discharge planning conversation and his questions were answered. Review of Systems: Constitutional: + weakness (mild but improving), No fever, No chills, No sweats, No weight loss, No fatigue, No problem reported Eyes: No worsening of vision, No eye pain, No redness, No discharge, No diplopia, No problem reported ENT: No hearing loss, No unusual epistaxis, No nasal symptoms, No sore throat, No tinnitus, No dental problems, No trouble swallowing, No problem reported Respiratory: No cough, No sputum, No wheezing, No shortness of breath, No dyspnea on exertion, No dyspnea at rest, No hemoptysis, No problem reported Cardiovascular: No chest pain, No orthopnea, No PND, No edema, No claudication, No palpitations, No problem reported Abdomen: + problem reported (mild ascites, much improved), No pain, No nausea, No vomiting, No diarrhea, No constipation, No GI bleeding Musculoskeletal: No joint pain, No muscle pain, No swelling, No calf pain, No problem reported Genitourinary - Female: No dysuria, No urinary frequency, No urinary urgency , No urinary incontinence Neurologic: + memory loss (mild), + weakness, No paralysis, No numbness/ tingling, No vertigo, No balance problems, No problem reported Psychiatric: No depression symptoms, No anhedonism, No anxiety, No insomnia , No substance abuse, No problem reported Endocrine: No fatigue, No excessive thirst, No excessive urination, No problem reported Hematologic / Lymphatic: No abnormal bleeding/bruising, No clotting problems , No swollen lymph nodes, No night sweats, No problem reported Integumentary: No rash, No itch, No new/changing skin lesions, No color change, No bleeding, No problem reported Physical Exam: General Appearance: WD/WN, no apparent distress Eyes: normal inspection, EOMI, sclerae normal ENT: normal ENT inspection, hearing grossly normal, pharynx normal Neck: supple, no adenopathy, no JVD, trachea midline Respiratory/Chest: chest non-tender, lungs clear, normal breath sounds, no respiratory distress, no accessory muscle use Cardiovascular: regular rate, rhythm, no edema, no gallop, no JVD, no murmur , normal peripheral pulses Abdomen / GI: normal bowel sounds, non tender, soft, no organomegaly, + pertinent finding (small amount of ascites) Extremities: normal inspection, no calf tenderness, normal capillary refill , no pedal edema, normal range of motion, pelvis stable Neurologic/Psychiatric: 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 Pt presents with 3 days of BRBPR. She also describes some weakness, nausea and a headache. She denies abdominal pain, diarrhea. Denies CP, SOB, lightheadedness. A CT abdomen was obtained in the ER revealing previously undiagnosed Cirrhosis, portal hypertension and perirectal varices. Additionally she has severe SMA stenosis which may have been known to her as her sister states that she has " low blood flow to her colon". - Cirrhosis with ascites, pancytopenia, perirectal varices, minimally elevated INR new finding, no known h/o cirrhosis or steatosis. No h/o alcohol abuse, last Echo showed EF 60%, hepatitis B/C negative paracentesis performed on 04/04, transudative, low SAAG suggesting cirrhosis as the cause, 4 liters removed at that time keeping volume off with Lasix 20mg PO daily and Aldactone 50mg daily, will continue these doses on discharge and monitor for return of ascites EGD and colonoscopy on 04/10 - esophageal varices and hemorrhoids, no bleeding switch Atenolol to Coreg per GI recommendations, tolerated the change well long talk with patient and about what to watch for will return to hospital immediately if she vomits blood or coffee grounds, watch for increasing ascites, acute confusion, jaundice she [facility] in the office in a few weeks check CBC and CMP this week with home nursing - Lower GI bleed: due to hemorrhoids, no further issues while admitted - Pancytopenia: appreciate hematology consult 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 and worsened by methotrexate use folate low, started on folic acid platelets normal on discharge and Hb and WBC stable - Mild hyperkalemia: due to higher doses of Aldactone at 100mg daily K started to decreased on lower dose at 50mg daily will repeat CMP on 04/13 - Behcet's: ulcers in mouth, higher dose of Prednisone helped resolved ulcers d/c home on Prednisone taper, 40mg x 2 days then 30mg x 3, 20mg x 3 and 10mg x 3 hold on MTX due to pancytopenia will need to discuss with rheumatology treatment going forward since methotrexate stopped - DM type II: hyperglycemia due to Prednisone, controlled with Novolog coverage was on Metformin prior to admission but will now stop Metformin with cirrhosis on discharge, plan to use Novolog 3 units with meals for 5 days (while on Prednisone 40mg and 30mg) A1c was 5.0 in November thus she does not even need treated once the Prednisone is stopped - CAD: no chest pain, platelets normal, will continue Plavix, statin can be used cautiously - Mesenteric atherosclerosis: severe SMA stenosis, this was apparently known by patient/family - UTI: treatment finished - DVT prophylaxis: SCD only DNR plan: d/c home on Lasix and Aldactone and Coreg, all new medications for cirrhosis follow up with GI and her PCP check CBC and CMP in two days with results to PCP Total Time Spent: Greater than 30 minutes This includes examination of the patient, discharge planning, medication reconciliation, and communication with other providers. Discharge Instructions Please refer to the electronic Patient Visit Report (Discharge Instructions) for additional information. Follow-Up Dr Malik in one week Fabiano FLORES in one month Additional Copies To Lou Montes DO; Celena Malik MD
== END 2017-04-11 14:10 | disposition home health service (06) | DRG 433 ==
LOC: C.EDB 15:20 → C.2T 17:58 → ENRESERV 18:16 → EDBEDREQSVC 04-01 09:59 → ENRESERV 04-01 10:16 → C.MED 04-01 10:55 → C.MS2W 04-01 18:15
PROVIDERS: ADMIT Internal Medicine; ATTEND Internal Medicine
PROC: 0W9G3ZX Drainage of Peritoneal Cavity, Percutaneous Approach, Diagnostic (ICD-10-PCS; principal; 2017-04-01)
PROC: 0DJ08ZZ Inspection of Upper Intestinal Tract, Via Natural or Artificial Opening Endoscopic (ICD-10-PCS; 2017-04-10 11:31)
PROC: 0DJD8ZZ Inspection of Lower Intestinal Tract, Via Natural or Artificial Opening Endoscopic (ICD-10-PCS; 2017-04-10 11:31)
DX: K74.60 Unspecified cirrhosis of liver (principal); N39.0 Urinary tract infection, site not specified; K76.6 Portal hypertension; M35.2 Behcet's disease; D61.818 Other pancytopenia; K55.1 Chronic vascular disorders of intestine; R18.8 Other ascites; I85.10 Secondary esophageal varices without bleeding; Z66 Do not resuscitate; I10 Essential (primary) hypertension; I86.8 Varicose veins of other specified sites; I25.10 Atherosclerotic heart disease of native coronary artery without angina pectoris; E78.5 Hyperlipidemia, unspecified; Z86.73 Personal history of transient ischemic attack (TIA), and cerebral infarction without residual deficits; Z91.040 Latex allergy status; F03.90 Unspecified dementia, unspecified severity, without behavioral disturbance, psychotic disturbance, mood disturbance, and anxiety; E11.65 Type 2 diabetes mellitus with hyperglycemia; K12.1 Other forms of stomatitis; K64.9 Unspecified hemorrhoids; Z87.440 Personal history of urinary (tract) infections; Z90.710 Acquired absence of both cervix and uterus; Z98.49 Cataract extraction status, unspecified eye; Z98.890 Other specified postprocedural states; Z79.02 Long term (current) use of antithrombotics/antiplatelets; Z79.84 Long term (current) use of oral hypoglycemic drugs; Z79.899 Other long term (current) drug therapy; R53.83 Other fatigue; R11.0 Nausea

== ENCOUNTER → 2017-03-31 | Outpatient (CLI) | payer OTHER ==
[~2017-03-31] MED LIST changes: +AMOX1TAB43 PO; +CARV6.252 PO; +CIPR-255 PO; +CLC100X PO; -CPR500 PO; +CRG625 PO; +CYAN500T PO; +DOCU-94 PO; +FLUO10CA15 PO; +FLUO10CA24 PO; +FLV1 PO; +FOLI1TAB7 PO; +FRS/40 PO; +FURO-85 PO; +INSDGIPEN SC; +LACT1TAB4 PO; +LCTX PO; +LSX20 PO; +MRLP17X PO; +NITR1CAP16 PO; +NVLG SC; +OPTIRAY 320 IV PRN; +POLY335019 PO; +PRD10 PO; +SPIR25TA PO; +SPR25 PO; -TMFUDL30 PO; -ULT50X PO; +VANC5CAP PO; +VNCS125 PO; +VTMB12 PO
[2017-03-31 13:27] LABS: HEMATOCRIT 26.1 % (37-47); MEAN CORPUSCULAR HEMOGLOBIN 34.8 pg (25-34); MEAN CORPUSCULAR HGB CONC 34.1 g/dl (32-36); RED BLOOD COUNT 2.56 M/uL (4.2-5.4); WHITE BLOOD COUNT 2.38 K/uL (4.8-10.8)
[2017-03-31 13:53] LABS: BLOOD UREA NITROGEN 19 mg/dl (7-18); BUN/CREATININE RATIO 17.3 (10-20); CARBON DIOXIDE 20 mmol/L (21-32); CHLORIDE 108 mmol/L (98-107); GLUCOSE 118 mg/dl (70-99); SODIUM 139 mmol/L (136-145)
[2017-03-31 13:56] LABS: MEAN PLATELET VOLUME 8.4 fL (7.4-10.4); PLATELET COUNT 53 K/uL (130-400)
--- NOTE | 2017-03-31 14:43 | DIAGNOSTIC IMAGING REPORT ---
CT OF THE ABDOMEN AND PELVIS WITH CONTRAST CLINICAL HISTORY: Abdominal distention, nausea and lethargy. COMPARISON STUDY: CT of the abdomen and pelvis September 05, 2012 and abdominal series March 29, 2017. TECHNIQUE: Following IV administration of 94 mL of Optiray-320, axial images of the abdomen and pelvis were obtained from the lung bases to the proximal femurs. Images were reviewed in the axial, sagittal, and coronal planes. IV contrast was administered without complication. CT DOSE: 557.98 mGy.cm FINDINGS: There is a small hernia which contains ascites. The heart is mildly enlarged. There is no pneumatosis, free air or portal venous gas. There is a large amount of abdominal and pelvic ascites. The spleen is mildly enlarged. The liver surface is slightly irregular. The liver is shrunken. No hepatic lesions are identified although sensitivity for detection of hypervascular lesions is diminished on this exam. The findings reflect cirrhosis. The main, left and right portal veins are patent. However, there is a 2.3 x 1.2 cm nonocclusive thrombus within the splenic vein. Numerous abdominal and pelvic varices are noted, including esophageal varices. There is no evidence for a bowel obstruction. There is multifocal colonic wall thickening, most evident within the ascending colon. There is marked left renal atrophy which has progressed since CT of September 05, 2012. A 4.1 cm cyst within the upper pole of the right kidney is noted. There is mild right renal atrophy. Perirectal varices are present. There is sigmoid diverticulosis without evidence for acute diverticulitis. There is no pancreatic ductal dilatation. A 1.6 cm pancreatic lesion along anterior aspect of the pancreatic body is shown on image 127 of 446. This is new since prior CT. Moderate biliary ductal dilatation is unchanged and likely due to prior cholecystectomy. There is a diverticulum of the second portion of the duodenum. 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 IMPRESSION: 1. Cirrhosis with manifestations of portal hypertension including a large amount of abdominal and pelvic ascites, mild splenomegaly and varices formation. Nonocclusive thrombus within the splenic vein. Patent main, left and right portal veins. 2. No bowel obstruction. 3. Marked left and moderate right renal atrophy. No hydronephrosis. 4. 1.6 cm cystic lesion adjacent to the anterior aspect of the pancreatic body. This is new since prior exam. This may reflect a side branch IPMN but is indeterminate and a follow-up MRI of the pancreas in 6 months is recommended. 5. 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 6. Colonic wall thickening, most evident within the ascending colon. This is likely related to portal hypertension or underdistention although a nonspecific colitis could appear similar. Electronically signed by: Vishnu Lewis M.D. 03/31/2017 2:41 PM Dictated Date/Time: 03/31/2017 2:22 PM
[2017-03-31 15:27] LABS: ANISOCYTOSIS PRESENT; COMPLETE YES; EOS % 2.5 %; IG% 0.4 %; LYMPH % 30.7 %; LYMPH ABS # 0.73 K/uL (1.2-3.4); MONO % 2.9 %; NEUT % 63.5 %
[2017-03-31 18:53] LABS: CALCIUM 8.1 mg/dl (8.5-10.1)
== END | disposition home or self-care (01) ==
LOC: C.CTS 12:37
PROVIDERS: ATTEND Nurse Practitioner Adult Health
DX: K56.69 Other intestinal obstruction (principal); R53.83 Other fatigue; R11.0 Nausea; K74.60 Unspecified cirrhosis of liver

== ENCOUNTER 2017-04-13 13:56 | Emergency (ER) | payer OTHER ==
[~2017-04-13] VITALS: Ht 154.9 cm; Wt 61.5 kg
[~2017-04-13 13:56] MED LIST changes: -AMOX1TAB43 PO; -CARV6.252 PO; -CYAN500T PO; -DOCU-94 PO; -FLUO10CA15 PO; -FLUO10CA24 PO; -FOLI1TAB7 PO; -FRS/40 PO; -FURO-85 PO; -GLC/500 PO; -LACT1TAB4 PO; -LCTX PO; -NITR1CAP16 PO; -POLY335019 PO; -SPIR25TA PO; -VANC5CAP PO; -VNCS125 PO
[2017-04-13 14:00] VITALS: TEMP 36.7; Ht 154.9 cm; Wt 61.5 kg
[2017-04-13] MEDS ORDERED: CARV6.252 PO (15:13)
[2017-04-13] MEDS ORDERED: DOCU-94 PO (15:28)
[2017-04-13] MEDS ORDERED: POLY335019 PO (15:28)
[2017-04-13] MEDS ORDERED: FURO-85 PO (15:28)
[2017-04-13] MEDS ORDERED: FOLI1TAB7 PO (15:28)
[2017-04-13] MEDS ORDERED: CYAN500T PO (15:28)
[2017-04-13] MEDS ORDERED: SPIR25TA PO (15:28)
[2017-04-13] MEDS ORDERED: NovoLIN-R INSULIN PER UNIT CHARGE SC STA ×3 (15:29→19:47)
[2017-04-13 16:45] LABS: LARGE PLATELETS 1+; OVALOCYTES 1+; POLYCHROMASIA 1+
[2017-04-13 17:04] LABS: COMPLETE YES
[2017-04-13 17:06] LABS: HEMATOCRIT 25.1 % (37-47); MEAN CELL VOLUME 103.7 fL (80-100); MEAN CORPUSCULAR HEMOGLOBIN 34.7 pg (25-34); MEAN CORPUSCULAR HGB CONC 33.5 g/dl (32-36); MEAN PLATELET VOLUME 9.2 fL (7.4-10.4); PLATELET COUNT 246 K/uL (130-400); RED BLOOD COUNT 2.42 M/uL (4.2-5.4); WHITE BLOOD COUNT 2.12 K/uL (4.8-10.8)
[2017-04-13 17:30] LABS: BUN/CREATININE RATIO 16.9 (10-20); CALCIUM 8.4 mg/dl (8.5-10.1); CREATININE 1.3 mg/dl (0.60-1.20); POTASSIUM 4.5 mmol/L (3.5-5.1)
[2017-04-13] MEDS ORDERED: FENTANYL CITRATE INJ 50 MCG/1 ML 2 ML VIAL IV STA ×2 (17:31→19:14)
--- NOTE | 2017-04-13 17:36 | Progress Note ---
Progress Note Date of Service Apr 13, 2017. Progress Note Patient seen and examined in the ED. She was discharged 2 days ago after new diagnosis of cirrhosis, unclear etiology. She had paracentesis and was placed on Lasix and Aldactone. See the discharge summary for full details of her admission. She was discharged on Prednisone taper for flare of Behcet's disease and she was instructed to use Novolog 3 units TID with meals since that was what she was given in the hospital. However, in hindsight, her diet in the hospital was carbohydrate controlled. When she was at home, she was reportedly eating a lot more carbohydrates and thus the Novolog was not working to control the sugars. Yesterday her sugar was 300's. Today she had scheduled labs and her WBC was 2 ( it had been two the entire previous hospitalization) and so she was sent to the ED for evaluation. On exam she is resting comfortably, no distress. Her abdomen is mildly distended with ascites but not close to how tense and distended she was on last admission. Lungs CTA bilaterally, no accessory muscle, HR regular, no murmurs. + bowel sounds, abdomen non-tender. extremities warm, minimal edema, + pulses. No focal neurologic deficits. A/P: Pancytopenia: chronic, due to cirrhosis and hypersplenism, no significant change compared to most recent admission Hyperglycemia: will wait to see if there is evidence of DKA, if it is just hyperglycemia, would recommend insulin in the ED to try to correct it recommend changing Prednisone plan, starting tomorrow, 20mg daily x 2 days then 10mg daily x 2 days then stop
[2017-04-13 17:45] LABS: BETA-HYDROXYBUTYRATE 1.08 mg/dL (0.2-2.81)
[2017-04-13] MEDS ORDERED: NovoLIN-R INSULIN PER UNIT CHARGE IV STA ×2 (17:58→18:59)
--- NOTE | 2017-04-13 19:37 | DIAGNOSTIC IMAGING REPORT ---
CT OF THE HEAD WITHOUT CONTRAST CLINICAL HISTORY: Headache. COMPARISON STUDY: Head CT December 04, 2016. CT DOSE: 537.48 mGy.cm TECHNIQUE: Helical axial images of the head were obtained without IV contrast. Automated exposure control was utilized for the study. FINDINGS: No acute intracranial hemorrhage, midline shift or mass effect is present. Moderate atrophy is again noted. Ventricular system is stable. Basilar cisterns are patent. There are no extra-axial collections. An old left basal ganglia infarct is noted. There are no findings to suggest acute dural sinus thrombosis or acute territorial infarct. There are no significant calvarial abnormalities. Visualized portions of the sinuses and mastoid air cells are clear. IMPRESSION: No acute intracranial findings. Electronically signed by: Vishnu Lewis M.D. 04/13/2017 7:36 PM Dictated Date/Time: 04/13/2017 7:33 PM
[2017-04-13] MEDS ORDERED: INSULIN GLARGINE SOLOSTAR 100 UNITS/ML 3 ML PEN SC STA (19:47)
--- NOTE | 2017-04-13 20:03 | EMERGENCY ROOM VISIT NOTE ---
History Report prepared by Lyla: Rojelio Driscoll Under the Supervision of: Dr. Dali Guzmán M.D. First contact with patient: 14:06 Chief Complaint: ABNORMAL LABS Stated Complaint: ABNORMAL LABS History of Present Illness The patient is a 72 year old female who presents to the Emergency Room with complaints of abnormal laboratory studies. She states that she was called by "the hospital" and was told to present to the ED. She was recently admitted to the hospital for cirrhosis of the liver. Per , the patient recently began taking insulin for type II diabetes. He states that she began taking the insulin yesterday. He notes that she passed out yesterday after taking insulin prior to eating. The patient periodically has a home health nurse check on her. She has no complaints. Source of History: patient Quality: other (abnormal labs) Review of Systems See HPI for pertinent positives & negatives. A total of 10 systems reviewed and were otherwise negative. 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 Social History Smoking Status: Never Smoker Alcohol Use: none Drug Use: none Marital Status: Housing Status: lives with significant other Occupation Status: retired Current/Historical Medications Scheduled Carvedilol (Coreg), 6.25 MG PO BID Clopidogrel (Plavix), 75 MG PO Q2D Cyanocobalamin (Vitamin B-12), 500 MCG PO QAM Folic Acid (Folvite), 1 MG PO QAM Furosemide (Lasix), 20 MG PO QAM Gabapentin (Neurontin), 300 MG PO TID Insulin Aspart (Novolog), 3 UNITS SC TIDM Isosorbide Mononitrate Ext Rel (Imdur Ext Rel), 30 MG PO QAM Nitroglycerin (Nitrostat), 0.4 MG UT PRN Prednisone (Prednisone), 40 MG PO DAILY@1400 Simvastatin (Zocor), 20 MG PO QPM Spironolactone (Aldactone), 25 MG PO QAM Verapamil Sust Rel (Calan Sr Ext Rel), 120 MG PO DAILY Scheduled PRN Docusate Sodium (Colace), 1 CAP PO BID PRN for Constipation Polyethylene (Miralax), 17 GM PO DAILY PRN for Constipation Polyethylene Glycol 3350 (Miralax), 17 GM PO DAILY PRN for Constipation Prednisone Tab (Prednisone), 10 MG PO UD PRN Allergies Coded Allergies: Codeine (Verified Allergy, Unknown, MORPHINE OK, 03/31/17) Latex2 -Systemic Allergic Response (Verified Allergy, Unknown, UNKNOWN, ) Physical Exam Vital Signs Date Time Temp Pulse Resp B/P (MAP) Pulse Ox O2 Delivery O2 Flow Rate FiO2 04/13/17 20:16 74 18 126/73 95 04/13/17 19:18 76 22 125/67 96 Room Air 04/13/17 17:58 77 150/87 04/13/17 16:13 77 18 138/76 98 04/13/17 14:00 36.7 74 18 123/64 98 Room Air Physical Exam Vital signs reviewed. General: Elderly, chronically ill appearing female, in no significant distress. HEENT: No scleral icterus, PERRLA, neck supple. Atraumatic. Cardiovascular: Regular rate and rhythm, no extra sounds. Pulmonary: Clear to auscultation bilaterally, normal work of breathing. Abdomen: Mildly distended abdomen. Soft and non-tender. Nondistended, positive bowel sounds. Rectal: Brown stool. Guaiac negative. Musculoskeletal: Atraumatic, no peripheral edema. Neurologic: Patient awake alert and oriented x 3, generally weak but answering questions appropriately Skin: Warm, dry, no rash Medical Decision & Procedures ER Provider Diagnostic Interpretation: CT results as stated below per my review and radiologist interpretation: CT OF THE HEAD WITHOUT CONTRAST FINDINGS: No acute intracranial hemorrhage, midline shift or mass effect is present. Moderate atrophy is again noted. Ventricular system is stable. Basilar cisterns are patent. There are no extra-axial collections. An old left basal ganglia infarct is noted. There are no findings to suggest acute dural sinus thrombosis or acute territorial infarct. There are no significant calvarial abnormalities. Visualized portions of the sinuses and mastoid air cells are clear. IMPRESSION: No acute intracranial findings. Electronically signed by: Vishnu Lewis M.D. Laboratory Results 04/13/17 15:51 Red Blood Count 2.42, Mean Corpuscular Volume 103.7, Mean Corpuscular Hemoglobin 34.7, Mean Corpuscular Hemoglobin Concent 33.5, Mean Platelet Volume 9.2 04/13/17 15:51 Test 04/13/17 15:51 04/13/17 18:19 White Blood Count 2.12 K/uL (4.8-10.8) Red Blood Count 2.42 M/uL (4.2-5.4) Hemoglobin 8.4 g/dL (12.0-16.0) Hematocrit 25.1 % (37-47) Mean Corpuscular Volume 103.7 fL (80-100) Mean Corpuscular Hemoglobin 34.7 pg (25-34) Mean Corpuscular Hemoglobin Concent 33.5 g/dl (32-36) Platelet Count 246 K/uL (130-400) Mean Platelet Volume 9.2 fL (7.4-10.4) RDW Standard Deviation 72.3 fL (36.4-46.3) RDW Coefficient of Variation 19.7 % (11.5-14.5) Nucleated RBC Absolute Count (auto) 0.03 K/uL (0-0) Neutrophils % (Manual) 62.2 % Lymphocytes % (Manual) 22.4 % Monocytes % (Manual) 8.6 % Metamyelocytes % 3.4 % Myelocytes % 3.4 % Nucleated Red Blood Cells % 1.6 % Neutrophils # (Manual) 1.32 K/uL (1.4-6.5) Lymphocytes # (Manual) 0.47 K/uL (1.2-3.4) Monocytes # (Manual) 0.18 K/uL (0.11-0.59) Metamyelocytes # 0.07 K/uL (0-0) Myelocytes # 0.07 K/uL (0-0) Large Platelets 1+ Polychromasia 1+ Macrocytosis PRESENT Ovalocytes 1+ Anion Gap 11.0 mmol/L (3-11) Est Creatinine Clear Calc Drug Dose 31.9 ml/min Estimated GFR () 46.8 Estimated GFR (Non- 40.4 BUN/Creatinine Ratio 16.9 (10-20) Calcium Level 8.4 mg/dl (8.5-10.1) Total Bilirubin 0.3 mg/dl (0.2-1) Direct Bilirubin 0.2 mg/dl (0-0.2) Aspartate Amino Transf (AST/SGOT) 33 U/L (15-37) Alanine Aminotransferase (ALT/SGPT) 40 U/L (12-78) Alkaline Phosphatase 124 U/L (45-117) Total Protein 5.9 gm/dl (6.4-8.2) Albumin 2.7 gm/dl (3.4-5.0) Beta-Hydroxybutyric Acid 1.08 mg/dL (0.2-2.81) Bedside Glucose 486 mg/dl (70-90) Laboratory results per my review. Medications Administered Medications (Trade) Dose Ordered Sig/Sonam Route Start Time Stop Time Status Last Admin Dose Admin Insulin Human Regular (novoLIN-R U-100 PER UNIT) 10 units NOW STAT SC 04/13/17 15:29 04/13/17 15:31 DC 04/13/17 15:29 10 UNITS Insulin Human Regular (novoLIN-R U-100 PER UNIT) 10 units NOW STAT SC 04/13/17 16:34 04/13/17 16:35 DC 04/13/17 16:34 10 UNITS Fentanyl Citrate (Fentanyl Inj) 50 mcg NOW STAT IV 04/13/17 17:31 04/13/17 17:32 DC 04/13/17 17:31 50 MCG Insulin Human Regular (novoLIN-R U-100 PER UNIT) 4 units NOW STAT IV 04/13/17 17:58 04/13/17 17:59 DC 04/13/17 17:58 4 UNITS Insulin Human Regular (novoLIN-R U-100 PER UNIT) 4 units NOW STAT IV 04/13/17 18:59 04/13/17 19:02 DC 04/13/17 19:09 4 UNITS Fentanyl Citrate (Fentanyl Inj) 50 mcg NOW STAT IV 04/13/17 19:14 04/13/17 19:15 DC 04/13/17 19:20 50 MCG Insulin Glargine (Lantus Solostar Pen) 10 units NOW STAT SC 04/13/17 19:47 04/13/17 19:49 DC 04/13/17 20:15 10 UNITS Insulin Human Regular (novoLIN-R U-100 PER UNIT) 10 units NOW STAT SC 04/13/17 19:47 04/13/17 19:49 DC 04/13/17 20:00 10 UNITS ED Course 1413: Past medical records reviewed. The patient was evaluated in room B10. A complete history and physical examination was performed. 1529: Ordered Novolin-R U-100 per unit 10 units SC. 1634: Ordered Novolin-R U-100 per unit 10 units SC. 1731: Ordered Fentanyl Inj 50 mcg IV. 175: Ordered Novolin-R U-100 per unit 4 units IV. 185: Ordered Novolin-R U-100 per unit 4 units IV. 1912: The patient has begun to complain of headaches which she rates as a 10/10 in severity. 1913: Ordered Fentanyl Inj 50 mcg IV. 1946: Ordered Novolin-R U-100 per unit 10 units SC, Lantus Solostar Pen 10 units SC. 1949: Upon reevaluation, the patient appeared to have improvement of her symptoms. I discussed findings with her. She verbalized agreement of the treatment plan. The patient was discharged home. Medical Decision Differential diagnosis: Etiologies such as metabolic, infection, hypo/hyperglycemia, electrolyte abnormalities, cardiac sources, intracerebral event, toxicologic, neurologic, as well as others were entertained. Blood Pressure Screening: Patient was found to have a slightly elevated blood pressure due to circumstances and missed blood pressure med. I do not believe that the patient requires hypertension monitoring. Medication Reconciliation: I attest that I have personally reviewed the patient' s current medication list. This patient was evaluated and appeared to be in no significant distress. IV access was obtained and laboratory work was drawn. Patient was placed on the implementation lead. Patient's laboratory work was reviewed from earlier today and compared to her ER visit. Patient is notably hyperglycemic. She is not neutropenic, likely secondary to the prednisone. Patient was given 10 units of subcutaneous regular insulin. IV hydration was initiated. Patient's blood sugar was very difficult to gain control of. She was given a second bolus of subcutaneous regular insulin 10 units. The patient required 2 doses of IV regular insulin 4 units in addition to a third dose of subcutaneous regular insulin 10 units. [facility] Dr. [place] and Dr. De Leon. The patient is on a short course of prednisone and will be tapered more quickly. She will have 20 mg for the next 2 days, 10 mg for 2 days and then stop. She was given 10 units of Lantus in the emergency department in addition to the above insulin. The patient requested discharge, she did not want to come back in to the hospital. She is guaiac negative, does not appear to be having a GI bleed at this time. The patient's son and were at the bedside. They were given specific instructions. Case management was involved as well as the ED pharmacist, Glaindo Frias. The patient was discharged and asked to follow-up with the PCP within the next several days for reevaluation. The son is committed to checking the patient's blood sugar on a regular schedule and administering NovoLog 5 units 3 times a day until the prednisone therapy has completed. They will return to the ER in time for worsening of symptoms or any medical concerns. Consults Time Called: 1415 Consulting Physician: Roibn GAGE -Primary Care Returned Call: [phone] I reviewed the patient's case with Robin GAGE. 1442: I spoke with Robin GAGE again. He states that Dr. Malik was not familiar with the patient's baseline laboratory studies which is why the patient was referred to the ED. Impression Primary Impression: Hyperglycemia Additional Impression: Anemia Scribe Attestation The scribe's documentation has been prepared under my direction and personally reviewed by me in its entirety. I confirm that the note above accurately reflects all work, treatment, procedures, and medical decision making performed by me. Departure Information Dispostion Home / Self-Care Referrals Robin Brito III, CRNP (PCP) Forms HOME CARE DOCUMENTATION FORM, IMPORTANT VISIT INFORMATION, WORK / SCHOOL INSTRUCTIONS Patient Instructions My [facility] Additional Instructions Diagnosis: Hyperglycemia, anemia Please check your blood sugar between 9 and 9:30. Have a protein snack such as peanut butter, cheese with an apple before bed. If your blood sugar is greater than 350 before bed, take an additional 5 units of NovoLog. Continue 5 units of NovoLog insulin 3 times tomorrow. Take 20 mg of prednisone Monday and Monday, 10 mg of prednisone Monday and Monday, then stop. Drink plenty of water. Follow-up with your physician within the next several days for reevaluation. Return to the ED for worsening of symptoms or any medical concerns. Problem Qualifiers
[2017-04-13 20:16] VITALS: BP 126/73; PULSE 74; O2SAT 95
[2017-04-14 10:06] LABS: BASO % 0.9 %; LYMPH % 21.2 %; MONO % 26.9 %; NEUT % 40.6 %
[2017-04-14 10:07] LABS: IG% 10.4 %
[2017-04-14 10:09] LABS: LYMPH ABS # 0.45 K/uL (1.2-3.4)
[2017-04-14 10:10] LABS: BASO ABS # 0.02 K/uL (0-0.2)
[2017-04-26] MEDS ORDERED: AMOX1TAB43 PO (12:40)
== END 2017-04-13 20:16 | disposition home or self-care (01) ==
LOC: C.EDB 13:59
DX: R73.9 Hyperglycemia, unspecified (principal); D64.9 Anemia, unspecified; I10 Essential (primary) hypertension; E11.9 Type 2 diabetes mellitus without complications; I51.9 Heart disease, unspecified; E78.5 Hyperlipidemia, unspecified; Z79.4 Long term (current) use of insulin; K74.60 Unspecified cirrhosis of liver

== ENCOUNTER → 2017-04-13 | Outpatient (CLI) | payer OTHER ==
[~2017-04-13] MED LIST changes: +AMOX1TAB43 PO; -ATEN50TA8 PO; +CARV6.252 PO; -CIPR-255 PO; +CLC100X PO; +CRG625 PO; +CYAN500T PO; +DOCU-94 PO; +FLUO10CA15 PO; +FLUO10CA24 PO; +FLV1 PO; +FOLI1TAB7 PO; +FRS/40 PO; +FURO-85 PO; +LACT1TAB4 PO; +LCTX PO; +LSX20 PO; -METH2.5T PO; +MRLP17X PO; +NITR1CAP16 PO; +NVLG SC; +POLY335019 PO; +PRD10 PO; +SPIR25TA PO; +SPR25 PO; +VANC5CAP PO; +VNCS125 PO; +VTMB12 PO
[2017-04-13 10:47] LABS: ALT/SGPT 39 U/L (12-78); AST/SGOT 34 U/L (15-37); BLOOD UREA NITROGEN 22 mg/dl (7-18); BUN/CREATININE RATIO 20.1 (10-20); CALCIUM 8.3 mg/dl (8.5-10.1); CARBON DIOXIDE 27 mmol/L (21-32); CHLORIDE 101 mmol/L (98-107); GLUCOSE 306 mg/dl (70-99); POTASSIUM 4.2 mmol/L (3.5-5.1); SODIUM 135 mmol/L (136-145)
[2017-04-13 10:49] LABS: ALB/GLOB RATIO 0.8 (0.9-2); ALKALINE PHOSPHATASE 99 U/L (45-117)
[2017-04-13 10:56] LABS: BETA-HYDROXYBUTYRATE 0.75 mg/dL (0.2-2.81)
[2017-04-13 11:08] LABS: HEMATOCRIT 26.6 % (37-47); MEAN CELL VOLUME 103.9 fL (80-100); MEAN CORPUSCULAR HGB CONC 32.7 g/dl (32-36); MEAN PLATELET VOLUME 9.1 fL (7.4-10.4); PLATELET COUNT 282 K/uL (130-400); RED BLOOD COUNT 2.56 M/uL (4.2-5.4); WHITE BLOOD COUNT 2.78 K/uL (4.8-10.8)
[2017-04-13 11:18] LABS: ANISOCYTOSIS PRESENT; BASO % 0.4 %; BASO ABS # 0.01 K/uL (0-0.2); COMPLETE YES; IG% 7.6 %; LYMPH % 24.1 %; LYMPH ABS # 0.67 K/uL (1.2-3.4); MONO % 36.7 %; NEUT % 31.2 %
--- NOTE | 2017-05-10 06:54 | CODING QUERY NO DIAGNOSIS ---
Valid Physician Order Needed A valid physician order must be submitted in order to properly bill for the service(s) provided, including date of service(s), valid diagnosis, and physician signature. If these tests are done on a recurring basis the original physican order must be submitted in order to code and bill for the service(s) provided. Please fax us the original, signed physician order so that we may expedite billing to [phone] DOS 04/13/2017 * CMP * CBC W/ AUTO DIFF * Beta Hydoxybutyrate Thank you [facility] Information Management
== END | disposition home or self-care (01) ==
LOC: C.LABSPEC 10:07
PROVIDERS: ATTEND Family Medicine
DX: K74.60 Unspecified cirrhosis of liver (principal)

== ENCOUNTER 2017-04-20 09:39 | Inpatient (IN) | payer OTHER ==
[~2017-04-20] VITALS: Ht 154.9 cm; Wt 62.0 kg
[~2017-04-20 09:39] MED LIST changes: +CARV6.252 PO; -CLC100X PO; -CRG625 PO; +CYAN500T PO; +DOCU-94 PO; -FLV1 PO; +FOLI1TAB7 PO; +FURO-85 PO; -LSX20 PO; +POLY335019 PO; +SPIR25TA PO; -SPR25 PO; -VTMB12 PO
[2017-04-20] MEDS ORDERED: SODIUM CHLORIDE 0.9% 1000ML 250 ML IV STA (10:04)
[2017-04-20 10:18] LABS: HEMATOCRIT 34.2 % (37-47); MEAN CELL VOLUME 103.3 fL (80-100); MEAN CORPUSCULAR HEMOGLOBIN 33.8 pg (25-34); MEAN CORPUSCULAR HGB CONC 32.7 g/dl (32-36); RED BLOOD COUNT 3.31 M/uL (4.2-5.4)
[2017-04-20 10:20] LABS: BUN/CREATININE RATIO 11.6 (10-20); CALCIUM 8.1 mg/dl (8.5-10.1); CREATININE 1.2 mg/dl (0.60-1.20); MAGNESIUM 1.8 mg/dl (1.8-2.4); POTASSIUM 4.3 mmol/L (3.5-5.1)
[2017-04-20 10:31] LABS: THYROID STIMULATING HORMONE 4.91 uIu/ml (0.300-4.500)
[2017-04-20] MEDS ORDERED: GLC/500 PO (10:31)
--- NOTE | 2017-04-20 10:33 | DIAGNOSTIC IMAGING REPORT ---
CHEST ONE VIEW PORTABLE CLINICAL HISTORY: 72 years-old Female presenting with ALTERED MENTAL STATUS/WEAKNESS. TECHNIQUE: Portable upright AP view of the chest was obtained. COMPARISON: 12/05/2016. FINDINGS: Cardiomediastinal silhouette normal. Lungs and pleural spaces clear. Osseous structures and upper abdomen normal. IMPRESSION: 1. No acute cardiopulmonary disease. Electronically signed by: Cheikh Porter 04/20/2017 10:32 AM Dictated Date/Time: 04/20/2017 10:29 AM
[2017-04-20 10:52] LABS: ANISOCYTOSIS PRESENT; BASO % 0.2 %; BASO ABS # 0.02 K/uL (0-0.2); COMPLETE YES; EOS % 1.4 %; IG% 1.9 %; LYMPH % 20.4 %; MEAN PLATELET VOLUME 9.9 fL (7.4-10.4); MONO % 12.5 %; NEUT % 63.6 %; PLATELET COUNT 95 K/uL (130-400); PLT ESTIMATE DECREASED
[2017-04-20 10:55] LABS: URINE APPEARANCE CLOUDY (CLEAR); URINE BILIRUBIN NEG (NEG); URINE COLOR YELLOW; URINE EPITHELIAL CELL AUTO >30 /lpf (0-5); URINE NITRITE NEG (NEG); URINE PH 6.5 (4.5-7.5); URINE SPECIFIC GRAVITY 1.012 (1.000-1.030); UROBILINOGEN NEG (NEG); ZZURINE CULT IF INDIC CATH YES
[2017-04-20 10:59] LABS: MANUAL MICROSCOPIC REQUIRED? NO; REVIEW REQ? NO
[2017-04-20] MEDS ORDERED: CEFTRIAXONE SOD INJ 1 GM ADDVIAL IV STA (11:11)
[2017-04-20 11:41] LABS: INR 1.2 (0.9-1.1); PARTIAL THROMBOPLASTIN RATIO 0.9; PROTHROMBIN TIME (PATIENT) 12.7 SECONDS (9.0-12.0)
--- NOTE | 2017-04-20 11:43 | EMERGENCY ROOM VISIT NOTE ---
History Report prepared by Lyla: Zuri Pisano Under the Supervision of: Dr. Tommy Fisher M.D. First contact with patient: 09:53 Stated Complaint: SYNCOPE History of Present Illness The patient is a 72 year old female who presents to the Emergency Room with complaints of a sudden episode of syncope that occurred [employer]. The patient came to the ED via ambulance. The patient's niece is a nurse in the ED and she states that the patient was having her hair done by her sister at home when her eyes rolled back and she experienced LOC. The patient's sister supported her in the chair so she did not fall to the floor or experience any injuries. The patient denies any dizziness, sweating, or chest pain prior to experiencing syncope. The patient states that she is experiencing shortness of breath, but that is not new for her and has been reoccurring with her ascites. She states that she felt well prior to having her hair done. The patient denies cough, vomiting, diarrhea, weight gain, and urinary symptoms including burning or increased frequency. The patient was seen in the ED on March 29 for a UTI. She was evaluated in the ED and admitted to the hospital on March 31 for cirrhosis and ascites. She was discharged on April 11 then evaluated in the ED again on April 13 for hyperglycemia. The patient's niece states that the patient is on prednisone for ulcers in her nose, mouth, and throat which is what is causing her blood sugar to be high. Per the patient's niece, the patient's blood sugar will come down once she finishes the prednisone. The patient's niece also adds that the patient was taken off of methotrexate when she was recently admitted to the hospital and her blood counts improved afterward. The patient's niece feels that the patient's abdomen has an increased amount of fluid in it today compared to when she was discharged from the hospital. The patient also states that she is experiencing increased fluid in her abdomen and she adds that she just had it drained last week. The patient's niece adds that the patient did not eat breakfast today. The patient's niece also states that it is normal for the patient to experience hypotension. Source of History: patient, family (niece) Onset: [employer] Position: other (global) Quality: other (syncope) Timing: other (sudden episode) Associated Symptoms: + SOB (unchanged), No diaphoresis, No cough, No chest pain, No vomiting, No diarrhea, No urinary symptoms Note: no dizziness Review of Systems See HPI for pertinent positives & negatives. A total of 10 systems reviewed and were otherwise negative. 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 Social History Smoking Status: Never Smoker Alcohol Use: none Drug Use: none Marital Status: Housing Status: lives with significant other Occupation Status: retired Current/Historical Medications Scheduled Carvedilol (Coreg), 6.25 MG PO BID Clopidogrel (Plavix), 75 MG PO Q2D Cyanocobalamin (Vitamin B-12), 500 MCG PO QAM Folic Acid (Folvite), 1 MG PO QAM Furosemide (Lasix), 20 MG PO QAM Gabapentin (Neurontin), 300 MG PO TID Isosorbide Mononitrate Ext Rel (Imdur Ext Rel), 30 MG PO QAM Nitroglycerin (Nitrostat), 0.4 MG UT PRN Simvastatin (Zocor), 20 MG PO QPM Spironolactone (Aldactone), 25 MG PO QAM Verapamil Sust Rel (Calan Sr Ext Rel), 120 MG PO DAILY Scheduled PRN Docusate Sodium (Colace), 1 CAP PO BID PRN for Constipation Polyethylene Glycol 3350 (Miralax), 17 GM PO DAILY PRN for Constipation Allergies Coded Allergies: Codeine (Verified Allergy, Unknown, MORPHINE OK, 04/20/17) Latex2 -Systemic Allergic Response (Verified Allergy, Unknown, UNKNOWN, 04/20/17) Physical Exam Vital Signs Date Time Temp Pulse Resp B/P (MAP) Pulse Ox O2 Delivery O2 Flow Rate FiO2 04/20/17 14:08 81 16 122/67 97 Room Air 04/20/17 13:51 96 Room Air 04/20/17 13:05 92/55 04/20/17 12:56 81 16 109/67 96 Room Air 04/20/17 12:15 76 04/20/17 12:05 77 12 100/65 95 Room Air 04/20/17 10:40 74 100/59 80 84/64 04/20/17 09:55 97 Room Air 04/20/17 09:55 76 04/20/17 09:55 36.8 77 18 107/71 95 Room Air Physical Exam GENERAL: Patient is in no acute distress. HEENT: No acute trauma, normocephalic atraumatic, mucous membranes moist, no nasal congestion, no scleral icterus. NECK: No stridor, no adenopathy, no meningismus, trachea is midline. LUNGS: Crackles at both bases more so on right, no wheezing or rhonchi, breath sounds equal. HEART: Without murmurs gallops or rubs, regular rate and rhythm. ABDOMEN: Soft, nontender, bowel sounds positive, no hernias, no peritonitis. EXTREMITIES: No cyanosis or edema, full range of motion of all the joints without pain or difficulty, no signs for acute trauma. NEUROLOGIC: Oriented x 3, no acute motor or sensory deficits, no focal weakness. SKIN: Pale, no rash, no jaundice, no diaphoresis. Medical Decision & Procedures ER Provider Diagnostic Interpretation: Radiology results as stated below per my review and radiologist interpretation: CHEST ONE VIEW PORTABLE FINDINGS: Cardiomediastinal silhouette normal. Lungs and pleural spaces clear. Osseous structures and upper abdomen normal. IMPRESSION: 1. No acute cardiopulmonary disease. Electronically signed by: Cheikh Porter 04/20/2017 10:32 AM Dictated Date/Time: 04/20/2017 10:29 AM Laboratory Results 04/20/17 09:30 Red Blood Count 3.31, Mean Corpuscular Volume 103.3, Mean Corpuscular Hemoglobin 33.8, Mean Corpuscular Hemoglobin Concent 32.7, Mean Platelet Volume 9.9, Neutrophils (%) (Auto) 63.6, Lymphocytes (%) (Auto) 20.4, Monocytes (%) ( Auto) 12.5, Eosinophils (%) (Auto) 1.4, Basophils (%) (Auto) 0.2, Neutrophils # (Auto) 5.91, Lymphocytes # (Auto) 1.90, Monocytes # (Auto) 1.16, Eosinophils # ( Auto) 0.13, Basophils # (Auto) 0.02 04/20/17 09:30 Test 04/20/17 09:30 04/20/17 10:30 04/20/17 10:58 04/20/17 12:24 White Blood Count 9.30 K/uL (4.8-10.8) Red Blood Count 3.31 M/uL (4.2-5.4) Hemoglobin 11.2 g/dL (12.0-16.0) Hematocrit 34.2 % (37-47) Mean Corpuscular Volume 103.3 fL (80-100) Mean Corpuscular Hemoglobin 33.8 pg (25-34) Mean Corpuscular Hemoglobin Concent 32.7 g/dl (32-36) Platelet Count 95 K/uL (130-400) Mean Platelet Volume 9.9 fL (7.4-10.4) Neutrophils (%) (Auto) 63.6 % Lymphocytes (%) (Auto) 20.4 % Monocytes (%) (Auto) 12.5 % Eosinophils (%) (Auto) 1.4 % Basophils (%) (Auto) 0.2 % Neutrophils # (Auto) 5.91 K/uL (1.4-6.5) Lymphocytes # (Auto) 1.90 K/uL (1.2-3.4) Monocytes # (Auto) 1.16 K/uL (0.11-0.59) Eosinophils # (Auto) 0.13 K/uL (0-0.5) Basophils # (Auto) 0.02 K/uL (0-0.2) RDW Standard Deviation 70.8 fL (36.4-46.3) RDW Coefficient of Variation 19.1 % (11.5-14.5) Immature Granulocyte % (Auto) 1.9 % Immature Granulocyte # (Auto) 0.18 K/uL (0.00-0.02) Platelet Estimate DECREASED Anisocytosis PRESENT Anion Gap 9.0 mmol/L (3-11) Est Creatinine Clear Calc Drug Dose 35.0 ml/min Estimated GFR () 51.6 Estimated GFR (Non- 44.5 BUN/Creatinine Ratio 11.6 (10-20) Calcium Level 8.1 mg/dl (8.5-10.1) Magnesium Level 1.8 mg/dl (1.8-2.4) Total Bilirubin 1.0 mg/dl (0.2-1) Direct Bilirubin 0.3 mg/dl (0-0.2) Aspartate Amino Transf (AST/SGOT) 24 U/L (15-37) Alanine Aminotransferase (ALT/SGPT) 25 U/L (12-78) Alkaline Phosphatase 94 U/L (45-117) Total Protein 6.4 gm/dl (6.4-8.2) Albumin 2.8 gm/dl (3.4-5.0) Thyroid Stimulating Hormone (TSH) 4.910 uIu/ml (0.300-4.500) Free Thyroxine 1.21 ng/dl (0.80-1.60) Urine Color YELLOW Urine Appearance CLOUDY (CLEAR) Urine pH 6.5 (4.5-7.5) Urine Specific [place] 1.012 (1.000-1.030) Urine Protein NEG (NEG) Urine Glucose (UA) NEG (NEG) Urine Ketones NEG (NEG) Urine Occult Blood TRACE (NEG) Urine Nitrite NEG (NEG) Urine Bilirubin NEG (NEG) Urine Urobilinogen NEG (NEG) Urine Leukocyte Esterase LARGE (NEG) Urine WBC (Auto) >30 /hpf (0-5) Urine RBC (Auto) 0-4 /hpf (0-4) Urine Hyaline Casts (Auto) 1-5 /lpf (0-5) Urine Epithelial Cells (Auto) >30 /lpf (0-5) Urine Bacteria (Auto) 1+ (NEG) Prothrombin Time 12.7 SECONDS (9.0-12.0) Prothromb Time International Ratio 1.2 (0.9-1.1) Activated Partial Thromboplast Time 23.4 SECONDS (21.0-31.0) Partial Thromboplastin Ratio 0.9 Bedside Troponin I < 0.030 ng/ml (0-0.045) Laboratory results reviewed by me. Medications Administered Medications (Trade) Dose Ordered Sig/Sonam Route Start Time Stop Time Status Last Admin Dose Admin Sodium Chloride 250 ml @ 999 mls/hr Q16M STAT IV 04/20/17 10:04 04/20/17 10:19 DC 04/20/17 10:04 999 MLS/HR Ceftriaxone Sodium (Rocephin Inj) 1 gm NOW STAT IV 04/20/17 11:11 04/20/17 11:12 DC 04/20/17 11:25 1 GM Sodium Chloride 500 ml @ 999 mls/hr Q31M STAT IV 04/20/17 11:52 04/20/17 12:22 DC 04/20/17 11:52 999 MLS/HR ECG Indication: syncope Rate (beats per minute): 76 Rhythm: normal sinus Findings: nonspecific-ST abn (diffuse), no acute ischemic change, no ectopy, other (poor R wave progression) ED Course 0959: The patient was evaluated in room A3. A complete history and physical exam was performed. 1004: Ordered Sodium Chloride 250 ml @ 999 mls/hr IV 1111: Ordered Rocephin Inj 1 gm IV 1152: Ordered Sodium Chloride 500 ml @ 999 mls/hr IV 1218: I reevaluated the patient. She feels dizzy and the nurses are going to try to walk her. 1300: The nurses tried to stand the patient up but she got lightheaded and wobbly. Her blood pressure also dropped. 1314: Upon reexamination the patient is resting comfortably. I discussed results and treatment plan with the patient and her family. They verbalize agreement and understanding. The patient will be evaluated for further management. 1340: Discussed the patient's case with Dr. De Luna [facility] The patient will be evaluated for further management. 1422: I also discussed the patient's [facility] Medical Decision Differential diagnoses considered include dysrhythmia, vasovagal syncope, hypotension, anemia, electrolyte imbalance, dehydration, infection, UTI. Medication Reconciliation: I attest that I have personally reviewed the patient' s current medication list. Blood Pressure Screening: Patient was found to have normal blood pressure on screening and does not require follow-up. There is no leukocytosis. No concerning anemia. The patient's platelet count is somewhat low but this has been the case as of late. No significant electrolyte abnormality, kidney failure or hepatitis. There is no concerning coagulopathy. The patient appears to be in a euthyroid state. EKG shows a normal sinus rhythm, no acute ischemia. Cardiac enzyme testing 2 is not consistent with acute cardiac injury. Chest x-ray does not show pneumonia or CHF. No significant cardiomegaly. Orthostatic vital signs were quite positive. Urinalysis is consistent with infection. Urine culture is pending. The patient received IV saline and IV ceftriaxone. Despite the IV saline, the patient was still symptomatic with standing and her blood pressure dropped with standing. The patient has a urinary infection, she is hypotensive to stand, she is dehydrated. She had a syncopal event before arrival, I do think a hospital stay is warranted. I spoke to the patient and her family. The on-call hospitalist was consulted. Consults Time Called: 1307 Consulting Physician: Dr. De Luna - [facility] [place] Returned Call: [phone] Discussed the patient's case with Dr. De Luna who is a resident working with the [facility]. The patient will be evaluated for further management. Impression Primary Impression: Syncope Additional Impressions: Hypotension UTI (urinary tract infection) Scribe Attestation The scribe's documentation has been prepared under my direction and personally reviewed by me in its entirety. I confirm that the note above accurately reflects all work, treatment, procedures, and medical decision making performed by me. Departure Information Dispostion Being Evaluated By Hospitalist Referrals Robin Brito III, CRNP (PCP) Problem Qualifiers Primary Impression: Syncope Syncope type: unspecified Qualified Codes: R55 - Syncope and collapse Additional Impressions: Hypotension Hypotension type: unspecified hypotension type Qualified Codes: I95.9 - Hypotension, unspecified
[2017-04-20] MEDS ORDERED: SODIUM CHLORIDE 0.9% 500ML 500 ML IV STA (11:52)
[2017-04-20 13:51] VITALS: O2SAT 96; Ht 154.9 cm; Wt 62.0 kg
[2017-04-20] MEDS ORDERED: SODIUM CHLORIDE 0.9% 1000ML 1,000 ML IV SCH (14:07)
[2017-04-20] MEDS ORDERED: MAGNESIUM HYDROXIDE SUSP 30 ML UDC PO PRN (14:15)
[2017-04-20] MEDS ORDERED: ONDANSETRON INJ 2 MG/ML 2 ML VIAL IV PRN (14:15)
[2017-04-20] MEDS ORDERED: ALUMINUM/MAGNESIUM/SIMETH (MAALOX MAX) 30 ML UDC PO PRN (14:15)
[2017-04-20] MEDS ORDERED: GLUCOSE 40% GEL 15 GM TUBE PO PRN (14:30)
[2017-04-20] MEDS ORDERED: GLUCOSE 10 TABS/TUBE PO PRN (14:30)
[2017-04-20] MEDS ORDERED: GLUCAGON FOR INJ 1 MG VIAL SQ PRN (14:30)
[2017-04-20] MEDS ORDERED: DEXTROSE 50% 50 ML SYR IV PRN (14:30)
[2017-04-20] MEDS ORDERED: NITROGLYCERIN 0.4 MG SL PER TAB CHARGE UT SCH (14:30)
--- NOTE | 2017-04-20 15:20 | Medical Student: [facility] ---
Med Student History & Physical Date & Time of Service: Apr 20, 2017 at 15:06 Chief Complaint: Syncope Primary Care Physician: Robin Brito III, CRNP History of Present Illness Source: patient, family ( and sisters) Mrs. Rehman is a 72 year old female with a PMH significant for DM II, cirrhosis, Bechet's, PA, HTN, CVA, SMA stenosis, and dementia who presents today for an episode of syncope this morning. She was sitting in a chair getting her hair done by her sister. The patient was yawning continuously, then her eyes rolled back, and she lost consciousness for a couple minutes. According to the sister, the patient was sweating before the syncopal event. The patient has also been feeling very fatigued for the past couple of days. The patient denies fevers, chills, weight loss, chest pain, SOB, cough, wheezing, N/V, dysuria, or urinary frequency. She had been incontinent of urine recently however. According to her sister who witnessed the entire event, there was no jerking movements of limbs. The patient was more confused than baseline however when coming back to. According to the patient's , this is her 3rd syncopal event in the last 1.5 weeks. A previous syncopal event occurred when she was walking to the bathroom in the middle of the night. She apparently lost conscious on her walk and fell on the floor. On admission, the patient's blood pressure was 107/71 with a heart rate of 76 and respiratory rate of 18. She was afebrile. She was started on IVFs. She was found to have >30 epithelial cells on UA with 1+ bacteria and was given 1 gm Ceftriaxone. She was also found to be anemic at 11.2 and thrombocytopenic at 95, which both have been chronic intermittently. On last admission from 03/31-04/11 for GI bleed, the patient was found to have cirrhosis of unknown etiology and be pancytopenic. 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 Therapeutic paracentesis was performed and 4 L was collected. 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 EGD showed grade II and large >5 mm varices and colonoscopy showed internal hemorrhoids. Hem/onc evaluation attributed the pancytopenia to her cirrhosis and hypersplenism. Bone marrow biopsy and aspirate were offered for workup of a possible myelodysplastic syndrome, but family declined. She was also seen in the ED on 04/[address] at the time showed moderate atrophy, but no acute intracranial findings. Past Medical/Surgical History Medical Problems: (1) Anemia Status: Acute (2) Bleeding hemorrhoid Status: Acute (3) GI bleed Status: Acute (4) Hyperglycemia Status: Acute (5) Hypotension Status: Acute (6) Lactic acidosis Status: Acute (7) Mesenteric artery stenosis Status: Acute (8) Pancytopenia Status: Acute (9) Portal hypertension Status: Acute (10) Symptomatic anemia Status: Acute (11) Syncope Status: Acute (12) UTI (urinary tract infection) Status: Acute (13) Weakness Status: Acute Family History Father: coronary artery disease Mother: HTN, stroke Sibling(s): cancer (breast ) Social History Smoking Status: Never Smoker Alcohol Use: none Drug Use: none Marital Status: Housing status: lives with family Occupational Status: retired Immunizations History of Influenza Vaccine: Yes Influenza Vaccine Date: Jul 04, 2011 History of Tetanus Vaccine?: Yes Tetanus Immunization Date: Sep 28, 1995 History of Pneumococcal: Yes Pneumococcal Date: Jun 08, 2011 History of Hepatitis B Vaccine: Yes Hepatitis Immunization Date: Sep 28, 1995 Allergies Coded Allergies: Codeine (Verified Allergy, Unknown, MORPHINE OK, 04/20/17) Latex2 -Systemic Allergic Response (Verified Allergy, Unknown, UNKNOWN, 04/20/17) Medications Carvedilol (Coreg), 6.25 MG PO BID Clopidogrel (Plavix), 75 MG PO Q2D Cyanocobalamin (Vitamin B-12), 500 MCG PO QAM Docusate Sodium (Colace), 1 CAP PO BID PRN for Constipation Folic Acid (Folvite), 1 MG PO QAM Furosemide (Lasix), 20 MG PO QAM Gabapentin (Neurontin), 300 MG PO TID Isosorbide Mononitrate Ext Rel (Imdur Ext Rel), 30 MG PO QAM Nitroglycerin (Nitrostat), 0.4 MG UT PRN Polyethylene Glycol 3350 (Miralax), 17 GM PO DAILY PRN for Constipation Simvastatin (Zocor), 20 MG PO QPM Spironolactone (Aldactone), 25 MG PO QAM Verapamil Sust Rel (Calan Sr Ext Rel), 120 MG PO DAILY Review of Systems Constitutional: No fever, No chills Eyes: No worsening of vision ENT: No hearing loss Respiratory: No cough, No sputum, No wheezing, No shortness of breath Cardiovascular: No chest pain, No edema, No palpitations Abdomen: No pain, No nausea, No vomiting, No diarrhea, No constipation Musculoskeletal: No joint pain, No muscle pain Genitourinary - Female: + urinary incontinence, No dysuria, No urinary frequency Neurologic: + memory loss (short term ) Endocrine: + fatigue Physical Exam Vital Signs (24 Hours) Date Time Temp Pulse Resp B/P (MAP) Pulse Ox O2 Delivery O2 Flow Rate FiO2 04/20/17 14:08 81 16 122/67 97 Room Air 04/20/17 13:51 96 Room Air 04/20/17 13:05 92/55 04/20/17 12:56 81 16 109/67 96 Room Air 04/20/17 12:15 76 04/20/17 12:05 77 12 100/65 95 Room Air 04/20/17 10:40 74 100/59 80 84/64 04/20/17 09:55 97 Room Air 04/20/17 09:55 76 04/20/17 09:55 36.8 77 18 107/71 95 Room Air General Appearance: WD/WN, no apparent distress Head: normocephalic, atraumatic Eyes: normal inspection, PERRL, EOMI ENT: normal ENT inspection, + pertinent finding (no ulcers in oropharynx ) Neck: supple, no adenopathy, thyroid normal, no carotid bruits Respiratory/Chest: chest non-tender, lungs clear, normal breath sounds, no respiratory distress Cardiovascular: regular rate, rhythm, no edema, no gallop, no JVD, no murmur, normal peripheral pulses Abdomen/GI: normal bowel sounds, soft, no organomegaly, + tenderness Extremities/Musculoskelatal: no calf tenderness, no pedal edema Neurologic/Psych: graphite pan drier tender II-XII nml as tested, no motor/sensory deficits, + disoriented (oriented to person, disoriented to place & time ) Skin: normal color, warm/dry, no rash Lymphatic: no adenopathy Diagnostics Laboratory Results Results Past 24 Hours Test 04/20/17 09:30 04/20/17 10:10 04/20/17 10:30 04/20/17 10:58 Range/Units White Blood Count 9.30 4.8-10.8 K/uL Red Blood Count 3.31 4.2-5.4 M/uL Hemoglobin 11.2 12.0-16.0 g/dL Hematocrit 34.2 37-47 % Mean Corpuscular Volume 103.3 80-100 fL Mean Corpuscular Hemoglobin 33.8 25-34 pg Mean Corpuscular Hemoglobin Concent 32.7 32-36 g/dl Platelet Count 95 130-400 K/uL Mean Platelet Volume 9.9 7.4-10.4 fL Neutrophils (%) (Auto) 63.6 % Lymphocytes (%) (Auto) 20.4 % Monocytes (%) (Auto) 12.5 % Eosinophils (%) (Auto) 1.4 % Basophils (%) (Auto) 0.2 % Neutrophils # (Auto) 5.91 1.4-6.5 K/uL Lymphocytes # (Auto) 1.90 1.2-3.4 K/uL Monocytes # (Auto) 1.16 0.11-0.59 K/uL Eosinophils # (Auto) 0.13 0-0.5 K/uL Basophils # (Auto) 0.02 0-0.2 K/uL RDW Standard Deviation 70.8 36.4-46.3 fL RDW Coefficient of Variation 19.1 11.5-14.5 % Immature Granulocyte % (Auto) 1.9 % Immature Granulocyte # (Auto) 0.18 0.00-0.02 K/uL Platelet Estimate DECREASED Anisocytosis PRESENT Sodium Level 137 136-145 mmol/L Potassium Level 4.3 3.5-5.1 mmol/L Chloride Level 102 98-107 mmol/L Carbon Dioxide Level 26 21-32 mmol/L Anion Gap 9.0 3-11 mmol/L Blood Urea Nitrogen 14 7-18 mg/dl Creatinine 1.20 0.60-1.20 mg/dl Est Creatinine Clear Calc Drug Dose 35.0 ml/min Estimated GFR () 51.6 Estimated GFR (Non- 44.5 BUN/Creatinine Ratio 11.6 10-20 Random Glucose 132 70-99 mg/dl Calcium Level 8.1 8.5-10.1 mg/dl Magnesium Level 1.8 1.8-2.4 mg/dl Total Bilirubin 1.0 0.2-1 mg/dl Direct Bilirubin 0.3 0-0.2 mg/dl Aspartate Amino Transf (AST/SGOT) 24 15-37 U/L Alanine Aminotransferase (ALT/SGPT) 25 12-78 U/L Alkaline Phosphatase 94 45-117 U/L Total Protein 6.4 6.4-8.2 gm/dl Albumin 2.8 3.4-5.0 gm/dl Thyroid Stimulating Hormone (TSH) 4.910 0.300-4.500 uIu/ml Free Thyroxine 1.21 0.80-1.60 ng/dl Bedside Troponin I < 0.030 0-0.045 ng/ml Urine Color YELLOW Urine Appearance CLOUDY CLEAR Urine pH 6.5 4.5-7.5 Urine Specific [place] 1.012 1.000-1.030 Urine Protein NEG NEG Urine Glucose (UA) NEG NEG Urine Ketones NEG NEG Urine Occult Blood TRACE NEG Urine Nitrite NEG NEG Urine Bilirubin NEG NEG Urine Urobilinogen NEG NEG Urine Leukocyte Esterase LARGE NEG Urine WBC (Auto) >30 0-5 /hpf Urine RBC (Auto) 0-4 0-4 /hpf Urine Hyaline Casts (Auto) 1-5 0-5 /lpf Urine Epithelial Cells (Auto) >30 0-5 /lpf Urine Bacteria (Auto) 1+ NEG Prothrombin Time 12.7 9.0-12.0 SECONDS Prothromb Time International Ratio 1.2 0.9-1.1 Activated Partial Thromboplast Time 23.4 21.0-31.0 SECONDS Partial Thromboplastin Ratio 0.9 Test 04/20/17 12:24 Range/Units Bedside Troponin I < 0.030 0-0.045 ng/ml Microbiology Results 04/20/17 Urine Culture, Received Pending Diagnostic Radiology CXR 04/20/2017 CHEST ONE VIEW PORTABLE CLINICAL HISTORY: 72 years-old Female presenting with ALTERED MENTAL STATUS/WEAKNESS. TECHNIQUE: Portable upright AP view of the chest was obtained. COMPARISON: 12/05/2016. FINDINGS: Cardiomediastinal silhouette normal. Lungs and pleural spaces clear. Osseous structures and upper abdomen normal. IMPRESSION: 1. No acute cardiopulmonary disease. Impression Assessment and Plan Assessment: Mrs. Rehman is a 72 year old female with a PMH significant for DM II , cirrhosis, Bechet's syndrome, PA, HTN, CVA, SMA stenosis, and dementia who presents today for an episode of syncope this morning. The patient's vitals were stable on arrival, but then she did develop hypotension. This resolved with IVFs. The differential for syncope includes vasovagal syncope, orthostatic syncope, seizure, structural cardiopulmonary disease or cardiac arrhythmias. The etiology is most likely not an arrhythmia because EKG showed normal sinus rhythm with no evidence of ischemia. Orthostatic vitals were taken and BP supine was 100/59 and sitting was 84/64. This rules out orthostatic syncope as a cause. The patient most likely did not have a seizure because her sister, the witness of the event, did not observe jerking movements of limbs and the patient was not incontinent as a result of the loss of consciousness event. The most likely cause of her syncopal event is vasovagal, but a cardiopulmonary event needs to be ruled out. Additionally, the patient is anemic with a Hgb of 11.2 and MCV of 103.3 and thrombocytopenic with plt count of 95. Initial troponin-I was negative. UA was positive for >30 epithelial cells and 1 + bacteria. CXR was negative for cardiopulmonary process. Plan: Syncope - most likely vasovagal -Order echo to r/o cardiopulmonary event as cause, last echo in 2012 showed type 1 diastolic dysfunction with EF of 60% and no LVH -trend cardiac enzymes q8hrs x 3 -obtain orthostatic vitals every shift -admit to telemetry to monitor for possible arrhythmia -EKG qAM Macrocytic anemia (Hgb 11.2 and MCV 103.3) & Thrombocytopenia (plt count 95) -peripheral smear to r/o myelodysplastic syndrome considering extensive history of pancytopenia -hem/onc consult during hospitalization 03/29-03/31 determined patient and family did not want bone marrow biopsy or aspirate for further workup of pancytopenia -continue vitamin B12 500 mcg qAM and folic acid 1 g daily CAD, HLD, HTN with h/o PA and TIA -continue verapamil 120 mg PO daily, isosorbide mononitrate 30 mg PO daily, carvedilol 6.25 mg PO daily, and simvastatin 20 mg qAM Liver cirrhosis complicated by ascites -last Abd/pelvis CT on 03/31 showed cirrhosis with portal HTN, large amount of abd/pelvic ascites, mild splenomegaly, varices formation, nonocclusive thrombus in splenic vein, b/l renal atrophy, stenosis of SMA,and 1.6 cm cystic lesion adjacent to anterior aspect of pancreatic body -paracentesis performed on 04/04 - 4 L off - Case followed GI bleed/newly diagnosed cirrhosis during admission from 03/29 -03/31, patient will need f/u appointment upon discharge DM II - HgbA1C 5 in 2016, patient recently presented to ED on 04/13 for hyperglycemia most likely attributed to prednisone use, prednisone now d/c -check blood sugars qAM and qhs -recheck HgA1C CHF - diastolic HF -continue spironolactone 25 mg PO daily & Lasix 20 mg qAM DVT prophylaxis: Heparin 5000 units q12hrs and SCDs Code status: FULL CODE Level of Care Telemetry Advanced Directives Existing Living Will: Yes Existing Power of Prehemmer: No Resuscitation Status FULL RESUSCITATION
[2017-04-20 15:39] VITALS: BP 122/71; PULSE 79; TEMP 36.8; O2SAT 95
--- NOTE | 2017-04-20 16:39 | History and Physical ---
History & Physical Date & Time of Service: Apr 20, 2017 at 15:57 Chief Complaint: Syncope Primary Care Physician: Robin Brito III, CRNP History of Present Illness Source: patient, family (sisters and at bedside), clinic records, hospital records This is a 72 y/o female with a history of macrocytic anemia, CAD, h/o AR s/p stent, DM II, HTN, HLD, diastolic CHF, cirrhosis w/ascites, Behet's syndrome, restless leg syndrome, RA, and h/o TIA who presented to the ED on 04/20 following a syncopal episode. The patient was seated getting her done by her sister when patient's eyes rolled back and she began to slump over and then lost consciousness. This episode was witnessed and the patient did not fall or hit her head. The sister states that the patient was out for a few minutes. When the patient awoke, she was confused and could only tell EMS her name. The patient denies any dizziness, chest pain, shortness of breath, nausea, vomiting , or numbness/tingling prior to losing consciousness. The patient's sister states that the patient was yawning several times and then became diaphoretic prior to losing consciousness. The patient's states that this is her third syncopal episode in the last week and a half. The patient denies any urinary symptoms; however, the family notes that the patient has had increased episodes of urinary incontinence since her last hospitalization in March 2017. The patient was recently diagnosed with cirrhosis and ascites during that admission. The patient just had a paracentesis a week ago. The patient denies fevers, chills, chest pain, palpitations, claudication, cough, wheezing, shortness of breath, nausea, vomiting, abdominal pain, dysuria, hematuria, urinary retention, paralysis, weakness, numbness and tingling. Past Medical/Surgical History Medical Problems: (1) Benign hypertension Status: Chronic (2) Cataract surgery Status: Resolved (3) Coronary artery disease Status: Chronic (4) TIA Status: Resolved (5) Diabetes mellitus type 2 Status: Chronic (6) Heart disease Status: Chronic (7) Hyperlipidemia Status: Chronic (8) Hysterectomy Status: Resolved (9) Knee surgery Status: Resolved (10) Migraines Status: Chronic (11) Placement of stent Status: Resolved H/o AR Macrocytic anemia Diastolic CHF Cirrhosis w/ascites Behet's RLS RA Family History Breast cancer Diabetes mellitus Hyperlipidemia Hypertension Myocardial infarction Stroke Social History Smoking Status: Never Smoker Smokeless Tobacco Use: No Alcohol Use: none Drug Use: none Marital Status: Housing status: lives with significant other Occupational Status: retired Immunizations History of Influenza Vaccine: Yes Influenza Vaccine Date: Jul 04, 2011 History of Tetanus Vaccine?: Yes Tetanus Immunization Date: Sep 28, 1995 History of Pneumococcal: Yes Pneumococcal Date: Jun 08, 2011 History of Hepatitis B Vaccine: Yes Hepatitis Immunization Date: Sep 28, 1995 Multi-Drug Resistant Organisms History of MDRO: No Allergies Coded Allergies: Codeine (Verified Allergy, Unknown, MORPHINE OK, 04/20/17) Latex2 -Systemic Allergic Response (Verified Allergy, Unknown, UNKNOWN, 04/20/17) Home Medications Scheduled Carvedilol (Coreg), 6.25 MG PO BID Clopidogrel (Plavix), 75 MG PO Q2D Cyanocobalamin (Vitamin B-12), 500 MCG PO QAM Folic Acid (Folvite), 1 MG PO QAM Furosemide (Lasix), 20 MG PO QAM Gabapentin (Neurontin), 300 MG PO TID Isosorbide Mononitrate Ext Rel (Imdur Ext Rel), 30 MG PO QAM Nitroglycerin (Nitrostat), 0.4 MG UT PRN Simvastatin (Zocor), 20 MG PO QPM Spironolactone (Aldactone), 25 MG PO QAM Verapamil Sust Rel (Calan Sr Ext Rel), 120 MG PO DAILY Scheduled PRN Docusate Sodium (Colace), 1 CAP PO BID PRN for Constipation Polyethylene Glycol 3350 (Miralax), 17 GM PO DAILY PRN for Constipation Review of Systems Constitutional: + sweats, + fatigue, No fever, No chills Eyes: No worsening of vision, No eye pain, No diplopia ENT: No hearing loss, No sore throat, No trouble swallowing Respiratory: No cough, No wheezing, No shortness of breath Cardiovascular: No chest pain, No claudication, No palpitations Abdomen: No pain, No nausea, No vomiting Musculoskeletal: No joint pain, No muscle pain, No calf pain Genitourinary - Female: + urinary incontinence, No dysuria, No urinary retention, No hematuria Neurologic: No paralysis, No weakness, No numbness/tingling Integumentary: No rash, No itch, No color change Physical Exam Vital Signs Date Time Temp Pulse Resp B/P (MAP) Pulse Ox O2 Delivery O2 Flow Rate FiO2 04/20/17 15:39 36.8 79 16 122/71 (88) 95 Room Air 04/20/17 15:18 81 16 124/67 95 Room Air 04/20/17 14:08 81 16 122/67 97 Room Air 04/20/17 13:51 96 Room Air 04/20/17 13:05 92/55 04/20/17 12:56 81 16 109/67 96 Room Air 04/20/17 12:15 76 04/20/17 12:05 77 12 100/65 95 Room Air 04/20/17 10:40 74 100/59 80 84/64 04/20/17 09:55 97 Room Air 04/20/17 09:55 76 04/20/17 09:55 36.8 77 18 107/71 95 Room Air General appearance: Well-developed, well-nourished, no apparent distress Head: Normocephalic, atraumatic Eyes: Normal inspection, PERRL, EOMI ENT: Normal ENT inspection, hearing grossly normal, pharynx normal Neck: Supple, no JVD, trachea midline Respiratory/Chest: Lungs clear to auscultation, normal breath sounds, no respiratory distress Cardiovascular: Regular rate & rhythm, no gallop, no murmur Abdomen/GI: +Suprapubic and epigastric areas mildly TTP. Normal bowel sounds, soft Extremities/Musculoskeletal: Normal inspection, no calf tenderness, no pedal edema Neurological/Psych: +Disoriented x [address] Alert, normal mood/affect , oriented to person Skin: Normal color, warm/dry, no rash Diagnostics Laboratory Results Results Past 24 Hours Test 04/20/17 09:30 04/20/17 10:10 04/20/17 10:30 04/20/17 10:58 Range/Units White Blood Count 9.30 4.8-10.8 K/uL Red Blood Count 3.31 4.2-5.4 M/uL Hemoglobin 11.2 12.0-16.0 g/dL Hematocrit 34.2 37-47 % Mean Corpuscular Volume 103.3 80-100 fL Mean Corpuscular Hemoglobin 33.8 25-34 pg Mean Corpuscular Hemoglobin Concent 32.7 32-36 g/dl Platelet Count 95 130-400 K/uL Mean Platelet Volume 9.9 7.4-10.4 fL Neutrophils (%) (Auto) 63.6 % Lymphocytes (%) (Auto) 20.4 % Monocytes (%) (Auto) 12.5 % Eosinophils (%) (Auto) 1.4 % Basophils (%) (Auto) 0.2 % Neutrophils # (Auto) 5.91 1.4-6.5 K/uL Lymphocytes # (Auto) 1.90 1.2-3.4 K/uL Monocytes # (Auto) 1.16 0.11-0.59 K/uL Eosinophils # (Auto) 0.13 0-0.5 K/uL Basophils # (Auto) 0.02 0-0.2 K/uL RDW Standard Deviation 70.8 36.4-46.3 fL RDW Coefficient of Variation 19.1 11.5-14.5 % Immature Granulocyte % (Auto) 1.9 % Immature Granulocyte # (Auto) 0.18 0.00-0.02 K/uL Platelet Estimate DECREASED Anisocytosis PRESENT Peripheral Blood Smear Path Consult Sodium Level 137 136-145 mmol/L Potassium Level 4.3 3.5-5.1 mmol/L Chloride Level 102 98-107 mmol/L Carbon Dioxide Level 26 21-32 mmol/L Anion Gap 9.0 3-11 mmol/L Blood Urea Nitrogen 14 7-18 mg/dl Creatinine 1.20 0.60-1.20 mg/dl Est Creatinine Clear Calc Drug Dose 35.0 ml/min Estimated GFR () 51.6 Estimated GFR (Non- 44.5 BUN/Creatinine Ratio 11.6 10-20 Random Glucose 132 70-99 mg/dl Calcium Level 8.1 8.5-10.1 mg/dl Magnesium Level 1.8 1.8-2.4 mg/dl Total Bilirubin 1.0 0.2-1 mg/dl Direct Bilirubin 0.3 0-0.2 mg/dl Aspartate Amino Transf (AST/SGOT) 24 15-37 U/L Alanine Aminotransferase (ALT/SGPT) 25 12-78 U/L Alkaline Phosphatase 94 45-117 U/L Total Protein 6.4 6.4-8.2 gm/dl Albumin 2.8 3.4-5.0 gm/dl Thyroid Stimulating Hormone (TSH) 4.910 0.300-4.500 uIu/ml Free Thyroxine 1.21 0.80-1.60 ng/dl Bedside Troponin I < 0.030 0-0.045 ng/ml Urine Color YELLOW Urine Appearance CLOUDY CLEAR Urine pH 6.5 4.5-7.5 Urine Specific [place] 1.012 1.000-1.030 Urine Protein NEG NEG Urine Glucose (UA) NEG NEG Urine Ketones NEG NEG Urine Occult Blood TRACE NEG Urine Nitrite NEG NEG Urine Bilirubin NEG NEG Urine Urobilinogen NEG NEG Urine Leukocyte Esterase LARGE NEG Urine WBC (Auto) >30 0-5 /hpf Urine RBC (Auto) 0-4 0-4 /hpf Urine Hyaline Casts (Auto) 1-5 0-5 /lpf Urine Epithelial Cells (Auto) >30 0-5 /lpf Urine Bacteria (Auto) 1+ NEG Prothrombin Time 12.7 9.0-12.0 SECONDS Prothromb Time International Ratio 1.2 0.9-1.1 Activated Partial Thromboplast Time 23.4 21.0-31.0 SECONDS Partial Thromboplastin Ratio 0.9 Test 04/20/17 12:24 Range/Units Bedside Troponin I < 0.030 0-0.045 ng/ml Microbiology Results 04/20/17 Urine Culture, Received Pending Diagnostic Radiology Reviewed the following studies and agree with interpretation as follows: Patient Name: MARINA JOHNS Unit Number: [id number] Dictated: 04/20/171028 Transcribed: 04/20/17 102 PBS Printed Date/Time: [~ rep prt dt]/[~ rep prt tm] [~ rep ct labl] - [~ rep ct ivnm] [facility] [place] [address] Dictated: 04/20/17 102 Transcribed: 04/20/17 1029 PBS Printed Date/Time: [~ rep prt dt]/[~ rep prt tm] [~ rep ct labl] - [~ rep ct ivnm] Patient: MARINA JOHNS Address1: [address] [place] [address] Rec: [id number] Address2: Acct ID: [id number] [facility] Zip: [place] [address] Date: 1945 Sex: F Room/Bed: Ref Phy: Robin Brito III, CRNP SC: [facility] Att Phy: Report #: [id number] Teodora Phy: Robin Brito III, CRNP Test: CXR1P Admit Phy: [employer] Rep: USHA Interpreting Phy: Cheikh Porter MD Diagnosis: SYNCOPE Ordering Phy: Tommy Fisher M.D. Service Date: 04/20/17 Admit Date: 04/20/17 MNE: [id number] CONF: DICTATED BY: Cheikh Porter MD]] CC: Tommy Fisher M.D. Griel, Lester C. III, CRNP Endcc: [~ rep ct add3]] CHEST ONE VIEW PORTABLE CLINICAL HISTORY: 72 years-old Female presenting with ALTERED MENTAL STATUS/WEAKNESS. TECHNIQUE: Portable upright AP view of the chest was obtained. COMPARISON: 12/05/2016. FINDINGS: Cardiomediastinal silhouette normal. Lungs and pleural spaces clear. Osseous structures and upper abdomen normal. IMPRESSION: 1. No acute cardiopulmonary disease. Electronically signed by: Cheikh Porter 04/20/2017 10:32 AM Dictated Date/Time: 04/20/2017 10:29 AM The status of this report is Signed. Draft = Not yet reviewed or approved by Radiologist. Signed = Reviewed and approved by Radiologist. <AttendingPhy></AttendingPhy> <FamilyPhy>Robin Brito III, CRNP</FamilyPhy> < PrimaryPhy>Robin Brito III, CRNP</PrimaryPhy> <UnitNumber>[id number]</ UnitNumber> <VisitNumber>[id number]</VisitNumber> <PatientName>KATHI JOHNSRaysa Mehta </PatientName> <DateOfBirth>1945</DateOfBirth> <Location>[facility]</Location> <ServiceDate>04/20/17</ServiceDate> <MNE>ESINDI</MNE> <OrderingPhy>Tommy Fisher M.D.</OrderingPhy> <OrderingPhyMNE>f rep ord dr mnraysa</OrderingPhyMNE> < DictatingPhyMNE>f rep dict dr dahl</DictatingPhyMNE> <CCListMNE>f rep ct nabila</ CCListMNE> <AdmittingPhyMNE>f pt admit dr dahl</AdmittingPhyMNE> <AttendingPhyMNE >f pt attend dr dahl</AttendingPhyMNE> <ConsultingPhyMNE>f pt consult dr dahl</ConsultingPhyMNE> <FamilyPhyMNE>f pt fam dr dahl</FamilyPhyMNE> <OtherPhyMNE>f pt other dr dahl</OtherPhyMNE> < PrimaryPhyMNE>f pt prim care dr dahl</PrimaryPhyMNE> <ReferringPhyMNE>f pt referring dr dahl</ReferringPhyMNE> EKG Reviewed EKG and agree with interpretation as follows: 76 bpm, NSR Impression Assessment and Plan 72 y/o female with a history of macrocytic anemia, CAD, h/o AR s/p stent, DM II , HTN, HLD, diastolic CHF, cirrhosis w/ascites, Behet's syndrome, restless leg syndrome, RA, and h/o TIA who presented to the ED on 04/20 following a syncopal episode. Patient was afebrile, VSS on arrival but did develop hypotension which resolved with fluid boluses. CBC showed hemoglobin 11.2, MCV 103.3, and platelet count of 95. INR 1.2. Albumin 2.8. TSH 4.91. Initial dbmxs-as-ovyw troponin negative. UA positive for high epithelial cell count and 1+ bacteria. Chest x-ray shows no acute disease. Syncopal episode, likely vasovagal -Admit to telemetry to rule out arrhythmias -Echocardiogram. Last echo done 2012 showed preserved ejection fraction, type I diastolic dysfunction, and mild mitral regurgitation -Trend cardiac enzymes q8h 3 -Orthostatic blood pressure every shift -Patient had head CT last week that showed no acute intracranial findings. Syncopal episodes began prior to that CT. No need to repeat CT for now unless patient develops neuro deficits -EKGs q am and prn with chest pain Macrocytic anemia, thrombocytopenia--baseline hemoglobin appears to be around 9- 10 -Hemoglobin 11.2 on arrival -Platelet count 95 on arrival. Platelets had been up to 246 one week prior -Check peripheral blood smear, concern for myelodysplasia -Continue folic acid and B12 supplements CAD, h/o AR, HLD, HTN, h/o TIA--stable -Continue Plavix 75 mg PO qd, Imdur 30 mg PO qd, Zocor 20 mg, Coreg 6.25 mg PO BID, and verapamil 120 mg PO qd Diabetes mellitus type II--last hemoglobin A1c checked 12/06/16 was 5.0 -Insulin sliding scale -Check BSGs q ac and qhs -Recheck hemoglobin A1c Diastolic CHF -Continue spironolactone 25 mg PO qd and Lasix 20 mg PO qd Cirrhosis w/ascites--last CT abdomen/pelvis done 03/31/17 showed cirrhosis with portal hypertension, abdominal and pelvic ascites, mild splenomegaly, and varices formation -Patient's last paracentesis 1 week ago -Patient seen by Dr. Daniels last admission, she will need a follow-up appointment with him prior to discharge 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 Prednisone now complete DVT prophylaxis -Heparin 5000 units SC q12h -JABARI Potts Code Status -Level III, FULL [facility] This chart was completed in part utilizing [employer] Speech Voice Recognition software. Attempts were made to minimize the grammatical errors, random word insertions, pronoun errors and incomplete sentences. Any formal questions or concerns about the content, text or information contained within the body of this dictation should be directly addressed to the provider for clarification. Attending Addendum: I have physically seen and examined this patient, have directed the physician assistants medical extremities, and agree with the H&P as noted above with the following exceptions: NONE The patient is awake, well-developed and adequately nourished, alert and oriented 3, normocephalic and atraumatic, lying in bed and in no acute distress. HEENT--PERRL, EOMI, mucous membranes and oropharynx dry. Neck--supple, no JVD or bruits, thyroid normal, trachea midline, no adenopathy. Heart--normal S1 and S2, no extra beats, no murmurs, rubs or gallops. Lungs--clear bilaterally but diminished throughout, no respiratory distress, no accessory muscle use. Abdomen--normal bowel sounds and soft, nontender and nondistended, no hernias or masses, no organomegaly. Extremities--no cyanosis, clubbing or edema. There are good distal pulses b/l. Dermatologic--normal skin turgor, looks pale, warm and dry, no abnormal lymph nodes, no rash. Neurologic--cranial nerves II through XII grossly intact. Rheumatologic--range of motion limited by generalized mild tenderness of muscles and joints. Psychiatric--normal affect. Assessment and Plan: 1. Syncope-admit to the telemetry unit for serial cardiac enzymes, cardiac rhythm monitoring and a 2-D echocardiogram with Dopplers. Orthostatic vital signs. 2. COPD/hypertension/history of AR/diastolic CHF/history of TIA/patient's syndrome/anemia--hemoglobin was 11.2 on arrival, which is slightly above her baseline of 9 - 10. We'll follow serial laboratories. Her platelets have decreased from 246 one week ago to 95 today. We'll check a peripheral blood smear, iron, TIBC, B12, folic acid levels. Continue Plavix, Imdur, Zocor, Coreg with hold parameters, and verapamil with hold parameters. We will hold spironolactone and Lasix. Patient has been on a prednisone taper recently for Behcet's Syndrome flare. We 'll place her on stress dose steroids today. Level of Care Telemetry Advanced Directives Existing Living Will: Yes Existing Power of Charter Boat Captain: No Resuscitation Status FULL NO [facility] VTE Prophylaxis VTE Risk Assessment Done? Y/N: Yes Risk Level: Moderate Given or contraindicated: Unfractionated heparin SQ, T.E.D. Stockings, SCD's
[2017-04-20] MEDS: INSULIN ASPART 100 UNITS/ML 3 ML PEN SC SCH ×2 (17:16→21:00)
[2017-04-20] MEDS: ACETAMINOPHEN 325 MG TAB PO PRN ×2 (17:22→23:50)
[2017-04-20] MEDS: IBUPROFEN 600 MG TAB PO PRN (19:06)
[2017-04-20 20:00] VITALS: BP 105/68; PULSE 83; TEMP 36.4; O2SAT 94
[2017-04-20] MEDS ORDERED: TRAMADOL HCL 50 MG TAB PO ONE (20:30)
[2017-04-20] MEDS ORDERED: TRAMADOL HCL 50 MG TAB ONE (20:58)
[2017-04-20] MEDS: GABAPENTIN 300 MG CAP PO SCH (21:02)
[2017-04-20] MEDS: SIMVASTATIN 20 MG TAB PO SCH (21:03)
[2017-04-20] MEDS: HEPARIN SOD 5000 UNIT/0.5 ML CARP SQ SCH (21:09)
[2017-04-20] MEDS: CARVEDILOL 6.25 MG TAB PO SCH (21:13)
[2017-04-20 23:02] VITALS: BP 96/61; PULSE 72; TEMP 36.6; O2SAT 94
[2017-04-21] VITALS (9 sets, daily range): BP systolic 90–119; BP diastolic 48–74; PULSE 65–86; TEMP 36.4–36.8; O2SAT 94–97
[2017-04-21 02:30] LABS: HEMATOCRIT 26.7 % (37-47); MEAN CELL VOLUME 103.5 fL (80-100); MEAN CORPUSCULAR HEMOGLOBIN 32.9 pg (25-34); MEAN CORPUSCULAR HGB CONC 31.8 g/dl (32-36); RED BLOOD COUNT 2.58 M/uL (4.2-5.4); WHITE BLOOD COUNT 5.35 K/uL (4.8-10.8)
[2017-04-21] MEDS: IBUPROFEN 600 MG TAB PO PRN ×2 (02:36→21:06)
[2017-04-21 02:48] LABS: BLOOD UREA NITROGEN 18 mg/dl (7-18); BUN/CREATININE RATIO 14.1 (10-20); CALCIUM 7.2 mg/dl (8.5-10.1); CARBON DIOXIDE 28 mmol/L (21-32); CHLORIDE 103 mmol/L (98-107); GLUCOSE 100 mg/dl (70-99); POTASSIUM 4.2 mmol/L (3.5-5.1); SODIUM 136 mmol/L (136-145)
[2017-04-21 02:58] LABS: MEAN PLATELET VOLUME 10.4 fL (7.4-10.4); PLATELET COUNT 57 K/uL (130-400)
[2017-04-21 02:59] LABS: BASO % 0.2 %; BASO ABS # 0.01 K/uL (0-0.2); COMPLETE YES; EOS % 2.2 %; IG% 1.3 %; LYMPH % 22.6 %; LYMPH ABS # 1.21 K/uL (1.2-3.4); NEUT % 62.7 %
[2017-04-21 05:09] LABS: MEAN CELL VOLUME 103.4 fL (80-100); MEAN CORPUSCULAR HEMOGLOBIN 32.6 pg (25-34); RED BLOOD COUNT 2.61 M/uL (4.2-5.4); WHITE BLOOD COUNT 5.07 K/uL (4.8-10.8)
[2017-04-21 05:12] LABS: MEAN CORPUSCULAR HGB CONC 31.5 g/dl (32-36); MEAN PLATELET VOLUME 9.9 fL (7.4-10.4); PLATELET COUNT 54 K/uL (130-400)
[2017-04-21 05:32] LABS: ANISOCYTOSIS PRESENT; BASO % 0.4 %; BASO ABS # 0.02 K/uL (0-0.2); COMPLETE YES; LYMPH % 22.1 %; LYMPH ABS # 1.12 K/uL (1.2-3.4); NEUT % 62.5 %
[2017-04-21 06:26] LABS: ESTIMATED AVERAGE GLUCOSE 131 mg/dl; HA1C FLAG Normal (Normal)
[2017-04-21] MEDS: INSULIN ASPART 100 UNITS/ML 3 ML PEN SC SCH ×4 (06:30→21:09)
[2017-04-21] MEDS: HEPARIN SOD 5000 UNIT/0.5 ML CARP SQ SCH ×2 (07:46→21:10)
[2017-04-21] MEDS: ISOSORBIDE MONONITRATE 30 MG TABCR PO SCH (07:47)
[2017-04-21] MEDS: CARVEDILOL 6.25 MG TAB PO SCH ×2 (07:48→21:06)
[2017-04-21] MEDS: CLOPIDOGREL BISULFATE 75 MG TAB PO SCH (07:49)
[2017-04-21] MEDS: CYANOCOBALAMIN 500 MCG TAB (VIT B-12) PO SCH (07:49)
[2017-04-21] MEDS: SPIRONOLACTONE 25 MG TAB PO SCH (07:49)
[2017-04-21] MEDS: GABAPENTIN 300 MG CAP PO SCH ×3 (07:49→21:06)
[2017-04-21] MEDS: FUROSEMIDE 20 MG TAB PO SCH (07:50)
[2017-04-21] MEDS ORDERED: VERAPAMIL HCL 120 MG TABCR PO SCH (09:00)
--- NOTE | 2017-04-21 12:30 | Oncology Consultation ---
Oncology/Heme Consultation Date of Consultation: Apr 21, 2017. Attending Physician: Edward Becerra M.D. Reason for Consultation: Pancytopenia History of Present Illness Ms. Rehman was seen today. We recall this patient from seeing her in. She is admitted now with syncope. In mid March we had seen this 72-year-old female at a time when she was having abdominal discomfort. A CT scan of her abdomen showed changes radiographically consistent with cirrhosis and portal hypertension with mild splenomegaly. Her blood counts were monitored throughout that stay her platelet count will drift down considerably. However it began to return in fact recently a platelet count was over 200,000. She is admitted now with a syncopal episode. The who is at the bedside today states that she has had 3 of these episodes. There has not been any witnessed seizure activity. The patient is mildly demented and subsequently review of systems is history can not be relied upon. His been no fever. Has been no diarrhea or nausea or vomiting Past Medical/Surgical History Medical Problems: (1) Anemia Status: Acute (2) Bleeding hemorrhoid Status: Acute (3) GI bleed Status: Acute (4) Hyperglycemia Status: Acute (5) Hypotension Status: Acute (6) Lactic acidosis Status: Acute (7) Mesenteric artery stenosis Status: Acute (8) Pancytopenia Status: Acute (9) Portal hypertension Status: Acute (10) Symptomatic anemia Status: Acute (11) Syncope Status: Acute (12) UTI (urinary tract infection) Status: Acute (13) Weakness Status: Acute Family History Breast cancer Diabetes mellitus Hyperlipidemia Hypertension Myocardial infarction Stroke Social History Smoking Status: Never Smoker Smokeless Tobacco Use: No Alcohol Use: none Drug Use: none Marital Status: Housing Status: lives with significant other Occupation Status: retired Allergies Coded Allergies: Codeine (Verified Allergy, Unknown, MORPHINE OK, 04/20/17) Latex2 -Systemic Allergic Response (Verified Allergy, Unknown, UNKNOWN, 04/20/17) Home Medications Scheduled Carvedilol (Coreg), 6.25 MG PO BID Clopidogrel (Plavix), 75 MG PO Q2D Cyanocobalamin (Vitamin B-12), 500 MCG PO QAM Folic Acid (Folvite), 1 MG PO QAM Furosemide (Lasix), 20 MG PO QAM Gabapentin (Neurontin), 300 MG PO TID Isosorbide Mononitrate Ext Rel (Imdur Ext Rel), 30 MG PO QAM Nitroglycerin (Nitrostat), 0.4 MG UT PRN Simvastatin (Zocor), 20 MG PO QPM Spironolactone (Aldactone), 25 MG PO QAM Verapamil Sust Rel (Calan Sr Ext Rel), 120 MG PO DAILY Scheduled PRN Docusate Sodium (Colace), 1 CAP PO BID PRN for Constipation Polyethylene Glycol 3350 (Miralax), 17 GM PO DAILY PRN for Constipation Current Inpatient Medications Current Inpatient Medications Medications (Trade) Dose Ordered Sig/Sonam Route Start Time Stop Time Status Last Admin Dose Admin Heparin Sodium (Porcine) (Heparin Sq 5000 Unit/0.5ml) 5,000 unit Q12 SQ 04/20/17 21:00 05/20/17 20:59 04/21/17 07:46 5,000 UNIT Acetaminophen (Tylenol Tab) 650 mg Q4H PRN PO 04/20/17 14:15 05/20/17 14:14 04/20/17 23:50 650 MG Al Hydrox/Mg Hydrox/Simethicone (Maalox Max Susp) 15 ml Q4H PRN PO 04/20/17 14:15 05/20/17 14:14 Magnesium Hydroxide (Milk Of Magnesia Susp) 30 ml Q12H PRN PO 04/20/17 14:15 05/20/17 14:14 Ondansetron HCl (Zofran Inj) 4 mg Q6H PRN IV 04/20/17 14:15 05/20/17 14:14 Polyethylene (Miralax Powder Packet) 17 gm DAILY PRN PO 04/20/17 14:15 05/20/17 14:14 Carvedilol (Coreg Tab) 6.25 mg BID PO 04/20/17 21:00 05/20/17 20:59 04/20/17 21:13 6.25 MG Clopidogrel Bisulfate (plAVix TAB) 75 mg Q2D@0900 PO 04/21/17 09:00 05/21/17 08:59 04/21/17 07:49 75 MG Cyanocobalamin (Vitamin B-12 Tab) 500 mcg QAM PO 04/21/17 09:00 05/21/17 08:59 04/21/17 07:49 500 MCG Docusate Sodium (coLACE CAP) 100 mg BID PRN PO 04/20/17 14:30 05/20/17 14:29 Folic Acid (Folvite Tab) 1 mg QAM PO 04/21/17 09:00 05/21/17 08:59 04/21/17 07:49 1 MG Furosemide (Lasix Tab) 20 mg QAM PO 04/21/17 09:00 05/21/17 08:59 04/21/17 07:50 20 MG Gabapentin (Neurontin Cap) 300 mg TID PO 04/20/17 21:00 05/20/17 20:59 04/21/17 07:49 300 MG Isosorbide Mononitrate (Imdur Ext Rel Tab) 30 mg QAM PO 04/21/17 09:00 05/21/17 08:59 04/21/17 07:47 30 MG Nitroglycerin (Nitrostat Tab) 0.4 mg PRN UT 04/20/17 14:30 05/20/17 14:29 Simvastatin (Zocor Tab) 20 mg QPM PO 04/20/17 21:00 05/20/17 20:59 04/20/17 21:03 20 MG Spironolactone (Aldactone Tab) 25 mg QAM PO 04/21/17 09:00 05/21/17 08:59 04/21/17 07:49 25 MG Insulin Aspart (novoLOG ASPART) SLIDING SCALE If C... ACHS SC 04/20/17 16:00 05/20/17 15:59 04/20/17 17:16 1 UNITS Glucose (Glucose 40% Gel) 15-30 GRAMS 15 GRAMS... UD PRN PO 04/20/17 14:30 05/20/17 14:29 Glucose (Glucose Chew Tab) 4-8 Tablets 4 Tabl... UD PRN PO 04/20/17 14:30 05/20/17 14:29 Dextrose (Dextrose 50% 50ML Syringe) 25-50ML OF 50% DW IV FOR... UD PRN IV 04/20/17 14:30 05/20/17 14:29 Glucagon (Glucagon Inj) 1 mg UD PRN SQ 04/20/17 14:30 05/20/17 14:29 Ibuprofen (Motrin Tab) 600 mg Q8H PRN PO 04/20/17 18:45 05/20/17 18:44 04/21/17 02:36 600 MG Review of Systems Review of systems was reviewed with the patient however there is some question as to its accuracy with her underlying dementia Constitutional: Negative for definite weight loss, night sweats, or fever Eyes: Negative for event change of vision ENT: Negative for epistaxis, nasal discharge, sore throat, or deafness Cardiovascular: Negative for chest pain, palpitations, dizziness, diaphoresis Respiratory: Negative for new shortness of breath,hemoptysis, or purulent cough Gastrointestinal: Negative for diarrhea, hematemesis, melena, nausea, vomiting , or dyspepsia Integumentary (skin): Negative for rash or jaundice discoloration Genitourinary: Negative for urinary frequency, hematuria, or dysuria Neurological: Again she has had a syncopal episode Lymphatic/Hematologic: Negative for petechiae, bleeding or new adenopathy Musculoskeletal: Negative for new joint or back pain Allergic/Immunologic: Negative for unusual rash or pruritis. Physical Exam Date Time Temp Pulse Resp B/P (MAP) Pulse Ox O2 Delivery O2 Flow Rate FiO2 04/21/17 11:49 36.6 81 18 110/72 (85) 95 Room Air 82 99/64 (76) 82 119/74 (89) 04/21/17 08:00 Room Air 04/21/17 07:32 36.4 72 18 109/69 (82) 97 Room Air 65 99/48 (65) 90/52 (65) 04/21/17 04:11 36.5 67 16 113/73 (86) 94 Room Air 04/21/17 04:00 Room Air 04/21/17 00:00 Room Air 04/20/17 23:02 36.6 72 16 96/61 (73) 94 Room Air 04/20/17 20:00 94 Room Air 04/20/17 20:00 36.4 83 16 105/68 (80) 94 Room Air 04/20/17 15:39 36.8 79 16 122/71 (88) 95 Room Air 04/20/17 15:18 81 16 124/67 95 Room Air 04/20/17 14:08 81 16 122/67 97 Room Air 04/20/17 13:51 96 Room Air 04/20/17 13:05 92/55 04/20/17 12:56 81 16 109/67 96 Room Air Constitutional: vitals are stable. She is mildly ddemented. Eyes: Eyes are CINTHYA EOMI without conjuctival erythema or icterus. ENT: External examination was negative for masses. Neck: Negative for masses or palpable thyromegaly Respiratory: Lung sounds were generally clear bilaterally Cardiovascular: Heart was RRR without significant murmur, gallops aoe rubs Gastrointestinal: The spleen is palpable below the left costal margin 2 fingerbreadths with deep inspiration Lymphatic system: there was no palpable peripheral lymphadenopathy Musculoskeletal System: The musculoskeletal system seemed concordant with age. Skin: The skin was negative for jaundice. Neurologic exam: The exam was negative for any focal findings. Deep tendon reflexes were equal and symmetrical. Psychiatric exam: Was essentially negative with normal mood and effect. Extremities: No edema Laboratory Results Last 24 Hours Test 04/20/17 12:24 04/20/17 16:43 04/20/17 18:11 04/20/17 20:04 Bedside Troponin I < 0.030 ng/ml Bedside Glucose 194 mg/dl 139 mg/dl Estimated Average Glucose 131 mg/dl Hemoglobin A1c 6.2 % Troponin I < 0.015 ng/ml Test 04/21/17 02:15 04/21/17 04:46 04/21/17 07:31 04/21/17 10:26 White Blood Count 5.35 K/uL 5.07 K/uL Red Blood Count 2.58 M/uL 2.61 M/uL Hemoglobin 8.5 g/dL 8.5 g/dL 10.7 g/dL Hematocrit 26.7 % 27.0 % 33.0 % Mean Corpuscular Volume 103.5 fL 103.4 fL Mean Corpuscular Hemoglobin 32.9 pg 32.6 pg Mean Corpuscular Hemoglobin Concent 31.8 g/dl 31.5 g/dl Platelet Count 57 K/uL 54 K/uL Mean Platelet Volume 10.4 fL 9.9 fL Neutrophils (%) (Auto) 62.7 % 62.5 % Lymphocytes (%) (Auto) 22.6 % 22.1 % Monocytes (%) (Auto) 11.0 % 12.0 % Eosinophils (%) (Auto) 2.2 % 2.0 % Basophils (%) (Auto) 0.2 % 0.4 % Neutrophils # (Auto) 3.35 K/uL 3.17 K/uL Lymphocytes # (Auto) 1.21 K/uL 1.12 K/uL Monocytes # (Auto) 0.59 K/uL 0.61 K/uL Eosinophils # (Auto) 0.12 K/uL 0.10 K/uL Basophils # (Auto) 0.01 K/uL 0.02 K/uL RDW Standard Deviation 70.6 fL 69.7 fL RDW Coefficient of Variation 18.7 % 18.6 % Immature Granulocyte % (Auto) 1.3 % 1.0 % Immature Granulocyte # (Auto) 0.07 K/uL 0.05 K/uL Red Blood Cell Morphology Unremarkable Sodium Level 136 mmol/L Potassium Level 4.2 mmol/L Chloride Level 103 mmol/L Carbon Dioxide Level 28 mmol/L Anion Gap 5.0 mmol/L Blood Urea Nitrogen 18 mg/dl Creatinine 1.30 mg/dl Est Creatinine Clear Calc Drug Dose 32.3 ml/min Estimated GFR () 46.8 Estimated GFR (Non- 40.4 BUN/Creatinine Ratio 14.1 Random Glucose 100 mg/dl Calcium Level 7.2 mg/dl Troponin I < 0.015 ng/ml Anisocytosis PRESENT Bedside Glucose 110 mg/dl Assessment & Plan Cytopenias once again are occurring I believe is a result of portal hypertension and passive congestion of the spleen. Review of the peripheral smear is really unremarkable. Red cell morphology has some mild nasal cytosis but again not very remarkable. White cell morphology appears stable and normal. The platelets are not clumped. Again with the rapidity of change of the platelet number I suspect that she once again similar to her last admission having a bout of passive congestion. This might be related to her syncopal episode if she became hypotensive. Otherwise from a hematologic standpoint the only recommendation would be to support with blood products as needed. I would not transfuse with platelets unless bleeding occurs. Little else to offer again from the hematologic standpoint at this time. The family is unaware as to whether she resumed methotrexate. She had been on this (methotrexate) according to the notes in the past but at the time of the recent discharge this medicine I believe was held.
[2017-04-21] MEDS ORDERED: AMPICILLIN/SULBACTAM CONSULT ACTIVE PRN ×2 (13:00)
[2017-04-21] MEDS: AMPICILLIN/SULBACTAM SOD INJ 3,000 MG in SODIUM CHLORIDE 0.9% 100ML 100 ML IV SCH ×3 (13:09→23:46)
--- NOTE | 2017-04-21 13:14 | Clinical Documentation Query ---
CLINICAL DOCUMENTATION QUERY Dr. CALDERON, In your clinical opinion is this patient being managed for: ( ) Urinary tract infection, POA ( ) Other explanation of clinical findings (Please Explain) ( ) Unable to determine (Please Define) ( ) Need to Discuss ( ) Not Agree The medical record reflects the following clinical findings, treatment, and risk factors. Clinical Indicators: 72 yo female presenting after a syncopal episode. UA culture shows strep species. Treatment: IV fluids, IV rocephin, IV unasyn Risk Factors: age, gender, DM Please clarify and document your clinical opinion in the progress notes and discharge summary. Terms such as "probable", "suspected", "likely", "questionable", "possible", or "still to be ruled out" are acceptable. IF IN AGREEMENT, YOU MUST DOCUMENT ABOVE DIAGNOSTIC STATEMENT IN DAILY PROGRESS NOTES AND DISCHARGE SUMMARY. This document is not part of the patient's record. Thank You, Samara Barnhart RN [phone]
--- NOTE | 2017-04-21 16:50 | Gastrointestinal Consultation ---
Gastrointestinal Consultation Date of Consultation: Apr 21, 2017 Consulting Physician: Orlando Fernández Reason for Consultation: cirrhosis History of Present Illness Patient is a 72 year old female followed by [facility] in [place] with cirrhosis. I was mistakenly consulted see the patient during her hospital stay. She was admitted with syncopal episode. Maintained on Lasix and Aldactone for ascites. There is no evidence of hepatic encephalopathy at this time. She reports no abdominal pain and is awake and alert. Past Medical/Surgical History Medical Problems: (1) Anemia Status: Acute (2) Bleeding hemorrhoid Status: Acute (3) GI bleed Status: Acute (4) Hyperglycemia Status: Acute (5) Hypotension Status: Acute (6) Lactic acidosis Status: Acute (7) Mesenteric artery stenosis Status: Acute (8) Pancytopenia Status: Acute (9) Portal hypertension Status: Acute (10) Symptomatic anemia Status: Acute (11) Syncope Status: Acute (12) UTI (urinary tract infection) Status: Acute (13) Weakness Status: Acute Family History Breast cancer Diabetes mellitus Hyperlipidemia Hypertension Myocardial infarction Stroke Social History Smoking Status: Never Smoker Alcohol Use: none Drug Use: none Marital Status: Housing Status: lives with significant other Occupation Status: retired Allergies Coded Allergies: Codeine (Verified Allergy, Unknown, MORPHINE OK, 04/20/17) Latex2 -Systemic Allergic Response (Verified Allergy, Unknown, UNKNOWN, 04/20/17) Current Medications Home Meds and Scripts Medications Dose Route/Sig Max Daily Dose Days Date Category Dose Instructions Aldactone (Spironolactone) 25 Mg Tab 25 Mg PO QAM 04/13/17 Reported Miralax (Polyethylene Glycol 3350) 1 Pow Pow 17 Gm PO DAILY PRN 04/13/17 Reported Lasix (Furosemide) 20 Mg Tab 20 Mg PO QAM 04/13/17 Reported Folvite (Folic Acid) 1 Mg Tab 1 Mg PO QAM 04/13/17 Reported Colace (Docusate Sodium) 100 Mg Cap 1 Cap PO BID PRN 04/13/17 Reported Vitamin B-12 (Cyanocobalamin) 500 Mcg Tab 500 Mcg PO QAM 04/13/17 Reported Coreg (Carvedilol) 6.25 Mg Tab 6.25 Mg PO BID 04/13/17 Reported Neurontin (Gabapentin) 300 Mg Cap 300 Mg PO TID 12/08/15 Reported Zocor (Simvastatin) 20 Mg Tab 20 Mg PO QPM 12/08/15 Reported Imdur Ext Rel (Isosorbide Mononitrate) 30 Mg Ertab 30 Mg PO QAM 07/24/14 Reported Calan Sr Ext Rel (Verapamil HCl) 120 Mg Tabcr 120 Mg PO DAILY 03/27/13 Reported Nitrostat (Nitroglycerin) 0.4 Mg Tab 0.4 Mg UT PRN 05/31/11 Reported ONE TABLET UNDER THE TONGUE EVERY 5 MINUTES, UP TO 3 DOSES , NEEDED FOR CHEST PAIN. Plavix (Clopidogrel Bisulfate) 75 Mg Tab 75 Mg PO Q2D 01/28/11 Reported Review of Systems Constitutional: No see HPI, No fever, No chills, No sweats, No weight loss, No weakness, No fatigue, No problem reported ENT: No see HPI, No hearing loss, No unusual epistaxis, No nasal symptoms, No sore throat, No tinnitus, No dental problems, No trouble swallowing, No pain on swallowing, No problem reported Respiratory: No see HPI, No cough, No sputum, No wheezing, No shortness of breath, No dyspnea on exertion, No dyspnea at rest, No hemoptysis, No problem reported Cardiac: No see HPI, No chest pain, No orthopnea, No PND, No edema, No claudication, No palpitations, No problem reported Abdomen: + problem reported (abdomen is slightly distended) Neuro: No see HPI, No memory loss, No paralysis, No weakness, No numbness/ tingling, No vertigo, No balance problems, No problem reported Physical Exam Date Time Temp Pulse Resp B/P (MAP) Pulse Ox O2 Delivery O2 Flow Rate FiO2 04/21/17 15:15 36.8 81 20 105/66 (79) 95 Room Air 84 111/70 (84) 84 102/66 (78) 04/21/17 12:00 Room Air 04/21/17 11:49 36.6 81 18 110/72 (85) 95 Room Air 82 99/64 (76) 82 119/74 (89) 04/21/17 08:00 Room Air 04/21/17 07:32 36.4 72 18 109/69 (82) 97 Room Air 65 99/48 (65) 90/52 (65) 04/21/17 04:11 36.5 67 16 113/73 (86) 94 Room Air 04/21/17 04:00 Room Air 04/21/17 00:00 Room Air 04/20/17 23:02 36.6 72 16 96/61 (73) 94 Room Air 04/20/17 20:00 94 Room Air 04/20/17 20:00 36.4 83 16 105/68 (80) 94 Room Air General Appearance: WD/WN Respiratory/Chest: lungs clear Cardiovascular: regular rate, rhythm Abdomen: + distended, + pertinent finding (there is low midline scar from previous hysterectomy) Neurologic/Psych: heeler machine II-XII nml as tested Laboratory Results Last 24 Hours Test 04/20/17 18:11 04/20/17 20:04 04/21/17 02:15 04/21/17 04:46 Estimated Average Glucose 131 mg/dl Hemoglobin A1c 6.2 % Troponin I < 0.015 ng/ml < 0.015 ng/ml Bedside Glucose 139 mg/dl White Blood Count 5.35 K/uL 5.07 K/uL Red Blood Count 2.58 M/uL 2.61 M/uL Hemoglobin 8.5 g/dL 8.5 g/dL Hematocrit 26.7 % 27.0 % Mean Corpuscular Volume 103.5 fL 103.4 fL Mean Corpuscular Hemoglobin 32.9 pg 32.6 pg Mean Corpuscular Hemoglobin Concent 31.8 g/dl 31.5 g/dl Platelet Count 57 K/uL 54 K/uL Mean Platelet Volume 10.4 fL 9.9 fL Neutrophils (%) (Auto) 62.7 % 62.5 % Lymphocytes (%) (Auto) 22.6 % 22.1 % Monocytes (%) (Auto) 11.0 % 12.0 % Eosinophils (%) (Auto) 2.2 % 2.0 % Basophils (%) (Auto) 0.2 % 0.4 % Neutrophils # (Auto) 3.35 K/uL 3.17 K/uL Lymphocytes # (Auto) 1.21 K/uL 1.12 K/uL Monocytes # (Auto) 0.59 K/uL 0.61 K/uL Eosinophils # (Auto) 0.12 K/uL 0.10 K/uL Basophils # (Auto) 0.01 K/uL 0.02 K/uL RDW Standard Deviation 70.6 fL 69.7 fL RDW Coefficient of Variation 18.7 % 18.6 % Immature Granulocyte % (Auto) 1.3 % 1.0 % Immature Granulocyte # (Auto) 0.07 K/uL 0.05 K/uL Red Blood Cell Morphology Unremarkable Sodium Level 136 mmol/L Potassium Level 4.2 mmol/L Chloride Level 103 mmol/L Carbon Dioxide Level 28 mmol/L Anion Gap 5.0 mmol/L Blood Urea Nitrogen 18 mg/dl Creatinine 1.30 mg/dl Est Creatinine Clear Calc Drug Dose 32.3 ml/min Estimated GFR () 46.8 Estimated GFR (Non- 40.4 BUN/Creatinine Ratio 14.1 Random Glucose 100 mg/dl Calcium Level 7.2 mg/dl Anisocytosis PRESENT Test 04/21/17 07:31 04/21/17 10:26 04/21/17 11:31 Bedside Glucose 110 mg/dl 158 mg/dl Hemoglobin 10.7 g/dL Hematocrit 33.0 % Impression Patient is a 72 year old female with a history of cirrhosis who presented with a syncopal episode. She does not appear to be encephalopathic. She will continue on Lasix and Aldactone. Her sodium and potassium are normal. Plan Continue current medications and get an abdominal ultrasound to assess the patient for possible ascites. The patient will follow up with [facility] in [place] upon discharge.
[2017-04-21] MEDS: ACETAMINOPHEN 325 MG TAB PO PRN (17:09)
[2017-04-21 17:47] LABS: HEMATOCRIT 31.6 % (37-47)
--- NOTE | 2017-04-21 18:15 | ECHOCARDIOGRAM REPORT ---
*NOTICE TO RECEIVING LIBERTARIAN AGENCY This information is strictly Confidential and protected under [place] law. [place] law prohibits you from making any further disclosure of this information unless further disclosure is expressly permitted by the written consent of the person to whom it pertains or is authorized by law. A general authorization for the release of medical or other information is not sufficient for this purpose. Hospital accepts no responsibility if the information is made available to any other person, INCLUDING THE PATIENT. Interpretation Summary * Name: MARINA JOHNS Study Date: 04/21/2017 02:03 PM BP: 119/74 mmHg * Patient Location: [facility]\S\N288\S\1 HR: 82 * : 1945 (M/d/yyyy) Gender: Female Height: 61 in * Age: 72 yrs Ethnicity: [place] Weight: 138 lb * Ordering Physician: Sherrill Cole * Referring Physician: Self, Referred * Performed By: Fifi Moore RDCS * * Reason For Study: Syncope * BSA: 1.6 m2 * Hyperdynamic left ventricular systolic function. * Left ventricular diastolic dysfunction. * Normal chamber dimensions. * Mild mitral regurgitation. * -- Conclusions -- * Aortic valve sclerosis mild, without significant aortic valvular stenosis. Procedure Details * A complete two-dimensional transthoracic echocardiogram was performed (2D, M-mode, Doppler and color flow Doppler). Left Ventricle * The left ventricle is normal in size. * Focal thickening of the basal septum with no evidence of left ventricular outflow obstruction. * The left ventricle is hyperdynamic. * Ejection Fraction = >70 %. * A full diastolic examination was done with clinical findings of Class I diastolic dysfunction. * No regional wall motion abnormalities noted. Atria * The left atrial size is normal. * Right atrial size is normal. * No ASD detected; PFO is not assessed. Mitral Valve * The mitral valve is normal. * There is no mitral valve stenosis. * There is mild mitral regurgitation. Tricuspid Valve * The tricuspid valve is not well visualized. * There is no tricuspid stenosis. * Significant tricuspid regurgitation is absent. Aortic Valve * The aortic valve is trileaflet. * The aortic valve opens well. * Aortic valve sclerosis mild, without significant aortic valvular stenosis. Pulmonic Valve * The pulmonic valve is not well visualized. * The pulmonary valve is inadequately visualized, but the Doppler data is adequate for interpretation. * There is no significant pulmonary regurgitation. Great Vessels * The aortic root is normal size. Pericardium/Pleural * There is no pericardial effusion. Great Vessels * Normal inferior vena cava diameter and respiratory variation suggests normal central venous pressure. MMode 2D Measurements and Calculations IVSd 0.94 cm LVIDd 3.1 cm LVIDs 1.7 cm LVPWd 0.88 cm IVS/LVPW 1.1 FS 43.0 % EDV(Teich) 36.6 ml ESV(Teich) 8.9 ml EF(Teich) 75.6 % EDV(cubed) 28.5 ml ESV(cubed) 5.3 ml EF(cubed) 81.4 % LV mass(C)d 73.2 grams LV mass(C)dI 45.3 grams/m\S\2 SV(Teich) 27.6 ml SI(Teich) 17.1 ml/m\S\2 SV(cubed) 23.2 ml SI(cubed) 14.4 ml/m\S\2 Ao root diam 3.0 cm Ao root area 7.3 cm\S\2 ACS 1.9 cm LA dimension 2.2 cm asc Aorta Diam 2.9 cm LA/Ao 0.72 LVOT diam 2.0 cm LVOT area 3.2 cm\S\2 LVAd ap4 15.6 cm\S\2 LVLd ap4 5.8 cm EDV(MOD-sp4) 34.1 ml EDV(sp4-el) 36.0 ml LVAs ap4 6.8 cm\S\2 LVLs ap4 4.6 cm ESV(MOD-sp4) 9.5 ml ESV(sp4-el) 8.6 ml EF(MOD-sp4) 72.2 % EF(sp4-el) 76.0 % LVAd ap2 15.7 cm\S\2 LVLd ap2 6.1 cm EDV(MOD-sp2) 34.0 ml EDV(sp2-el) 34.3 ml LVAs ap2 6.4 cm\S\2 LVLs ap2 4.4 cm ESV(MOD-sp2) 9.0 ml ESV(sp2-el) 7.8 ml EF(MOD-sp2) 73.6 % EF(sp2-el) 77.3 % LVLd %diff 5.1 % EDV(MOD-bp) 33.3 ml LVLs %diff -3.76 % ESV(MOD-bp) 9.1 ml EF(MOD-bp) 72.6 % SV(MOD-sp4) 24.6 ml SI(MOD-sp4) 15.3 ml/m\S\2 SV(MOD-sp2) 25.0 ml SI(MOD-sp2) 15.5 ml/m\S\2 SV(MOD-bp) 24.2 ml SI(MOD-bp) 15.0 ml/m\S\2 SV(sp4-el) 27.3 ml SI(sp4-el) 16.9 ml/m\S\2 SV(sp2-el) 26.5 ml SI(sp2-el) 16.4 ml/m\S\2 Doppler Measurements and Calculations MV E max aleta 72.3 cm/sec MV A max aleta 93.1 cm/sec MV E/A 0.78 MV dec time 0.34 sec Ao V2 max 137.1 cm/sec Ao max PG 7.5 mmHg Ao max PG (full) 3.6 mmHg ARIN(V,A) 2.3 cm\S\2 ARIN(V,D) 2.3 cm\S\2 LV V1 max PG 4.0 mmHg LV V1 max 99.4 cm/sec TR max aleta 231.4 cm/sec
--- NOTE | 2017-04-21 19:55 | DIAGNOSTIC IMAGING REPORT ---
ADDENDUM THE PATIENT AND EXAMINATION FOR THIS REPORT ARE INCORRECT. THIS WILL BE DELETED SOON POSSIBLE. DISREGARD THIS REPORT. Electronically signed by: Tommy Grissom M.D. 04/21/2017 8:19 PM Dictated Date/Time: 04/21/2017 8:18 PM ORIGINAL REPORT ULTRASOUND ASCITES CHECK CLINICAL HISTORY: Syncope. Cirrhosis. COMPARISON STUDY: Abdominal CT dated 03/31/2017. FINDINGS: Real-time grayscale sonography of all 4 quadrants of the abdomen was performed to assess for abdominal ascites. No abdominal ascites is identified. A right pleural effusion is noted, and new from the 03/31/2017 CT scan. Cirrhotic liver morphology is incidentally noted. IMPRESSION: 1. There is no abdominal ascites identified. 2. A right pleural effusion is new from previous. Electronically signed by: Tommy Grissom M.D. 04/21/2017 7:53 PM Dictated Date/Time: 04/21/2017 7:52 PM
--- NOTE | 2017-04-21 20:32 | DIAGNOSTIC IMAGING REPORT ---
ULTRASOUND ASCITES CHECK CLINICAL HISTORY: Syncope. Cirrhosis and ascites. COMPARISON STUDY: Abdominal CT dated 03/31/2017. FINDINGS: Real-time grayscale sonography of all 4 quadrants of the abdomen was performed to assess for abdominal ascites. There is a small to moderate volume of abdominal ascites. The largest pocket of fluid is seen in the right lower quadrant. Cirrhotic liver morphology is incidentally noted. IMPRESSION: Small to moderate volume of abdominal ascites. Electronically signed by: Tommy Grissom M.D. 04/21/2017 8:30 PM Dictated Date/Time: 04/21/2017 8:29 PM
[2017-04-21] MEDS: SIMVASTATIN 20 MG TAB PO SCH (21:06)
[2017-04-22] VITALS (11 sets, daily range): BP systolic 92–126; BP diastolic 47–74; PULSE 64–92; TEMP 36.4–37; O2SAT 90–98
--- NOTE | 2017-04-22 01:17 | Hospitalist Progress Note ---
Hospitalist Progress Note Date of Service Apr 21, 2017. Subjective Pt evaluation today including: conversation w/ patient Patient with no complaints Objective Vital Signs Date Time Temp Pulse Resp B/P (MAP) Pulse Ox O2 Delivery O2 Flow Rate FiO2 04/22/17 00:00 Room Air 04/21/17 23:33 36.5 82 16 119/72 (88) 95 Room Air 04/21/17 20:57 86 113/70 (84) 95 Room Air 04/21/17 20:00 95 Room Air 04/21/17 19:40 36.8 83 16 108/67 (81) 94 Room Air 04/21/17 16:00 95 Room Air 04/21/17 15:15 36.8 81 20 105/66 (79) 95 Room Air 84 111/70 (84) 84 102/66 (78) 04/21/17 12:00 Room Air 04/21/17 11:49 36.6 81 18 110/72 (85) 95 Room Air 82 99/64 (76) 82 119/74 (89) 04/21/17 08:00 Room Air 04/21/17 07:32 36.4 72 18 109/69 (82) 97 Room Air 65 99/48 (65) 90/52 (65) 04/21/17 04:11 36.5 67 16 113/73 (86) 94 Room Air 04/21/17 04:00 Room Air Physical Exam General Appearance: no apparent distress Neck: trachea midline Respiratory/Chest: lungs clear Cardiovascular: regular rate, rhythm Abdomen: normal bowel sounds, non tender, soft Extremities: non-tender Laboratory Results Last 24 Hours Test 04/21/17 02:15 04/21/17 04:46 04/21/17 07:31 04/21/17 10:26 White Blood Count 5.35 K/uL 5.07 K/uL Red Blood Count 2.58 M/uL 2.61 M/uL Hemoglobin 8.5 g/dL 8.5 g/dL 10.7 g/dL Hematocrit 26.7 % 27.0 % 33.0 % Mean Corpuscular Volume 103.5 fL 103.4 fL Mean Corpuscular Hemoglobin 32.9 pg 32.6 pg Mean Corpuscular Hemoglobin Concent 31.8 g/dl 31.5 g/dl Platelet Count 57 K/uL 54 K/uL Mean Platelet Volume 10.4 fL 9.9 fL Neutrophils (%) (Auto) 62.7 % 62.5 % Lymphocytes (%) (Auto) 22.6 % 22.1 % Monocytes (%) (Auto) 11.0 % 12.0 % Eosinophils (%) (Auto) 2.2 % 2.0 % Basophils (%) (Auto) 0.2 % 0.4 % Neutrophils # (Auto) 3.35 K/uL 3.17 K/uL Lymphocytes # (Auto) 1.21 K/uL 1.12 K/uL Monocytes # (Auto) 0.59 K/uL 0.61 K/uL Eosinophils # (Auto) 0.12 K/uL 0.10 K/uL Basophils # (Auto) 0.01 K/uL 0.02 K/uL RDW Standard Deviation 70.6 fL 69.7 fL RDW Coefficient of Variation 18.7 % 18.6 % Immature Granulocyte % (Auto) 1.3 % 1.0 % Immature Granulocyte # (Auto) 0.07 K/uL 0.05 K/uL Red Blood Cell Morphology Unremarkable Sodium Level 136 mmol/L Potassium Level 4.2 mmol/L Chloride Level 103 mmol/L Carbon Dioxide Level 28 mmol/L Anion Gap 5.0 mmol/L Blood Urea Nitrogen 18 mg/dl Creatinine 1.30 mg/dl Est Creatinine Clear Calc Drug Dose 32.3 ml/min Estimated GFR () 46.8 Estimated GFR (Non- 40.4 BUN/Creatinine Ratio 14.1 Random Glucose 100 mg/dl Calcium Level 7.2 mg/dl Troponin I < 0.015 ng/ml Anisocytosis PRESENT Bedside Glucose 110 mg/dl Test 04/21/17 11:31 04/21/17 16:40 04/21/17 17:17 04/21/17 19:43 Bedside Glucose 158 mg/dl 164 mg/dl 226 mg/dl Hemoglobin 10.3 g/dL Hematocrit 31.6 % Assessment and Plan (1) Syncope Assessment & Plan: I suspect this is medication related in addition diuretics to her normal medications have created a possibility of syncope she has orthostatic changes (2) Diabetes (3) Dehydration (4) Benign hypertension (5) Placement of stent Problem Qualifiers (1) Syncope: Syncope type: unspecified Qualified Codes: R55 - Syncope and collapse
[2017-04-22] MEDS: AMPICILLIN/SULBACTAM SOD INJ 3,000 MG in SODIUM CHLORIDE 0.9% 100ML 100 ML IV SCH ×2 (05:45→11:25)
[2017-04-22 07:11] LABS: HEMATOCRIT 27.1 % (37-47); MEAN CELL VOLUME 104.2 fL (80-100); MEAN CORPUSCULAR HEMOGLOBIN 33.8 pg (25-34); MEAN CORPUSCULAR HGB CONC 32.5 g/dl (32-36); WHITE BLOOD COUNT 3.46 K/uL (4.8-10.8)
[2017-04-22 07:37] LABS: BUN/CREATININE RATIO 15.5 (10-20); CALCIUM 7.7 mg/dl (8.5-10.1); CREATININE 1.2 mg/dl (0.60-1.20); POTASSIUM 3.8 mmol/L (3.5-5.1)
[2017-04-22] MEDS: SPIRONOLACTONE 25 MG TAB PO SCH ×2 (08:13→09:00)
[2017-04-22] MEDS: GABAPENTIN 300 MG CAP PO SCH ×3 (08:14→21:14)
[2017-04-22] MEDS: ISOSORBIDE MONONITRATE 30 MG TABCR PO SCH (08:14)
[2017-04-22] MEDS: CYANOCOBALAMIN 500 MCG TAB (VIT B-12) PO SCH (08:14)
[2017-04-22] MEDS: CARVEDILOL 6.25 MG TAB PO SCH ×2 (08:14→21:14)
[2017-04-22] MEDS: INSULIN ASPART 100 UNITS/ML 3 ML PEN SC SCH ×4 (08:15→21:00)
[2017-04-22 08:17] LABS: MEAN PLATELET VOLUME 10.3 fL (7.4-10.4); PLATELET COUNT 50 K/uL (130-400)
[2017-04-22 08:49] LABS: BASO % 0.3 %; BASO ABS # 0.01 K/uL (0-0.2); COMPLETE YES; EOS % 2.9 %; IG% 0.9 %; LYMPH % 20.8 %; LYMPH ABS # 0.72 K/uL (1.2-3.4); MONO % 13.6 %; NEUT % 61.5 %
[2017-04-22] MEDS: FUROSEMIDE 20 MG TAB PO SCH (09:00)
[2017-04-22] MEDS: HEPARIN SOD 5000 UNIT/0.5 ML CARP SQ SCH ×2 (09:55→21:17)
[2017-04-22] MEDS ORDERED: NURSING VERBAL MED ORDER ONE ×2 (10:30→17:45)
[2017-04-22] MEDS: ACETAMINOPHEN 325 MG TAB PO PRN (12:30)
[2017-04-22] MEDS: IBUPROFEN 600 MG TAB PO PRN ×2 (13:22→21:37)
--- NOTE | 2017-04-22 17:39 | Gastroenterology Progress Note ---
Progress Note Date of Service: Apr 22, 2017 Subjective Pt evaluation today including: conversation w/ patient, physical exam, chart review, lab review, review of studies, review of inpatient medication list CC f/u cirrhosis, hx of ascites HPI Pt denies abd pain. Tolerating diet. No BMs recorded last 24 hours. Review of Systems Respiratory: No shortness of breath Cardiac: No chest pain Medications Current Inpatient Medications Medications (Trade) Dose Ordered Sig/Sonam Route Start Time Stop Time Status Last Admin Dose Admin Heparin Sodium (Porcine) (Heparin Sq 5000 Unit/0.5ml) 5,000 unit Q12 SQ 04/20/17 21:00 05/20/17 20:59 04/22/17 09:55 5,000 UNIT Acetaminophen (Tylenol Tab) 650 mg Q4H PRN PO 04/20/17 14:15 05/20/17 14:14 04/22/17 12:30 650 MG Al Hydrox/Mg Hydrox/Simethicone (Maalox Max Susp) 15 ml Q4H PRN PO 04/20/17 14:15 05/20/17 14:14 Magnesium Hydroxide (Milk Of Magnesia Susp) 30 ml Q12H PRN PO 04/20/17 14:15 05/20/17 14:14 Ondansetron HCl (Zofran Inj) 4 mg Q6H PRN IV 04/20/17 14:15 05/20/17 14:14 Polyethylene (Miralax Powder Packet) 17 gm DAILY PRN PO 04/20/17 14:15 05/20/17 14:14 Carvedilol (Coreg Tab) 6.25 mg BID PO 04/20/17 21:00 05/20/17 20:59 04/21/17 21:06 6.25 MG Clopidogrel Bisulfate (plAVix TAB) 75 mg Q2D@0900 PO 04/21/17 09:00 05/21/17 08:59 04/21/17 07:49 75 MG Cyanocobalamin (Vitamin B-12 Tab) 500 mcg QAM PO 04/21/17 09:00 05/21/17 08:59 04/22/17 08:14 500 MCG Docusate Sodium (coLACE CAP) 100 mg BID PRN PO 04/20/17 14:30 05/20/17 14:29 Folic Acid (Folvite Tab) 1 mg QAM PO 04/21/17 09:00 05/21/17 08:59 04/22/17 08:14 1 MG Furosemide (Lasix Tab) 20 mg QAM PO 04/21/17 09:00 05/21/17 08:59 04/21/17 07:50 20 MG Gabapentin (Neurontin Cap) 300 mg TID PO 04/20/17 21:00 05/20/17 20:59 04/22/17 13:23 300 MG Isosorbide Mononitrate (Imdur Ext Rel Tab) 30 mg QAM PO 04/21/17 09:00 05/21/17 08:59 04/22/17 08:14 30 MG Nitroglycerin (Nitrostat Tab) 0.4 mg PRN UT 04/20/17 14:30 05/20/17 14:29 Simvastatin (Zocor Tab) 20 mg QPM PO 04/20/17 21:00 05/20/17 20:59 04/21/17 21:06 20 MG Spironolactone (Aldactone Tab) 25 mg QAM PO 04/21/17 09:00 05/21/17 08:59 04/21/17 07:49 25 MG Insulin Aspart (novoLOG ASPART) SLIDING SCALE If C... ACHS SC 04/20/17 16:00 05/20/17 15:59 04/21/17 21:09 2 UNITS Glucose (Glucose 40% Gel) 15-30 GRAMS 15 GRAMS... UD PRN PO 04/20/17 14:30 05/20/17 14:29 Glucose (Glucose Chew Tab) 4-8 Tablets 4 Tabl... UD PRN PO 04/20/17 14:30 05/20/17 14:29 Dextrose (Dextrose 50% 50ML Syringe) 25-50ML OF 50% DW IV FOR... UD PRN IV 04/20/17 14:30 05/20/17 14:29 Glucagon (Glucagon Inj) 1 mg UD PRN SQ 04/20/17 14:30 05/20/17 14:29 Ibuprofen (Motrin Tab) 600 mg Q8H PRN PO 04/20/17 18:45 05/20/17 18:44 04/22/17 13:22 600 MG Objective Vital Signs Date Time Temp Pulse Resp B/P (MAP) Pulse Ox O2 Delivery O2 Flow Rate FiO2 04/22/17 15:26 36.4 64 22 92/47 (62) 94 Room Air 85 106/63 (77) 85 111/62 (78) 04/22/17 12:00 97 Room Air 04/22/17 11:26 36.8 92 18 113/74 (87) 97 Room Air 92 126/71 (89) 92 122/70 (87) 84 04/22/17 08:00 98 Room Air 04/22/17 07:31 36.7 92 20 95/61 (72) 98 Room Air 76 102/65 (77) 76 99/ (33) 76 04/22/17 04:00 Room Air 04/22/17 03:45 36.8 80 18 93/52 (66) 90 Room Air 04/22/17 00:00 Room Air 04/21/17 23:33 36.5 82 16 119/72 (88) 95 Room Air 04/21/17 20:57 86 113/70 (84) 95 Room Air 04/21/17 20:00 95 Room Air 04/21/17 19:40 36.8 83 16 108/67 (81) 94 Room Air Physical Exam General Appearance: WD/WN, no apparent distress Respiratory/Chest: normal breath sounds, no respiratory distress Cardiovascular: no murmur Abdomen: normal bowel sounds, soft, no organomegaly, + tenderness (subjective epigastric tenderness but no guarding nor rebound ) Neurologic/Psych: normal mood/affect, oriented x 3 Laboratory Results Last 24 Hours Test 04/21/17 19:43 04/22/17 06:27 04/22/17 07:39 04/22/17 09:43 Bedside Glucose 226 mg/dl 126 mg/dl White Blood Count 3.46 K/uL Red Blood Count 2.60 M/uL Hemoglobin 8.8 g/dL Hematocrit 27.1 % Mean Corpuscular Volume 104.2 fL Mean Corpuscular Hemoglobin 33.8 pg Mean Corpuscular Hemoglobin Concent 32.5 g/dl Platelet Count 50 K/uL Mean Platelet Volume 10.3 fL Neutrophils (%) (Auto) 61.5 % Lymphocytes (%) (Auto) 20.8 % Monocytes (%) (Auto) 13.6 % Eosinophils (%) (Auto) 2.9 % Basophils (%) (Auto) 0.3 % Neutrophils # (Auto) 2.13 K/uL Lymphocytes # (Auto) 0.72 K/uL Monocytes # (Auto) 0.47 K/uL Eosinophils # (Auto) 0.10 K/uL Basophils # (Auto) 0.01 K/uL RDW Standard Deviation 70.5 fL RDW Coefficient of Variation 18.7 % Immature Granulocyte % (Auto) 0.9 % Immature Granulocyte # (Auto) 0.03 K/uL Sodium Level 140 mmol/L Potassium Level 3.8 mmol/L Chloride Level 106 mmol/L Carbon Dioxide Level 27 mmol/L Anion Gap 7.0 mmol/L Blood Urea Nitrogen 19 mg/dl Creatinine 1.20 mg/dl Est Creatinine Clear Calc Drug Dose 34.6 ml/min Estimated GFR () 51.6 Estimated GFR (Non- 44.5 BUN/Creatinine Ratio 15.5 Random Glucose 121 mg/dl Calcium Level 7.7 mg/dl Lactate Dehydrogenase 204 U/L Test 04/22/17 11:33 04/22/17 16:25 04/22/17 16:56 Bedside Glucose 178 mg/dl 125 mg/dl 116 mg/dl Assessment and Plan ascites--U/S this admit small to moderate--noted U/S paracentesis 04/04/17 4 liters removed with cx negative then. Continue Aldactone. low salt diet. cirrhosis--[facility]- syncope---no evidence of GI bleeding to explain
[2017-04-22] MEDS: TRAMADOL HCL 50 MG TAB PO PRN (18:46)
--- NOTE | 2017-04-22 18:56 | Hospitalist Progress Note ---
Hospitalist Progress Note Date of Service Apr 22, 2017. Subjective Pt evaluation today including: conversation w/ patient Patient feels better Medications Medications (Trade) Dose Ordered Sig/Sonam Route Start Time Stop Time Status Last Admin Dose Admin Tramadol HCl (Ultram Tab) 50 mg Q6H PRN PO 04/22/17 18:00 05/22/17 17:59 04/22/17 18:46 50 MG Objective Vital Signs Date Time Temp Pulse Resp B/P (MAP) Pulse Ox O2 Delivery O2 Flow Rate FiO2 04/22/17 15:26 36.4 64 22 92/47 (62) 94 Room Air 85 106/63 (77) 85 111/62 (78) 04/22/17 12:00 97 Room Air 04/22/17 11:26 36.8 92 18 113/74 (87) 97 Room Air 92 126/71 (89) 92 122/70 (87) 84 04/22/17 08:00 98 Room Air 04/22/17 07:31 36.7 92 20 95/61 (72) 98 Room Air 76 102/65 (77) 76 99/ (33) 76 04/22/17 04:00 Room Air 04/22/17 03:45 36.8 80 18 93/52 (66) 90 Room Air 04/22/17 00:00 Room Air 04/21/17 23:33 36.5 82 16 119/72 (88) 95 Room Air 04/21/17 20:57 86 113/70 (84) 95 Room Air 04/21/17 20:00 95 Room Air 04/21/17 19:40 36.8 83 16 108/67 (81) 94 Room Air Physical Exam General Appearance: no apparent distress Eyes: normal inspection ENT: hearing grossly normal Neck: trachea midline Respiratory/Chest: lungs clear Cardiovascular: regular rate, rhythm Abdomen: non tender, soft Laboratory Results Last 24 Hours Test 04/21/17 19:43 04/22/17 06:27 04/22/17 07:39 04/22/17 09:43 Bedside Glucose 226 mg/dl 126 mg/dl White Blood Count 3.46 K/uL Red Blood Count 2.60 M/uL Hemoglobin 8.8 g/dL Hematocrit 27.1 % Mean Corpuscular Volume 104.2 fL Mean Corpuscular Hemoglobin 33.8 pg Mean Corpuscular Hemoglobin Concent 32.5 g/dl Platelet Count 50 K/uL Mean Platelet Volume 10.3 fL Neutrophils (%) (Auto) 61.5 % Lymphocytes (%) (Auto) 20.8 % Monocytes (%) (Auto) 13.6 % Eosinophils (%) (Auto) 2.9 % Basophils (%) (Auto) 0.3 % Neutrophils # (Auto) 2.13 K/uL Lymphocytes # (Auto) 0.72 K/uL Monocytes # (Auto) 0.47 K/uL Eosinophils # (Auto) 0.10 K/uL Basophils # (Auto) 0.01 K/uL RDW Standard Deviation 70.5 fL RDW Coefficient of Variation 18.7 % Immature Granulocyte % (Auto) 0.9 % Immature Granulocyte # (Auto) 0.03 K/uL Sodium Level 140 mmol/L Potassium Level 3.8 mmol/L Chloride Level 106 mmol/L Carbon Dioxide Level 27 mmol/L Anion Gap 7.0 mmol/L Blood Urea Nitrogen 19 mg/dl Creatinine 1.20 mg/dl Est Creatinine Clear Calc Drug Dose 34.6 ml/min Estimated GFR () 51.6 Estimated GFR (Non- 44.5 BUN/Creatinine Ratio 15.5 Random Glucose 121 mg/dl Calcium Level 7.7 mg/dl Lactate Dehydrogenase 204 U/L Test 04/22/17 11:33 04/22/17 16:25 04/22/17 16:56 Bedside Glucose 178 mg/dl 125 mg/dl 116 mg/dl Assessment and Plan (1) Syncope Assessment & Plan: I suspect this is medication related in addition diuretics to her normal medications have created a possibility of syncope she has orthostatic changes will hold diuretics today (2) Diabetes (3) Dehydration (4) Benign hypertension (5) Placement of stent Continued [facility] stay due to: abnormal vital signs Problem Qualifiers (1) Syncope: Syncope type: unspecified Qualified Codes: R55 - Syncope and collapse
[2017-04-22] MEDS: SIMVASTATIN 20 MG TAB PO SCH (21:15)
[2017-04-22] MEDS: DOCUSATE SODIUM 100 MG CAP PO PRN (21:39)
[2017-04-23] VITALS (14 sets, daily range): BP systolic 82–159; BP diastolic 52–80; PULSE 73–90; TEMP 36–37.1; O2SAT 93–97
[2017-04-23] MEDS: TRAMADOL HCL 50 MG TAB PO PRN ×3 (00:01→16:02)
[2017-04-23 06:01] LABS: MEAN CELL VOLUME 104.8 fL (80-100); MEAN CORPUSCULAR HEMOGLOBIN 33.1 pg (25-34); MEAN CORPUSCULAR HGB CONC 31.5 g/dl (32-36); RED BLOOD COUNT 2.48 M/uL (4.2-5.4); WHITE BLOOD COUNT 3.58 K/uL (4.8-10.8)
[2017-04-23 06:07] LABS: MEAN PLATELET VOLUME 10.6 fL (7.4-10.4); PLATELET COUNT 47 K/uL (130-400)
[2017-04-23 06:33] LABS: BUN/CREATININE RATIO 15.7 (10-20); CALCIUM 7.8 mg/dl (8.5-10.1); CREATININE 1.1 mg/dl (0.60-1.20); POTASSIUM 4.1 mmol/L (3.5-5.1)
[2017-04-23 06:41] LABS: BASO % 0.6 %; BASO ABS # 0.02 K/uL (0-0.2); COMPLETE YES; EOS % 1.7 %; IG% 0.6 %; LYMPH % 25.7 %; LYMPH ABS # 0.92 K/uL (1.2-3.4); MONO % 16.5 %; NEUT % 54.9 %
[2017-04-23] MEDS: ISOSORBIDE MONONITRATE 30 MG TABCR PO SCH (08:01)
[2017-04-23] MEDS: GABAPENTIN 300 MG CAP PO SCH ×3 (08:01→21:17)
[2017-04-23] MEDS: CARVEDILOL 6.25 MG TAB PO SCH ×2 (08:02→21:17)
[2017-04-23] MEDS: CYANOCOBALAMIN 500 MCG TAB (VIT B-12) PO SCH (08:02)
[2017-04-23] MEDS: INSULIN ASPART 100 UNITS/ML 3 ML PEN SC SCH ×4 (08:02→20:26)
[2017-04-23] MEDS: CLOPIDOGREL BISULFATE 75 MG TAB PO SCH (08:02)
[2017-04-23] MEDS: HEPARIN SOD 5000 UNIT/0.5 ML CARP SQ SCH (08:26)
[2017-04-23] MEDS: ACETAMINOPHEN 325 MG TAB PO PRN (13:46)
[2017-04-23] MEDS: POLYETHYLENE (MIRALAX) 17 GM PACK PO PRN (13:46)
--- NOTE | 2017-04-23 15:53 | Gastroenterology Progress Note ---
Progress Note Date of Service: Apr 23, 2017 Subjective Pt evaluation today including: conversation w/ patient, conversation w/ family (), physical exam, chart review, lab review, review of studies, review of inpatient medication list CC f/u cirrhosis, ascites HPI Pt today complains of some LUQ abd pain. States new today and no trauma to the area. Review of Systems Respiratory: No shortness of breath Cardiac: No chest pain Medications Current Inpatient Medications Medications (Trade) Dose Ordered Sig/Sonam Route Start Time Stop Time Status Last Admin Dose Admin Heparin Sodium (Porcine) (Heparin Sq 5000 Unit/0.5ml) 5,000 unit Q12 SQ 04/20/17 21:00 05/20/17 20:59 04/23/17 08:26 5,000 UNIT Acetaminophen (Tylenol Tab) 650 mg Q4H PRN PO 04/20/17 14:15 05/20/17 14:14 04/23/17 13:46 650 MG Al Hydrox/Mg Hydrox/Simethicone (Maalox Max Susp) 15 ml Q4H PRN PO 04/20/17 14:15 05/20/17 14:14 Magnesium Hydroxide (Milk Of Magnesia Susp) 30 ml Q12H PRN PO 04/20/17 14:15 05/20/17 14:14 Ondansetron HCl (Zofran Inj) 4 mg Q6H PRN IV 04/20/17 14:15 05/20/17 14:14 Polyethylene (Miralax Powder Packet) 17 gm DAILY PRN PO 04/20/17 14:15 05/20/17 14:14 04/23/17 13:46 17 GM Carvedilol (Coreg Tab) 6.25 mg BID PO 04/20/17 21:00 05/20/17 20:59 04/22/17 21:14 6.25 MG Clopidogrel Bisulfate (plAVix TAB) 75 mg Q2D@0900 PO 04/21/17 09:00 05/21/17 08:59 04/23/17 08:02 75 MG Cyanocobalamin (Vitamin B-12 Tab) 500 mcg QAM PO 04/21/17 09:00 05/21/17 08:59 04/23/17 08:02 500 MCG Docusate Sodium (coLACE CAP) 100 mg BID PRN PO 04/20/17 14:30 05/20/17 14:29 04/22/17 21:39 100 MG Folic Acid (Folvite Tab) 1 mg QAM PO 04/21/17 09:00 05/21/17 08:59 04/23/17 08:02 1 MG Gabapentin (Neurontin Cap) 300 mg TID PO 04/20/17 21:00 05/20/17 20:59 04/23/17 13:42 300 MG Isosorbide Mononitrate (Imdur Ext Rel Tab) 30 mg QAM PO 04/21/17 09:00 05/21/17 08:59 04/23/17 08:01 30 MG Nitroglycerin (Nitrostat Tab) 0.4 mg PRN UT 04/20/17 14:30 05/20/17 14:29 Simvastatin (Zocor Tab) 20 mg QPM PO 04/20/17 21:00 05/20/17 20:59 04/22/17 21:15 20 MG Insulin Aspart (novoLOG ASPART) SLIDING SCALE If C... ACHS SC 04/20/17 16:00 05/20/17 15:59 04/21/17 21:09 2 UNITS Glucose (Glucose 40% Gel) 15-30 GRAMS 15 GRAMS... UD PRN PO 04/20/17 14:30 05/20/17 14:29 Glucose (Glucose Chew Tab) 4-8 Tablets 4 Tabl... UD PRN PO 04/20/17 14:30 05/20/17 14:29 Dextrose (Dextrose 50% 50ML Syringe) 25-50ML OF 50% DW IV FOR... UD PRN IV 04/20/17 14:30 05/20/17 14:29 Glucagon (Glucagon Inj) 1 mg UD PRN SQ 04/20/17 14:30 05/20/17 14:29 Ibuprofen (Motrin Tab) 600 mg Q8H PRN PO 04/20/17 18:45 05/20/17 18:44 04/22/17 21:37 600 MG Tramadol HCl (Ultram Tab) 50 mg Q6H PRN PO 04/22/17 18:00 05/22/17 17:59 04/23/17 08:01 50 MG Objective Vital Signs Date Time Temp Pulse Resp B/P (MAP) Pulse Ox O2 Delivery O2 Flow Rate FiO2 7/9/17 12:00 95 Room Air 04/23/17 11:38 36.0 75 18 105/70 (82) 95 Room Air 84 108/70 (83) 80 110/66 (81) 04/23/17 08:00 94 Room Air 04/23/17 07:18 36.8 81 18 94/57 (69) 94 Room Air 77 97/64 (75) 77 82/52 (62) 04/23/17 04:17 36.8 81 20 92/52 (65) 95 Room Air 04/23/17 04:00 94 Room Air 04/23/17 00:00 94 Room Air 04/22/17 23:37 37.0 82 18 100/61 (74) 97 Room Air 83 105/64 (78) 85 112/63 (79) 04/22/17 21:13 84 119/74 (89) 04/22/17 20:00 94 Room Air 04/22/17 19:56 36.8 80 18 108/68 (81) 95 Room Air 96/60 (72) 102/56 (71) 04/22/17 16:00 94 Room Air Physical Exam General Appearance: WD/WN, no apparent distress Respiratory/Chest: lungs clear, no respiratory distress Cardiovascular: no murmur Abdomen: normal bowel sounds, non tender, soft, no organomegaly Neurologic/Psych: normal mood/affect Skin: normal color Laboratory Results Last 24 Hours Test 04/22/17 16:25 04/22/17 16:56 04/22/17 20:34 04/23/17 05:39 Bedside Glucose 125 mg/dl 116 mg/dl 125 mg/dl White Blood Count 3.58 K/uL Red Blood Count 2.48 M/uL Hemoglobin 8.2 g/dL Hematocrit 26.0 % Mean Corpuscular Volume 104.8 fL Mean Corpuscular Hemoglobin 33.1 pg Mean Corpuscular Hemoglobin Concent 31.5 g/dl Platelet Count 47 K/uL Mean Platelet Volume 10.6 fL Neutrophils (%) (Auto) 54.9 % Lymphocytes (%) (Auto) 25.7 % Monocytes (%) (Auto) 16.5 % Eosinophils (%) (Auto) 1.7 % Basophils (%) (Auto) 0.6 % Neutrophils # (Auto) 1.97 K/uL Lymphocytes # (Auto) 0.92 K/uL Monocytes # (Auto) 0.59 K/uL Eosinophils # (Auto) 0.06 K/uL Basophils # (Auto) 0.02 K/uL RDW Standard Deviation 70.2 fL RDW Coefficient of Variation 18.6 % Immature Granulocyte % (Auto) 0.6 % Immature Granulocyte # (Auto) 0.02 K/uL Red Blood Cell Morphology Unremarkable Sodium Level 138 mmol/L Potassium Level 4.1 mmol/L Chloride Level 107 mmol/L Carbon Dioxide Level 23 mmol/L Anion Gap 8.0 mmol/L Blood Urea Nitrogen 17 mg/dl Creatinine 1.10 mg/dl Est Creatinine Clear Calc Drug Dose 37.9 ml/min Estimated GFR () 57.3 Estimated GFR (Non- 49.4 BUN/Creatinine Ratio 15.7 Random Glucose 112 mg/dl Calcium Level 7.8 mg/dl Test 04/23/17 07:26 04/23/17 12:08 Bedside Glucose 116 mg/dl 149 mg/dl Assessment and Plan ascites--U/S this admit small to moderate--noted U/S paracentesis 04/04/17 4 liters removed with cx negative then. Continue Aldactone. low salt diet. LUQ pain--new. SBP is in the differential so will order U/S guided paracentesis with cell count and culture. No fever or elevation in WBC. Anemia--drop in Hgb today but no stools to suggest GI bleeding. cirrhosis--[facility]- syncope---no evidence of GI bleeding to explain
[2017-04-23] MEDS: IBUPROFEN 600 MG TAB PO PRN (19:05)
--- NOTE | 2017-04-23 19:11 | Hospitalist Progress Note ---
Hospitalist Progress Note Date of Service Apr 23, 2017. Subjective Pt evaluation today including: conversation w/ patient, conversation w/ family Patient with no complaints Objective Vital Signs Date Time Temp Pulse Resp B/P (MAP) Pulse Ox O2 Delivery O2 Flow Rate FiO2 04/23/17 15:46 36.8 73 20 111/69 (83) 97 Room Air 83 121/ (40) 89 106/66 (79) 04/23/17 12:00 95 Room Air 04/23/17 11:38 36.0 75 18 105/70 (82) 95 Room Air 84 108/70 (83) 80 110/66 (81) 04/23/17 08:00 94 Room Air 04/23/17 07:18 36.8 81 18 94/57 (69) 94 Room Air 77 97/64 (75) 77 82/52 (62) 04/23/17 04:17 36.8 81 20 92/52 (65) 95 Room Air 04/23/17 04:00 94 Room Air 04/23/17 00:00 94 Room Air 04/22/17 23:37 37.0 82 18 100/61 (74) 97 Room Air 83 105/64 (78) 85 112/63 (79) 04/22/17 21:13 84 119/74 (89) 04/22/17 20:00 94 Room Air 04/22/17 19:56 36.8 80 18 108/68 (81) 95 Room Air 96/60 (72) 102/56 (71) Physical Exam General Appearance: no apparent distress ENT: hearing grossly normal Neck: trachea midline Respiratory/Chest: lungs clear Cardiovascular: regular rate, rhythm Abdomen: + distended Extremities: normal range of motion Neurologic/Psychiatric: alert Laboratory Results Last 24 Hours Test 04/22/17 20:34 04/23/17 05:39 04/23/17 07:26 04/23/17 12:08 Bedside Glucose 125 mg/dl 116 mg/dl 149 mg/dl White Blood Count 3.58 K/uL Red Blood Count 2.48 M/uL Hemoglobin 8.2 g/dL Hematocrit 26.0 % Mean Corpuscular Volume 104.8 fL Mean Corpuscular Hemoglobin 33.1 pg Mean Corpuscular Hemoglobin Concent 31.5 g/dl Platelet Count 47 K/uL Mean Platelet Volume 10.6 fL Neutrophils (%) (Auto) 54.9 % Lymphocytes (%) (Auto) 25.7 % Monocytes (%) (Auto) 16.5 % Eosinophils (%) (Auto) 1.7 % Basophils (%) (Auto) 0.6 % Neutrophils # (Auto) 1.97 K/uL Lymphocytes # (Auto) 0.92 K/uL Monocytes # (Auto) 0.59 K/uL Eosinophils # (Auto) 0.06 K/uL Basophils # (Auto) 0.02 K/uL RDW Standard Deviation 70.2 fL RDW Coefficient of Variation 18.6 % Immature Granulocyte % (Auto) 0.6 % Immature Granulocyte # (Auto) 0.02 K/uL Red Blood Cell Morphology Unremarkable Sodium Level 138 mmol/L Potassium Level 4.1 mmol/L Chloride Level 107 mmol/L Carbon Dioxide Level 23 mmol/L Anion Gap 8.0 mmol/L Blood Urea Nitrogen 17 mg/dl Creatinine 1.10 mg/dl Est Creatinine Clear Calc Drug Dose 37.9 ml/min Estimated GFR () 57.3 Estimated GFR (Non- 49.4 BUN/Creatinine Ratio 15.7 Random Glucose 112 mg/dl Calcium Level 7.8 mg/dl Test 04/23/17 16:31 Bedside Glucose 138 mg/dl Assessment and Plan (1) Syncope Assessment & Plan: Currently I am holding her diuretics and discuss the case with the patient and her . She has passed out multiple times. Diuretics and attempt to control her us ascites may place her at risk of fall. Therapeutic paracentesis as needed for palliation could be arranged as an outpatient. Patient has multiple medical problems ongoing at the same time and consideration of switching to a strictly palliative approach to her care should be discussed further with her family. Patient has mild dementia. Palliative care has been consulted (2) Diabetes (3) Dehydration (4) Benign hypertension (5) Placement of stent Problem Qualifiers (1) Syncope: Syncope type: unspecified Qualified Codes: R55 - Syncope and collapse
[2017-04-23] MEDS ORDERED: NURSING VERBAL MED ORDER ONE (20:45)
[2017-04-23] MEDS ORDERED: TRAMADOL HCL 50 MG TAB PO ONE (20:45)
[2017-04-23] MEDS: SIMVASTATIN 20 MG TAB PO SCH (21:18)
[2017-04-24] VITALS (9 sets, daily range): BP systolic 92–132; BP diastolic 51–75; PULSE 68–94; TEMP 36.4–38.1; O2SAT 93–98
[2017-04-24 05:40] LABS: HEMATOCRIT 25.1 % (37-47); MEAN CELL VOLUME 103.7 fL (80-100); MEAN CORPUSCULAR HEMOGLOBIN 33.9 pg (25-34); MEAN CORPUSCULAR HGB CONC 32.7 g/dl (32-36); RED BLOOD COUNT 2.42 M/uL (4.2-5.4); WHITE BLOOD COUNT 3.42 K/uL (4.8-10.8)
[2017-04-24 05:50] LABS: MEAN PLATELET VOLUME 9.8 fL (7.4-10.4); PLATELET COUNT 49 K/uL (130-400)
[2017-04-24 05:53] LABS: INR 1.1 (0.9-1.1)
[2017-04-24 06:14] LABS: BUN/CREATININE RATIO 14.3 (10-20); CALCIUM 7.5 mg/dl (8.5-10.1); CREATININE 1.1 mg/dl (0.60-1.20); POTASSIUM 4.6 mmol/L (3.5-5.1)
[2017-04-24 06:17] LABS: ALB/GLOB RATIO 0.7 (0.9-2)
[2017-04-24] MEDS: ISOSORBIDE MONONITRATE 30 MG TABCR PO SCH (08:13)
[2017-04-24] MEDS: TRAMADOL HCL 50 MG TAB PO PRN ×2 (08:13→14:12)
[2017-04-24] MEDS: GABAPENTIN 300 MG CAP PO SCH ×3 (08:14→20:36)
[2017-04-24] MEDS: CARVEDILOL 6.25 MG TAB PO SCH ×2 (08:14→20:36)
[2017-04-24] MEDS: INSULIN ASPART 100 UNITS/ML 3 ML PEN SC SCH ×4 (08:16→20:30)
[2017-04-24] MEDS: CYANOCOBALAMIN 500 MCG TAB (VIT B-12) PO SCH (08:33)
[2017-04-24] MEDS ORDERED: ENOXAPARIN 40 MG/0.4 ML SYR SQ SCH (09:00)
--- NOTE | 2017-04-24 10:48 | DIAGNOSTIC IMAGING REPORT ---
ULTRASOUND-GUIDED DIAGNOSTIC PARACENTESIS: CLINICAL HISTORY: 72-year-old female with ascites, abdominal pain, history of cirrhosis. COMPARISON: Ultrasound from 04/21/2017. PROCEDURE: The procedure and its risks, benefits and alternatives were discussed with the patient and written informed consent was obtained. Preliminary ultrasound of the abdomen was performed to determine a safe needle entry site. The left lower quadrant was prepped and draped in the usual aseptic fashion. 1% Lidocaine was used for local anesthesia. A paracentesis needle-sheath was inserted into the peritoneal space using ultrasound guidance. The needle was removed and the sheath was connected to a syringe. A total of 120 mL of clear yellow ascites was aspirated. The sheath was removed and a sterile dressing applied. The patient tolerated the procedure well. There were no immediate complications. IMPRESSION: Ultrasound-guided therapeutic paracentesis with aspiration of 120 mL of clear yellow ascites. Electronically signed by: Cheikh Porter 04/24/2017 10:47 AM Dictated Date/Time: 04/24/2017 10:45 AM
[2017-04-24 11:25] LABS: PERIT FL WBC 334 /uL (0-300); PERITONEAL FLUID RBC < 3000 /uL
--- NOTE | 2017-04-24 11:34 | Hematology/Oncology Prog Note ---
Hematology/Onc Progress Note Date of Service Apr 24, 2017. 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 Medications Medications Administered Medications (Trade) Dose Ordered Sig/Sonam Route Start Time Stop Time Status Last Admin Dose Admin Sodium Chloride 250 ml @ 999 mls/hr Q16M STAT IV 04/20/17 10:04 04/20/17 10:19 DC 04/20/17 10:04 999 MLS/HR Ceftriaxone Sodium (Rocephin Inj) 1 gm NOW STAT IV 04/20/17 11:11 04/20/17 11:12 DC 04/20/17 11:25 1 GM Sodium Chloride 500 ml @ 999 mls/hr Q31M STAT IV 04/20/17 11:52 04/20/17 12:22 DC 04/20/17 11:52 999 MLS/HR Heparin Sodium (Porcine) (Heparin Sq 5000 Unit/0.5ml) 5,000 unit Q12 SQ 04/20/17 21:00 04/23/17 19:14 DC 04/23/17 08:26 5,000 UNIT Acetaminophen (Tylenol Tab) 650 mg Q4H PRN PO 04/20/17 14:15 05/20/17 14:14 04/23/17 13:46 650 MG Magnesium Hydroxide (Milk Of Magnesia Susp) 30 ml Q12H PRN PO 04/20/17 14:15 05/20/17 14:14 04/23/17 19:05 30 ML Polyethylene (Miralax Powder Packet) 17 gm DAILY PRN PO 04/20/17 14:15 05/20/17 14:14 04/23/17 13:46 17 GM Carvedilol (Coreg Tab) 6.25 mg BID PO 04/20/17 21:00 05/20/17 20:59 04/24/17 08:14 6.25 MG Clopidogrel Bisulfate (plAVix TAB) 75 mg Q2D@0900 PO 04/21/17 09:00 05/21/17 08:59 04/23/17 08:02 75 MG Cyanocobalamin (Vitamin B-12 Tab) 500 mcg QAM PO 04/21/17 09:00 05/21/17 08:59 04/24/17 08:33 500 MCG Docusate Sodium (coLACE CAP) 100 mg BID PRN PO 04/20/17 14:30 05/20/17 14:29 04/22/17 21:39 100 MG Folic Acid (Folvite Tab) 1 mg QAM PO 04/21/17 09:00 05/21/17 08:59 04/24/17 08:14 1 MG Furosemide (Lasix Tab) 20 mg QAM PO 04/21/17 09:00 04/22/17 18:52 DC 04/21/17 07:50 20 MG Gabapentin (Neurontin Cap) 300 mg TID PO 04/20/17 21:00 05/20/17 20:59 04/24/17 08:14 300 MG Isosorbide Mononitrate (Imdur Ext Rel Tab) 30 mg QAM PO 04/21/17 09:00 05/21/17 08:59 04/24/17 08:13 30 MG Simvastatin (Zocor Tab) 20 mg QPM PO 04/20/17 21:00 05/20/17 20:59 04/23/17 21:18 20 MG Spironolactone (Aldactone Tab) 25 mg QAM PO 04/21/17 09:00 04/22/17 18:52 DC 04/21/17 07:49 25 MG Verapamil HCl (Calan-Sr Tab) 120 mg DAILY PO 04/21/17 09:00 04/21/17 10:39 DC 04/21/17 07:50 120 MG Insulin Aspart (novoLOG ASPART) SLIDING SCALE If C... ACHS SC 04/20/17 16:00 05/20/17 15:59 04/21/17 21:09 2 UNITS Ibuprofen (Motrin Tab) 600 mg Q8H PRN PO 04/20/17 18:45 05/20/17 18:44 04/23/17 19:05 600 MG Tramadol HCl (Ultram Tab) 50 mg STK-MED ONCE .ROUTE 04/20/17 20:58 04/20/17 20:59 DC 04/20/17 21:29 25 MG Ampicillin Sodium/ Sulbactam Sodium 3000 mg/Sodium Chloride 108 ml @ 216 mls/hr Q6 IV 04/21/17 13:00 04/22/17 14:53 DC 04/22/17 11:25 216 MLS/HR Tramadol HCl (Ultram Tab) 50 mg Q6H PRN PO 04/22/17 18:00 05/22/17 17:59 04/24/17 08:13 50 MG Enoxaparin Sodium (Lovenox Inj) 40 mg QAM SQ 04/24/17 09:00 05/24/17 08:59 04/24/17 08:15 40 MG Tramadol HCl (Ultram Tab) 50 mg NOW ONCE PO 04/23/17 20:45 04/23/17 20:46 DC 04/23/17 21:17 50 MG Subjective No new complaints. No overt bleeding Review of Systems: Mildly demented and not able to gather a complete or accurate review of systems Vital Signs Vital Signs Past 12 Hours Date Time Temp Pulse Resp B/P (MAP) Pulse Ox O2 Delivery O2 Flow Rate FiO2 04/24/17 08:00 Room Air 04/24/17 07:27 36.4 76 16 117/64 (81) 97 Room Air 04/24/17 04:07 36.5 70 18 92/51 (65) 97 Room Air 04/24/17 04:00 Room Air 04/24/17 00:00 Room Air Physical Exam Constitutional: vitals are stable. Eyes: Eyes are CINTHYA EOMI without conjuctival erythema or icterus. ENT: External examination was negative for masses. Neck: Negative for masses or palpable thyromegaly Respiratory: Lung sounds were generally clear bilaterally Cardiovascular: Heart was RRR without significant murmur, gallops aoe rubs Gastrointestinal: The patient is just returned from a paracentesis Lymphatic system: there was no palpable peripheral lymphadenopathy Musculoskeletal System: The musculoskeletal system seemed concordant with age. Skin: The skin was negative for jaundice. Neurologic exam: The exam was negative for any focal findings. Deep tendon reflexes were equal and symmetrical. Psychiatric exam: Was essentially negative with what appears to be normal mood and effect. Breast exam: Not done Laboratory Last 24 Hours Test 04/23/17 12:08 04/23/17 16:31 04/23/17 20:17 04/24/17 00:00 Bedside Glucose 149 mg/dl 138 mg/dl 144 mg/dl Peritoneal Fluid Color STRAW Peritoneal Fluid Appearance CLEAR Peritoneal Fluid WBC 334 /uL Peritoneal Fluid RBC < 3000 /uL Peritoneal Fld Mononuclear WBCs (%) 93.5 % Peritoneal Fld Polynuclear WBCs (%) 6.5 % Peritoneal Fluid Albumin 1.3 g/dl Peritoneal Fluid Amylase 33 U/L Peritoneal Fluid Triglycerides 31 mg/dl Test 04/24/17 05:14 04/24/17 07:43 White Blood Count 3.42 K/uL Red Blood Count 2.42 M/uL Hemoglobin 8.2 g/dL Hematocrit 25.1 % Mean Corpuscular Volume 103.7 fL Mean Corpuscular Hemoglobin 33.9 pg Mean Corpuscular Hemoglobin Concent 32.7 g/dl RDW Standard Deviation 69.7 fL RDW Coefficient of Variation 18.5 % Platelet Count 49 K/uL Mean Platelet Volume 9.8 fL Prothrombin Time 12.0 SECONDS Prothromb Time International Ratio 1.1 Sodium Level 140 mmol/L Potassium Level 4.6 mmol/L Chloride Level 107 mmol/L Carbon Dioxide Level 28 mmol/L Anion Gap 5.0 mmol/L Blood Urea Nitrogen 16 mg/dl Creatinine 1.10 mg/dl Est Creatinine Clear Calc Drug Dose 37.9 ml/min Estimated GFR () 57.3 Estimated GFR (Non- 49.4 BUN/Creatinine Ratio 14.3 Random Glucose 97 mg/dl Calcium Level 7.5 mg/dl Total Bilirubin 0.6 mg/dl Aspartate Amino Transf (AST/SGOT) 19 U/L Alanine Aminotransferase (ALT/SGPT) 15 U/L Alkaline Phosphatase 82 U/L Total Protein 5.3 gm/dl Albumin 2.2 gm/dl Globulin 3.1 gm/dl Albumin/Globulin Ratio 0.7 Bedside Glucose 108 mg/dl Assessment & Plan Blood counts have been stable the past few days. Again I suspect that the major reason for the cytopenias is hypersplenism. No hematologic intervention is necessary. We will sign off as a service for now but please do not hesitate to reconsult if needed.
[2017-04-24] MEDS: DOCUSATE SODIUM 100 MG CAP PO PRN (14:12)
--- NOTE | 2017-04-24 16:52 | Progress Note ---
Subjective Date of Service: Apr 24, 2017. Subjective Pt evaluation today including: conversation w/ patient, physical exam, lab review, conversation w/ executive consultant, review of inpatient medication list Pain: no pain today PO Intake: adequate Voiding: no voiding problems patient feeling slightly better reviewed results of paracentesis, no signs of SBP d/w Dr. Lubin d/w patient that there is no obvious cause of syncope, she will likely need rehab she does not agree with this idea will need to d/w family Problem List Medical Problems: (1) Anemia Status: Acute (2) Bleeding hemorrhoid Status: Acute (3) GI bleed Status: Acute (4) Hyperglycemia Status: Acute (5) Hypotension Status: Acute (6) Lactic acidosis Status: Acute (7) Mesenteric artery stenosis Status: Acute (8) Pancytopenia Status: Acute (9) Portal hypertension Status: Acute (10) Symptomatic anemia Status: Acute (11) Syncope Status: Acute (12) UTI (urinary tract infection) Status: Acute (13) Weakness Status: Acute Review of Systems Constitutional: + weakness, + fatigue Neurologic: + memory loss, + weakness, + balance problems All Other Systems: Reviewed and Negative Medications Current Inpatient Medications Medications (Trade) Dose Ordered Sig/Sonam Route Start Time Stop Time Status Last Admin Dose Admin Acetaminophen (Tylenol Tab) 650 mg Q4H PRN PO 04/20/17 14:15 05/20/17 14:14 04/23/17 13:46 650 MG Al Hydrox/Mg Hydrox/Simethicone (Maalox Max Susp) 15 ml Q4H PRN PO 04/20/17 14:15 05/20/17 14:14 Magnesium Hydroxide (Milk Of Magnesia Susp) 30 ml Q12H PRN PO 04/20/17 14:15 05/20/17 14:14 04/23/17 19:05 30 ML Ondansetron HCl (Zofran Inj) 4 mg Q6H PRN IV 04/20/17 14:15 05/20/17 14:14 Polyethylene (Miralax Powder Packet) 17 gm DAILY PRN PO 04/20/17 14:15 05/20/17 14:14 04/23/17 13:46 17 GM Carvedilol (Coreg Tab) 6.25 mg BID PO 04/20/17 21:00 05/20/17 20:59 04/24/17 08:14 6.25 MG Clopidogrel Bisulfate (plAVix TAB) 75 mg Q2D@0900 PO 04/21/17 09:00 05/21/17 08:59 04/23/17 08:02 75 MG Cyanocobalamin (Vitamin B-12 Tab) 500 mcg QAM PO 04/21/17 09:00 05/21/17 08:59 04/24/17 08:33 500 MCG Docusate Sodium (coLACE CAP) 100 mg BID PRN PO 04/20/17 14:30 05/20/17 14:29 04/24/17 14:12 100 MG Folic Acid (Folvite Tab) 1 mg QAM PO 04/21/17 09:00 05/21/17 08:59 04/24/17 08:14 1 MG Gabapentin (Neurontin Cap) 300 mg TID PO 04/20/17 21:00 05/20/17 20:59 04/24/17 14:12 300 MG Isosorbide Mononitrate (Imdur Ext Rel Tab) 30 mg QAM PO 04/21/17 09:00 05/21/17 08:59 04/24/17 08:13 30 MG Nitroglycerin (Nitrostat Tab) 0.4 mg PRN UT 04/20/17 14:30 05/20/17 14:29 Simvastatin (Zocor Tab) 20 mg QPM PO 04/20/17 21:00 05/20/17 20:59 04/23/17 21:18 20 MG Insulin Aspart (novoLOG ASPART) SLIDING SCALE If C... ACHS SC 04/20/17 16:00 05/20/17 15:59 04/21/17 21:09 2 UNITS Glucose (Glucose 40% Gel) 15-30 GRAMS 15 GRAMS... UD PRN PO 04/20/17 14:30 05/20/17 14:29 Glucose (Glucose Chew Tab) 4-8 Tablets 4 Tabl... UD PRN PO 04/20/17 14:30 05/20/17 14:29 Dextrose (Dextrose 50% 50ML Syringe) 25-50ML OF 50% DW IV FOR... UD PRN IV 04/20/17 14:30 05/20/17 14:29 Glucagon (Glucagon Inj) 1 mg UD PRN SQ 04/20/17 14:30 05/20/17 14:29 Ibuprofen (Motrin Tab) 600 mg Q8H PRN PO 04/20/17 18:45 05/20/17 18:44 04/23/17 19:05 600 MG Tramadol HCl (Ultram Tab) 50 mg Q6H PRN PO 04/22/17 18:00 05/22/17 17:59 04/24/17 14:12 50 MG Objective Vital Signs Date Time Temp Pulse Resp B/P (MAP) Pulse Ox O2 Delivery O2 Flow Rate FiO2 04/24/17 15:51 36.8 78 16 128/74 (92) 98 Room Air 04/24/17 12:12 36.9 68 16 116/68 (84) 96 04/24/17 12:00 Room Air 04/24/17 08:00 Room Air 04/24/17 07:27 36.4 76 16 117/64 (81) 97 Room Air 04/24/17 04:07 36.5 70 18 92/51 (65) 97 Room Air 04/24/17 04:00 Room Air 04/24/17 00:00 Room Air 04/23/17 23:21 37.1 84 20 94/56 (69) 93 Room Air 04/23/17 21:16 82 117/69 (85) 04/23/17 20:00 94 Room Air 04/23/17 19:26 36.8 76 20 118/62 (80) 95 Room Air 04/23/17 18:30 76 118/62 (80) 86 121/69 (86) 90 114/71 (85) Physical Exam General Appearance: WD/WN, no apparent distress Eyes: normal inspection, EOMI, sclerae normal Respiratory/Chest: chest non-tender, lungs clear, normal breath sounds, no respiratory distress, no accessory muscle use Cardiovascular: regular rate, rhythm, no edema, no gallop, no JVD, no murmur Abdomen: normal bowel sounds, non tender, soft, no organomegaly Extremities: normal range of motion, non-tender, normal inspection, no pedal edema, no calf tenderness Neurologic/Psychiatric: 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 II-XII nml as tested, alert, + motor weakness, + depressed affect, + disoriented Skin: normal color, warm/dry, no rash Lymphatic: no adenopathy Laboratory Results Last 24 Hours Test 04/23/17 20:17 04/24/17 00:00 04/24/17 05:14 04/24/17 07:43 Bedside Glucose 144 mg/dl 108 mg/dl Peritoneal Fluid Color STRAW Peritoneal Fluid Appearance CLEAR Peritoneal Fluid WBC 334 /uL Peritoneal Fluid RBC < 3000 /uL Peritoneal Fld Mononuclear WBCs (%) 93.5 % Peritoneal Fld Polynuclear WBCs (%) 6.5 % Peritoneal Fluid Albumin 1.3 g/dl Peritoneal Fluid Amylase 33 U/L Peritoneal Fluid Triglycerides 31 mg/dl White Blood Count 3.42 K/uL Red Blood Count 2.42 M/uL Hemoglobin 8.2 g/dL Hematocrit 25.1 % Mean Corpuscular Volume 103.7 fL Mean Corpuscular Hemoglobin 33.9 pg Mean Corpuscular Hemoglobin Concent 32.7 g/dl RDW Standard Deviation 69.7 fL RDW Coefficient of Variation 18.5 % Platelet Count 49 K/uL Mean Platelet Volume 9.8 fL Prothrombin Time 12.0 SECONDS Prothromb Time International Ratio 1.1 Sodium Level 140 mmol/L Potassium Level 4.6 mmol/L Chloride Level 107 mmol/L Carbon Dioxide Level 28 mmol/L Anion Gap 5.0 mmol/L Blood Urea Nitrogen 16 mg/dl Creatinine 1.10 mg/dl Est Creatinine Clear Calc Drug Dose 37.9 ml/min Estimated GFR () 57.3 Estimated GFR (Non- 49.4 BUN/Creatinine Ratio 14.3 Random Glucose 97 mg/dl Calcium Level 7.5 mg/dl Total Bilirubin 0.6 mg/dl Aspartate Amino Transf (AST/SGOT) 19 U/L Alanine Aminotransferase (ALT/SGPT) 15 U/L Alkaline Phosphatase 82 U/L Total Protein 5.3 gm/dl Albumin 2.2 gm/dl Globulin 3.1 gm/dl Albumin/Globulin Ratio 0.7 Test 04/24/17 11:42 04/24/17 16:23 Bedside Glucose 129 mg/dl 123 mg/dl Assessment and Plan (1) Syncope Status: Acute (2) Diabetes (3) Dehydration (4) Benign hypertension (5) Placement of stent 72 y/o female with a history of macrocytic anemia, CAD, h/o NC s/p stent, DM II , HTN, HLD, diastolic CHF, cirrhosis w/ascites, Behet's syndrome, restless leg syndrome, RA, and h/o TIA who presented to the ED on 04/20 following a syncopal episode. Patient was afebrile, VSS on arrival but did develop hypotension which resolved with fluid boluses. CBC showed hemoglobin 11.2, MCV 103.3, and platelet count of 95. INR 1.2. Albumin 2.8. TSH 4.91. Initial dysan-ss-qedo troponin negative. UA positive for high epithelial cell count and 1+ bacteria. Chest x-ray shows no acute disease. Syncopal episode, likely vasovagal, related to diuresis with cirrhosis -Admit to telemetry - no arrhythmias -Echocardiogram. Last echo done 2012 showed preserved ejection fraction, type I diastolic dysfunction, and mild mitral regurgitation -Trend cardiac enzymes - negative for ischemia -Orthostatic blood pressure every shift - no significant drop, but BP running low normal - continue to hold Aldactone Macrocytic anemia, thrombocytopenia--baseline hemoglobin appears to be around 9- 10 -Hemoglobin 11.2 on arrival -Platelet count 95 on arrival. Platelets had been up to 246 one week prior -Continue folic acid and B12 supplements - again, likely due to hypersplenism CAD, h/o NC, HLD, HTN, h/o TIA--stable -Continue Plavix 75 mg PO qd, Imdur 30 mg PO qd, Zocor 20 mg, Coreg 6.25 mg PO BID, and verapamil 120 mg PO qd Diabetes mellitus type II--last hemoglobin A1c checked 12/06/16 was 5.0 -Insulin sliding scale -Check BSGs q ac and qhs Diastolic CHF -holding spironolactone 25 mg PO qd and Lasix 20 mg PO qd, no signs of volume overload Cirrhosis w/ascites--last CT abdomen/pelvis done 03/31/17 showed cirrhosis with portal hypertension, abdominal and pelvic ascites, mild splenomegaly, and varices formation - repeat paracentesis without much fluid, 120cc, no signs of SBP 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 Prednisone now complete DVT prophylaxis - no chemical due to low platelets -JABARI Potts Code Status -Level III, FULL RESUSCITATION NO [facility] needs rehab, palliative care consultation Continued [facility] stay due to: abnormal vital signs
[2017-04-24] MEDS: ACETAMINOPHEN 325 MG TAB PO PRN (20:05)
[2017-04-24] MEDS: SIMVASTATIN 20 MG TAB PO SCH (20:36)
[2017-04-25 06:18] LABS: HEMATOCRIT 27.4 % (37-47); MEAN CELL VOLUME 102.6 fL (80-100); MEAN CORPUSCULAR HEMOGLOBIN 33.7 pg (25-34); MEAN CORPUSCULAR HGB CONC 32.8 g/dl (32-36); RED BLOOD COUNT 2.67 M/uL (4.2-5.4)
[2017-04-25 06:38] LABS: MEAN PLATELET VOLUME 10.3 fL (7.4-10.4); PLATELET COUNT 58 K/uL (130-400)
[2017-04-25 06:47] LABS: BUN/CREATININE RATIO 13.4 (10-20); POTASSIUM 4.3 mmol/L (3.5-5.1)
[2017-04-25 06:50] LABS: ALB/GLOB RATIO 0.7 (0.9-2)
[2017-04-25 07:05] LABS: BASO % 0.9 %; BASO ABS # 0.03 K/uL (0-0.2); EOS % 1.2 %; IG% 0.3 %; LYMPH % 29.1 %; LYMPH ABS # 0.99 K/uL (1.2-3.4); MONO % 18.8 %; NEUT % 49.7 %
[2017-04-25 07:06] LABS: ANISOCYTOSIS PRESENT; COMPLETE YES; LARGE PLATELETS 1+
[2017-04-25 07:47] VITALS: BP 111/67; PULSE 83; TEMP 37; O2SAT 94
[2017-04-25] MEDS: INSULIN ASPART 100 UNITS/ML 3 ML PEN SC SCH ×4 (08:01→20:42)
[2017-04-25] MEDS: CARVEDILOL 6.25 MG TAB PO SCH ×2 (08:02→20:42)
[2017-04-25] MEDS: GABAPENTIN 300 MG CAP PO SCH ×3 (08:02→20:42)
[2017-04-25] MEDS: CYANOCOBALAMIN 500 MCG TAB (VIT B-12) PO SCH (08:02)
[2017-04-25] MEDS: CLOPIDOGREL BISULFATE 75 MG TAB PO SCH (08:03)
[2017-04-25] MEDS: ISOSORBIDE MONONITRATE 30 MG TABCR PO SCH (08:03)
[2017-04-25] MEDS: DOCUSATE SODIUM 100 MG CAP PO PRN (08:07)
[2017-04-25] MEDS: AMOXICILLIN/CLAVULANATE TAB 875 MG TAB PO SCH ×2 (08:07→17:27)
[2017-04-25] MEDS: POLYETHYLENE (MIRALAX) 17 GM PACK PO PRN (08:07)
--- NOTE | 2017-04-25 10:17 | Gastroenterology Progress Note ---
Progress Note Date of Service: Apr 25, 2017 Subjective Pt evaluation today including: conversation w/ patient, physical exam, chart review, lab review, review of studies, review of inpatient medication list CC f/u ascites HPI Pt states gets abd pain off and on. Some vague pain at present. No BMS reported in chart last 24 hours. Review of Systems Respiratory: No shortness of breath Cardiac: No chest pain Medications Current Inpatient Medications Medications (Trade) Dose Ordered Sig/Sonam Route Start Time Stop Time Status Last Admin Dose Admin Acetaminophen (Tylenol Tab) 650 mg Q4H PRN PO 04/20/17 14:15 05/20/17 14:14 04/24/17 20:05 650 MG Al Hydrox/Mg Hydrox/Simethicone (Maalox Max Susp) 15 ml Q4H PRN PO 04/20/17 14:15 05/20/17 14:14 Magnesium Hydroxide (Milk Of Magnesia Susp) 30 ml Q12H PRN PO 04/20/17 14:15 05/20/17 14:14 04/23/17 19:05 30 ML Ondansetron HCl (Zofran Inj) 4 mg Q6H PRN IV 04/20/17 14:15 05/20/17 14:14 Polyethylene (Miralax Powder Packet) 17 gm DAILY PRN PO 04/20/17 14:15 05/20/17 14:14 04/25/17 08:07 17 GM Carvedilol (Coreg Tab) 6.25 mg BID PO 04/20/17 21:00 05/20/17 20:59 04/25/17 08:02 6.25 MG Clopidogrel Bisulfate (plAVix TAB) 75 mg Q2D@0900 PO 04/21/17 09:00 05/21/17 08:59 04/25/17 08:03 75 MG Cyanocobalamin (Vitamin B-12 Tab) 500 mcg QAM PO 04/21/17 09:00 05/21/17 08:59 04/25/17 08:02 500 MCG Docusate Sodium (coLACE CAP) 100 mg BID PRN PO 04/20/17 14:30 05/20/17 14:29 04/25/17 08:07 100 MG Folic Acid (Folvite Tab) 1 mg QAM PO 04/21/17 09:00 05/21/17 08:59 04/25/17 08:02 1 MG Gabapentin (Neurontin Cap) 300 mg TID PO 04/20/17 21:00 05/20/17 20:59 04/25/17 08:02 300 MG Isosorbide Mononitrate (Imdur Ext Rel Tab) 30 mg QAM PO 04/21/17 09:00 05/21/17 08:59 04/25/17 08:03 30 MG Nitroglycerin (Nitrostat Tab) 0.4 mg PRN UT 04/20/17 14:30 05/20/17 14:29 Simvastatin (Zocor Tab) 20 mg QPM PO 04/20/17 21:00 05/20/17 20:59 04/24/17 20:36 20 MG Insulin Aspart (novoLOG ASPART) SLIDING SCALE If C... ACHS SC 04/20/17 16:00 05/20/17 15:59 04/21/17 21:09 2 UNITS Glucose (Glucose 40% Gel) 15-30 GRAMS 15 GRAMS... UD PRN PO 04/20/17 14:30 05/20/17 14:29 Glucose (Glucose Chew Tab) 4-8 Tablets 4 Tabl... UD PRN PO 04/20/17 14:30 05/20/17 14:29 Dextrose (Dextrose 50% 50ML Syringe) 25-50ML OF 50% DW IV FOR... UD PRN IV 04/20/17 14:30 05/20/17 14:29 Glucagon (Glucagon Inj) 1 mg UD PRN SQ 04/20/17 14:30 05/20/17 14:29 Ibuprofen (Motrin Tab) 600 mg Q8H PRN PO 04/20/17 18:45 05/20/17 18:44 04/23/17 19:05 600 MG Tramadol HCl (Ultram Tab) 50 mg Q6H PRN PO 04/22/17 18:00 05/22/17 17:59 04/24/17 14:12 50 MG Amoxicillin/ Clavulanate Potassium (Augmentin Tab) 875 mg BIDM PO 04/25/17 08:00 04/30/17 07:59 04/25/17 08:07 875 MG Objective Vital Signs Date Time Temp Pulse Resp B/P (MAP) Pulse Ox O2 Delivery O2 Flow Rate FiO2 04/25/17 08:00 Room Air 04/25/17 07:47 37.0 83 18 111/67 (82) 94 Room Air 04/25/17 00:00 Room Air 04/24/17 23:28 37.4 81 18 94/61 (72) 94 Room Air 04/24/17 21:08 37.7 04/24/17 20:35 94 130/75 (93) 04/24/17 20:04 38.1 04/24/17 19:39 37.8 88 18 132/69 (90) 93 Room Air 04/24/17 19:20 Room Air 04/24/17 16:00 Room Air 04/24/17 15:51 36.8 78 16 128/74 (92) 98 Room Air 04/24/17 12:12 36.9 68 16 116/68 (84) 96 04/24/17 12:00 Room Air Physical Exam General Appearance: WD/WN, no apparent distress Respiratory/Chest: lungs clear, no respiratory distress Cardiovascular: no murmur Abdomen: normal bowel sounds, non tender, soft, no organomegaly Laboratory Results Last 24 Hours Test 04/24/17 11:42 04/24/17 16:23 04/24/17 20:08 04/25/17 05:56 Bedside Glucose 129 mg/dl 123 mg/dl 140 mg/dl White Blood Count 3.40 K/uL Red Blood Count 2.67 M/uL Hemoglobin 9.0 g/dL Hematocrit 27.4 % Mean Corpuscular Volume 102.6 fL Mean Corpuscular Hemoglobin 33.7 pg Mean Corpuscular Hemoglobin Concent 32.8 g/dl Platelet Count 58 K/uL Mean Platelet Volume 10.3 fL Neutrophils (%) (Auto) 49.7 % Lymphocytes (%) (Auto) 29.1 % Monocytes (%) (Auto) 18.8 % Eosinophils (%) (Auto) 1.2 % Basophils (%) (Auto) 0.9 % Neutrophils # (Auto) 1.69 K/uL Lymphocytes # (Auto) 0.99 K/uL Monocytes # (Auto) 0.64 K/uL Eosinophils # (Auto) 0.04 K/uL Basophils # (Auto) 0.03 K/uL RDW Standard Deviation 70.3 fL RDW Coefficient of Variation 18.7 % Immature Granulocyte % (Auto) 0.3 % Immature Granulocyte # (Auto) 0.01 K/uL Large Platelets 1+ Anisocytosis PRESENT Sodium Level 137 mmol/L Potassium Level 4.3 mmol/L Chloride Level 105 mmol/L Carbon Dioxide Level 26 mmol/L Anion Gap 6.0 mmol/L Blood Urea Nitrogen 13 mg/dl Creatinine 1.00 mg/dl Est Creatinine Clear Calc Drug Dose 41.7 ml/min Estimated GFR () 64.3 Estimated GFR (Non- 55.5 BUN/Creatinine Ratio 13.4 Random Glucose 102 mg/dl Calcium Level 8.0 mg/dl Total Bilirubin 0.6 mg/dl Aspartate Amino Transf (AST/SGOT) 20 U/L Alanine Aminotransferase (ALT/SGPT) 14 U/L Alkaline Phosphatase 80 U/L Total Protein 5.6 gm/dl Albumin 2.3 gm/dl Globulin 3.3 gm/dl Albumin/Globulin Ratio 0.7 Test 04/25/17 07:37 Bedside Glucose 113 mg/dl Assessment and Plan ascites--paracentesis today 120 ml, Only 22 neutrohils do doubt SBP. Cultures pending Dr Cleveland holding Aldactone for syncope.. SAAG 1 does not meet criteria technically for portal HTN but splenomegaly and CT suggestive. Await cytology LUQ pain--off and on. Doubt SBP on paracentesis--04/24/17 Anemia--stable-- no stools to suggest GI bleeding. cirrhosis--followed as outpt by [facility]- Constipation--recommend miralax tid Other problems per hospitalist: syncope---no evidence of GI bleeding to explain
[2017-04-25 11:00] VITALS: BP 117/70; PULSE 86; O2SAT 92
--- NOTE | 2017-04-25 11:41 | DIAGNOSTIC IMAGING REPORT ---
RIBS UNILATERAL WITH PA CHEST HISTORY:72 yearsFemalePain, fall, please rule out fracture COMPARISON: Chest radiograph 04/20/2017. TECHNIQUE: Frontal view of the chest with 4 views of the left ribs. FINDINGS: The cardiomediastinal and hilar silhouettes are within normal limits. There is atherosclerosis of the aorta. Mild rightward deviation of the trachea from position of the thoracic aorta is unchanged. There is eventration of the right hemidiaphragm. No pneumothorax, pleural effusion or focal airspace consolidation is seen. No acute displaced rib fracture is identified. The bones are moderately demineralized. Cholecystectomy clips are noted. IMPRESSION: 1. No acute cardiopulmonary process. 2. No acute displaced rib fracture identified. The above report was generated using voice recognition software. It may contain grammatical, syntax or spelling errors. Electronically signed by: Chris Gonzalez M.D. 04/25/2017 11:40 AM Dictated Date/Time: 04/25/2017 11:33 AM
[2017-04-25] MEDS: POLYETHYLENE (MIRALAX) 17 GM PACK PO SCH ×2 (12:00→17:00)
[2017-04-25 15:33] VITALS: BP 93/61; PULSE 93; TEMP 36.7; O2SAT 95
--- NOTE | 2017-04-25 16:10 | Progress Note ---
Subjective Date of Service: Apr 25, 2017. Subjective Pt evaluation today including: conversation w/ patient, conversation w/ family (, son, daughter in law and daughters over the phone), physical exam, lab review, review of inpatient medication list Pain: left rib pain PO Intake: adequate Voiding: no voiding problems reviewed films, no rib fractures c/o left rib pain participated in therapy, recommending rehab, patient was falling at home Problem List Medical Problems: (1) Anemia Status: Acute (2) Bleeding hemorrhoid Status: Acute (3) GI bleed Status: Acute (4) Hyperglycemia Status: Acute (5) Hypotension Status: Acute (6) Lactic acidosis Status: Acute (7) Mesenteric artery stenosis Status: Acute (8) Pancytopenia Status: Acute (9) Portal hypertension Status: Acute (10) Symptomatic anemia Status: Acute (11) UTI (urinary tract infection) Status: Acute (12) Weakness Status: Acute Review of Systems Constitutional: + weakness, + fatigue Neurologic: + weakness, + balance problems All Other Systems: Reviewed and Negative Medications Current Inpatient Medications Medications (Trade) Dose Ordered Sig/Sonam Route Start Time Stop Time Status Last Admin Dose Admin Acetaminophen (Tylenol Tab) 650 mg Q4H PRN PO 04/20/17 14:15 05/20/17 14:14 04/24/17 20:05 650 MG Al Hydrox/Mg Hydrox/Simethicone (Maalox Max Susp) 15 ml Q4H PRN PO 04/20/17 14:15 05/20/17 14:14 Magnesium Hydroxide (Milk Of Magnesia Susp) 30 ml Q12H PRN PO 04/20/17 14:15 05/20/17 14:14 04/23/17 19:05 30 ML Ondansetron HCl (Zofran Inj) 4 mg Q6H PRN IV 04/20/17 14:15 05/20/17 14:14 Carvedilol (Coreg Tab) 6.25 mg BID PO 04/20/17 21:00 05/20/17 20:59 04/25/17 08:02 6.25 MG Clopidogrel Bisulfate (plAVix TAB) 75 mg Q2D@0900 PO 04/21/17 09:00 05/21/17 08:59 04/25/17 08:03 75 MG Cyanocobalamin (Vitamin B-12 Tab) 500 mcg QAM PO 04/21/17 09:00 05/21/17 08:59 04/25/17 08:02 500 MCG Docusate Sodium (coLACE CAP) 100 mg BID PRN PO 04/20/17 14:30 05/20/17 14:29 04/25/17 08:07 100 MG Folic Acid (Folvite Tab) 1 mg QAM PO 04/21/17 09:00 05/21/17 08:59 04/25/17 08:02 1 MG Gabapentin (Neurontin Cap) 300 mg TID PO 04/20/17 21:00 05/20/17 20:59 04/25/17 14:17 300 MG Isosorbide Mononitrate (Imdur Ext Rel Tab) 30 mg QAM PO 04/21/17 09:00 05/21/17 08:59 04/25/17 08:03 30 MG Nitroglycerin (Nitrostat Tab) 0.4 mg PRN UT 04/20/17 14:30 05/20/17 14:29 Simvastatin (Zocor Tab) 20 mg QPM PO 04/20/17 21:00 05/20/17 20:59 04/24/17 20:36 20 MG Insulin Aspart (novoLOG ASPART) SLIDING SCALE If C... ACHS SC 04/20/17 16:00 05/20/17 15:59 04/21/17 21:09 2 UNITS Glucose (Glucose 40% Gel) 15-30 GRAMS 15 GRAMS... UD PRN PO 04/20/17 14:30 05/20/17 14:29 Glucose (Glucose Chew Tab) 4-8 Tablets 4 Tabl... UD PRN PO 04/20/17 14:30 05/20/17 14:29 Dextrose (Dextrose 50% 50ML Syringe) 25-50ML OF 50% DW IV FOR... UD PRN IV 04/20/17 14:30 05/20/17 14:29 Glucagon (Glucagon Inj) 1 mg UD PRN SQ 04/20/17 14:30 05/20/17 14:29 Ibuprofen (Motrin Tab) 600 mg Q8H PRN PO 04/20/17 18:45 05/20/17 18:44 04/23/17 19:05 600 MG Tramadol HCl (Ultram Tab) 50 mg Q6H PRN PO 04/22/17 18:00 05/22/17 17:59 04/24/17 14:12 50 MG Amoxicillin/ Clavulanate Potassium (Augmentin Tab) 875 mg BIDM PO 04/25/17 08:00 04/30/17 07:59 04/25/17 08:07 875 MG Polyethylene (Miralax Powder Packet) 17 gm TIDM PO 04/25/17 12:00 05/25/17 11:59 Objective Vital Signs Date Time Temp Pulse Resp B/P (MAP) Pulse Ox O2 Delivery O2 Flow Rate FiO2 04/25/17 15:33 36.7 93 16 93/61 (72) 95 Room Air 04/25/17 11:00 86 92 04/25/17 08:00 Room Air 04/25/17 07:47 37.0 83 18 111/67 (82) 94 Room Air 04/25/17 00:00 Room Air 04/24/17 23:28 37.4 81 18 94/61 (72) 94 Room Air 04/24/17 21:08 37.7 04/24/17 20:35 94 130/75 (93) 04/24/17 20:04 38.1 04/24/17 19:39 37.8 88 18 132/69 (90) 93 Room Air 04/24/17 19:20 Room Air 04/24/17 16:00 Room Air Physical Exam General Appearance: no apparent distress, + thin Neck: supple, no adenopathy, no JVD, trachea midline Respiratory/Chest: lungs clear, normal breath sounds, no respiratory distress, no accessory muscle use, + pertinent finding (left ribs tender) Cardiovascular: regular rate, rhythm, no edema, no gallop, no JVD, no murmur Abdomen: normal bowel sounds, non tender, soft, no organomegaly, + pertinent finding (minimal ascites) Extremities: normal range of motion, non-tender, normal inspection, no pedal edema, no calf tenderness, pelvis stable Neurologic/Psychiatric: monitoring and evaluation advisor II-XII nml as tested, alert, oriented x 3, + abnormal gait, + motor weakness, + depressed affect Skin: normal color, warm/dry, no rash Lymphatic: no adenopathy Laboratory Results RIBS UNILATERAL WITH PA CHEST HISTORY:72 yearsFemale[age], fall, please rule out fracture COMPARISON: Chest radiograph 04/20/2017. TECHNIQUE: Frontal view of the chest with 4 views of the left ribs. FINDINGS: The cardiomediastinal and hilar silhouettes are within normal limits. There is atherosclerosis of the aorta. Mild rightward deviation of the trachea from position of the thoracic aorta is unchanged. There is eventration of the right hemidiaphragm. No pneumothorax, pleural effusion or focal airspace consolidation is seen. No acute displaced rib fracture is identified. The bones are moderately demineralized. Cholecystectomy clips are noted. IMPRESSION: 1. No acute cardiopulmonary process. 2. No acute displaced rib fracture identified. Last 24 Hours Test 04/24/17 16:23 04/24/17 20:08 04/25/17 05:56 04/25/17 07:37 Bedside Glucose 123 mg/dl 140 mg/dl 113 mg/dl White Blood Count 3.40 K/uL Red Blood Count 2.67 M/uL Hemoglobin 9.0 g/dL Hematocrit 27.4 % Mean Corpuscular Volume 102.6 fL Mean Corpuscular Hemoglobin 33.7 pg Mean Corpuscular Hemoglobin Concent 32.8 g/dl Platelet Count 58 K/uL Mean Platelet Volume 10.3 fL Neutrophils (%) (Auto) 49.7 % Lymphocytes (%) (Auto) 29.1 % Monocytes (%) (Auto) 18.8 % Eosinophils (%) (Auto) 1.2 % Basophils (%) (Auto) 0.9 % Neutrophils # (Auto) 1.69 K/uL Lymphocytes # (Auto) 0.99 K/uL Monocytes # (Auto) 0.64 K/uL Eosinophils # (Auto) 0.04 K/uL Basophils # (Auto) 0.03 K/uL RDW Standard Deviation 70.3 fL RDW Coefficient of Variation 18.7 % Immature Granulocyte % (Auto) 0.3 % Immature Granulocyte # (Auto) 0.01 K/uL Large Platelets 1+ Anisocytosis PRESENT Sodium Level 137 mmol/L Potassium Level 4.3 mmol/L Chloride Level 105 mmol/L Carbon Dioxide Level 26 mmol/L Anion Gap 6.0 mmol/L Blood Urea Nitrogen 13 mg/dl Creatinine 1.00 mg/dl Est Creatinine Clear Calc Drug Dose 41.7 ml/min Estimated GFR () 64.3 Estimated GFR (Non- 55.5 BUN/Creatinine Ratio 13.4 Random Glucose 102 mg/dl Calcium Level 8.0 mg/dl Total Bilirubin 0.6 mg/dl Aspartate Amino Transf (AST/SGOT) 20 U/L Alanine Aminotransferase (ALT/SGPT) 14 U/L Alkaline Phosphatase 80 U/L Total Protein 5.6 gm/dl Albumin 2.3 gm/dl Globulin 3.3 gm/dl Albumin/Globulin Ratio 0.7 Test 04/25/17 11:36 Bedside Glucose 113 mg/dl Assessment and Plan (1) Dehydration (2) Benign hypertension (3) Placement of stent (4) Syncope (5) Diabetes 72 y/o female with a history of macrocytic anemia, CAD, h/o [place] s/p stent, DM II , HTN, HLD, diastolic CHF, cirrhosis w/ascites, Behet's syndrome, restless leg syndrome, RA, and h/o TIA who presented to the ED on 04/20 following a syncopal episode. Patient was afebrile, VSS on arrival but did develop hypotension which resolved with fluid boluses. CBC showed hemoglobin 11.2, MCV 103.3, and platelet count of 95. INR 1.2. Albumin 2.8. TSH 4.91. Initial qonus-mv-[id number] troponin negative. UA positive for high epithelial cell count and 1+ bacteria. Chest x-ray shows no acute disease. Syncopal episode, likely vasovagal, related to diuresis with cirrhosis -Admit to telemetry - no arrhythmias -Echocardiogram. Last echo done 2012 showed preserved ejection fraction, type I diastolic dysfunction, and mild mitral regurgitation -Trend cardiac enzymes - negative for ischemia -Orthostatic blood pressure every shift - no significant drop, but BP running low normal - continue to hold Aldactone and Lasix Macrocytic anemia, thrombocytopenia--baseline hemoglobin appears to be around 9- 10 -Hemoglobin 11.2 on arrival -Platelet count 95 on arrival. Platelets had been up to 246 one week prior -Continue folic acid and B12 supplements - again, likely due to hypersplenism CAD, h/o [place], HLD, HTN, h/o TIA--stable -Continue Plavix 75 mg PO qd, Imdur 30 mg PO qd, Zocor 20 mg, Coreg 6.25 mg PO BID, and verapamil 120 mg PO qd Diabetes mellitus type II--last hemoglobin A1c checked 12/06/16 was 5.0 -Insulin sliding scale -Check BSGs q ac and qhs Diastolic CHF -holding spironolactone 25 mg PO qd and Lasix 20 mg PO qd, no signs of volume overload Cirrhosis w/ascites--last CT abdomen/pelvis done 03/31/17 showed cirrhosis with portal hypertension, abdominal and pelvic ascites, mild splenomegaly, and varices formation - repeat paracentesis without much fluid, 120cc, no signs of SBP 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 Prednisone now complete DVT prophylaxis - no chemical due to low platelets -JABARI villalobos and Josh Code Status -Level III, FULL RESUSCITATION NO [facility] family meeting today, patient and family agree that rehab is needed, would like [facility] Continued [facility] stay due to: abnormal vital signs
[2017-04-25 20:40] VITALS: BP 118/77; PULSE 82
[2017-04-25] MEDS: SIMVASTATIN 20 MG TAB PO SCH (20:42)
[2017-04-25 23:40] VITALS: BP 106/68; PULSE 86; TEMP 37.2; O2SAT 95
[2017-04-26 07:27] VITALS: BP 119/73; PULSE 78; TEMP 37.2; O2SAT 96
[2017-04-26] MEDS: INSULIN ASPART 100 UNITS/ML 3 ML PEN SC SCH ×2 (07:41→12:01)
[2017-04-26] MEDS: AMOXICILLIN/CLAVULANATE TAB 875 MG TAB PO SCH (07:42)
[2017-04-26] MEDS: POLYETHYLENE (MIRALAX) 17 GM PACK PO SCH ×2 (07:42→11:31)
[2017-04-26] MEDS: CARVEDILOL 6.25 MG TAB PO SCH (07:43)
[2017-04-26] MEDS: ISOSORBIDE MONONITRATE 30 MG TABCR PO SCH (07:43)
[2017-04-26] MEDS: CYANOCOBALAMIN 500 MCG TAB (VIT B-12) PO SCH (07:44)
[2017-04-26] MEDS: GABAPENTIN 300 MG CAP PO SCH ×2 (07:44→13:31)
[2017-04-26] MEDS ORDERED: AMOX1TAB43 PO (12:40)
--- NOTE | 2017-04-26 12:57 | Discharge Instructions ---
Discharge Instructions Date of Service Apr 26, 2017. Admission Reason for Admission: Syncope Discharge Discharge Diagnosis / Problem: Syncope likely due to low BP related to Lasix, Cirrhosis, Pancytopenia, UTI Discharge Goals Goal(s): Improve function, Increase independence Activity Recommendations Activity Level: Assistance Required Therapies: Physical Therapy, Occupational Therapy Lifting Limitations: none Exercise/Sports Limitations: as tolerated Shower/Bathe: no limitations . Additional Information Patient informed of condition: Yes Advance Directives: Yes DNR: No Level of Care: Acute Rehab Communicable Disease: No Prognosis: Stable Oxygen at (LPM): no Benson Catheter: No Instructions / Follow-Up Instructions / Follow-Up Medications: - AUGMENTIN: complete 5 more days for 7 days total treatment of Enterococcus UTI , sensitive to PCN - LASIX: stopped, likely contributing to syncope with low volume - IMDUR: stopped, allow BP to run higher, however, with cirrhosis her pressures will run low UTI: likely incidental, doubt it caused syncope, treat with Augmentin Syncope: no arrhythmias, normal echo, no signs of stroke, no orthostatic changes but BP low normal to low at times, likely a result of diuresis but also cirrhosis plan to go to rehab, patient not safe at home, she had 3 separate syncopal episodes prior to admission Cirrhosis: only real issues is ascites which has been controlled on the Lasix and Aldactone. Will continue Aldactone for now and hold Lasix. watch for development of further ascites, may need intermittent Lasix or intermittent paracentesis had EGD in March, showed varices, she is on Coreg for prevention of bleeding, has never bled pancytopenia due to hypersplenism, this is chronic issue normal ammonia, no hepatic encephalopathy potential for palliative approach in the future discussed with patient and family, currently her main issue is weakness and ascites, no other sequelae she is eating, moving bowels, urinating well, no bleeding or serious infections if she has further clinical deterioration in the future then palliative care should be consulted Dementia: mild, this is baseline for her, can be reluctant to participate in therapy Weakness, deconditioning: likely related to cirrhosis, may not progress to the point that she can safely return home but family and patient want to try rehab FOLLOW UP - physician at [facility] this week - [facility] in a few weeks Current Hospital Diet Patient's current hospital diet: Low Sodium Diet (2gm Na), Diabetes Type 2 Diet Discharge Diet Recommended Diet: Low Sodium Diet (2gm Na), Diabetes Type 2 Diet Procedures Procedures Performed: Paracentesis: only 120cc removed, no signs of SBP Pending Studies Studies pending at discharge: no Physician Orders On Transfer POLST Discussion: Not Applicable Laboratory Results Hemoglobin A1c Test 04/20/17 18:11 Range/Units Estimated Average Glucose 131 mg/dl Hemoglobin A1c 6.2 H 4.5-5.6 % Medical Emergencies . Who to Call and When: Medical Emergencies: If at any time you feel your situation is an emergency, please call 911 immediately. . Non-Emergent Contact Non-Emergency issues call your: Primary Care Provider Call Non-Emergent contact if: you have any medication questions . . "Provider Documentation" section prepared by Stevan Cleveland. . Core Measure Problem Core Measures: None [place] Drug Monitoring Program Search Results: no issues identified
[2017-04-26 13:04] VITALS: BP 119/73; PULSE 78; TEMP 37.2; O2SAT 96
[2017-04-26] MEDS: TRAMADOL HCL 50 MG TAB PO PRN (13:34)
--- NOTE | 2017-04-26 14:35 | Discharge Summary ---
Discharge Summary Date of Service Apr 26, 2017. Discharge Summary Admission Date: Apr 20, 2017 at 14:25 Discharge Date: Apr 26, 2017 Discharge Disposition: Rehab Principal Diagnosis: Syncope Problems/Secondary Diagnoses: Cirrhosis with ascites, pancytopenia UTI, enterococcus Low blood pressure Mild dementia Immunizations: Have You Had Influenza Vaccine: Yes Influenza Vaccine Date: Jul 04, 2011 History of Tetanus Vaccine?: Yes Tetanus Immunization Date: Sep 28, 1995 History of Pneumococcal: Yes Pneumococcal Date: Jun 08, 2011 History of Hepatitis B Vaccine: Yes Hepatitis Immunization Date: Sep 28, 1995 Procedures: Paracentesis - 120cc removed, no evidence of SBP Consultations: Gastroenterology Hematology Medication Reconciliation New Medications: Amoxicillin & Pot Clavulanate (Amoxicillin/Clavulanate P) 1 Tab Tab 875 MG PO BIDM, #10 TAB 0 Refills Continued Medications: Carvedilol (Coreg) 6.25 Mg Tab 6.25 MG PO BID, TAB Clopidogrel (Plavix) 75 Mg Tab 75 MG PO Q2D, 0 Refills Cyanocobalamin (Vitamin B-12) 500 Mcg Tab 500 MCG PO QAM, TAB Docusate Sodium (Colace) 100 Mg Cap 1 CAP PO BID PRN for Constipation Folic Acid (Folvite) 1 Mg Tab 1 MG PO QAM, TAB Gabapentin (Neurontin) 300 Mg Cap 300 MG PO TID, CAP Polyethylene Glycol 3350 (Miralax) 1 Pow Pow 17 GM PO DAILY PRN for Constipation Spironolactone (Aldactone) 25 Mg Tab 25 MG PO QAM, TAB Verapamil Sust Rel (Calan Sr Ext Rel) 120 Mg Tabcr 120 MG PO DAILY, TAB Discontinued Medications: Furosemide (Lasix) 20 Mg Tab 20 MG PO QAM, TAB Isosorbide Mononitrate Ext Rel (Imdur Ext Rel) 30 Mg Ertab 30 MG PO QAM, TAB Nitroglycerin (Nitrostat) 0.4 Mg Tab 0.4 MG UT PRN, 0 Refills ONE TABLET UNDER THE TONGUE EVERY 5 MINUTES, UP TO 3 DOSES, NEEDED FOR CHEST PAIN. Simvastatin (Zocor) 20 Mg Tab 20 MG PO QPM, TAB Discharge Exam Patient doing well today, no complaints. Discussed going to rehab, accepted today to [facility]. Updated family. Review of Systems: Constitutional: + weakness, + fatigue, No fever, No chills, No sweats, No weight loss, No problem reported Eyes: No worsening of vision, No eye pain, No redness, No discharge, No diplopia, No problem reported ENT: No hearing loss, No unusual epistaxis, No nasal symptoms, No sore throat, No tinnitus, No dental problems, No trouble swallowing, No problem reported Respiratory: No cough, No sputum, No wheezing, No shortness of breath, No dyspnea on exertion, No dyspnea at rest, No hemoptysis, No problem reported Cardiovascular: No chest pain, No orthopnea, No PND, No edema, No claudication, No palpitations, No problem reported Abdomen: No pain, No nausea, No vomiting, No diarrhea, No constipation, No GI bleeding, No problem reported Musculoskeletal: No joint pain, No muscle pain, No swelling, No calf pain, No problem reported Genitourinary - Female: No dysuria, No urinary frequency, No urinary urgency , No urinary incontinence Neurologic: + memory loss, + weakness, + balance problems, No paralysis, No numbness/tingling, No vertigo, No problem reported Psychiatric: No depression symptoms, No anhedonism, No anxiety, No insomnia , No substance abuse, No problem reported Endocrine: No fatigue, No excessive thirst, No excessive urination, No problem reported Hematologic / Lymphatic: No abnormal bleeding/bruising, No clotting problems , No swollen lymph nodes, No night sweats, No problem reported Integumentary: No rash, No itch, No new/changing skin lesions, No color change, No bleeding, No problem reported Physical Exam: General Appearance: WD/WN, no apparent distress Eyes: normal inspection, EOMI, sclerae normal ENT: normal ENT inspection, hearing grossly normal, pharynx normal Neck: supple, no adenopathy, no JVD, trachea midline Respiratory/Chest: chest non-tender, lungs clear, normal breath sounds, no respiratory distress, no accessory muscle use Cardiovascular: regular rate, rhythm, no edema, no gallop, no JVD, no murmur , normal peripheral pulses Abdomen / GI: normal bowel sounds, non tender, soft, no organomegaly, + pertinent finding (minimal amount of distention, mild ascites) Extremities: normal inspection, no calf tenderness, normal capillary refill , no pedal edema, normal range of motion, pelvis stable Neurologic/Psychiatric: melt superintendant II-XII nml as tested, alert, normal reflexes, oriented x 3, + motor weakness, + depressed affect Skin: normal color, warm/dry, no rash Hospital Course 72 y/o female with a history of macrocytic anemia, CAD, h/o [place] s/p stent, DM II , HTN, HLD, diastolic CHF, cirrhosis w/ascites, Behet's syndrome, restless leg syndrome, RA, and h/o TIA who presented to the ED on 04/20 following a syncopal episode. Patient was afebrile, VSS on arrival but did develop hypotension which resolved with fluid boluses. CBC showed hemoglobin 11.2, MCV 103.3, and platelet count of 95. INR 1.2. Albumin 2.8. TSH 4.91. Initial skeei-re-vkgl troponin negative. UA positive for high epithelial cell count and 1+ bacteria. Chest x-ray shows no acute disease. Syncopal episode, likely vasovagal, related to diuresis with cirrhosis -Admit to telemetry - no arrhythmias -Echocardiogram. Last echo done March 2016 showed preserved ejection fraction, type I diastolic dysfunction, and mild mitral regurgitation -Trend cardiac enzymes - negative for ischemia -Orthostatic blood pressure every shift - no significant drop, but BP running low normal - continue to hold Lasix, can continue Aldactone - watch for syncopal episodes while at rehab Enterococcus UTI: sensitive to PCN, treat with Augmentin for 7 days total, 5 days more Pancytopenia-- ongoing issue, seen by hematology, due to splenomegaly -Continue folic acid and B12 supplements CAD, h/o NH, HLD, HTN, h/o TIA--stable -Continue Plavix 75 mg PO qd, Coreg 6.25 mg PO BID, and verapamil 120 mg PO qd - stop Imdur due to low normal BP and stop Zocor in setting of cirrhosis Diabetes mellitus type II--last hemoglobin A1c checked 12/06/16 was 5.0 -Insulin sliding scale -Check BSGs q ac and qhs Diastolic CHF -continue spironolactone 25 mg PO qd, stop Lasix Cirrhosis w/ascites--last CT abdomen/pelvis done 03/31/17 showed cirrhosis with portal hypertension, abdominal and pelvic ascites, mild splenomegaly, and varices formation - repeat paracentesis without much fluid, 120cc, no signs of SBP - no encephalopathy, no variceal bleeding, normal renal function 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 Prednisone now complete DVT prophylaxis - no chemical due to low platelets -JABARI villalobos and SCDs Code Status -Level III, FULL RESUSCITATION [facility], instructions below: - AUGMENTIN: complete 5 more days for 7 days total treatment of Enterococcus UTI , sensitive to PCN - LASIX: stopped, likely contributing to syncope with low volume - IMDUR: stopped, allow BP to run higher, however, with cirrhosis her pressures will run low UTI: likely incidental, doubt it caused syncope, treat with Augmentin Syncope: no arrhythmias, normal echo, no signs of stroke, no orthostatic changes but BP low normal to low at times, likely a result of diuresis but also cirrhosis plan to go to rehab, patient not safe at home, she had 3 separate syncopal episodes prior to admission Cirrhosis: only real issues is ascites which has been controlled on the Lasix and Aldactone. Will continue Aldactone for now and hold Lasix. watch for development of further ascites, may need intermittent Lasix or intermittent paracentesis had EGD in March, showed varices, she is on Coreg for prevention of bleeding, has never bled pancytopenia due to hypersplenism, this is chronic issue normal ammonia, no hepatic encephalopathy potential for palliative approach in the future discussed with patient and family, currently her main issue is weakness and ascites, no other sequelae she is eating, moving bowels, urinating well, no bleeding or serious infections if she has further clinical deterioration in the future then palliative care should be consulted Dementia: mild, this is baseline for her, can be reluctant to participate in therapy Weakness, deconditioning: likely related to cirrhosis, may not progress to the point that she can safely return home but family and patient want to try rehab FOLLOW UP - physician at [facility] this week - [facility] in a few weeks Total Time Spent: Greater than 30 minutes This includes examination of the patient, discharge planning, medication reconciliation, and communication with other providers. Discharge Instructions Please refer to the electronic Patient Visit Report (Discharge Instructions) for additional information. Follow-Up [facility] in a few weeks Robin Brito one week after d/c from [facility] Additional Copies To Robin Brito III, CRNP; [facility]; Lou Montes, DO
== END 2017-04-26 15:00 | DRG 312 ==
LOC: EDBD 09:39 → C.EDA 09:47 → C.MED 14:25 → ENRESERV 15:03
PROVIDERS: ADMIT Hospitalist; ATTEND Internal Medicine
DX: R55 Syncope and collapse (principal); I50.32 Chronic diastolic (congestive) heart failure; N39.0 Urinary tract infection, site not specified; M35.2 Behcet's disease; D61.818 Other pancytopenia; I10 Essential (primary) hypertension; I25.10 Atherosclerotic heart disease of native coronary artery without angina pectoris; Z86.73 Personal history of transient ischemic attack (TIA), and cerebral infarction without residual deficits; E11.9 Type 2 diabetes mellitus without complications; I51.9 Heart disease, unspecified; E78.5 Hyperlipidemia, unspecified; Z90.710 Acquired absence of both cervix and uterus; Z87.440 Personal history of urinary (tract) infections; I95.9 Hypotension, unspecified; D53.9 Nutritional anemia, unspecified; D69.6 Thrombocytopenia, unspecified; K74.60 Unspecified cirrhosis of liver

== ENCOUNTER 2017-05-08 19:50 | Inpatient (IN) | payer OTHER ==
[~2017-05-08] VITALS: Ht 154.9 cm; Wt 61.7 kg
[~2017-05-08 19:50] MED LIST changes: -FLUO10CA15 PO; -FLUO10CA24 PO; -FRS/40 PO; -LACT1TAB4 PO; -LCTX PO; -NITR1CAP16 PO; -VANC5CAP PO; -VNCS125 PO
[2017-05-08] MEDS ORDERED: FRS/40 PO (20:00)
[2017-05-08] MEDS ORDERED: SODIUM CHLORIDE 0.9% 500ML 500 ML IV STA (20:42)
--- NOTE | 2017-05-08 20:47 | EMERGENCY ROOM VISIT NOTE ---
History Report prepared by Didiibe: Mignon Hannon Under the Supervision of: Dr. Wan Bell D.O. First contact with patient: 20:28 Chief Complaint: ALTERED MENTAL STATUS Stated Complaint: AMS Nursing Triage Summary: Pt arrived via ambulance from [facility]. Pt had been admitted to after an 18 day admission in the hospital. Pt was recently diagnosed with cirrhosis. Staff reported that the pt was slow to respond today and had a fever of 101. Pt reports pain in the LUQ. Pt has abdominal ascites. Pt also stated that she has a headache with pain a 10 out of 10. When EMS arrived pts temp was 98.8. Pt had a neg stroke scale. History of Present Illness The patient is a 72 year old female who presents to the Emergency Room with complaints of an altered mental status that started prior to arrival. She was brought to the ED via EMS from [facility], where she has resided for the past 2 weeks. Her family reports she was admitted to [facility] after an 18 day stay in the hospital for recently diagnosed non-alcoholic cirrhosis. When her family visited this evening, she had a fever of 101 degrees and nursing staff told them that she hadn't been "acting like herself" and was "slow to respond". The patient complains of a headache and LUQ abdominal pain here in the ED. Her son states she does have a history of headaches, but he does not believe she's ever seen a neurologist for her headaches. Her family also states she routinely experiences UTI's. The patient denies any shortness of breath, nausea or vomiting. 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 A total of 10 systems reviewed and were otherwise negative. Past Medical & Surgical Medical Problems: (1) Altered mental state (2) Benign hypertension (3) Cataract surgery (4) Coronary artery disease (5) CVA/TIA/Stroke (6) Diabetes (7) Fever (8) Heart disease (9) Hyperlipidemia (10) Hysterectomy (11) Knee surgery (12) Lower GI bleed (13) Migraines (14) Otitis (15) PERSONAL HX OF TIA,& CEREBRAL INFARCTION W/OUT RES DEFICITS (16) Placement of stent (17) UTI (urinary tract infection) (18) Weakness Family History Breast cancer Diabetes mellitus Hyperlipidemia Hypertension Myocardial infarction Stroke Social History Smoking Status: Never Smoker Alcohol Use: none Drug Use: none Marital Status: Housing Status: lives with significant other Occupation Status: retired Current/Historical Medications Scheduled Carvedilol (Coreg), 6.25 MG PO BID Clopidogrel (Plavix), 75 MG PO Q2D Cyanocobalamin (Vitamin B-12), 500 MCG PO QAM Folic Acid (Folvite), 1 MG PO QAM Furosemide (Lasix), 40 MG PO QAM Gabapentin (Neurontin), 300 MG PO TID Spironolactone (Aldactone), 25 MG PO QAM Verapamil Sust Rel (Calan Sr Ext Rel), 120 MG PO DAILY Scheduled PRN Docusate Sodium (Colace), 1 CAP PO BID PRN for Constipation Polyethylene Glycol 3350 (Miralax), 17 GM PO DAILY PRN for Constipation Allergies Coded Allergies: Codeine (Verified Allergy, Unknown, MORPHINE OK, 05/08/17) Latex2 -Systemic Allergic Response (Verified Allergy, Unknown, UNKNOWN, ) Physical Exam Vital Signs Date Time Temp Pulse Resp B/P (MAP) Pulse Ox O2 Delivery O2 Flow Rate FiO2 05/08/17 23:06 93 16 140/73 99 Room Air 05/08/17 21:19 100 20 125/80 95 Room Air 05/08/17 20:58 98 20 119/80 98 Room Air 05/08/17 20:57 97 Room Air 05/08/17 20:29 94 05/08/17 20:02 37.0 95 18 119/80 95 Room Air Physical Exam GENERAL: Patient is listless, but follows commands well. EYES: The conjunctivae are clear. The pupils are round and reactive. EARS, NOSE, MOUTH AND THROAT: The nose is without any evidence of any deformity. Mucous membranes are dry, tongue is midline NECK: The neck is nontender and supple. RESPIRATORY: Normal respiratory effort is noted there is no evidence of wheezing rhonchi or rales CARDIOVASCULAR: Regular rate and rhythm noted there no murmurs rubs or gallops normal S1 normal S2 GASTROINTESTINAL: The abdomen is soft. Bowel sounds are present in all quadrants. Abdomen is nontender MUSCULOSKELETAL/EXTREMITIES: There is no evidence of gross deformity full range of motion is noted in the hips and shoulders SKIN: Pedal edema bilaterally. There is no obvious evidence of any rash. There are no petechiae, pallor or cyanosis noted. NEUROLOGIC: Patient is awake, alert, oriented to person, place and situation. She follows commands but is at her baseline according to her son. Medical Decision & Procedures ER Provider Diagnostic Interpretation: Radiology results as stated below per my review and radiologist interpretation: SINGLE VIEW CHEST CLINICAL HISTORY: Change in mental status. FINDINGS: An AP, portable, upright chest radiograph is compared to study dated 04/25/2017. The examination is degraded by portable technique and patient rotation. The cardiomediastinal silhouette is unremarkable. There is atherosclerotic calcification of the thoracic aorta. Chronic interstitial thickening and elevation of the right hemidiaphragm are similar to previous. There is minimal bibasilar atelectasis. No airspace consolidation is seen typical for pneumonia and there is no large pleural effusion. No pneumothorax is seen. The skeletal structures are osteopenic. The bony thorax is grossly intact. Degenerative change and scoliosis are noted in the thoracic spine. IMPRESSION: No acute cardiopulmonary abnormality. Electronically signed by: Tommy Grissom M.D. 05/08/2017 9:[address] SCAN OF THE BRAIN WITHOUT IV CONTRAST CLINICAL HISTORY: Headache. COMPARISON STUDY: CT of the brain dated 04/13/2017. TECHNIQUE: Unenhanced axial CT scan of the brain is performed from the vertex to the skull base. CT DOSE: 638.56 mGycm FINDINGS: Brain parenchyma: There are age-related involutional changes noting mild subcortical and periventricular microangiopathic change. There is no hemorrhage, mass effect, or evidence of acute territorial ischemia by CT criteria. Chronic infarcts are identified in the left basal ganglia. Jane-white matter is preserved. No extra-axial fluid collection is seen. Ventricles, sulci, cisterns: Prominent secondary to involutional change. Intracranial vasculature: There is atherosclerotic calcification of the cavernous carotid and vertebral arteries. Calvarium: Unremarkable. Sinuses and mastoids: The visualized paranasal sinuses are clear. There is a trace right mastoid effusion. The left mastoid air cells are well pneumatized. Orbits: The bony orbits are grossly intact. There are bilateral ocular lens implants. IMPRESSION: There is no hemorrhage, mass effect, or evidence of acute territorial ischemia by CT criteria. No significant change from 04/13/2017. Electronically signed by: Tommy Grissom M.D. 05/08/2017 10:14 PM Laboratory Results 05/08/17 21:17 Red Blood Count 3.63, Mean Corpuscular Volume 97.0, Mean Corpuscular Hemoglobin 32.5, Mean Corpuscular Hemoglobin Concent 33.5, Mean Platelet Volume 8.9, Neutrophils (%) (Auto) 77.5, Lymphocytes (%) (Auto) 14.9, Monocytes (%) (Auto) 7.0, Eosinophils (%) (Auto) 0.1, Basophils (%) (Auto) 0.1, Neutrophils # (Auto) 15.95, Lymphocytes # (Auto) 3.06, Monocytes # (Auto) 1.44, Eosinophils # (Auto) 0.03, Basophils # (Auto) 0.02 05/08/17 21:17 Test 05/08/17 21:17 05/08/17 21:26 White Blood Count 20.58 K/uL (4.8-10.8) Red Blood Count 3.63 M/uL (4.2-5.4) Hemoglobin 11.8 g/dL (12.0-16.0) Hematocrit 35.2 % (37-47) Mean Corpuscular Volume 97.0 fL (80-100) Mean Corpuscular Hemoglobin 32.5 pg (25-34) Mean Corpuscular Hemoglobin Concent 33.5 g/dl (32-36) Platelet Count 161 K/uL (130-400) Mean Platelet Volume 8.9 fL (7.4-10.4) Neutrophils (%) (Auto) 77.5 % Lymphocytes (%) (Auto) 14.9 % Monocytes (%) (Auto) 7.0 % Eosinophils (%) (Auto) 0.1 % Basophils (%) (Auto) 0.1 % Neutrophils # (Auto) 15.95 K/uL (1.4-6.5) Lymphocytes # (Auto) 3.06 K/uL (1.2-3.4) Monocytes # (Auto) 1.44 K/uL (0.11-0.59) Eosinophils # (Auto) 0.03 K/uL (0-0.5) Basophils # (Auto) 0.02 K/uL (0-0.2) RDW Standard Deviation 59.3 fL (36.4-46.3) RDW Coefficient of Variation 16.7 % (11.5-14.5) Immature Granulocyte % (Auto) 0.4 % Immature Granulocyte # (Auto) 0.08 K/uL (0.00-0.02) Prothrombin Time 14.0 SECONDS (9.0-12.0) Prothromb Time International Ratio 1.3 (0.9-1.1) Activated Partial Thromboplast Time 28.4 SECONDS (21.0-31.0) Partial Thromboplastin Ratio 1.1 Anion Gap 8.0 mmol/L (3-11) Est Creatinine Clear Calc Drug Dose 30.0 ml/min Estimated GFR () 42.8 Estimated GFR (Non- 36.9 BUN/Creatinine Ratio 13.1 (10-20) Calcium Level 8.4 mg/dl (8.5-10.1) Total Bilirubin 1.3 mg/dl (0.2-1) Aspartate Amino Transf (AST/SGOT) 23 U/L (15-37) Alanine Aminotransferase (ALT/SGPT) 11 U/L (12-78) Alkaline Phosphatase 93 U/L (45-117) Total Protein 6.8 gm/dl (6.4-8.2) Albumin 2.5 gm/dl (3.4-5.0) Globulin 4.3 gm/dl (2.5-4.0) Albumin/Globulin Ratio 0.6 (0.9-2) Thyroid Stimulating Hormone (TSH) 3.350 uIu/ml (0.300-4.500) Urine Color DK YELLOW Urine Appearance CLEAR (CLEAR) Urine pH 5.0 (4.5-7.5) Urine Specific [place] 1.021 (1.000-1.030) Urine Protein TRACE (NEG) Urine Glucose (UA) NEG (NEG) Urine Ketones NEG (NEG) Urine Occult Blood TRACE (NEG) Urine Nitrite NEG (NEG) Urine Bilirubin NEG (NEG) Urine Urobilinogen NEG (NEG) Urine Leukocyte Esterase MODERATE (NEG) Urine WBC (Auto) >30 /hpf (0-5) Urine RBC (Auto) 0-4 /hpf (0-4) Urine Hyaline Casts (Auto) 1-5 /lpf (0-5) Urine Epithelial Cells (Auto) 0-5 /lpf (0-5) Urine Bacteria (Auto) 3+ (NEG) Urine Opiates Screen NEG (NEG) Urine Methadone, Qualitative NEG (NEG) Urine Barbiturates NEG (NEG) Urine Phencyclidine (PCP) Level NEG (NEG) Ur Amphetamine/Methamphetamine NEG (NEG) MDMA (Ecstasy) Screen NEG (NEG) Urine Benzodiazepines Screen NEG (NEG) Urine Cocaine Metabolite NEG (NEG) Urine Marijuana (THC) NEG (NEG) Laboratory results per my review. Medications Administered Medications (Trade) Dose Ordered Sig/Sonam Route Start Time Stop Time Status Last Admin Dose Admin Sodium Chloride 500 ml @ 999 mls/hr Q31M STAT IV 05/08/17 20:42 05/08/17 21:12 DC 05/08/17 21:18 999 MLS/HR Piperacillin Sod/ Tazobactam Sod (Zosyn Iv) 3.375 gm NOW STAT IV 05/08/17 22:36 05/08/17 22:37 DC 05/08/17 23:05 3.375 GM Sodium Chloride 1,000 ml @ 999 mls/hr Q1H1M STAT IV 05/08/17 22:37 05/08/17 23:37 DC 05/08/17 23:05 999 MLS/HR ECG Indication: altered mental status Rate (beats per minute): 93 Rhythm: normal sinus Findings: no ectopy, other (low voltage QRS noted throughout, no acute ST segment abnormalities) ED Course 2038: The patient was evaluated in room C5. A complete history and physical examination were performed. 2041: NSS 500 ml @ 999 mls/hr IV. 2235: Zosyn 3.375 gm IV. 2236: NSS 1000 ml @ 999 mls/hr IV. 0: I discussed the patients case with Dr. De Luna, [facility] Hospitalist. The patient will be further evaluated. Medical Decision Prior records/ancillary studies reviewed and summarized above. Nursing notes reviewed. The patient's history was concerning for altered mental status. Differential diagnosis: Etiologies such as metabolic, infection, hypoglycemia, electrolyte abnormalities , cardiac sources, intracerebral event, toxicologic, neurologic, as well as others were entertained. The patient is a 72-year-old female who presented to emergency department for evaluation of altered mental status and fever. The patient has a history of urinary tract infection in the past. I discussed the patient's laboratory and radiographic studies with the patient's family members. She was started on IV antibiotics IV fluids in the emergency department. Given the patient's elevated white blood cell count and fever I discussed her case with the on-call [facility] hospitalist. They've agreed to evaluate the patient in the emergency department for further management and disposition. Blood Pressure Screening Patient's blood pressure: Normal blood pressure Blood pressure disposition: Did not require urgent referral Consults Time Called: 2255 Consulting Physician: Dr. De Luna [facility] Hospitalist Returned Call: 2300 I discussed the patients case with Dr. De Luna [facility] Hospitalist. The patient will be further evaluated. Impression Primary Impression: UTI (urinary tract infection) Additional Impressions: Altered mental status Fever Hyponatremia Scribe Attestation The scribe's documentation has been prepared under my direction and personally reviewed by me in its entirety. I confirm that the note above accurately reflects all work, treatment, procedures, and medical decision making performed by me. Departure Information Dispostion Being Evaluated By Hospitalist Referrals Robin Brito III, CRNP (PCP) Patient Instructions My [facility] Problem Qualifiers Primary Impression: UTI (urinary tract infection) Urinary tract infection type: site unspecified Hematuria presence: without hematuria Qualified Codes: N39.0 - Urinary tract infection, site not specified Additional Impressions: Altered mental status Altered mental status type: unspecified Qualified Codes: R41.82 - Altered mental status, unspecified Fever Fever type: unspecified Qualified Codes: R50.9 - Fever, unspecified
--- NOTE | 2017-05-08 21:16 | DIAGNOSTIC IMAGING REPORT ---
SINGLE VIEW CHEST CLINICAL HISTORY: Change in mental status. FINDINGS: An AP, portable, upright chest radiograph is compared to study dated 04/25/2017. The examination is degraded by portable technique and patient rotation. The cardiomediastinal silhouette is unremarkable. There is atherosclerotic calcification of the thoracic aorta. Chronic interstitial thickening and elevation of the right hemidiaphragm are similar to previous. There is minimal bibasilar atelectasis. No airspace consolidation is seen typical for pneumonia and there is no large pleural effusion. No pneumothorax is seen. The skeletal structures are osteopenic. The bony thorax is grossly intact. Degenerative change and scoliosis are noted in the thoracic spine. IMPRESSION: No acute cardiopulmonary abnormality. Electronically signed by: Tommy Grissom M.D. 05/08/2017 9:15 PM Dictated Date/Time: 05/08/2017 9:14 PM
[2017-05-08 21:28] LABS: BASO % 0.1 %; BASO ABS # 0.02 K/uL (0-0.2); COMPLETE YES; EOS % 0.1 %; HEMATOCRIT 35.2 % (37-47); IG% 0.4 %; LYMPH % 14.9 %; LYMPH ABS # 3.06 K/uL (1.2-3.4); MEAN CORPUSCULAR HEMOGLOBIN 32.5 pg (25-34); MEAN CORPUSCULAR HGB CONC 33.5 g/dl (32-36); MEAN PLATELET VOLUME 8.9 fL (7.4-10.4); NEUT % 77.5 %; PLATELET COUNT 161 K/uL (130-400); RED BLOOD COUNT 3.63 M/uL (4.2-5.4); WHITE BLOOD COUNT 20.58 K/uL (4.8-10.8)
[2017-05-08 21:39] LABS: INR 1.3 (0.9-1.1); PARTIAL THROMBOPLASTIN RATIO 1.1
[2017-05-08 21:45] LABS: BUN/CREATININE RATIO 13.1 (10-20); CALCIUM 8.4 mg/dl (8.5-10.1); CREATININE 1.4 mg/dl (0.60-1.20)
[2017-05-08 21:52] LABS: MANUAL MICROSCOPIC REQUIRED? NO; REVIEW REQ? NO; URINE APPEARANCE CLEAR (CLEAR); URINE BILIRUBIN NEG (NEG); URINE COLOR DK YELLOW; URINE EPITHELIAL CELL AUTO 0-5 /lpf (0-5); URINE NITRITE NEG (NEG); URINE SPECIFIC GRAVITY 1.021 (1.000-1.030); UROBILINOGEN NEG (NEG); ZZURINE CULT IF INDIC CATH YES
[2017-05-08 21:56] LABS: ALB/GLOB RATIO 0.6 (0.9-2); THYROID STIMULATING HORMONE 3.35 uIu/ml (0.300-4.500)
[2017-05-08 21:59] LABS: BENZODIAZEPINE, URINE NEG (NEG); COCAINE,URINE NEG (NEG); PHENCYCLIDINE, URINE NEG (NEG)
--- NOTE | 2017-05-08 22:15 | DIAGNOSTIC IMAGING REPORT ---
CT SCAN OF THE BRAIN WITHOUT IV CONTRAST CLINICAL HISTORY: Headache. COMPARISON STUDY: CT of the brain dated 04/13/2017. TECHNIQUE: Unenhanced axial CT scan of the brain is performed from the vertex to the skull base. CT DOSE: 638.56 mGycm FINDINGS: Brain parenchyma: There are age-related involutional changes noting mild subcortical and periventricular microangiopathic change. There is no hemorrhage, mass effect, or evidence of acute territorial ischemia by CT criteria. Chronic infarcts are identified in the left basal ganglia. Jane-white matter is preserved. No extra-axial fluid collection is seen. Ventricles, sulci, cisterns: Prominent secondary to involutional change. Intracranial vasculature: There is atherosclerotic calcification of the cavernous carotid and vertebral arteries. Calvarium: Unremarkable. Sinuses and mastoids: The visualized paranasal sinuses are clear. There is a trace right mastoid effusion. The left mastoid air cells are well pneumatized. Orbits: The bony orbits are grossly intact. There are bilateral ocular lens implants. IMPRESSION: There is no hemorrhage, mass effect, or evidence of acute territorial ischemia by CT criteria. No significant change from 04/13/2017. Electronically signed by: Tommy Grissom M.D. 05/08/2017 10:14 PM Dictated Date/Time: 05/08/2017 10:12 PM
[2017-05-08] MEDS ORDERED: PIPERACILLIN/TAZOBACTAM 3.375 GM/100ML D5W IV STA (22:36)
[2017-05-08] MEDS ORDERED: SODIUM CHLORIDE 0.9% 1000ML 1,000 ML IV STA (22:37)
--- NOTE | 2017-05-08 23:46 | History and Physical ---
History & Physical Date & Time of Service: May 08, 2017 at 23:32 Chief Complaint: AMS Primary Care Physician: Robin Brito III, CRNP History of Present Illness Source: patient, family, hospital records Mrs. Rehman is a 72 year old female with non alcoholic liver cirrhosis and recurrent UTIs who presents from [facility] with a fever and altered mental state. She currently has no complaints, feels like she is back to her baseline and does not remember all events from earlier that led up to her coming to the ER via EMS. She was recently admitted from -26 April for syncope likely due to low BP related to Lasix, Cirrhosis, Pancytopenia, UTI (enterococcus treated with Unasyn dn Augmentin). She was discharged to [facility] for rehabilitation. Since then her son reports she has been improving up until this morning when she wasn't quite her normal self and was a bit more confused than normal. She denies any chest pain, shortness of breath, cough, nasal congestion, sore throat, abdominal pain, diarrhea, constipation, dysuria or urine frequency. Past Medical/Surgical History Medical Problems: (1) Benign hypertension Status: Chronic (2) Cataract surgery Status: Resolved (3) Coronary artery disease Status: Chronic (4) CVA/TIA/Stroke Status: Chronic (5) Diabetes Status: Chronic (6) Heart disease Status: Chronic (7) Hyperlipidemia Status: Chronic (8) Hysterectomy Status: Resolved (9) Knee surgery Status: Resolved (10) Migraines Status: Chronic (11) Placement of stent Status: Resolved Family History Breast cancer Diabetes mellitus Hyperlipidemia Hypertension Myocardial infarction Stroke Social History Smoking Status: Never Smoker Smokeless Tobacco Use: No Alcohol Use: none Drug Use: none Marital Status: Housing status: lives with significant other Occupational Status: retired Immunizations History of Influenza Vaccine: Yes Influenza Vaccine Date: Jul 04, 2011 History of Tetanus Vaccine?: Yes Tetanus Immunization Date: Sep 28, 1995 History of Pneumococcal: Yes Pneumococcal Date: Jun 08, 2011 History of Hepatitis B Vaccine: Yes Hepatitis Immunization Date: Sep 28, 1995 Multi-Drug Resistant Organisms History of MDRO: No Allergies Coded Allergies: Codeine (Verified Allergy, Unknown, MORPHINE OK, 05/08/17) Latex2 -Systemic Allergic Response (Verified Allergy, Unknown, UNKNOWN, ) Home Medications Scheduled Carvedilol (Coreg), 6.25 MG PO BID Clopidogrel (Plavix), 75 MG PO Q2D Cyanocobalamin (Vitamin B-12), 500 MCG PO QAM Folic Acid (Folvite), 1 MG PO QAM Furosemide (Lasix), 40 MG PO QAM Gabapentin (Neurontin), 300 MG PO TID Spironolactone (Aldactone), 25 MG PO QAM Verapamil Sust Rel (Calan Sr Ext Rel), 120 MG PO DAILY Scheduled PRN Docusate Sodium (Colace), 1 CAP PO BID PRN for Constipation Polyethylene Glycol 3350 (Miralax), 17 GM PO DAILY PRN for Constipation Review of Systems See HPI for pertinent positives & negatives. A total of 10 systems reviewed with the patient and were otherwise negative. Physical Exam Vital Signs Date Time Temp Pulse Resp B/P (MAP) Pulse Ox O2 Delivery O2 Flow Rate FiO2 05/08/17 23:06 93 16 140/73 99 Room Air 05/08/17 21:19 100 20 125/80 95 Room Air 05/08/17 20:58 98 20 119/80 98 Room Air 05/08/17 20:57 97 Room Air 05/08/17 20:29 94 05/08/17 20:02 37.0 95 18 119/80 95 Room Air General Appearance: no apparent distress, + thin Eyes: normal inspection, PERRL, EOMI ENT: normal ENT inspection, pharynx normal Neck: supple, no JVD, no carotid bruits Respiratory/Chest: chest non-tender, lungs clear, normal breath sounds, no respiratory distress, no accessory muscle use Cardiovascular: regular rate, rhythm, no edema, no murmur, normal peripheral pulses Abdomen/GI: normal bowel sounds, non tender, soft, + distended (patient reports no worse than normal for her), + pertinent finding (no asterixis) Back: no CVA tenderness Extremities/Musculoskelatal: no calf tenderness, normal capillary refill, no pedal edema Neurologic/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: 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 tested, no motor/sensory deficits, alert, oriented x 3 Skin: normal color, warm/dry, no rash Diagnostics Laboratory Results Results Past 24 Hours Test 05/08/17 21:17 05/08/17 21:26 05/08/17 23:03 Range/Units White Blood Count 20.58 4.8-10.8 K/uL Red Blood Count 3.63 4.2-5.4 M/uL Hemoglobin 11.8 12.0-16.0 g/dL Hematocrit 35.2 37-47 % Mean Corpuscular Volume 97.0 80-100 fL Mean Corpuscular Hemoglobin 32.5 25-34 pg Mean Corpuscular Hemoglobin Concent 33.5 32-36 g/dl Platelet Count 161 130-400 K/uL Mean Platelet Volume 8.9 7.4-10.4 fL Neutrophils (%) (Auto) 77.5 % Lymphocytes (%) (Auto) 14.9 % Monocytes (%) (Auto) 7.0 % Eosinophils (%) (Auto) 0.1 % Basophils (%) (Auto) 0.1 % Neutrophils # (Auto) 15.95 1.4-6.5 K/uL Lymphocytes # (Auto) 3.06 1.2-3.4 K/uL Monocytes # (Auto) 1.44 0.11-0.59 K/uL Eosinophils # (Auto) 0.03 0-0.5 K/uL Basophils # (Auto) 0.02 0-0.2 K/uL RDW Standard Deviation 59.3 36.4-46.3 fL RDW Coefficient of Variation 16.7 11.5-14.5 % Immature Granulocyte % (Auto) 0.4 % Immature Granulocyte # (Auto) 0.08 0.00-0.02 K/uL Prothrombin Time 14.0 9.0-12.0 SECONDS Prothromb Time International Ratio 1.3 0.9-1.1 Activated Partial Thromboplast Time 28.4 21.0-31.0 SECONDS Partial Thromboplastin Ratio 1.1 Sodium Level 129 136-145 mmol/L Potassium Level 4.0 3.5-5.1 mmol/L Chloride Level 94 98-107 mmol/L Carbon Dioxide Level 27 21-32 mmol/L Anion Gap 8.0 3-11 mmol/L Blood Urea Nitrogen 18 7-18 mg/dl Creatinine 1.40 0.60-1.20 mg/dl Est Creatinine Clear Calc Drug Dose 30.0 ml/min Estimated GFR () 42.8 Estimated GFR (Non- 36.9 BUN/Creatinine Ratio 13.1 10-20 Random Glucose 125 70-99 mg/dl Calcium Level 8.4 8.5-10.1 mg/dl Total Bilirubin 1.3 0.2-1 mg/dl Aspartate Amino Transf (AST/SGOT) 23 15-37 U/L Alanine Aminotransferase (ALT/SGPT) 11 12-78 U/L Alkaline Phosphatase 93 45-117 U/L Total Protein 6.8 6.4-8.2 gm/dl Albumin 2.5 3.4-5.0 gm/dl Globulin 4.3 2.5-4.0 gm/dl Albumin/Globulin Ratio 0.6 0.9-2 Thyroid Stimulating Hormone (TSH) 3.350 0.300-4.500 uIu/ml Urine Color DK YELLOW Urine Appearance CLEAR CLEAR Urine pH 5.0 4.5-7.5 Urine Specific [facility] 1.021 1.000-1.030 Urine Protein TRACE NEG Urine Glucose (UA) NEG NEG Urine Ketones NEG NEG Urine Occult Blood TRACE NEG Urine Nitrite NEG NEG Urine Bilirubin NEG NEG Urine Urobilinogen NEG NEG Urine Leukocyte Esterase MODERATE NEG Urine WBC (Auto) >30 0-5 /hpf Urine RBC (Auto) 0-4 0-4 /hpf Urine Hyaline Casts (Auto) 1-5 0-5 /lpf Urine Epithelial Cells (Auto) 0-5 0-5 /lpf Urine Bacteria (Auto) 3+ NEG Urine Opiates Screen NEG NEG Urine Methadone, Qualitative NEG NEG Urine Barbiturates NEG NEG Urine Phencyclidine (PCP) Level NEG NEG Ur Amphetamine/Methamphetamine NEG NEG MDMA (Ecstasy) Screen NEG NEG Urine Benzodiazepines Screen NEG NEG Urine Cocaine Metabolite NEG NEG Urine Marijuana (THC) NEG NEG Microbiology Results 05/08/17 Blood Culture, León Batch Pending 05/08/17 Blood Culture, León Batch Pending 05/08/17 Urine Culture, Received Pending Diagnostic Radiology SINGLE VIEW CHEST CLINICAL HISTORY: Change in mental status. FINDINGS: An AP, portable, upright chest radiograph is compared to study dated 04/25/2017. The examination is degraded by portable technique and patient rotation. The cardiomediastinal silhouette is unremarkable. There is atherosclerotic calcification of the thoracic aorta. Chronic interstitial thickening and elevation of the right hemidiaphragm are similar to previous. There is minimal bibasilar atelectasis. No airspace consolidation is seen typical for pneumonia and there is no large pleural effusion. No pneumothorax is seen. The skeletal structures are osteopenic. The bony thorax is grossly intact. Degenerative change and scoliosis are noted in the thoracic spine. IMPRESSION: No acute cardiopulmonary abnormality. Electronically signed by: Tommy Grissom M.D. 05/08/2017 9:15 PM Dictated Date/Time: 05/08/2017 9:[address] SCAN OF THE BRAIN WITHOUT IV CONTRAST CLINICAL HISTORY: Headache. COMPARISON STUDY: CT of the brain dated 04/13/2017. TECHNIQUE: Unenhanced axial CT scan of the brain is performed from the vertex to the skull base. CT DOSE: 638.56 mGycm FINDINGS: Brain parenchyma: There are age-related involutional changes noting mild subcortical and periventricular microangiopathic change. There is no hemorrhage, mass effect, or evidence of acute territorial ischemia by CT criteria. Chronic infarcts are identified in the left basal ganglia. Jane-white matter is preserved. No extra-axial fluid collection is seen. Ventricles, sulci, cisterns: Prominent secondary to involutional change. Intracranial vasculature: There is atherosclerotic calcification of the cavernous carotid and vertebral arteries. Calvarium: Unremarkable. Sinuses and mastoids: The visualized paranasal sinuses are clear. There is a trace right mastoid effusion. The left mastoid air cells are well pneumatized. Orbits: The bony orbits are grossly intact. There are bilateral ocular lens implants. IMPRESSION: There is no hemorrhage, mass effect, or evidence of acute territorial ischemia by CT criteria. No significant change from 04/13/2017. Electronically signed by: Tommy Grissom M.D. 05/08/2017 10:14 PM Dictated Date/Time: 05/08/2017 10:12 PM EKG Normal sinus rhythm, 93 bpm Poor R wave progression through chest leads which is new compared to 22 April 2017 Impression Assessment and Plan 72 year old female with altered mental state and fever. Recurrent UTIs and UA shows likely infection again with elevated WBC. Altered mental state - suspect metabolic encephalopathy - CT head no acute pathology - appears to be back to baseline as per son therefore will defer ammonia levels at this time - treat sepsis as below Sepsis with UTI - based upon SIRS criteria WBC and HR. qSOFA 1 - not high risk. - unfortunately limited regarding fluid resuscitation due to liver cirrhosis and already has distended abdomen. - reduce lasix dose to 20 mg in morning - 1L bolus given in ER continue 80mls/hr NSS - lactate 1.2, no need to repeat - blood and urine cultures taken - initially given ceftriaxone in ER but given previous E. coli resistance on urine culture and recent antibiotics use with Unasyn I will start treatment with Zosyn for broader coverage. Hypovolemic Hyponatremia - likely due to lasix use - reduce lasix from 40 -> 20mg - gentle rehydration with NSS given cirrhosis Abnormal EKG - poor R wave progression. absent chest pain and shortness of breath with clear cause for AMS above therefore no indication for troponin at this time CVA/TIA/Stroke - continue plavix, no statin (unclear reason but possibly due to liver cirrhosis ) T2DM - appears to be diet controlled - BSG ACHS Coronary artery disease / HTN - continue verapamil, spironolactone, coreg and lasix for hypertension - on plavix for CAD (no ASA), coreg + no statin (see above) Non alcoholic cirrhosis with ascites - follows with [facility] for liver cirrhosis - continue spironolactone and reduce lasix as above due to sepsis - benign examination not consistent with SBP - monitor BM as she does not appear to be on lactulose as an outpatient Constipation - continue outpatient bowel regimen with miralax and docusate Migraines - continue verapamil for migraine prophylaxis VTE Prophylaxis - heparin Q8H SQ 5000 units Code - Full as discussed with the patient Disposition - admit to telemetry Attending Addendum: I have physically seen and examined this patient, have supervised the medical residents activities, and agree with the H&P as noted above with the following exceptions: NONE The patient is awake, well-developed and adequately nourished, alert and oriented 3, normocephalic and atraumatic, looks fatigued, lying in bed and in no acute distress. HEENT--PERRL, EOMI, mucous membranes and oropharynx dry. Neck--supple, no JVD or bruits, thyroid normal, trachea midline, no adenopathy. Heart--normal S1 and S2, no extra beats, no murmurs, rubs or gallops. Lungs--decreased breath sounds throughout, no respiratory distress, no accessory muscle use. Abdomen--normal bowel sounds and soft, nontender and nondistended, no hernias or masses, no organomegaly. Extremities--no cyanosis, clubbing or edema. There are good distal pulses b/l. Dermatologic--normal skin turgor, looks pale, warm and dry, no abnormal lymph nodes, no rash. Neurologic--cranial nerves II through XII grossly intact. Rheumatologic--decreased range of motion throughout. Psychiatric--normal affect. Assessment and Plan: 1. Altered mental state/ Metabolic encephalopathy/urosepsis/SIRS--the patient will be admitted to the telemetry unit for close monitoring. History of recurrent UTIs and resistant organisms. Placed on vancomycin IV performed go kinetic monitoring, and Zosyn 3.375 mg IV every 8 hours. Follow urine culture and sensitivity reports. Continue hydration with normal saline at 80 ML's per hour. Follow serial CBC with differential, BMP, magnesium levels. Level of Care Med/Surg Advanced Directives Existing Advance Directive: No Existing Living Will: No Existing Power of Laborer Livestock: No Resuscitation Status FULL RESUSCITATION VTE Prophylaxis VTE Risk Assessment Done? Y/N: Yes Risk Level: Moderate Given or contraindicated: Unfractionated heparin SQ Additional Copies To Robin Brito III, CRNP; [facility] Resident Tracking Resident Involvement: Resident Care Provided Care Provided: Adult Hospital Medicine
[2017-05-09] MEDS ORDERED: ONDANSETRON INJ 2 MG/ML 2 ML VIAL IV PRN
[2017-05-09] MEDS ORDERED: DOCUSATE SODIUM 100 MG CAP PO PRN
[2017-05-09] MEDS ORDERED: IV FLUIDS COMPLETED PRN (00:30)
[2017-05-09 00:45] VITALS: BP 139/83; PULSE 93; TEMP 37; O2SAT 97
[2017-05-09] MEDS: ACETAMINOPHEN 325 MG TAB PO PRN ×2 (01:15→12:06)
[2017-05-09 02:00] VITALS: Ht 154.9 cm; Wt 61.7 kg
[2017-05-09] MEDS ORDERED: PIPERACILL/TAZOBAC CONSULT ACTIVE PRN (03:00)
[2017-05-09] MEDS: SODIUM CHLORIDE 0.9% 1000ML 1,000 ML IV SCH ×2 (03:20→15:16)
[2017-05-09] MEDS: PIPERACILL/TAZOBAC IV 3.375 GM in DEXTROSE 5% 100ML 100 ML IV SCH ×3 (03:35→19:58)
[2017-05-09] MEDS: HEPARIN SOD 5000 UNIT/0.5 ML CARP SQ SCH ×2 (06:18→14:24)
[2017-05-09 07:36] VITALS: BP 113/72; PULSE 95; TEMP 36.9; O2SAT 97
[2017-05-09 07:48] LABS: BASO % 0.1 %; BASO ABS # 0.02 K/uL (0-0.2); COMPLETE YES; EOS % 0.8 %; HEMATOCRIT 31.3 % (37-47); IG% 0.2 %; LYMPH ABS # 1.71 K/uL (1.2-3.4); MEAN CELL VOLUME 95.7 fL (80-100); MEAN CORPUSCULAR HEMOGLOBIN 32.4 pg (25-34); MEAN CORPUSCULAR HGB CONC 33.9 g/dl (32-36); MEAN PLATELET VOLUME 8.2 fL (7.4-10.4); MONO % 9.1 %; NEUT % 79.8 %; PLATELET COUNT 114 K/uL (130-400); RED BLOOD COUNT 3.27 M/uL (4.2-5.4); WHITE BLOOD COUNT 17.09 K/uL (4.8-10.8)
[2017-05-09 07:55] LABS: INR 1.4 (0.9-1.1); PROTHROMBIN TIME (PATIENT) 15.1 SECONDS (9.0-12.0)
[2017-05-09 08:22] LABS: BUN/CREATININE RATIO 14.2 (10-20); CALCIUM 7.5 mg/dl (8.5-10.1); CREATININE 1.2 mg/dl (0.60-1.20); POTASSIUM 3.8 mmol/L (3.5-5.1)
[2017-05-09 08:25] LABS: ALB/GLOB RATIO 0.6 (0.9-2)
[2017-05-09] MEDS: VERAPAMIL HCL 120 MG TABCR PO SCH (08:43)
[2017-05-09] MEDS: CARVEDILOL 6.25 MG TAB PO SCH ×2 (08:43→20:00)
[2017-05-09] MEDS: CLOPIDOGREL BISULFATE 75 MG TAB PO SCH (08:44)
[2017-05-09] MEDS: CYANOCOBALAMIN 500 MCG TAB (VIT B-12) PO SCH (08:44)
[2017-05-09] MEDS: GABAPENTIN 300 MG CAP PO SCH ×3 (08:44→20:00)
[2017-05-09] MEDS ORDERED: FUROSEMIDE 20 MG TAB PO SCH (09:00)
[2017-05-09] MEDS ORDERED: POLYETHYLENE (MIRALAX) 17 GM PACK PO SCH (09:00)
[2017-05-09] MEDS ORDERED: SPIRONOLACTONE 25 MG TAB PO SCH (09:00)
[2017-05-09 09:11] VITALS: O2SAT 97
[2017-05-09] MEDS: RASPBERRY SYRUP 5 ML UDP PO SCH ×3 (14:00→20:01)
[2017-05-09] MEDS ORDERED: VANCOMYCIN HCL 125 MG/2.5ML SOLN PO ONE (14:00)
--- NOTE | 2017-05-09 14:44 | Hospitalist Progress Note ---
Hospitalist Progress Note Date of Service May 09, 2017. Subjective Pt evaluation today including: conversation w/ patient, conversation w/ family , physical exam, chart review, lab review, review of studies, review of inpatient medication list Patient seen and evaluated. Discussed with patient and . Patient is slow to respond and states she is tired. Most of conversation was with as she rested. She was due to be D/C'd from [facility] on Monday. He feels that she has made improvement but stated the Ms. Rehman does not think she is. Except for the fatigue he feels that she is mentating well. Reports she hasn't been eating much. Had a couple bites this morning and didn't touch lunch States she likes diet coke and usually has one a day. Did discuss it is good to offer things she likes and wants to eat/drink but expressed concern of empty calories and how this can be very filling preventing her from wanting to eat/ drink things of better caloric intake. Later today patient noted to have large, loose, foul smelling stool that has tested positive for C. diff Patient also noted to be wearing and DNR bracelet and was seen by palliative care and discussion to be made DNR at that time completed and resuscitation status changed. Patient stated she was tired but had no complaints. Did express abdominal pain when palpating the lower abdomen. Constitutional: + fatigue, No fever, No chills Respiratory: No cough, No shortness of breath Cardiovascular: No chest pain, No palpitations Abdomen: + pain, No nausea, No vomiting Musculoskeletal: No swelling, No calf pain Female : No dysuria Medications Current Inpatient Medications Medications (Trade) Dose Ordered Sig/Sonam Route Start Time Stop Time Status Last Admin Dose Admin Heparin Sodium (Porcine) (Heparin Sq 5000 Unit/0.5ml) 5,000 unit Q8H SQ 05/09/17 06:00 06/08/17 05:59 05/09/17 14:24 5,000 UNIT Acetaminophen (Tylenol Tab) 650 mg Q4H PRN PO 05/09/17 00:00 06/08/17 00:00 05/09/17 12:06 650 MG Ondansetron HCl (Zofran Inj) 4 mg Q6H PRN IV 05/09/17 00:00 06/08/17 00:00 Carvedilol (Coreg Tab) 6.25 mg BID PO 05/09/17 09:00 06/08/17 08:59 05/09/17 08:43 6.25 MG Clopidogrel Bisulfate (plAVix TAB) 75 mg Q2D@0900 PO 05/09/17 09:00 06/08/17 08:59 05/09/17 08:44 75 MG Cyanocobalamin (Vitamin B-12 Tab) 500 mcg QAM PO 05/09/17 09:00 06/08/17 08:59 05/09/17 08:44 500 MCG Docusate Sodium (coLACE CAP) 100 mg BID PRN PO 05/09/17 00:00 06/08/17 00:00 Folic Acid (Folvite Tab) 1 mg QAM PO 05/09/17 09:00 06/08/17 08:59 05/09/17 08:44 1 MG Furosemide (Lasix Tab) 20 mg QAM PO 05/09/17 09:00 06/08/17 08:59 05/09/17 08:44 20 MG Gabapentin (Neurontin Cap) 300 mg TID PO 05/09/17 09:00 06/08/17 08:59 05/09/17 14:05 300 MG Spironolactone (Aldactone Tab) 25 mg QAM PO 05/09/17 09:00 06/08/17 08:59 05/09/17 08:44 25 MG Verapamil HCl (Calan-Sr Tab) 120 mg DAILY PO 05/09/17 09:00 06/08/17 08:59 05/09/17 08:43 120 MG Polyethylene (Miralax Powder Packet) 17 gm DAILY PO 05/09/17 09:00 06/08/17 08:59 05/09/17 08:43 17 GM Miscellaneous (Iv Fluids Completed) 1 ea PRN PRN N/A 05/09/17 00:30 05/09/18 00:29 Piperacillin Sod/ Tazobactam Sod 3.375 gm/Dextrose 115 ml @ 28.75 mls/ hr Q8H IV 05/09/17 04:00 05/19/17 03:59 05/09/17 11:46 28.75 MLS/HR Sodium Chloride 1,000 ml @ 80 mls/hr [id number] IV 05/09/17 02:15 06/08/17 02:14 05/09/17 03:20 80 MLS/HR Piperacillin Sod/ Tazobactam Sod (Consult) 1 ea UD PRN N/A 05/09/17 03:00 06/08/17 02:59 Vancomycin HCl (Vancomycin Oral Soln) 125 mg QID PO 05/09/17 17:00 05/23/17 16:59 Raspberry (Raspberry Syrup 5ml Cup) 5 ml QID PO 05/09/17 14:00 05/23/17 13:59 05/09/17 14:00 5 ML Objective Vital Signs Date Time Temp Pulse Resp B/P (MAP) Pulse Ox O2 Delivery O2 Flow Rate FiO2 05/09/17 09:11 97 Room Air 05/09/17 07:36 36.9 95 16 113/72 (86) 97 Room Air 05/09/17 02:00 Room Air 05/09/17 00:45 37.0 93 18 139/83 (101) 97 Room Air 05/09/17 00:14 88 17 125/65 99 05/09/17 00:13 88 17 125/65 99 Room Air 05/09/17 00:07 90 05/08/17 23:06 93 16 140/73 99 Room Air 05/08/17 21:19 100 20 125/80 95 Room Air 05/08/17 20:58 98 20 119/80 98 Room Air 05/08/17 20:57 97 Room Air 05/08/17 20:29 94 05/08/17 20:02 37.0 95 18 119/80 95 Room Air Physical Exam General Appearance: no apparent distress, + pertinent finding (flat affect) Eyes: sclerae normal ENT: hearing grossly normal Neck: supple, no JVD, trachea midline Respiratory/Chest: lungs clear, normal breath sounds, no respiratory distress, no accessory muscle use Cardiovascular: regular rate, rhythm, no gallop, no murmur Abdomen: + distended, + tenderness (mostly in LLQ), + pertinent finding ( hypoactive bowel sounds; no suprapubic tenderness) Extremities: no calf tenderness Neurologic/Psychiatric: alert Skin: warm/dry, + pallor Laboratory Results Last 24 Hours Test 05/08/17 21:17 05/08/17 21:26 05/09/17 00:04 05/09/17 07:30 White Blood Count 20.58 K/uL 17.09 K/uL Red Blood Count 3.63 M/uL 3.27 M/uL Hemoglobin 11.8 g/dL 10.6 g/dL Hematocrit 35.2 % 31.3 % Mean Corpuscular Volume 97.0 fL 95.7 fL Mean Corpuscular Hemoglobin 32.5 pg 32.4 pg Mean Corpuscular Hemoglobin Concent 33.5 g/dl 33.9 g/dl Platelet Count 161 K/uL 114 K/uL Mean Platelet Volume 8.9 fL 8.2 fL Neutrophils (%) (Auto) 77.5 % 79.8 % Lymphocytes (%) (Auto) 14.9 % 10.0 % Monocytes (%) (Auto) 7.0 % 9.1 % Eosinophils (%) (Auto) 0.1 % 0.8 % Basophils (%) (Auto) 0.1 % 0.1 % Neutrophils # (Auto) 15.95 K/uL 13.63 K/uL Lymphocytes # (Auto) 3.06 K/uL 1.71 K/uL Monocytes # (Auto) 1.44 K/uL 1.56 K/uL Eosinophils # (Auto) 0.03 K/uL 0.13 K/uL Basophils # (Auto) 0.02 K/uL 0.02 K/uL RDW Standard Deviation 59.3 fL 57.4 fL RDW Coefficient of Variation 16.7 % 16.6 % Immature Granulocyte % (Auto) 0.4 % 0.2 % Immature Granulocyte # (Auto) 0.08 K/uL 0.04 K/uL Prothrombin Time 14.0 SECONDS 15.1 SECONDS Prothromb Time International Ratio 1.3 1.4 Activated Partial Thromboplast Time 28.4 SECONDS Partial Thromboplastin Ratio 1.1 Sodium Level 129 mmol/L 133 mmol/L Potassium Level 4.0 mmol/L 3.8 mmol/L Chloride Level 94 mmol/L 99 mmol/L Carbon Dioxide Level 27 mmol/L 27 mmol/L Anion Gap 8.0 mmol/L 7.0 mmol/L Blood Urea Nitrogen 18 mg/dl 17 mg/dl Creatinine 1.40 mg/dl 1.20 mg/dl Est Creatinine Clear Calc Drug Dose 30.0 ml/min 34.6 ml/min Estimated GFR () 42.8 51.6 Estimated GFR (Non- 36.9 44.5 BUN/Creatinine Ratio 13.1 14.2 Random Glucose 125 mg/dl 112 mg/dl Calcium Level 8.4 mg/dl 7.5 mg/dl Total Bilirubin 1.3 mg/dl 1.3 mg/dl Aspartate Amino Transf (AST/SGOT) 23 U/L 20 U/L Alanine Aminotransferase (ALT/SGPT) 11 U/L 9 U/L Alkaline Phosphatase 93 U/L 81 U/L Total Protein 6.8 gm/dl 5.7 gm/dl Albumin 2.5 gm/dl 2.1 gm/dl Globulin 4.3 gm/dl 3.6 gm/dl Albumin/Globulin Ratio 0.6 0.6 Thyroid Stimulating Hormone (TSH) 3.350 uIu/ml Urine Color DK YELLOW Urine Appearance CLEAR Urine pH 5.0 Urine Specific [place] 1.021 Urine Protein TRACE Urine Glucose (UA) NEG Urine Ketones NEG Urine Occult Blood TRACE Urine Nitrite NEG Urine Bilirubin NEG Urine Urobilinogen NEG Urine Leukocyte Esterase MODERATE Urine WBC (Auto) >30 /hpf Urine RBC (Auto) 0-4 /hpf Urine Hyaline Casts (Auto) 1-5 /lpf Urine Epithelial Cells (Auto) 0-5 /lpf Urine Bacteria (Auto) 3+ Urine Opiates Screen NEG Urine Methadone, Qualitative NEG Urine Barbiturates NEG Urine Phencyclidine (PCP) Level NEG Ur Amphetamine/Methamphetamine NEG MDMA (Ecstasy) Screen NEG Urine Benzodiazepines Screen NEG Urine Cocaine Metabolite NEG Urine Marijuana (THC) NEG Lactic Acid Level 1.2 mmol/L Test 05/09/17 09:40 05/09/17 11:07 Ammonia 25.0 umol/L Bedside Glucose 133 mg/dl Assessment and Plan 72 year old female with altered mental state and fever. Recurrent UTIs and UA shows likely infection again with elevated WBC. Metabolic Encephalopathy (RESOLVED): UTI and C. Diff Sepsis from Gram Neg UTI and C. Diff: - Vitals stable; leukocytosis trending down; afebrile - await further culture results - Continue NSS at 80 mL/hr at this time - hold diuretics with fluid - will monitor fluid balance in setting of ascites Gram Negative UTI: - Zosyn IV Q8H while awaiting culture results - will narrow coverage when able - has had some resistant UTIs in past C. Diff: - Add Vancomycin 125 mg po QID and probiotics Hyponatremia: IMPROVING - Improving with IVF - will hold diuretics and continue hydration overnight CVA/TIA/Stroke - Plavix 75 mg Q2D T2DM: DIET CONTROLLED - BSG ACHS CAD/HTN: - Hold Lasix and Spironolactone at this time - Continue Verapamil and Coreg Non-Alcoholic Cirrhosis with Ascites: Follows with [facility] - Continue to monitor DVT Prophylaxis: SCDs; avoid chemical prophylaxis due to thrombocytopenia -- Does have elevated INR due to cirrhosis Code Status: - DO NOT RESUSCITATE Disposition - Continue to treat UTI and C. Diff while awaiting cultures - patient was seen by Palliative Care on previous admission - Given Cirrhosis and now complications of UTI and C. Diff will need to discuss with family and patient about consideration for palliative approach Continued [facility] stay due to: multiple IV medications needed Discharge planning: uncertain
[2017-05-09 15:13] VITALS: BP 105/69; PULSE 76; TEMP 36.7; O2SAT 94
[2017-05-09] MEDS: VANCOMYCIN HCL 125 MG/2.5ML SOLN PO SCH ×2 (17:32→20:00)
[2017-05-09 23:38] VITALS: BP 99/61; PULSE 97; TEMP 37.6; O2SAT 95
[2017-05-10] VITALS: O2SAT 97
[2017-05-10] MEDS: SODIUM CHLORIDE 0.9% 1000ML 1,000 ML IV SCH ×2 (03:38→15:44)
[2017-05-10] MEDS: PIPERACILL/TAZOBAC IV 3.375 GM in DEXTROSE 5% 100ML 100 ML IV SCH ×3 (03:41→20:53)
[2017-05-10 07:18] VITALS: BP 113/70; PULSE 83; TEMP 37; O2SAT 98
--- NOTE | 2017-05-10 07:37 | Clinical Documentation Query ---
ZENON Finn : CLINICAL DOCUMENTATION QUERY Patient is a 72 year old female admitted for sepsis secondary to UTI. Admission BUN, creatinine, and estimated GFR were 18 mg/dl, 1.40 mg/dl, and 37 ml/min. Review of historical EMR range of estimated GFR from 12/2016 to present of 37 to 72 ml/min. Please clarify as clinically appropriate. Thank you. In your clinical opinion is this patient being managed for: (x ) Chronic kidney disease, stage 3 ( ) Other explanation of clinical findings (Please Explain) ( ) Unable to determine (Please Define) ( ) Need to Discuss ( ) Not Agree The medical record reflects the following clinical findings, treatment, and risk factors. Clinical Indicators: As above Treatment: IVF, serial chemistries Risk Factors:Age, hypertension, diabetes Please clarify and document your clinical opinion in the progress notes and discharge summary. Terms such as "probable", "suspected", "likely", "questionable", "possible", or "still to be ruled out" are acceptable. IF IN AGREEMENT, YOU MUST DOCUMENT ABOVE DIAGNOSTIC STATEMENT IN DAILY PROGRESS NOTES AND DISCHARGE SUMMARY. This document is not part of the patient's record. Thank You, Nasim Cabrera, RN [phone]
[2017-05-10] MEDS: FLUOXETINE HCL 10 MG CAP PO SCH (09:17)
[2017-05-10] MEDS: VERAPAMIL HCL 120 MG TABCR PO SCH (09:18)
[2017-05-10] MEDS: GABAPENTIN 300 MG CAP PO SCH ×3 (09:18→20:53)
[2017-05-10] MEDS: CYANOCOBALAMIN 500 MCG TAB (VIT B-12) PO SCH (09:18)
[2017-05-10] MEDS: CARVEDILOL 6.25 MG TAB PO SCH ×2 (09:18→20:53)
[2017-05-10] MEDS: RASPBERRY SYRUP 5 ML UDP PO SCH ×4 (09:19→20:53)
[2017-05-10] MEDS: VANCOMYCIN HCL 125 MG/2.5ML SOLN PO SCH ×4 (09:22→20:53)
[2017-05-10] MEDS: LACTOBACILLUS ACIDOPHILUS (FLORANEX) TAB PO SCH ×2 (11:23→17:10)
[2017-05-10] MEDS: ACETAMINOPHEN 325 MG TAB PO PRN (11:23)
[2017-05-10 11:28] LABS: HEMATOCRIT 30.5 % (37-47); MEAN CELL VOLUME 97.1 fL (80-100); MEAN CORPUSCULAR HEMOGLOBIN 32.2 pg (25-34); MEAN CORPUSCULAR HGB CONC 33.1 g/dl (32-36); MEAN PLATELET VOLUME 8.5 fL (7.4-10.4); PLATELET COUNT 104 K/uL (130-400); RED BLOOD COUNT 3.14 M/uL (4.2-5.4); WHITE BLOOD COUNT 11.59 K/uL (4.8-10.8)
[2017-05-10 11:53] LABS: BUN/CREATININE RATIO 9.9 (10-20); CALCIUM 7.6 mg/dl (8.5-10.1); CREATININE 1.2 mg/dl (0.60-1.20); POTASSIUM 3.5 mmol/L (3.5-5.1)
--- NOTE | 2017-05-10 14:59 | Hospitalist Progress Note ---
Hospitalist Progress Note Date of Service May 10, 2017. Subjective Pt evaluation today including: conversation w/ patient, physical exam, chart review, lab review, review of studies, review of inpatient medication list Patient seen and evaluated. Discussed with nurse who is reporting she is eating a little bit better today. Did have low grade temp this AM and patient stated she felt like she was warm. She is reporting abdominal pain is about the same as yesterday. Also stated that she "hurts all over" and began to cry. Did provide reassurance and discussed the current findings and the plan. She expresses that she would like to go home. Will discuss with the family and may need to consider palliative care to promote comfort and allow the patient to return home. Constitutional: + fever, + fatigue, No chills Respiratory: No shortness of breath Cardiovascular: No chest pain Abdomen: + pain, + nausea, + diarrhea, No vomiting Female : No dysuria Psychiatric: + depression symptoms Medications Current Inpatient Medications Medications (Trade) Dose Ordered Sig/Sonam Route Start Time Stop Time Status Last Admin Dose Admin Ondansetron HCl (Zofran Inj) 4 mg Q6H PRN IV 05/09/17 00:00 06/08/17 00:00 Carvedilol (Coreg Tab) 6.25 mg BID PO 05/09/17 09:00 06/08/17 08:59 05/10/17 09:18 6.25 MG Clopidogrel Bisulfate (plAVix TAB) 75 mg Q2D@0900 PO 05/09/17 09:00 06/08/17 08:59 05/09/17 08:44 75 MG Cyanocobalamin (Vitamin B-12 Tab) 500 mcg QAM PO 05/09/17 09:00 06/08/17 08:59 05/10/17 09:18 500 MCG Docusate Sodium (coLACE CAP) 100 mg BID PRN PO 05/09/17 00:00 06/08/17 00:00 Folic Acid (Folvite Tab) 1 mg QAM PO 05/09/17 09:00 06/08/17 08:59 05/10/17 09:19 1 MG Furosemide (Lasix Tab) 20 mg QAM PO 05/09/17 09:00 06/08/17 08:59 Future Hold 05/09/17 08:44 20 MG Gabapentin (Neurontin Cap) 300 mg TID PO 05/09/17 09:00 06/08/17 08:59 05/10/17 13:41 300 MG Spironolactone (Aldactone Tab) 25 mg QAM PO 05/09/17 09:00 06/08/17 08:59 Future Hold 05/09/17 08:44 25 MG Verapamil HCl (Calan-Sr Tab) 120 mg DAILY PO 05/09/17 09:00 06/08/17 08:59 05/10/17 09:18 120 MG Miscellaneous (Iv Fluids Completed) 1 ea PRN PRN N/A 05/09/17 00:30 05/09/18 00:29 Piperacillin Sod/ Tazobactam Sod 3.375 gm/Dextrose 115 ml @ 28.75 mls/ hr Q8H IV 05/09/17 04:00 05/19/17 03:59 05/10/17 11:57 28.75 MLS/HR Sodium Chloride 1,000 ml @ 80 mls/hr [id number] IV 05/09/17 02:15 06/08/17 02:14 05/10/17 03:38 80 MLS/HR Piperacillin Sod/ Tazobactam Sod (Consult) 1 ea UD PRN N/A 05/09/17 03:00 06/08/17 02:59 Vancomycin HCl (Vancomycin Oral Soln) 125 mg QID PO 05/09/17 17:00 05/23/17 16:59 05/10/17 13:41 125 MG Raspberry (Raspberry Syrup 5ml Cup) 5 ml QID PO 05/09/17 14:00 05/23/17 13:59 05/10/17 13:41 5 ML Fluoxetine HCl (Prozac Cap) 10 mg QAM PO 05/10/17 09:00 06/09/17 08:59 05/10/17 09:17 10 MG Lactobacillus Acidophilus (Floranex Tab) 4 tab TIDM PO 05/10/17 12:00 06/09/17 11:59 05/10/17 11:23 4 TAB Ibuprofen (Advil Tab) 400 mg TID PRN PO 05/10/17 13:30 06/09/17 13:29 Objective Vital Signs Date Time Temp Pulse Resp B/P (MAP) Pulse Ox O2 Delivery O2 Flow Rate FiO2 05/10/17 09:41 Room Air 05/10/17 07:18 37.0 83 18 113/70 (84) 98 Room Air 05/10/17 00:00 97 Room Air 05/09/17 23:38 37.6 97 18 99/61 (74) 95 Room Air 05/09/17 16:00 Room Air 05/09/17 15:13 36.7 76 20 105/69 (81) 94 Room Air Physical Exam General Appearance: + mild distress (tearful/uncomfortable), + thin, + pertinent finding (flat affect; chronically ill-appearing) Eyes: sclerae normal ENT: hearing grossly normal Neck: supple, no JVD, trachea midline Respiratory/Chest: lungs clear, no respiratory distress, no accessory muscle use, + decreased breath sounds Cardiovascular: regular rate, rhythm, no gallop, no murmur Abdomen: normal bowel sounds, + distended, + tenderness Neurologic/Psychiatric: alert Skin: warm/dry, + pallor Laboratory Results Last 24 Hours Test 05/09/17 16:20 05/09/17 20:04 05/10/17 07:25 05/10/17 11:14 Bedside Glucose 125 mg/dl 144 mg/dl 122 mg/dl White Blood Count 11.59 K/uL Red Blood Count 3.14 M/uL Hemoglobin 10.1 g/dL Hematocrit 30.5 % Mean Corpuscular Volume 97.1 fL Mean Corpuscular Hemoglobin 32.2 pg Mean Corpuscular Hemoglobin Concent 33.1 g/dl RDW Standard Deviation 57.0 fL RDW Coefficient of Variation 16.3 % Platelet Count 104 K/uL Mean Platelet Volume 8.5 fL Sodium Level 136 mmol/L Potassium Level 3.5 mmol/L Chloride Level 104 mmol/L Carbon Dioxide Level 25 mmol/L Anion Gap 7.0 mmol/L Blood Urea Nitrogen 12 mg/dl Creatinine 1.20 mg/dl Est Creatinine Clear Calc Drug Dose 34.6 ml/min Estimated GFR () 51.6 Estimated GFR (Non- 44.5 BUN/Creatinine Ratio 9.9 Random Glucose 141 mg/dl Calcium Level 7.6 mg/dl Test 05/10/17 11:19 Bedside Glucose 138 mg/dl Assessment and Plan 72 year old female with altered mental state and fever. Recurrent UTIs and UA shows likely infection again with elevated WBC. Metabolic Encephalopathy (RESOLVED): UTI and C. Diff Sepsis from Gram Neg UTI and C. Diff: - Continue NSS at 80 mL/hr at this time - hold diuretics with fluid - will monitor fluid balance in setting of ascites Gram Negative UTI: - Zosyn IV Q8H while awaiting culture results and will narrow coverage C. Diff: - Vancomycin 125 mg po QID and probiotics Depression: - Family members concerned as patient has been more withdrawn and depressed - Will start Prozac 10 mg daily and monitor for response with possible increase in dosing if necessary Hyponatremia: RESOLVED - Continue to monitor CVA/TIA/Stroke - Plavix 75 mg Q2D T2DM: DIET CONTROLLED - BSG ACHS - readings acceptable CAD/HTN: - Hold Lasix and Spironolactone at this time - Continue Verapamil and Coreg Non-Alcoholic Cirrhosis with Ascites: Follows with [facility] - Continue to monitor DVT Prophylaxis: SCDs; avoid chemical prophylaxis due to thrombocytopenia -- Does have elevated INR due to cirrhosis Code Status: - DO NOT RESUSCITATE Disposition - Continue to treat UTI and C. Diff while awaiting cultures - patient was seen by Palliative Care on previous admission - Given Cirrhosis and now complications of UTI and C. Diff will need to discuss with family and patient about consideration for palliative approach Continued [facility] stay due to: multiple IV medications needed Discharge planning: uncertain
[2017-05-10] MEDS: IBUPROFEN 200 MG TAB PO PRN ×2 (15:45→23:57)
[2017-05-10 16:21] VITALS: BP 121/74; PULSE 76; TEMP 36.5; O2SAT 98
[2017-05-11 00:15] VITALS: BP 114/65; PULSE 87; TEMP 36.8; O2SAT 98
[2017-05-11] MEDS: PIPERACILL/TAZOBAC IV 3.375 GM in DEXTROSE 5% 100ML 100 ML IV SCH (04:18)
[2017-05-11] MEDS: SODIUM CHLORIDE 0.9% 1000ML 1,000 ML IV SCH (04:18)
[2017-05-11 07:49] VITALS: BP 145/83; PULSE 80; TEMP 36.5; O2SAT 99
[2017-05-11 08:05] LABS: CREATININE 1.1 mg/dl (0.60-1.20)
[2017-05-11] MEDS: VANCOMYCIN HCL 125 MG/2.5ML SOLN PO SCH ×4 (09:14→20:37)
[2017-05-11] MEDS: RASPBERRY SYRUP 5 ML UDP PO SCH ×4 (09:14→20:37)
[2017-05-11] MEDS: IBUPROFEN 200 MG TAB PO PRN ×2 (09:15→17:23)
[2017-05-11] MEDS: CLOPIDOGREL BISULFATE 75 MG TAB PO SCH (09:15)
[2017-05-11] MEDS: CYANOCOBALAMIN 500 MCG TAB (VIT B-12) PO SCH (09:15)
[2017-05-11] MEDS: LACTOBACILLUS ACIDOPHILUS (FLORANEX) TAB PO SCH ×3 (09:15→17:24)
[2017-05-11] MEDS: GABAPENTIN 300 MG CAP PO SCH ×3 (09:16→20:37)
[2017-05-11] MEDS: VERAPAMIL HCL 120 MG TABCR PO SCH (09:17)
[2017-05-11] MEDS: FLUOXETINE HCL 10 MG CAP PO SCH (09:17)
[2017-05-11] MEDS: CARVEDILOL 6.25 MG TAB PO SCH ×2 (09:17→20:37)
[2017-05-11 10:38] LABS: BUN/CREATININE RATIO 9.3 (10-20); CALCIUM 7.4 mg/dl (8.5-10.1); CREATININE 1.1 mg/dl (0.60-1.20); POTASSIUM 3.4 mmol/L (3.5-5.1)
[2017-05-11] MEDS ORDERED: LEVOFLOXACIN / D5W 750 MG in PREMIXED IN D5W 150 ML IV SCH (11:00)
--- NOTE | 2017-05-11 13:48 | Hospitalist Progress Note ---
Hospitalist Progress Note Date of Service May 11, 2017. Subjective Pt evaluation today including: conversation w/ patient, physical exam, chart review, lab review, review of studies, review of inpatient medication list Patient seen and evaluated. No acute events overnight. Patient appears mildly improved and reporting feeling more comfortable. She had a little more animation but largely continues with a flat affect. States she has some minimal abdominal discomfort but improved from yesterday and reporting improvement in amount of stool. UCx with enterobacter cloacae with intermittent resistant to Zosyn and resistant to ceftriaxone/cefotaxime Dr. Cleveland talked with family and palliative and will have a family meeting tomorrow to discuss prognosis and ongoing treatment plan. Constitutional: No fever, No chills Respiratory: No shortness of breath Cardiovascular: No chest pain Abdomen: + pain (improved), + diarrhea, No nausea, No vomiting Musculoskeletal: No calf pain Female : No dysuria Medications Current Inpatient Medications Medications (Trade) Dose Ordered Sig/Sonam Route Start Time Stop Time Status Last Admin Dose Admin Ondansetron HCl (Zofran Inj) 4 mg Q6H PRN IV 05/09/17 00:00 06/08/17 00:00 Carvedilol (Coreg Tab) 6.25 mg BID PO 05/09/17 09:00 06/08/17 08:59 05/11/17 09:17 6.25 MG Clopidogrel Bisulfate (plAVix TAB) 75 mg Q2D@0900 PO 05/09/17 09:00 06/08/17 08:59 05/11/17 09:15 75 MG Cyanocobalamin (Vitamin B-12 Tab) 500 mcg QAM PO 05/09/17 09:00 06/08/17 08:59 05/11/17 09:15 500 MCG Docusate Sodium (coLACE CAP) 100 mg BID PRN PO 05/09/17 00:00 06/08/17 00:00 Folic Acid (Folvite Tab) 1 mg QAM PO 05/09/17 09:00 06/08/17 08:59 05/11/17 09:14 1 MG Furosemide (Lasix Tab) 20 mg QAM PO 05/09/17 09:00 06/08/17 08:59 Future Hold 05/09/17 08:44 20 MG Gabapentin (Neurontin Cap) 300 mg TID PO 05/09/17 09:00 06/08/17 08:59 05/11/17 13:09 300 MG Spironolactone (Aldactone Tab) 25 mg QAM PO 05/09/17 09:00 06/08/17 08:59 Future Hold 05/09/17 08:44 25 MG Verapamil HCl (Calan-Sr Tab) 120 mg DAILY PO 05/09/17 09:00 06/08/17 08:59 05/11/17 09:17 120 MG Miscellaneous (Iv Fluids Completed) 1 ea PRN PRN N/A 05/09/17 00:30 05/09/18 00:29 Piperacillin Sod/ Tazobactam Sod 3.375 gm/Dextrose 115 ml @ 28.75 mls/ hr Q8H IV 05/09/17 04:00 05/19/17 03:59 Future Hold 05/11/17 04:18 28.75 MLS/HR Piperacillin Sod/ Tazobactam Sod (Consult) 1 ea UD PRN N/A 05/09/17 03:00 06/08/17 02:59 Future Hold Vancomycin HCl (Vancomycin Oral Soln) 125 mg QID PO 05/09/17 17:00 05/23/17 16:59 05/11/17 13:09 125 MG Raspberry (Raspberry Syrup 5ml Cup) 5 ml QID PO 05/09/17 14:00 05/23/17 13:59 05/11/17 13:09 5 ML Fluoxetine HCl (Prozac Cap) 10 mg QAM PO 05/10/17 09:00 06/09/17 08:59 05/11/17 09:17 10 MG Lactobacillus Acidophilus (Floranex Tab) 4 tab TIDM PO 05/10/17 12:00 06/09/17 11:59 05/11/17 11:31 4 TAB Ibuprofen (Advil Tab) 400 mg TID PRN PO 05/10/17 13:30 06/09/17 13:29 05/11/17 09:15 400 MG Levofloxacin 750 mg/Prmx 150 ml @ 100 mls/hr Q24H IV 05/11/17 11:00 05/21/17 10:59 05/11/17 11:29 100 MLS/HR Furosemide (Lasix Tab) 20 mg QAM PO 05/12/17 09:00 06/11/17 08:59 UNV Spironolactone (Aldactone Tab) 25 mg QAM PO 05/12/17 09:00 06/11/17 08:59 UNV Objective Vital Signs Date Time Temp Pulse Resp B/P (MAP) Pulse Ox O2 Delivery O2 Flow Rate FiO2 05/11/17 09:44 Room Air 05/11/17 07:49 36.5 80 18 145/83 (103) 99 Room Air 05/11/17 00:15 36.8 87 18 114/65 (81) 98 Room Air 05/11/17 00:00 Room Air 05/10/17 16:34 Room Air 05/10/17 16:21 36.5 76 18 121/74 (90) 98 Room Air Physical Exam General Appearance: no apparent distress, + thin, + pertinent finding (flat affect but mildly more animated today) Eyes: sclerae normal ENT: hearing grossly normal Neck: supple, no JVD, trachea midline Respiratory/Chest: lungs clear, no respiratory distress, no accessory muscle use, + decreased breath sounds Cardiovascular: regular rate, rhythm, no gallop, no murmur Abdomen: normal bowel sounds, + distended, + tenderness Neurologic/Psychiatric: alert Skin: normal color, warm/dry Laboratory Results Last 24 Hours Test 05/10/17 16:22 05/10/17 20:22 05/11/17 07:24 05/11/17 07:46 Bedside Glucose 122 mg/dl 135 mg/dl 122 mg/dl Creatinine 1.10 mg/dl Est Creatinine Clear Calc Drug Dose 37.8 ml/min Estimated GFR () 57.3 Estimated GFR (Non- 49.4 Test 05/11/17 10:00 05/11/17 11:17 Sodium Level 138 mmol/L Potassium Level 3.4 mmol/L Chloride Level 108 mmol/L Carbon Dioxide Level 26 mmol/L Anion Gap 4.0 mmol/L Blood Urea Nitrogen 10 mg/dl Creatinine 1.10 mg/dl Est Creatinine Clear Calc Drug Dose 37.8 ml/min Estimated GFR () 57.3 Estimated GFR (Non- 49.4 BUN/Creatinine Ratio 9.3 Random Glucose 125 mg/dl Calcium Level 7.4 mg/dl Bedside Glucose 147 mg/dl Assessment and Plan 72 year old female with altered mental state and fever. Recurrent UTIs and UA shows likely infection again with elevated WBC. Metabolic Encephalopathy (RESOLVED): UTI and C. Diff Sepsis from Gram Neg UTI and C. Diff: IMPROVING - Will stop fluids and reinstitute diuretics - blood pressure adequate, afebrile , Enterobacter Cloacae UTI: - Intermittent resistance to Zosyn and Resistant to Ceftriaxone/Cefotaxime - Start Levaquin 750 mg IV daily C. Diff: - Vancomycin 125 mg po QID and probiotics Depression: - Family members concerned as patient has been more withdrawn and depressed - Prozac 10 mg daily and monitor for response with possible increase in dosing if necessary Hyponatremia: RESOLVED - Continue to monitor CVA/TIA/Stroke - Plavix 75 mg Q2D T2DM: DIET CONTROLLED - BSG ACHS - readings acceptable CAD/HTN: - Will reinstitute spironolactone 25 mg daily and Lasix 20 mg (lower dose than home of 40 mg daily) - Continue Verapamil and Coreg Non-Alcoholic Cirrhosis with Ascites: Follows with [facility] - Continue to monitor DVT Prophylaxis: SCDs; avoid chemical prophylaxis due to thrombocytopenia -- Does have elevated INR due to cirrhosis Code Status: DO NOT RESUSCITATE Disposition - Dr. Cleveland discussed with family this AM and Palliative Care - will have family meeting tomorrow and discuss further intervention/plan Continued [facility] stay due to: multiple IV medications needed Discharge planning: uncertain
[2017-05-11] MEDS ORDERED: POTASSIUM CHLORIDE 10 MEQ TABCR PO STA (13:59)
[2017-05-11 14:35] VITALS: BP 114/73; PULSE 84; TEMP 36.4; O2SAT 98
--- NOTE | 2017-05-11 15:26 | Palliative Care Progress Note ---
Palliative Care Progress Note Date of Service May 11, 2017. Subjective Spoke with patient's sister- Leticia Lewis, [id number]- Paige, daughter-in- law- Anabella. Family meeting tomorrow at 1530.
[2017-05-12 00:30] VITALS: BP 101/61; PULSE 76; TEMP 36.8; O2SAT 96
[2017-05-12 07:12] VITALS: BP 127/71; PULSE 85; TEMP 36.5; O2SAT 98
[2017-05-12 08:00] LABS: MEAN CELL VOLUME 97.9 fL (80-100); MEAN CORPUSCULAR HEMOGLOBIN 31.5 pg (25-34); MEAN CORPUSCULAR HGB CONC 32.1 g/dl (32-36); MEAN PLATELET VOLUME 8.6 fL (7.4-10.4); PLATELET COUNT 121 K/uL (130-400); RED BLOOD COUNT 3.37 M/uL (4.2-5.4); WHITE BLOOD COUNT 10.44 K/uL (4.8-10.8)
[2017-05-12] MEDS: RASPBERRY SYRUP 5 ML UDP PO SCH ×4 (08:23→21:06)
[2017-05-12] MEDS: CYANOCOBALAMIN 500 MCG TAB (VIT B-12) PO SCH (08:24)
[2017-05-12] MEDS: FLUOXETINE HCL 10 MG CAP PO SCH (08:24)
[2017-05-12] MEDS: FUROSEMIDE 20 MG TAB PO SCH (08:24)
[2017-05-12] MEDS: GABAPENTIN 300 MG CAP PO SCH ×3 (08:24→21:07)
[2017-05-12] MEDS: VANCOMYCIN HCL 125 MG/2.5ML SOLN PO SCH ×4 (08:24→21:07)
[2017-05-12] MEDS: VERAPAMIL HCL 120 MG TABCR PO SCH (08:25)
[2017-05-12] MEDS: LACTOBACILLUS ACIDOPHILUS (FLORANEX) TAB PO SCH ×3 (08:25→16:55)
[2017-05-12] MEDS: SPIRONOLACTONE 25 MG TAB PO SCH (08:25)
[2017-05-12] MEDS: CARVEDILOL 6.25 MG TAB PO SCH ×2 (08:25→21:07)
[2017-05-12 08:35] LABS: BUN/CREATININE RATIO 8.3 (10-20); CALCIUM 7.9 mg/dl (8.5-10.1); POTASSIUM 3.4 mmol/L (3.5-5.1)
[2017-05-12 08:36] LABS: CREATININE 1.1 mg/dl (0.60-1.20)
[2017-05-12] MEDS ORDERED: DOCUSATE SODIUM 100 MG CAP PO PRN (10:15)
[2017-05-12 10:35] VITALS: BP 138/78; PULSE 85; O2SAT 99
[2017-05-12] MEDS ORDERED: POTASSIUM CHLORIDE 10 MEQ TABCR PO STA (13:06)
--- NOTE | 2017-05-12 13:47 | Palliative Care Consultation ---
Consultation Date of Consultation: May 12, 2017. Requesting Physician: Dr. Cleveland Attending Physician: Dr. Cleveland Reason for Consultation: Goals of care History of Present Illness This 72 year old female patient with PMH of cirrhosis of the liver, ascites, CAD , CVA/TIA, recurrent UTIs, Behcet's, and others listed below, presented to the ED three days ago with c/o altered mental status and fever. She was at [facility] following a hospital stay from April 20- for syncope 2/2 hypotension due to low BP related to Lasix, cirrhosis, pancytopenia, and UTI. Prior to that admission, patient was here from March 31- with a GI bleed. 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 Patient was also newly diagnosed with cirrhosis and acites during that admission. She was eventually released and was to follow up outpatient with GI in six weeks when her body hopefully was producing adequate platelets. However, she ended up back in hospital on April 20. Had paracentesis on 04/24, 120ml fluid removed, and showed no SBP. She went to [facility]. According to family, patient was not fond of the intensity of physical therapy and was severely depressed following hospital stays. She became febrile and was apparently confused. Was discovered to have UTI- Enterobacter cloacae and C. diff infection. She was hypotensive upon arrival- was given IVF, but now is started back on diuretics. She has poor performance status, poor nutritional status. Palliative care consulted to establish goals of care. I met with patient in room 260-1. She is oriented to person and place, somewhat event. Thought it was 2014 and that [facility] was president. We talked about her medical conditions, which she has very limited knowledge of. She stated her only goal at this point is to get home and continue to do therapy in hopes of getting stronger/maintaining function. However, she did verbalize understanding that on top of cirrhosis she has complicating factors such as recurrent infection, poor nutritional status, and ascites; and that with time her disease will progress as cirrhosis is not reversible. Patient stated that when she is to the point that she does not improve or get better by coming to the hospital that she would want to go home and peacefully. Patient stated she would never want to be "kept alive by machines." Would not want CPR, intubation, feeding tube, or IVF when she is truly at end-stage. She denies any pain or SOB. Has not had any diarrhea today and is feeling well. She denied any feelings of depression or feeling down. I spoke with several family members on the phone yesterday and today: sister- Leticia, [id number] Paige and Anabella, sister- Margo. Family meeting is set today for 0. All members I spoke with are supportive of patient. However, I' m uncertain if they have the ability to care for patient at home with home health or hospice. Update 1604: Had family meeting with Annamarie Jose PA-C, myself, patient's sons/POPradip Carranza and Bartolo, Carlita, daughter in law Anabella, and had two sisters Margo and Lissett on conference call. After lung discussion of patient's condition/prognosis and her wishes, the decision was made to take patient home with hospice and private pay caregivers. I also presented this idea to the patient and she was in agreement. Patient's goal was still to be able to get OOB and to be at home and I believe hospice and caregivers can provide this. We also discussed the end of life process including eating/drinking, waxing and waning mental status, lethargy, now getting OOB as much, etc. Patient's family verbalized understanding. Other questions answered, support given. Past Medical/Surgical History Medical History: Hypertension Cataract surgery Coronary artery disease CVA/TIA/Stroke Diabetes Heart disease Hyperlipidemia Hysterectomy Knee surgery Migraines Placement of stent Social History Smoking Status: Never Smoker History of Alcohol Use: No Drug Use: none Marital Status: Housing Status: lives with significant other Occupation Status: retired Review of Systems Constitutional: + weakness ENT: + problem reported (poor appetite), No trouble swallowing Respiratory: No cough, No shortness of breath Cardiac: No chest pain, No edema Abdomen: + diarrhea (improving), + problem reported (abdominal distention but no pain), No pain, No nausea, No vomiting Female : No problem reported Psychiatric: No depression symptoms, No anxiety Allergies Coded Allergies: Codeine (Verified Allergy, Unknown, MORPHINE OK, 05/08/17) Latex2 -Systemic Allergic Response (Verified Allergy, Unknown, UNKNOWN, ) Medications Current Inpatient Medications Medications (Trade) Dose Ordered Sig/Sonam Route Start Time Stop Time Status Last Admin Dose Admin Ondansetron HCl (Zofran Inj) 4 mg Q6H PRN IV 05/09/17 00:00 06/08/17 00:00 Carvedilol (Coreg Tab) 6.25 mg BID PO 05/09/17 09:00 06/08/17 08:59 05/12/17 08:25 6.25 MG Clopidogrel Bisulfate (plAVix TAB) 75 mg Q2D@0900 PO 05/09/17 09:00 06/08/17 08:59 05/11/17 09:15 75 MG Cyanocobalamin (Vitamin B-12 Tab) 500 mcg QAM PO 05/09/17 09:00 06/08/17 08:59 05/12/17 08:24 500 MCG Folic Acid (Folvite Tab) 1 mg QAM PO 05/09/17 09:00 06/08/17 08:59 05/12/17 08:25 1 MG Gabapentin (Neurontin Cap) 300 mg TID PO 05/09/17 09:00 06/08/17 08:59 05/12/17 08:24 300 MG Verapamil HCl (Calan-Sr Tab) 120 mg DAILY PO 05/09/17 09:00 06/08/17 08:59 05/12/17 08:25 120 MG Miscellaneous (Iv Fluids Completed) 1 ea PRN PRN N/A 05/09/17 00:30 05/09/18 00:29 Piperacillin Sod/ Tazobactam Sod 3.375 gm/Dextrose 115 ml @ 28.75 mls/ hr Q8H IV 05/09/17 04:00 05/19/17 03:59 Future Hold 05/11/17 04:18 28.75 MLS/HR Piperacillin Sod/ Tazobactam Sod (Consult) 1 ea UD PRN N/A 05/09/17 03:00 06/08/17 02:59 Future Hold Vancomycin HCl (Vancomycin Oral Soln) 125 mg QID PO 05/09/17 17:00 05/23/17 16:59 05/12/17 08:24 125 MG Raspberry (Raspberry Syrup 5ml Cup) 5 ml QID PO 05/09/17 14:00 05/23/17 13:59 05/12/17 08:23 5 ML Fluoxetine HCl (Prozac Cap) 10 mg QAM PO 05/10/17 09:00 06/09/17 08:59 05/12/17 08:24 10 MG Lactobacillus Acidophilus (Floranex Tab) 4 tab TIDM PO 05/10/17 12:00 06/09/17 11:59 05/12/17 08:25 4 TAB Ibuprofen (Advil Tab) 400 mg TID PRN PO 05/10/17 13:30 06/09/17 13:29 05/11/17 17:23 400 MG Furosemide (Lasix Tab) 20 mg QAM PO 05/12/17 09:00 06/11/17 08:59 05/12/17 08:24 20 MG Spironolactone (Aldactone Tab) 25 mg QAM PO 05/12/17 09:00 06/11/17 08:59 05/12/17 08:25 25 MG Levofloxacin (Levaquin Tab) 750 mg Q2D@11 PO 05/13/17 11:00 05/18/17 10:59 Docusate Sodium (coLACE CAP) 100 mg BID PRN PO 05/12/17 10:15 06/11/17 10:14 Physical Exam Date Time Temp Pulse Resp B/P (MAP) Pulse Ox O2 Delivery O2 Flow Rate FiO2 05/12/17 09:08 Room Air 05/12/17 07:12 36.5 85 18 127/71 (89) 98 Room Air 05/12/17 00:30 36.8 76 18 101/61 (74) 96 Room Air 05/12/17 00:00 Room Air 05/11/17 16:21 Room Air 05/11/17 14:35 36.4 84 18 114/73 (87) 98 Room Air General Appearance: no apparent distress, + pertinent finding (appears older than stated age) ENT: hearing grossly normal Neck: supple, no JVD Respiratory: lungs clear, no respiratory distress, no accessory muscle use, + pertinent finding (room air) Cardiovascular: regular rate, rhythm, + normal peripheral pulses, + pertinent finding (non-pitting edema of BL ankles) Abdomen: normal bowel sounds, non tender, soft, + distended Neurologic/Psychiatric: alert, normal mood/affect, oriented x 3 (oriented to person, place and somewhat event; not oriented to date or time) Skin: + pallor Laboratory Results Last 24 Hours Test 05/11/17 16:20 05/11/17 20:17 05/12/17 07:39 05/12/17 07:44 Bedside Glucose 121 mg/dl 120 mg/dl 130 mg/dl White Blood Count 10.44 K/uL Red Blood Count 3.37 M/uL Hemoglobin 10.6 g/dL Hematocrit 33.0 % Mean Corpuscular Volume 97.9 fL Mean Corpuscular Hemoglobin 31.5 pg Mean Corpuscular Hemoglobin Concent 32.1 g/dl RDW Standard Deviation 56.9 fL RDW Coefficient of Variation 16.0 % Platelet Count 121 K/uL Mean Platelet Volume 8.6 fL Sodium Level 139 mmol/L Potassium Level 3.4 mmol/L Chloride Level 107 mmol/L Carbon Dioxide Level 24 mmol/L Anion Gap 8.0 mmol/L Blood Urea Nitrogen 8 mg/dl Creatinine 1.00 mg/dl Est Creatinine Clear Calc Drug Dose 41.6 ml/min Estimated GFR () 64.3 Estimated GFR (Non- 55.5 BUN/Creatinine Ratio 8.3 Random Glucose 118 mg/dl Calcium Level 7.9 mg/dl Test 05/12/17 11:08 Bedside Glucose 136 mg/dl Assessment & Plan Palliative Performance Scale: 50 % Problem list: Weakness Poor performance status Poor appetite/poor nutritional status/hypoalbuminemia Depression- Prozac started Pancytopenia Recurrent UTI- Enterobacter cloacae- IV Levaquin C. difficile infection- PO Vanco Cirrhosis of the liver with ascites Hx CAD/htn/HLD Hx DM Hx Behcet's disease Goals of care (Z51.5) Palliative care recommendations: -Confirmed she is level 5 DNR -Would not want heroic measures to keep her alive at end of life- no feeding tube, no IVF. -Patient's goal is to go home and be able to maintain what function she does have and to be able to continue getting OOB. Would be amenable to transitioning to hospice. -Patient would want to at home peacefully when the time comes. -Family Meeting at 1530. Will need to assess family's capabilities of keeping patient at home. is dealing some health issues of his own. -Patient has a living will which names her Carlita, two sons Dillon and Bartolo , as POAs. Patient stated she would not want heroic measures to prolong life. Thank you kindly for this consult. I will follow as needed. Update [id number]: After family meeting, the goal is for home with hospice and private pay caregivers. Patient is agreeable. online affiliate marketing manager updated. Dillon will be the primary contact.
--- NOTE | 2017-05-12 14:12 | Hospitalist Progress Note ---
Hospitalist Progress Note Date of Service May 12, 2017. Subjective Pt evaluation today including: conversation w/ patient, physical exam, chart review, lab review, review of studies, review of inpatient medication list Patient seen and evaluated. Appears to be improving and emotionally looks better. Was smiling today when talking which is the first I have seen since admission. She reports she hasn't had any diarrhea today and abdominal pain is improving but remains present. Denies much of an appetite. Plan for family meeting at 1530 with palliative, family, and providers. Constitutional: No fever, No chills Respiratory: No cough, No shortness of breath Cardiovascular: No chest pain Abdomen: + pain, No nausea, No vomiting, No diarrhea, No constipation Musculoskeletal: No swelling, No calf pain Heme: No abnormal bleeding/bruising Medications Current Inpatient Medications Medications (Trade) Dose Ordered Sig/Sonam Route Start Time Stop Time Status Last Admin Dose Admin Ondansetron HCl (Zofran Inj) 4 mg Q6H PRN IV 05/09/17 00:00 06/08/17 00:00 Carvedilol (Coreg Tab) 6.25 mg BID PO 05/09/17 09:00 06/08/17 08:59 05/12/17 08:25 6.25 MG Clopidogrel Bisulfate (plAVix TAB) 75 mg Q2D@0900 PO 05/09/17 09:00 06/08/17 08:59 05/11/17 09:15 75 MG Cyanocobalamin (Vitamin B-12 Tab) 500 mcg QAM PO 05/09/17 09:00 06/08/17 08:59 05/12/17 08:24 500 MCG Folic Acid (Folvite Tab) 1 mg QAM PO 05/09/17 09:00 06/08/17 08:59 05/12/17 08:25 1 MG Gabapentin (Neurontin Cap) 300 mg TID PO 05/09/17 09:00 06/08/17 08:59 05/12/17 12:55 300 MG Verapamil HCl (Calan-Sr Tab) 120 mg DAILY PO 05/09/17 09:00 06/08/17 08:59 05/12/17 08:25 120 MG Miscellaneous (Iv Fluids Completed) 1 ea PRN PRN N/A 05/09/17 00:30 05/09/18 00:29 Piperacillin Sod/ Tazobactam Sod 3.375 gm/Dextrose 115 ml @ 28.75 mls/ hr Q8H IV 05/09/17 04:00 05/19/17 03:59 Future Hold 05/11/17 04:18 28.75 MLS/HR Piperacillin Sod/ Tazobactam Sod (Consult) 1 ea UD PRN N/A 05/09/17 03:00 06/08/17 02:59 Future Hold Vancomycin HCl (Vancomycin Oral Soln) 125 mg QID PO 05/09/17 17:00 05/23/17 16:59 05/12/17 12:55 125 MG Raspberry (Raspberry Syrup 5ml Cup) 5 ml QID PO 05/09/17 14:00 05/23/17 13:59 05/12/17 12:55 5 ML Fluoxetine HCl (Prozac Cap) 10 mg QAM PO 05/10/17 09:00 06/09/17 08:59 05/12/17 08:24 10 MG Lactobacillus Acidophilus (Floranex Tab) 4 tab TIDM PO 05/10/17 12:00 06/09/17 11:59 05/12/17 12:55 4 TAB Ibuprofen (Advil Tab) 400 mg TID PRN PO 05/10/17 13:30 06/09/17 13:29 05/11/17 17:23 400 MG Furosemide (Lasix Tab) 20 mg QAM PO 05/12/17 09:00 06/11/17 08:59 05/12/17 08:24 20 MG Spironolactone (Aldactone Tab) 25 mg QAM PO 05/12/17 09:00 06/11/17 08:59 05/12/17 08:25 25 MG Levofloxacin (Levaquin Tab) 750 mg Q2D@11 PO 05/13/17 11:00 05/18/17 10:59 Docusate Sodium (coLACE CAP) 100 mg BID PRN PO 05/12/17 10:15 06/11/17 10:14 Objective Vital Signs Date Time Temp Pulse Resp B/P (MAP) Pulse Ox O2 Delivery O2 Flow Rate FiO2 05/12/17 09:08 Room Air 05/12/17 07:12 36.5 85 18 127/71 (89) 98 Room Air 05/12/17 00:30 36.8 76 18 101/61 (74) 96 Room Air 05/12/17 00:00 Room Air 05/11/17 16:21 Room Air 05/11/17 14:35 36.4 84 18 114/73 (87) 98 Room Air Physical Exam General Appearance: no apparent distress, + pertinent finding (chronically ill- appearing) Eyes: sclerae normal ENT: hearing grossly normal Neck: supple, no JVD, trachea midline Respiratory/Chest: lungs clear, normal breath sounds, no respiratory distress, no accessory muscle use Cardiovascular: regular rate, rhythm, no gallop, no murmur Abdomen: normal bowel sounds, soft, + distended, + tenderness Extremities: no pedal edema, no calf tenderness Neurologic/Psychiatric: alert Skin: normal color, warm/dry Laboratory Results Last 24 Hours Test 05/11/17 16:20 05/11/17 20:17 05/12/17 07:39 05/12/17 07:44 Bedside Glucose 121 mg/dl 120 mg/dl 130 mg/dl White Blood Count 10.44 K/uL Red Blood Count 3.37 M/uL Hemoglobin 10.6 g/dL Hematocrit 33.0 % Mean Corpuscular Volume 97.9 fL Mean Corpuscular Hemoglobin 31.5 pg Mean Corpuscular Hemoglobin Concent 32.1 g/dl RDW Standard Deviation 56.9 fL RDW Coefficient of Variation 16.0 % Platelet Count 121 K/uL Mean Platelet Volume 8.6 fL Sodium Level 139 mmol/L Potassium Level 3.4 mmol/L Chloride Level 107 mmol/L Carbon Dioxide Level 24 mmol/L Anion Gap 8.0 mmol/L Blood Urea Nitrogen 8 mg/dl Creatinine 1.00 mg/dl Est Creatinine Clear Calc Drug Dose 41.6 ml/min Estimated GFR () 64.3 Estimated GFR (Non- 55.5 BUN/Creatinine Ratio 8.3 Random Glucose 118 mg/dl Calcium Level 7.9 mg/dl Test 05/12/17 11:08 Bedside Glucose 136 mg/dl Assessment and Plan 72 year old female with altered mental state and fever. Recurrent UTIs and UA shows likely infection again with elevated WBC. Metabolic Encephalopathy (RESOLVED): UTI and C. Diff Sepsis from Gram Neg UTI and C. Diff: IMPROVING - Will stop fluids and reinstitute diuretics - blood pressure adequate, afebrile , leukocytosis resolved Enterobacter Cloacae UTI: - Convert to Levaquin 750 mg po Q2D with next dose 05/13 - with renal dosing this will finish a 7 day course C. Diff: - Vancomycin 125 mg po QID and probiotics - DAY #01/23 Depression: - Family members concerned as patient has been more withdrawn and depressed - noticing more animation and smiling today - Prozac 10 mg daily and monitor for response with possible increase in dosing if necessary Hyponatremia: RESOLVED - Continue to monitor CVA/TIA/Stroke - Plavix 75 mg Q2D T2DM: DIET CONTROLLED - BSG ACHS - readings acceptable CAD/HTN: - Will reinstitute spironolactone 25 mg daily and Lasix 20 mg (lower dose than home of 40 mg daily) - Continue Verapamil and Coreg Non-Alcoholic Cirrhosis with Ascites: Follows with [facility] - Continue to monitor DVT Prophylaxis: SCDs; avoid chemical prophylaxis due to thrombocytopenia -- Does have elevated INR due to cirrhosis Code Status: DO NOT RESUSCITATE Disposition - Plan for family meeting at 1530 to discuss disposition and ongoing treatment
[2017-05-12] MEDS: IBUPROFEN 200 MG TAB PO PRN (14:28)
[2017-05-12 15:01] VITALS: BP 118/71; PULSE 81; TEMP 36.6; O2SAT 99
[2017-05-12 21:05] VITALS: BP 134/76; PULSE 83; O2SAT 99
[2017-05-12 22:56] VITALS: BP 130/64; PULSE 74; TEMP 36.6; O2SAT 96
[2017-05-13] MEDS: IBUPROFEN 200 MG TAB PO PRN ×2 (02:00→20:24)
[2017-05-13 07:51] VITALS: BP 154/79; PULSE 84; TEMP 36.5; O2SAT 99
[2017-05-13] MEDS: CARVEDILOL 6.25 MG TAB PO SCH ×2 (07:51→20:25)
[2017-05-13] MEDS: CLOPIDOGREL BISULFATE 75 MG TAB PO SCH (07:51)
[2017-05-13] MEDS: RASPBERRY SYRUP 5 ML UDP PO SCH ×4 (07:51→20:24)
[2017-05-13] MEDS: VANCOMYCIN HCL 125 MG/2.5ML SOLN PO SCH ×4 (07:51→20:24)
[2017-05-13] MEDS: SPIRONOLACTONE 25 MG TAB PO SCH (07:52)
[2017-05-13] MEDS: GABAPENTIN 300 MG CAP PO SCH ×3 (07:52→20:24)
[2017-05-13] MEDS: FLUOXETINE HCL 10 MG CAP PO SCH (07:52)
[2017-05-13] MEDS: CYANOCOBALAMIN 500 MCG TAB (VIT B-12) PO SCH (07:52)
[2017-05-13] MEDS: FUROSEMIDE 20 MG TAB PO SCH (07:52)
[2017-05-13] MEDS: LACTOBACILLUS ACIDOPHILUS (FLORANEX) TAB PO SCH ×3 (07:53→16:32)
[2017-05-13] MEDS: VERAPAMIL HCL 120 MG TABCR PO SCH (07:53)
[2017-05-13 08:00] VITALS: O2SAT 99
[2017-05-13] MEDS ORDERED: LEVOFLOXACIN / D5W 750 MG in PREMIXED IN D5W 150 ML IV SCH (11:00)
[2017-05-13] MEDS ORDERED: LEVOFLOXACIN 750 MG TAB PO SCH (11:00)
--- NOTE | 2017-05-13 15:04 | Progress Note ---
Subjective Date of Service: May 13, 2017. Subjective Pt evaluation today including: conversation w/ patient, physical exam, review of inpatient medication list Pain: denies pain PO Intake: poor Voiding: no voiding problems patient much more cheerful today, smiling discussed ultimate plan to go home on hospice and stay home, she agreed with this discussed that it would not happen over the weekend, she understands no specific complaints today Problem List Medical Problems: (1) Altered mental status Status: Acute (2) Anemia Status: Acute (3) Bleeding hemorrhoid Status: Acute (4) GI bleed Status: Acute (5) Hyperglycemia Status: Acute (6) Hyponatremia Status: Acute (7) Hypotension Status: Acute (8) Lactic acidosis Status: Acute (9) Mesenteric artery stenosis Status: Acute (10) Pancytopenia Status: Acute (11) Portal hypertension Status: Acute (12) Symptomatic anemia Status: Acute (13) UTI (urinary tract infection) Status: Acute (14) Weakness Status: Acute Review of Systems Constitutional: + weakness, + fatigue Abdomen: + problem reported (distended (ascites)) Neurologic: + weakness, + balance problems Psychiatric: + depression symptoms All Other Systems: Reviewed and Negative Medications Current Inpatient Medications Medications (Trade) Dose Ordered Sig/Sonam Route Start Time Stop Time Status Last Admin Dose Admin Ondansetron HCl (Zofran Inj) 4 mg Q6H PRN IV 05/09/17 00:00 06/08/17 00:00 Carvedilol (Coreg Tab) 6.25 mg BID PO 05/09/17 09:00 06/08/17 08:59 05/13/17 07:51 6.25 MG Clopidogrel Bisulfate (plAVix TAB) 75 mg Q2D@0900 PO 05/09/17 09:00 06/08/17 08:59 05/13/17 07:51 75 MG Cyanocobalamin (Vitamin B-12 Tab) 500 mcg QAM PO 05/09/17 09:00 06/08/17 08:59 05/13/17 07:52 500 MCG Folic Acid (Folvite Tab) 1 mg QAM PO 05/09/17 09:00 06/08/17 08:59 05/13/17 07:53 1 MG Gabapentin (Neurontin Cap) 300 mg TID PO 05/09/17 09:00 06/08/17 08:59 05/13/17 12:51 300 MG Verapamil HCl (Calan-Sr Tab) 120 mg DAILY PO 05/09/17 09:00 06/08/17 08:59 05/13/17 07:53 120 MG Miscellaneous (Iv Fluids Completed) 1 ea PRN PRN N/A 05/09/17 00:30 05/09/18 00:29 Vancomycin HCl (Vancomycin Oral Soln) 125 mg QID PO 05/09/17 17:00 05/23/17 16:59 05/13/17 12:51 125 MG Raspberry (Raspberry Syrup 5ml Cup) 5 ml QID PO 05/09/17 14:00 05/23/17 13:59 05/13/17 12:51 5 ML Fluoxetine HCl (Prozac Cap) 10 mg QAM PO 05/10/17 09:00 06/09/17 08:59 05/13/17 07:52 10 MG Lactobacillus Acidophilus (Floranex Tab) 4 tab TIDM PO 05/10/17 12:00 06/09/17 11:59 05/13/17 12:51 4 TAB Ibuprofen (Advil Tab) 400 mg TID PRN PO 05/10/17 13:30 06/09/17 13:29 05/13/17 02:00 400 MG Furosemide (Lasix Tab) 20 mg QAM PO 05/12/17 09:00 06/11/17 08:59 05/13/17 07:52 20 MG Spironolactone (Aldactone Tab) 25 mg QAM PO 05/12/17 09:00 06/11/17 08:59 05/13/17 07:52 25 MG Levofloxacin (Levaquin Tab) 750 mg Q2D@11 PO 05/13/17 11:00 05/18/17 10:59 05/13/17 12:51 750 MG Docusate Sodium (coLACE CAP) 100 mg BID PRN PO 05/12/17 10:15 06/11/17 10:14 Objective Vital Signs Date Time Temp Pulse Resp B/P (MAP) Pulse Ox O2 Delivery O2 Flow Rate FiO2 05/13/17 08:00 99 Room Air 05/13/17 07:51 36.5 84 18 154/79 (104) 99 Room Air 05/13/17 00:00 Room Air 05/12/17 22:56 36.6 74 16 130/64 (86) 96 Room Air 05/12/17 21:05 83 134/76 (95) 99 Room Air 05/12/17 16:00 Room Air 05/12/17 15:01 36.6 81 18 118/71 (87) 99 Room Air Physical Exam General Appearance: WD/WN, no apparent distress Neck: supple, no adenopathy, no JVD, trachea midline Respiratory/Chest: chest non-tender, lungs clear, normal breath sounds, no respiratory distress, no accessory muscle use Cardiovascular: regular rate, rhythm, no edema, no gallop, no JVD, no murmur Abdomen: normal bowel sounds, non tender, soft, no organomegaly, + pertinent finding (ascites) Extremities: normal range of motion, non-tender, normal inspection, no pedal edema, no calf tenderness 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 Recurrent UTIs and UA shows likely infection again with elevated WBC. Metabolic Encephalopathy (RESOLVED): secondary to UTI and C. Diff, adequately treated Sepsis from Gram Neg UTI and C. Diff: sepsis resolved, afebrile, vitals stable Enterobacter Cloacae UTI: - Levaquin 750 mg po Q2D with dose today - with renal dosing this will finish a 7 day course, no further antibiotics needed C. Diff: - Vancomycin 125 mg po QID and probiotics - DAY #5 - would continue for 14 more days since she has been on antibiotics during admission Depression: - Family members concerned as patient has been more withdrawn and depressed - noticing more animation and smiling today - Prozac 10 mg daily started and she seems to be responding - certainly going home will help her mood, she has not been home in weeks Hyponatremia: RESOLVED, due to fluid overload with ascites - Continue to monitor CVA/TIA/Stroke - Plavix 75 mg Q2D T2DM: DIET CONTROLLED - BSG ACHS - readings acceptable CAD/HTN: - Will reinstitute spironolactone 25 mg daily and Lasix 20 mg - Continue Verapamil and Coreg Non-Alcoholic Cirrhosis with Ascites: Follows with [facility] - Continue to monitor DVT Prophylaxis: SCDs; avoid chemical prophylaxis due to thrombocytopenia -- Does have elevated INR due to cirrhosis Code Status: DO NOT RESUSCITATE Disposition - plan to go home on hospice, will need extra care givers, family knows patient should never be alone - will make sure she has equipment needed - not going to happen over the weekend Continued [facility] stay due to: multiple IV medications needed Discharge planning: uncertain
[2017-05-13 15:48] VITALS: BP 129/81; PULSE 88; TEMP 36.7; O2SAT 96
[2017-05-13 16:00] VITALS: O2SAT 96
[2017-05-13] MEDS: ACETAMINOPHEN 325 MG TAB PO PRN (22:39)
[2017-05-13 23:14] VITALS: BP 107/71; PULSE 87; TEMP 36.8; O2SAT 97
[2017-05-14 00:59] VITALS: O2SAT 96
[2017-05-14 07:25] VITALS: BP 103/61; PULSE 97; TEMP 36.8; O2SAT 99
[2017-05-14] MEDS: CARVEDILOL 6.25 MG TAB PO SCH ×2 (07:27→20:30)
[2017-05-14] MEDS: RASPBERRY SYRUP 5 ML UDP PO SCH ×4 (07:36→20:30)
[2017-05-14] MEDS: LACTOBACILLUS ACIDOPHILUS (FLORANEX) TAB PO SCH ×3 (07:36→16:54)
[2017-05-14] MEDS: VANCOMYCIN HCL 125 MG/2.5ML SOLN PO SCH ×4 (07:36→20:30)
[2017-05-14] MEDS: SPIRONOLACTONE 25 MG TAB PO SCH (07:37)
[2017-05-14] MEDS: FLUOXETINE HCL 10 MG CAP PO SCH (07:37)
[2017-05-14] MEDS: GABAPENTIN 300 MG CAP PO SCH ×3 (07:37→20:30)
[2017-05-14] MEDS: CYANOCOBALAMIN 500 MCG TAB (VIT B-12) PO SCH (07:37)
[2017-05-14] MEDS: FUROSEMIDE 20 MG TAB PO SCH (07:37)
[2017-05-14] MEDS: VERAPAMIL HCL 120 MG TABCR PO SCH (07:37)
[2017-05-14 08:00] VITALS: O2SAT 99
[2017-05-14 10:15] LABS: CREATININE 1.5 mg/dl (0.60-1.20)
--- NOTE | 2017-05-14 15:02 | Progress Note ---
Subjective Date of Service: May 14, 2017. Subjective Pt evaluation today including: conversation w/ patient, physical exam, lab review, review of inpatient medication list Pain: no pain PO Intake: poor Voiding: no voiding problems reviewed labs, Cr up to 1.5, likely from diuretics patient pleasant today, asking when she can go home explained that we are waiting on home arrangements for hospital bed, aides etc no complaints today Problem List Medical Problems: (1) Altered mental status Status: Acute (2) Anemia Status: Acute (3) Bleeding hemorrhoid Status: Acute (4) GI bleed Status: Acute (5) Hyperglycemia Status: Acute (6) Hyponatremia Status: Acute (7) Hypotension Status: Acute (8) Lactic acidosis Status: Acute (9) Mesenteric artery stenosis Status: Acute (10) Pancytopenia Status: Acute (11) Portal hypertension Status: Acute (12) Symptomatic anemia Status: Acute (13) UTI (urinary tract infection) Status: Acute (14) Weakness Status: Acute Review of Systems Constitutional: + weakness, + fatigue Neurologic: + memory loss All Other Systems: Reviewed and Negative Medications Current Inpatient Medications Medications (Trade) Dose Ordered Sig/Sonam Route Start Time Stop Time Status Last Admin Dose Admin Ondansetron HCl (Zofran Inj) 4 mg Q6H PRN IV 05/09/17 00:00 06/08/17 00:00 Carvedilol (Coreg Tab) 6.25 mg BID PO 05/09/17 09:00 06/08/17 08:59 05/13/17 20:25 6.25 MG Clopidogrel Bisulfate (plAVix TAB) 75 mg Q2D@0900 PO 05/09/17 09:00 06/08/17 08:59 05/13/17 07:51 75 MG Cyanocobalamin (Vitamin B-12 Tab) 500 mcg QAM PO 05/09/17 09:00 06/08/17 08:59 05/14/17 07:37 500 MCG Folic Acid (Folvite Tab) 1 mg QAM PO 05/09/17 09:00 06/08/17 08:59 05/14/17 07:37 1 MG Gabapentin (Neurontin Cap) 300 mg TID PO 05/09/17 09:00 06/08/17 08:59 05/14/17 13:07 300 MG Verapamil HCl (Calan-Sr Tab) 120 mg DAILY PO 05/09/17 09:00 06/08/17 08:59 05/14/17 07:37 120 MG Miscellaneous (Iv Fluids Completed) 1 ea PRN PRN N/A 05/09/17 00:30 05/09/18 00:29 Vancomycin HCl (Vancomycin Oral Soln) 125 mg QID PO 05/09/17 17:00 05/23/17 16:59 05/14/17 13:07 125 MG Raspberry (Raspberry Syrup 5ml Cup) 5 ml QID PO 05/09/17 14:00 05/23/17 13:59 05/14/17 13:07 5 ML Fluoxetine HCl (Prozac Cap) 10 mg QAM PO 05/10/17 09:00 06/09/17 08:59 05/14/17 07:37 10 MG Lactobacillus Acidophilus (Floranex Tab) 4 tab TIDM PO 05/10/17 12:00 06/09/17 11:59 05/14/17 13:08 4 TAB Ibuprofen (Advil Tab) 400 mg TID PRN PO 05/10/17 13:30 06/09/17 13:29 05/13/17 20:24 400 MG Furosemide (Lasix Tab) 20 mg QAM PO 05/12/17 09:00 06/11/17 08:59 05/14/17 07:37 20 MG Spironolactone (Aldactone Tab) 25 mg QAM PO 05/12/17 09:00 06/11/17 08:59 05/14/17 07:37 25 MG Levofloxacin (Levaquin Tab) 750 mg Q2D@11 PO 05/13/17 11:00 05/18/17 10:59 05/13/17 12:51 750 MG Docusate Sodium (coLACE CAP) 100 mg BID PRN PO 05/12/17 10:15 06/11/17 10:14 Acetaminophen (Tylenol Tab) 650 mg Q4H PRN PO 05/13/17 22:30 06/12/17 22:29 05/13/17 22:39 650 MG Objective Vital Signs Date Time Temp Pulse Resp B/P (MAP) Pulse Ox O2 Delivery O2 Flow Rate FiO2 05/14/17 08:00 99 Room Air 05/14/17 07:25 36.8 97 16 103/61 (75) 99 Room Air 05/14/17 00:59 96 Room Air 05/13/17 23:14 36.8 87 18 107/71 (83) 97 Room Air 05/13/17 16:00 96 Room Air 05/13/17 15:48 36.7 88 18 129/81 (97) 96 Room Air Physical Exam General Appearance: WD/WN, no apparent distress Neck: supple, no adenopathy, no JVD, trachea midline Respiratory/Chest: chest non-tender, lungs clear, normal breath sounds, no respiratory distress, no accessory muscle use Cardiovascular: regular rate, rhythm, no edema, no gallop, no JVD, no murmur Abdomen: normal bowel sounds, non tender, soft, no organomegaly, + distended ( ascites) Extremities: normal range of motion, non-tender, normal inspection, no pedal edema, no calf tenderness, pelvis stable 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 Recurrent UTIs and UA shows likely infection again with elevated WBC. Metabolic Encephalopathy (RESOLVED): secondary to UTI and C. Diff, adequately treated Sepsis from Gram Neg UTI and C. Diff: sepsis resolved, afebrile, vitals stable Enterobacter Cloacae UTI: - Levaquin 750mg QOD, initially treated with Zosyn which has indeterminate coverage - will need 3 more doses of Levaquin, starting tomorrow C. Diff: - Vancomycin 125 mg po QID and probiotics - DAY #5 - would continue for 14 more days AFTER Levaquin finished Depression: - Family members concerned as patient has been more withdrawn and depressed - mood has definitely improved - Prozac 10 mg daily started and she seems to be responding - certainly going home will help her mood further, she has not been home in weeks Hyponatremia: RESOLVED, due to fluid overload with ascites CVA/TIA/Stroke - Plavix 75 mg Q2D T2DM: DIET CONTROLLED - BSG ACHS - readings acceptable CAD/HTN: - Continue Verapamil and Coreg Non-Alcoholic Cirrhosis with Ascites: Follows with [facility] - Continue to monitor - going to stop Lasix and Aldactone due to rise in Cr up to 1.5 - would only use Lasix on PRN basis or maybe try every other day - she has ascites but intravascularly depleted due to poor oral intake ADALBERTO: as above, Cr up to 1.5, d/c Lasix and Aldactone - encourage PO intake, poor appetite DVT Prophylaxis: SCDs; avoid chemical prophylaxis due to thrombocytopenia -- Does have elevated INR due to cirrhosis Code Status: DO NOT RESUSCITATE Disposition - plan to go home on hospice, will need extra care givers, family knows patient should never be alone - will make sure she has equipment needed - not going to happen over the weekend - will need POLST form completed, ask palliative care to assist with that Continued [facility] stay due to: multiple IV medications needed Discharge planning: uncertain
[2017-05-14 15:24] VITALS: BP 146/83; PULSE 95; TEMP 36.6; O2SAT 98
[2017-05-14 16:00] VITALS: O2SAT 98
[2017-05-14] MEDS: ACETAMINOPHEN 325 MG TAB PO PRN (23:34)
[2017-05-15 00:12] VITALS: BP 119/77; PULSE 80; TEMP 36.9; O2SAT 96
[2017-05-15 07:21] VITALS: BP 123/78; PULSE 88; TEMP 36.5; O2SAT 98
[2017-05-15] MEDS: CLOPIDOGREL BISULFATE 75 MG TAB PO SCH (07:35)
[2017-05-15] MEDS: VERAPAMIL HCL 120 MG TABCR PO SCH (07:35)
[2017-05-15] MEDS: CARVEDILOL 6.25 MG TAB PO SCH (07:35)
[2017-05-15] MEDS: FLUOXETINE HCL 10 MG CAP PO SCH (07:35)
[2017-05-15] MEDS: GABAPENTIN 300 MG CAP PO SCH ×2 (07:35→12:29)
[2017-05-15] MEDS: LACTOBACILLUS ACIDOPHILUS (FLORANEX) TAB PO SCH ×2 (07:35→12:29)
[2017-05-15] MEDS: CYANOCOBALAMIN 500 MCG TAB (VIT B-12) PO SCH (07:36)
[2017-05-15] MEDS: VANCOMYCIN HCL 125 MG/2.5ML SOLN PO SCH ×2 (07:36→12:29)
[2017-05-15] MEDS: RASPBERRY SYRUP 5 ML UDP PO SCH ×2 (07:36→12:29)
[2017-05-15 07:49] LABS: HEMATOCRIT 29.9 % (37-47); MEAN CORPUSCULAR HEMOGLOBIN 32.8 pg (25-34); MEAN CORPUSCULAR HGB CONC 33.4 g/dl (32-36); MEAN PLATELET VOLUME 8.7 fL (7.4-10.4); PLATELET COUNT 100 K/uL (130-400); RED BLOOD COUNT 3.05 M/uL (4.2-5.4); WHITE BLOOD COUNT 5.57 K/uL (4.8-10.8)
[2017-05-15] MEDS ORDERED: NURSING VERBAL MED ORDER ONE (08:45)
[2017-05-15] MEDS ORDERED: LEVOFLOXACIN 750 MG TAB PO SCH (11:00)
[2017-05-15] MEDS ORDERED: NITR1CAP16 PO ×2 (11:40→13:02)
[2017-05-15] MEDS ORDERED: FLUO10CA24 PO (11:40)
[2017-05-15] MEDS ORDERED: LCTX PO (11:40)
[2017-05-15] MEDS ORDERED: VNCS125 PO (11:40)
[2017-05-15 12:01] LABS: HEMATOCRIT 31.3 % (37-47); MEAN CELL VOLUME 98.1 fL (80-100); MEAN CORPUSCULAR HEMOGLOBIN 32.3 pg (25-34); MEAN CORPUSCULAR HGB CONC 32.9 g/dl (32-36); RED BLOOD COUNT 3.19 M/uL (4.2-5.4); WHITE BLOOD COUNT 5.46 K/uL (4.8-10.8)
--- NOTE | 2017-05-15 12:08 | Discharge Instructions ---
Discharge Instructions Date of Service May 15, 2017. Admission Reason for Admission: Altered Mental Status, Fever, Uti Discharge Discharge Diagnosis / Problem: Altered mental status; urinary tract infection; c. diff Discharge Goals Goal(s): Decrease discomfort, Improve function, Increase independence, Learn about illness, Diagnostic testing, Therapeutic intervention, Prevent Disease Progression, Specific goals Activity Recommendations Activity Limitations: resume your previous activity . Instructions / Follow-Up Instructions / Follow-Up You were admitted to the hospital due to altered mental status. It is likely your altered mental status was caused by two infections: 1. Urinary tract infection This is being treated with an antibiotic. At discharge, you will take MACROBID 100 MG BY MOUTH TWICE PER DAY until prescription is complete 2. C.diff (infection in the GI tract that causes diarrhea) This is also being treated with an antibiotic. At discharge, you will take VANCOMYCIN 125 MG BY MOUTH FOUR TIMES PER DAY until prescription is complete Additionally, please continue taking FLORANEX 4 TABLETS BY MOUTH THREE TIMES PER DAY This is a Probiotic that helps your normal [place] ("good bacteria") grow in the GI tract Your Lasix and Aldactone have been discontinued due worsening kidney function when reinstituting them. This is likely due to a decrease in your oral intake ( food/fluid intake). It is important you try and eat/drink plenty of fluids throughout the day. Please avoid NSAID use, such as Ibuprofen, Aspirin, Aleve, Advil, Naprosyn, Motrin as this can be harmful to the kidneys. Prozac 10 mg daily was started in the hospital to help with your mood ( depression symptoms). THESE SCRIPTS WERE SENT TO [facility] because your preferred pharmacy could not fill the Vancomycin script. You may take Benadryl 25 mg by mouth every 6 hours as needed for skin rash/ itchiness. Do NOT exceed more than 300 mg per day. If you start to experience lightheadedness/dizziness, palpations, lip/tongue swelling, shortness of breath/difficulty breathing, wheezing, nausea/vomiting, abdominal pain, or any other symptoms of concern to you, please seek medical attention TERI During your stay, you have decided on returning home with hospice care. Caretakers have been setup for you prior to discharge. FOLLOW-UP: Follow-up with hospice care within 24-48 hrs Current Hospital Diet Patient's current hospital diet: Regular Diet Discharge Diet Recommended Diet: Regular Diet Procedures Procedures Performed: Head CT, chest x-ray Pending Studies Studies pending at discharge: no Laboratory Results Hemoglobin A1c Test 04/20/17 18:11 Range/Units Estimated Average Glucose 131 mg/dl Hemoglobin A1c 6.2 H 4.5-5.6 % Medical Emergencies . Who to Call and When: Medical Emergencies: If at any time you feel your situation is an emergency, please call 911 immediately. . Non-Emergent Contact Non-Emergency issues call your: Primary Care Provider . . "Provider Documentation" section prepared by Denise Harrison. . VTE Core Measure Inpt VTE Proph given/why not?: Unfractionated heparin SQ
--- NOTE | 2017-05-15 12:28 | Discharge Summary ---
Discharge Summary Date of Service May 15, 2017. (Denise Harrison, MAYTE) Discharge Summary Admission Date: May 09, 2017 at 11:35 Discharge Date: May 15, 2017 Discharge Disposition: Home with services (Hospice ) Principal Diagnosis: Altered mental status Problems/Secondary Diagnoses: Sepsis from UTI and C. Diff UTI- Enterobacter cloacae C. Diff Hyponatremia CVA/TIA T2DM- DIET CONTROLLED CAD HTN Non-Alcoholic Cirrhosis with Ascites ADALBERTO Depression Immunizations: Have You Had Influenza Vaccine: Yes Influenza Vaccine Date: Jul 04, 2011 History of Tetanus Vaccine?: Yes Tetanus Immunization Date: Sep 28, 1995 History of Pneumococcal: Yes Pneumococcal Date: Jun 08, 2011 History of Hepatitis B Vaccine: Yes Hepatitis Immunization Date: Sep 28, 1995 Procedures: SINGLE VIEW CHEST CLINICAL HISTORY: Change in mental status. FINDINGS: An AP, portable, upright chest radiograph is compared to study dated 04/25/2017. The examination is degraded by portable technique and patient rotation. The cardiomediastinal silhouette is unremarkable. There is atherosclerotic calcification of the thoracic aorta. Chronic interstitial thickening and elevation of the right hemidiaphragm are similar to previous. There is minimal bibasilar atelectasis. No airspace consolidation is seen typical for pneumonia and there is no large pleural effusion. No pneumothorax is seen. The skeletal structures are osteopenic. The bony thorax is grossly intact. Degenerative change and scoliosis are noted in the thoracic spine. IMPRESSION: No acute cardiopulmonary abnormality. Electronically signed by: Tommy Grissom M.D. 05/08/2017 9:15 PM Dictated Date/Time: 05/08/2017 9:14 PM The status of this report is Signed. Draft = Not yet reviewed or approved by Radiologist. Signed = Reviewed and approved by Radiologist. CT SCAN OF THE BRAIN WITHOUT IV CONTRAST CLINICAL HISTORY: Headache. COMPARISON STUDY: CT of the brain dated 04/13/2017. TECHNIQUE: Unenhanced axial CT scan of the brain is performed from the vertex to the skull base. CT DOSE: 638.56 mGycm FINDINGS: Brain parenchyma: There are age-related involutional changes noting mild subcortical and periventricular microangiopathic change. There is no hemorrhage, mass effect, or evidence of acute territorial ischemia by CT criteria. Chronic infarcts are identified in the left basal ganglia. Jane-white matter is preserved. No extra-axial fluid collection is seen. Ventricles, sulci, cisterns: Prominent secondary to involutional change. Intracranial vasculature: There is atherosclerotic calcification of the cavernous carotid and vertebral arteries. Calvarium: Unremarkable. Sinuses and mastoids: The visualized paranasal sinuses are clear. There is a trace right mastoid effusion. The left mastoid air cells are well pneumatized. Orbits: The bony orbits are grossly intact. There are bilateral ocular lens implants. IMPRESSION: There is no hemorrhage, mass effect, or evidence of acute territorial ischemia by CT criteria. No significant change from 04/13/2017. Electronically signed by: Tommy Grissom M.D. 05/08/2017 10:14 PM Dictated Date/Time: 05/08/2017 10:12 PM The status of this report is Signed. Draft = Not yet reviewed or approved by Radiologist. Signed = Reviewed and approved by Radiologist. Consultations: Palliative care (Denise Harrison, MAYTE) Medication Reconciliation New Medications: Nitrofurantoin Monohyd Macro (Macrobid) 100 Mg Cap 100 MG PO BID for 4 Days, #7 CAP Vancomycin Hcl (Vancomycin) 125 Mg Cap 125 MG PO QID for 18 Days, #72 CAP Fluoxetine HCl (Fluoxetine HCl) 10 Mg Cap 10 MG PO QAM for 30 Days, #30 CAP Lactobacillus Acidophilus (Floranex) 1 Tab Tab 4 TAB PO TIDM for 20 Days, #240 TAB Continued Medications: Carvedilol (Coreg) 6.25 Mg Tab 6.25 MG PO BID, TAB Clopidogrel (Plavix) 75 Mg Tab 75 MG PO Q2D, 0 Refills Cyanocobalamin (Vitamin B-12) 500 Mcg Tab 500 MCG PO QAM, TAB Docusate Sodium (Colace) 100 Mg Cap 1 CAP PO BID PRN for Constipation Folic Acid (Folvite) 1 Mg Tab 1 MG PO QAM, TAB Gabapentin (Neurontin) 300 Mg Cap 300 MG PO TID, CAP Polyethylene Glycol 3350 (Miralax) 1 Pow Pow 17 GM PO DAILY PRN for Constipation Verapamil Sust Rel (Calan Sr Ext Rel) 120 Mg Tabcr 120 MG PO DAILY, TAB Discontinued Medications: Furosemide (Lasix) 40 Mg Tab 40 MG PO QAM, TAB Spironolactone (Aldactone) 25 Mg Tab 25 MG PO QAM, TAB Discharge Exam Review of Systems: Constitutional: No fever, No chills, No sweats, No weakness Respiratory: No cough, No wheezing, No shortness of breath, No hemoptysis Cardiovascular: No chest pain, No edema, No palpitations Abdomen: No pain, No nausea, No vomiting, No diarrhea, No constipation Musculoskeletal: No joint pain, No muscle pain, No swelling, No calf pain Genitourinary - Female: No dysuria, No hematuria Neurologic: No weakness, No numbness/tingling Psychiatric: No depression symptoms, No anxiety Hematologic / Lymphatic: No abnormal bleeding/bruising Integumentary: + rash, + itch, No new/changing skin lesions Physical Exam: General Appearance: no apparent distress Eyes: normal inspection, PERRL ENT: hearing grossly normal Neck: supple Respiratory/Chest: lungs clear, no respiratory distress, no accessory muscle use Cardiovascular: regular rate, rhythm Abdomen / GI: normal bowel sounds, non tender, + distended Extremities: no calf tenderness, no pedal edema Neurologic/Psychiatric: alert, normal mood/affect Skin: normal color, warm/dry, + rash (noted to LUE (inner/upper portion of arm) and left/lateral side of chest ) (Denise Harrison, MAYTE) Hospital Course Admission H&P: Mrs. Rehman is a 72 year old female with non alcoholic liver cirrhosis and recurrent UTIs who presents from [facility] with a fever and altered mental state. She currently has no complaints, feels like she is back to her baseline and does not remember all events from earlier that led up to her coming to the ER via EMS. She was recently admitted from -26 April for syncope likely due to low BP related to Lasix, Cirrhosis, Pancytopenia, UTI ( enterococcus treated with Unasyn dn Augmentin). She was discharged to [facility] for rehabilitation. Since then her son reports she has been improving up until this morning when she wasn't quite her normal self and was a bit more confused than normal. She denies any chest pain, shortness of breath, cough, nasal congestion, sore throat, abdominal pain, diarrhea, constipation, dysuria or urine frequency. Physical Exam Vital Signs Date Time Temp Pulse Resp B/P (MAP) Pulse Ox O2 Delivery O2 Flow Rate FiO2 05/08/17 23:06 93 16 140/73 99 Room Air 05/08/17 21:19 100 20 125/80 95 Room Air 05/08/17 20:58 98 20 119/80 98 Room Air 05/08/17 20:57 97 Room Air 05/08/17 20:29 94 05/08/17 20:02 37.0 95 18 119/80 95 Room Air General Appearance: no apparent distress, + thin Eyes: normal inspection, PERRL, EOMI ENT: normal ENT inspection, pharynx normal Neck: supple, no JVD, no carotid bruits Respiratory/Chest: chest non-tender, lungs clear, normal breath sounds, no respiratory distress, no accessory muscle use Cardiovascular: regular rate, rhythm, no edema, no murmur, normal peripheral pulses Abdomen/GI: normal bowel sounds, non tender, soft, + distended (patient reports no worse than normal for her), + pertinent finding (no asterixis) Back: no CVA tenderness Extremities/Musculoskelatal: no calf tenderness, normal capillary refill, no pedal edema 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 Recurrent UTIs and UA shows likely infection again with elevated WBC. Metabolic Encephalopathy, secondary to UTI and C. diff- RESOLVED Sepsis from UTI and C. Diff- RESOLVED: Treated with IV antibiotics and IVF UTI- Enterobacter cloacae: - Treated w/ IV Zosyn 05/08-05/11, then transitioned to Levaquin on 05/11 - ?Allergic reaction (erythremic, migrating rash, pruritic) on 05/15 -- Patient denied any allergies; according to [facility] PCP record, allergic to Levaquin- switch to Macrobid and use Benadryl PRN - Discharge w/ Macrobid 100 mg BID x4 days- last day of treatment 05/18 C. Diff: Vancomycin 125 mg po QID and probiotics- last day of treatment 06/02 Hyponatremia- RESOLVED: Treated w/ IVF and held diuretics CVA/TIA: Continue Plavix 75 mg Q2D T2DM- DIET CONTROLLED: BSG ACHS CAD/HTN: - Held Lasix and Spironolactone at admission due to sepsis/hyponatremia -- Reinstituted on 05/12 but patient developed ADALBERTO on 05/14, likely due to poor oral intake- discontinued medications at discharge - Continue Verapamil and Coreg Non-Alcoholic Cirrhosis with Ascites- follows w/ [facility]: Palliative care consultation- LEVEL V, DNR, no heroic measures, hospice care ADALBERTO w/ Cr 1.5 from baseline 1.10- IMPROVING: - Held Lasix and Aldactone - Poor appetite, encouraged good oral intake Depression: Prozac 10 mg daily DVT Prophylaxis: SCDs; avoid chemical prophylaxis due to thrombocytopenia/ elevated INR due to cirrhosis Code Status: DO NOT RESUSCITATE Disposition: Discharge to home w/ hospice Total Time Spent: Greater than 30 minutes This includes examination of the patient, discharge planning, medication reconciliation, and communication with other providers. (Denise Harrison PA-C) I personally interviewed and examined the patient I discussed the above plan with Miss Denise Harrison I agree with her Hx and PE ROS/PMHx: as HPI FHx/SHx/labs/meds reviewed as needed PE: average built, not in acute distress LUNGs: normal exam, no wheezing/R Heart: s1/s2 normal, no G/R/M ABD: soft, N tender, distended w positive ascites Ext: B/L LE no edema or swelling Neuro: pleasant,AAOX3, EOMI, moves all ext, CN 2-12 intact 72 year old female with altered mental state and fever secondary to Recurrent UTIs and UA /Ucx grew Enterobacter Cloacae. treated with zosynX 5days then levofloxacin X one dose then switched upon DC to Macrobid also has C. Diff: sepsis resolved will continue on vanco 14 days after stopping the ABx for her Non-Alcoholic Cirrhosis with Ascites: Follows with [facility] she developed ADALBERTO Cr up to 1.5, d/c Lasix and Aldactone, today it improved at 1.3 will go home on hospice (Kimberlee Okeefe MD) Discharge Instructions Please refer to the electronic Patient Visit Report (Discharge Instructions) for additional information. (Denise Harrison PA-C) Follow-Up Follow- up with hospice care within 24-48 hrs (Denise Harrison PA-C) Additional Copies To Robin Brito III, CRNP
[2017-05-15] MEDS ORDERED: VANC5CAP PO (12:30)
[2017-05-15 12:32] LABS: BUN/CREATININE RATIO 10.6 (10-20); CALCIUM 8.1 mg/dl (8.5-10.1); CREATININE 1.3 mg/dl (0.60-1.20); POTASSIUM 3.9 mmol/L (3.5-5.1)
[2017-05-15 12:35] LABS: ALB/GLOB RATIO 0.6 (0.9-2)
[2017-05-15 12:42] LABS: MEAN PLATELET VOLUME 8.8 fL (7.4-10.4); PLATELET COUNT 97 K/uL (130-400)
[2017-05-15 12:43] LABS: BASO % 0.2 %; BASO ABS # 0.01 K/uL (0-0.2); COMPLETE YES; EOS % 0.9 %; IG% 0.9 %; LYMPH % 27.5 %; NEUT % 59.5 %; PLT ESTIMATE DECREASED
[2017-05-15] MEDS ORDERED: NITROFURANTOIN MONOHYDRATE 100 MG CAP PO SCH (12:45)
[2017-05-15] MEDS ORDERED: FLUO10CA15 PO (13:02)
[2017-05-15] MEDS ORDERED: LACT1TAB4 PO (13:02)
[2017-05-15 13:31] VITALS: BP 123/78; PULSE 88; TEMP 36.5; O2SAT 98
== END 2017-05-15 14:29 | disposition hospice, home (50) | DRG 871 ==
LOC: EDBD 19:50 → C.EDC 19:51 → C.MS2W 23:51 → ENRESERV 23:59 → OBSVTOIN 05-09 11:35
PROVIDERS: ADMIT Hospitalist; ATTEND Hospitalist
DX: A41.59 Other Gram-negative sepsis (principal); G93.41 Metabolic encephalopathy; N39.0 Urinary tract infection, site not specified; E87.1 Hypo-osmolality and hyponatremia; R18.8 Other ascites; N17.9 Acute kidney failure, unspecified; D61.818 Other pancytopenia; K76.6 Portal hypertension; K55.1 Chronic vascular disorders of intestine; A04.7 Enterocolitis due to Clostridium difficile; Z51.5 Encounter for palliative care; I10 Essential (primary) hypertension; I25.10 Atherosclerotic heart disease of native coronary artery without angina pectoris; Z86.73 Personal history of transient ischemic attack (TIA), and cerebral infarction without residual deficits; T50.1X5A Adverse effect of loop [high-ceiling] diuretics, initial encounter; E11.9 Type 2 diabetes mellitus without complications; E78.5 Hyperlipidemia, unspecified; K74.60 Unspecified cirrhosis of liver; K59.00 Constipation, unspecified; R65.20 Severe sepsis without septic shock; F32.9 Major depressive disorder, single episode, unspecified; Y92.89 Other specified places as the place of occurrence of the external cause; E88.09 Other disorders of plasma-protein metabolism, not elsewhere classified; R10.11 Right upper quadrant pain

== ENCOUNTER → 2017-05-08 | Outpatient (CLI) | payer OTHER ==
[~2017-05-08] MED LIST changes: +AMOX1TAB43 PO; +FLUO10CA15 PO; +FLUO10CA24 PO; +FRS/40 PO; -FURO-85 PO; -ISOS30TA3 PO; +LACT1TAB4 PO; +LCTX PO; -MRLP17X PO; +NITR1CAP16 PO; -NTRGSL/4 UT; -NVLG SC; -PRD10 PO; -PRED10TA PO; -SIMV20TA5 PO; +VANC5CAP PO; +VNCS125 PO
--- NOTE | 2017-05-08 07:50 | DIAGNOSTIC IMAGING REPORT ---
ABDOMEN LIMITED (US) HISTORY: Pain. Nausea. RUQ PAIN. COMPARISON: 04/24/2017 FINDINGS: Pancreas: 1.6 cm cystic nodule pancreatic body and tail juncture. Liver: Unremarkable. Gallbladder: Postcholecystectomy. CBD: 1.5 cm. Right kidney: No evidence for hydronephrosis. 3 cm upper pole cyst. Moderate ascites. IMPRESSION: 1. 1.5 cm cystic nodule juncture pancreatic body and tail. 2. Extra hepatic common bile duct prominence at 1.5 cm. 3. Post cholecystectomy. 4. Ascites The above report was generated using voice recognition software. It may contain grammatical, syntax or spelling errors. Electronically signed by: Kristopher Armenta M.D. 05/08/2017 7:48 AM Dictated Date/Time: 05/08/2017 7:45 AM
== END | disposition home or self-care (01) ==
LOC: C.ULTR 07:03
PROVIDERS: ATTEND Internal Medicine
DX: R10.11 Right upper quadrant pain (principal); R18.8 Other ascites